=== PATIENT | male | born 1970 | race Caucasian/White ===

== ENCOUNTER 2017-08-10 12:02 | Inpatient (IN) | payer OTHER ==
[2017-08-10] VITALS (7 sets, daily range): BP systolic 130–153; BP diastolic 70–91; PULSE 91–117; RESP 17–20; TEMP 98.6–100.9; O2SAT 96–100
[~2017-08-10] VITALS: Ht 167.6 cm; Wt 71.5 kg
[2017-08-10] MEDS ORDERED: SODIUM CHLOR 0.9% 1000 ML INJ 1,000 ML IV SCH (12:17)
--- NOTE | 2017-08-10 12:22 | PD ---
HPI Chief Complaint: Skin Problem Time Seen by Provider: 12:10 Travel History International Travel<30 days: No Contact w/Intl Traveler<30days: No Traveled to known affect area: No History of Present Illness HPI 47-year-old male with history of diabetes presents for evaluation of left foot pain. Reports that 1 month ago he had a callus on the medial plantar aspect of the left foot which he picked off with this finger. He reports that there was some bleeding afterwards. Since that he is developed pain and increased redness around the left foot. Symptoms have persisted which prompted evaluation. Pain is burning, constant, worse when walking. Denies any fevers, chills at home. He reports that he moved here 3 months ago from [place], does not have a local primary care physician. Takes metformin for diabetes, reports that he checks his blood sugar about once per week and last week his blood sugar was 225. He has no other complaints at this time. PFSH Past Medical History Diabetes: Yes Social History Alcohol Use: Yes Tobacco Use: No Allergies-Medications (Allergen,Severity, Reaction): Coded Allergies: No Known Allergies (Unverified , 08/10/17) Reported Meds & Prescriptions Reported Meds & Active Scripts Active Reported Metformin (Metformin HCl) 1,000 Mg Tab 1,000 Mg PO BIDPC Review of Systems Except as stated in HPI: all other systems reviewed are Neg Physical Exam Narrative GENERAL: Well-developed well-nourished male in no acute distress SKIN: Warm and dry. There is a foul-smelling ulceration to the plantar aspect of the left foot. There is no ulceration on the dorsum of the left foot as well. There is surrounding erythema and induration of the skin. HEAD: Atraumatic. Normocephalic. EYES: Pupils equal and round. No scleral icterus. No injection or drainage. ENT: No nasal bleeding or discharge. Mucous membranes pink and moist. NECK: Trachea midline. No JVD. CARDIOVASCULAR: Regular rate and rhythm. No murmur appreciated. RESPIRATORY: No accessory muscle use. Clear to auscultation. Breath sounds equal bilaterally. GASTROINTESTINAL: Abdomen soft, non-tender, nondistended. Hepatic and splenic margins not palpable. MUSCULOSKELETAL: Skin as noted above. Patient maintains full range of motion of lower extremities. There is no lower extremity pitting edema. 2+ dorsalis pedis pulse bilaterally. NEUROLOGICAL: Awake and alert. No obvious cranial nerve deficits. Motor grossly within normal limits. Normal speech. Data Data Last Documented VS Vital Signs Date Time Temp Pulse Resp B/P (MAP) Pulse Ox O2 Delivery O2 Flow Rate FiO2 08/10/17 12:33 109 19 08/10/17 12:30 99.3 144/86 (105) 100 Room Air Orders Orders Foot, Complete ([id number]) (08/10/17 ) Sepsis Workup Initiated (08/10/17 ) Complete Blood Count With Diff (08/10/17 12:17) Comprehensive Metabolic Panel (08/10/17 12:17) Lactic Acid Sepsis Protocol (08/10/17 12:17) Blood Culture (08/10/17 12:17) Wound Culture And Gram Stain (08/10/17 12:17) Iv Access Insert/Monitor (08/10/17 12:17) Westergren Sedimentation Rate (08/10/17 12:17) C-Reactive Protein (Crp) (08/10/17 12:17) Sodium Chlor 0.9% 1000 Ml Inj (Ns 1000 M (08/10/17 12:17) Vancomycin Inj (Vancomycin Inj) (08/10/17 12:30) Piperacil-Tazo 3.375 Gm Premix (Zosyn 3. (08/10/17 12:30) Admit Order (Ed Use Only) (08/10/17 13:36) Labs Laboratory Tests Test 08/10/17 12:25 White Blood Count 10.4 TH/MM3 Red Blood Count 3.76 MIL/MM3 Hemoglobin 11.5 GM/DL Hematocrit 32.8 % Mean Corpuscular Volume 87.2 FL Mean Corpuscular Hemoglobin 30.5 PG Mean Corpuscular Hemoglobin Concent 35.0 % Red Cell Distribution Width 11.4 % Platelet Count 292 TH/MM3 Mean Platelet Volume 7.3 FL Neutrophils (%) (Auto) 72.0 % Lymphocytes (%) (Auto) 13.1 % Monocytes (%) (Auto) 10.9 % Eosinophils (%) (Auto) 3.5 % Basophils (%) (Auto) 0.5 % Neutrophils # (Auto) 7.5 TH/MM3 Lymphocytes # (Auto) 1.4 TH/MM3 Monocytes # (Auto) 1.1 TH/MM3 Eosinophils # (Auto) 0.4 TH/MM3 Basophils # (Auto) 0.1 TH/MM3 CBC Comment DIFF FINAL Differential Comment Erythrocyte Sedimentation Rate GREATER THAN 140 mm/hr Blood Urea Nitrogen 8 MG/DL Creatinine 0.91 MG/DL Random Glucose 364 MG/DL Total Protein 9.3 GM/DL Albumin 3.0 GM/DL Calcium Level 8.9 MG/DL Alkaline Phosphatase 148 U/L Aspartate Amino Transf (AST/SGOT) 36 U/L Alanine Aminotransferase (ALT/SGPT) 35 U/L Total Bilirubin 0.4 MG/DL Sodium Level 135 MEQ/L Potassium Level 3.6 MEQ/L Chloride Level 97 MEQ/L Carbon Dioxide Level 26.8 MEQ/L Anion Gap 11 MEQ/L Estimat Glomerular Filtration Rate 89 ML/MIN Lactic Acid Level 1.7 mmol/L C-Reactive Protein 15.30 MG/DL [facility] Medical Decision Making Medical Screen Exam Complete: Yes Emergency Medical Condition: Yes Medical Record Reviewed: Yes Differential Diagnosis Diabetic foot ulcer, sepsis, cellulitis, osteomyelitis Narrative Course 47-year-old male with evidence of diabetic foot ulcer and cellulitis left foot. He is tachycardic in triage and his temperature is 99.3. Plan is for lab work , blood cultures, wound culture, left foot x-ray. He will be given IV fluids, broad-spectrum antibiotics. ESR and CRP are markedly elevated. ESR is greater than 140. Glucose is 364. Plan is to admit the patient for IV antibiotics, rule out osteomyelitis. He is agreeable. Diagnosis Primary Impression: Cellulitis of left foot Additional Impression: Diabetic foot infection Admitting Information Admitting Physician Requests: Admit Jon Campbell August 10, 2017 12:22
[2017-08-10] MEDS ORDERED: VANCOMYCIN INJ 1,000 MG in SODIUM CHLOR 0.9% 250 ML INJ 250 ML IV ONE (12:30)
[2017-08-10] MEDS ORDERED: PIPERACIL-TAZO 3.375 GM PREMIX 50 ML IV ONE (12:30)
[2017-08-10 12:37] LABS: AUTOMATED NEUTROPHIL # 7.5 TH/MM3 (1.8-7.7); BASOPHIL # 0.1 TH/MM3 (0-0.2); BASOPHIL % 0.5 % (0.0-2.0); EOSINOPHIL # 0.4 TH/MM3 (0-0.4); EOSINOPHIL % 3.5 % (0.0-4.0); HEMATOCRIT 32.8 % (39.0-51.0); HEMOGLOBIN 11.5 GM/DL (13.0-17.0); LYMPH % 13.1 % (9.0-44.0); LYMPHOCYTE # 1.4 TH/MM3 (1.0-4.8); MEAN CELL VOLUME 87.2 FL (80.0-100.0); MEAN CORPUSCULAR HEMOGLOBIN 30.5 PG (27.0-34.0); MEAN PLATELET VOLUME 7.3 FL (7.0-11.0); MONO % 10.9 % (0.0-8.0); MONOCYTE # 1.1 TH/MM3 (0-0.9); PLATELET COUNT 292 TH/MM3 (150-450); RED BLOOD COUNT 3.76 MIL/MM3 (4.50-5.90); RED CELL DISTRIBUTION WIDTH 11.4 % (11.6-17.2); WHITE BLOOD COUNT 10.4 TH/MM3 (4.0-11.0)
[2017-08-10] MEDS ORDERED: METF1000 PO (12:37)
--- NOTE | 2017-08-10 12:58 | RADRPT ---
EXAM DATE/TIME: 08/10/2017 12:28 [facility] COMPARISON: No previous studies available for comparison. INDICATIONS : Left foot pain and swelling with an ulcer on dorsal surface. MEDICAL HISTORY : None. SURGICAL HISTORY : None. ENCOUNTER: Initial ACUITY: 1 month PAIN SCORE: 10/10 LOCATION: Left foot. FINDINGS: Generalized soft tissue swelling is noted throughout the left foot. Arterial vascular calcification is noted. Osseous structures are intact without evidence of fracture or destructive changes. There is no signif icant arthropathy. Focal spurring is seen along the dorsum of the talar bone. CONCLUSION: 1. Generalized soft tissue swelling without evidence of fracture, destructive bony changes or signifi cant arthropathy. 2. Arterial calcification. Olu Baker MD on August 10, 2017 at 12:55 Board Certified Radiologist. This report was verified electronically.
[2017-08-10 13:09] LABS: BLOOD UREA NITROGEN 8 MG/DL (7-18); CREATININE 0.91 MG/DL (0.60-1.30); GLOMERULAR FILTRATION RATE 89 ML/MIN (>89); GLUCOSE,RANDOM 364 MG/DL (74-106); TOTAL PROTEIN 9.3 GM/DL (6.4-8.2)
[2017-08-10 13:10] LABS: ALKALINE PHOSPHATASE 148 U/L (45-117); ALT (GPT) 35 U/L (12-78); AST (GOT) 36 U/L (15-37); BICARBONATE 26.8 MEQ/L (21.0-32.0); CALCIUM 8.9 MG/DL (8.5-10.1); CHLORIDE 97 MEQ/L (98-107); SODIUM (NA) 135 MEQ/L (136-145); TOTAL BILIRUBIN ADULT 0.4 MG/DL (0.2-1.0)
--- NOTE | 2017-08-10 13:53 | PD ---
Data Data Last Documented VS Vital Signs Date Time Temp Pulse Resp B/P (MAP) Pulse Ox O2 Delivery O2 Flow Rate FiO2 08/10/17 12:33 109 19 08/10/17 12:30 99.3 144/86 (105) 100 Room Air Orders Orders Foot, Complete ([id number]) (08/10/17 ) Sepsis Workup Initiated (08/10/17 ) Complete Blood Count With Diff (08/10/17 12:17) Comprehensive Metabolic Panel (08/10/17 12:17) Lactic Acid Sepsis Protocol (08/10/17 12:17) Blood Culture (08/10/17 12:17) Wound Culture And Gram Stain (08/10/17 12:17) Iv Access Insert/Monitor (08/10/17 12:17) Westergren Sedimentation Rate (08/10/17 12:17) C-Reactive Protein (Crp) (08/10/17 12:17) Sodium Chlor 0.9% 1000 Ml Inj (Ns 1000 M (08/10/17 12:17) Vancomycin Inj (Vancomycin Inj) (08/10/17 12:30) Piperacil-Tazo 3.375 Gm Premix (Zosyn 3. (08/10/17 12:30) Admit Order (Ed Use Only) (08/10/17 13:36) Labs Laboratory Tests Test 08/10/17 12:25 White Blood Count 10.4 TH/MM3 Red Blood Count 3.76 MIL/MM3 Hemoglobin 11.5 GM/DL Hematocrit 32.8 % Mean Corpuscular Volume 87.2 FL Mean Corpuscular Hemoglobin 30.5 PG Mean Corpuscular Hemoglobin Concent 35.0 % Red Cell Distribution Width 11.4 % Platelet Count 292 TH/MM3 Mean Platelet Volume 7.3 FL Neutrophils (%) (Auto) 72.0 % Lymphocytes (%) (Auto) 13.1 % Monocytes (%) (Auto) 10.9 % Eosinophils (%) (Auto) 3.5 % Basophils (%) (Auto) 0.5 % Neutrophils # (Auto) 7.5 TH/MM3 Lymphocytes # (Auto) 1.4 TH/MM3 Monocytes # (Auto) 1.1 TH/MM3 Eosinophils # (Auto) 0.4 TH/MM3 Basophils # (Auto) 0.1 TH/MM3 CBC Comment DIFF FINAL Differential Comment Erythrocyte Sedimentation Rate GREATER THAN 140 mm/hr Blood Urea Nitrogen 8 MG/DL Creatinine 0.91 MG/DL Random Glucose 364 MG/DL Total Protein 9.3 GM/DL Albumin 3.0 GM/DL Calcium Level 8.9 MG/DL Alkaline Phosphatase 148 U/L Aspartate Amino Transf (AST/SGOT) 36 U/L Alanine Aminotransferase (ALT/SGPT) 35 U/L Total Bilirubin 0.4 MG/DL Sodium Level 135 MEQ/L Potassium Level 3.6 MEQ/L Chloride Level 97 MEQ/L Carbon Dioxide Level 26.8 MEQ/L Anion Gap 11 MEQ/L Estimat Glomerular Filtration Rate 89 ML/MIN Lactic Acid Level 1.7 mmol/L C-Reactive Protein 15.30 MG/DL MDM Supervised Visit with ZHANE: Yes Narrative Course The history, exam, and medical decision-making in the associated mid-level provider note were completed with my assistance. I reviewed and agree with the findings presented. I attest that I had a [id number] encounter with the patient on the same day, and personally performed and documented my assessment and findings in the medical record. *My assessment and Findings: 47-year-old man, presents to the emergency department complaining of wounds to his foot. He picked a callus area developed an ulcer with now has diffuse cellulitis with an ulceration of the top and will may be a developing abscess on the dorsum of the foot. No definite fluctuant fluid collections. Inflammatory markers are elevated. Patient is a history of diabetes. Recommend admission for IV antibiotics, rule out osteomyelitis. Diagnosis Primary Impression: Cellulitis of left foot Additional Impression: Diabetic foot infection Benedicto Anguiano MD August 10, 2017 13:52
[2017-08-10] MEDS ORDERED: GLUCAGON 1 MG/ML VIAL OTHER PRN (14:15)
[2017-08-10] MEDS ORDERED: SODIUM CHLORIDE 0.9% FLUSH 10 ML FLUSH IV FLUSH PRN (14:15)
[2017-08-10] MEDS ORDERED: BISACODYL 10 MG SUPP RECTAL PRN (14:15)
[2017-08-10] MEDS ORDERED: MAGNESIUM HYDROXIDE SUSP 30 ML CUP PO PRN (14:15)
[2017-08-10] MEDS ORDERED: SENNOSIDES 8.6 MG TAB PO PRN (14:15)
[2017-08-10] MEDS ORDERED: Vancomycin Consult Pharmacy 1 EA OTHER SCH (14:15)
[2017-08-10] MEDS ORDERED: LACTULOSE SYRUP 20 GM/30 ML CUP PO PRN (14:15)
[2017-08-10] MEDS ORDERED: METOCLOPRAMIDE HCL 10 MG/2 ML VIAL IV PUSH PRN (14:15)
[2017-08-10] MEDS ORDERED: VANCOMYCIN INJ 1,000 MG in SODIUM CHLOR 0.9% 250 ML INJ 250 ML IV SCH (14:15)
[2017-08-10] MEDS ORDERED: PROCHLORPERAZINE 25 MG SUPP PR PRN (14:15)
[2017-08-10] MEDS ORDERED: DEXTROSE 50% IN WATER 50 ML VIAL(D50) IV PUSH PRN (14:15)
[2017-08-10] MEDS ORDERED: NALOXONE HCL 0.4 MG/ML AMP IV PUSH PRN (14:15)
[2017-08-10] MEDS: SODIUM CHLOR 0.9% 1000 ML INJ 1,000 ML IV SCH (15:22)
[2017-08-10] MEDS: ACETAMINOPHEN 325 MG TAB PO PRN (15:47)
--- NOTE | 2017-08-10 16:12 | PD.CONS ---
History of Present Illness Service Infectious Disease Consult Requested By Dr Simone Vidal Reason for Consult Evaluate patient for possible osteomyelitis, antibiotic recommendation Primary Care Physician No Primary Care Physician Diagnoses: History of Present Illness Patient seen and examined. Records reviewed. Patient is a 47-year-old male, with known diabetes, presented to the hospital complaining of 2 day history of redness and swelling on his left foot. Patient has a callus over his first metatarsal, and about a month ago, he picked on it. He apparently developed a sore, and it was not really giving him any problem, until 2 days prior to admission when he started developing redness and swelling on his left foot. He denies any fever chills or sweats. He did not notice any odor to it. He has no other complaints. Patient has moved to [place] about 5 months ago, and he has not established with a primary care physician. He presented to the hospital, and has been admitted. He has cellulitis on that left foot. X-ray of the foot did not show any evidence of bony destruction fracture or any foreign body. Highest temperature has been 99+. His WBC is normal, but his ESR is greater than 140, and CRP 15.30. He is currently on vancomycin and Zosyn. Infectious disease consultation has been requested to evaluate the patient for possible osteomyelitis, and make antibiotic recommendations. Review of Systems Constitutional: DENIES: Fever, Chills, Night Sweats Eyes: DENIES: Eye pain Ears, nose, mouth, throat: DENIES: Nasal discharge, Oral lesions, Throat pain, Hoarseness Respiratory: DENIES: Cough, Shortness of breath Cardiovascular: DENIES: Chest pain, Palpitations, Syncope, Dyspnea on Exertion Gastrointestinal: DENIES: Abdominal pain, Diarrhea, Nausea, Vomiting, Difficulty Swallowing Genitourinary: DENIES: Urgency, Dysuria, Nocturia Musculoskeletal: DENIES: Joint pain, Joint Swelling Integumentary: DENIES: Pruritus, Rash Hematologic/lymphatic: DENIES: Lymphadenopathy Neurologic: DENIES: Headache, Localized weakness Psychiatric: DENIES: Hallucinations Past Family Social History Allergies: Coded Allergies: No Known Allergies (Unverified , 08/10/17) Past Medical History Diabetes Past Surgical History Surgery on his right index finger related to trauma Active Ordered Medications Current Medications Medications (Trade) Dose Ordered Sig/Leigh Ann Route Start Time Stop Time Status Last Admin Piperacillin Sod/ Tazobactam Sod 100 ml @ 200 mls/hr Q6H IV 08/10/17 18:00 Pharmacy Profile Note 0 ml @ 0 mls/hr UNSCH OTHER 08/10/17 14:15 Sodium Chloride 1,000 ml @ 100 mls/hr Q10H IV 08/10/17 15:00 08/10/17 15:22 (NS Flush) 2 ml UNSCH PRN IV FLUSH 08/10/17 14:15 (NS Flush) 2 ml BID IV FLUSH 08/10/17 21:00 (Tylenol) 650 mg Q4H PRN PO 08/10/17 14:15 08/10/17 15:47 (Reglan Inj) 5 mg Q6H PRN IV PUSH 08/10/17 14:15 (Narcan Inj) 0.4 mg UNSCH PRN IV PUSH 08/10/17 14:15 (Michelle-Colace) 1 tab BID PO 08/10/17 21:00 (Milk Of Magnesia Liq) 30 ml Q12H PRN PO 08/10/17 14:15 (Senokot) 17.2 mg Q12H PRN PO 08/10/17 14:15 (Dulcolax Supp) 10 mg DAILY PRN RECTAL 08/10/17 14:15 (Lactulose Liq) 30 ml DAILY PRN PO 08/10/17 14:15 (D50w (Vial) Inj) 50 ml UNSCH PRN IV PUSH 08/10/17 14:15 (Glucagon Inj) 1 mg UNSCH PRN OTHER 08/10/17 14:15 (NovoLOG SUPPLEMENTAL SCALE) 1 ACHS SLIDING SCALE SQ 08/10/17 17:00 Vancomycin HCl 1000 mg/Sodium Chloride 250 ml @ 250 mls/hr Q12H IV 08/11/17 01:00 [place] [place] Lab Info) SPECIFIC LAB TO BE DRAWN:VANCOMYCIN TROUGH DATE TO... ONCE ONCE .XX 08/12/17 00:45 08/12/17 00:46 Family History Noncontributory Social History No smoking Occasional alcohol Denies illicit drug His 6 years ago Recently moved to [place] about 5 months ago and his 16-year-old son lives with him Physical Exam Vital Signs Vital Signs Date Time Temp Pulse Resp B/P (MAP) Pulse Ox O2 Delivery O2 Flow Rate FiO2 08/10/17 15:13 08/10/17 12:33 109 19 08/10/17 12:30 99.3 109 19 144/86 (105) 100 Room Air 08/10/17 12:05 99.2 111 19 131/70 (90) 97 Physical Exam GENERAL: Patient is a well-nourished, well-developed male, awake and alert, not in respiratory distress. SKIN: Warm and dry. No generalized rash, no ecchymoses and no evidence of embolic lesions. HEAD: Atraumatic. Normocephalic. No temporal wasting, or tenderness. EYES: [place] conjunctiva. No petechia or hemorrhage. Pupils equal, round and reactive to light. Extraocular movements full and intact. No scleral icterus. No injection or drainage. EARS, NOSE AND THROAT: Nose without bleeding or purulent nasal discharge. No sinus tenderness. Mucous membranes pink and moist. No oral lesions noted. No exudate. No oral thrush. NECK: Trachea midline. Supple and not tender, no meningeal signs CARDIOVASCULAR: Regular rate and rhythm. No murmurs, rubs or gallops heard RESPIRATORY: Clear to auscultation. Breath sounds equal bilaterally. No rales , wheezing or rhonchi ABDOMEN: Soft, non-tender, nondistended. Bowel sounds present and normoactive. No guarding. No rebound. No organomegaly. EXTREMITIES: No clubbing, cyanosis. No joint effusion, has good ROM. No calf tenderness. Well perfused and warm. L foot - swollen, warm and has redness on whole dorsum of his foot, with dry wound; has dry open wound with surrounding callus over the first MT, no odor. The redness up a little towards the ankle area. NEUROLOGICAL: Awake and alert. Cranial nerves grossly intact. Motor grossly within normal limits. PSYCHIATRIC: Normal affect, calm and cooperative. LINE: No evidence of infection Laboratory Laboratory Tests Test 08/10/17 12:25 White Blood Count 10.4 Red Blood Count 3.76 Hemoglobin 11.5 Hematocrit 32.8 Mean Corpuscular Volume 87.2 Mean Corpuscular Hemoglobin 30.5 Mean Corpuscular Hemoglobin Concent 35.0 Red Cell Distribution Width 11.4 Platelet Count 292 Mean Platelet Volume 7.3 Neutrophils (%) (Auto) 72.0 Lymphocytes (%) (Auto) 13.1 Monocytes (%) (Auto) 10.9 Eosinophils (%) (Auto) 3.5 Basophils (%) (Auto) 0.5 Neutrophils # (Auto) 7.5 Lymphocytes # (Auto) 1.4 Monocytes # (Auto) 1.1 Eosinophils # (Auto) 0.4 Basophils # (Auto) 0.1 CBC Comment DIFF FINAL Differential Comment Erythrocyte Sedimentation Rate GREATER THAN 140 Blood Urea Nitrogen 8 Creatinine 0.91 Random Glucose 364 Total Protein 9.3 Albumin 3.0 Calcium Level 8.9 Alkaline Phosphatase 148 Aspartate Amino Transf (AST/SGOT) 36 Alanine Aminotransferase (ALT/SGPT) 35 Total Bilirubin 0.4 Sodium Level 135 Potassium Level 3.6 Chloride Level 97 Carbon Dioxide Level 26.8 Anion Gap 11 Estimat Glomerular Filtration Rate 89 Lactic Acid Level 1.7 C-Reactive Protein 15.30 Date/Time Source Procedure Growth Status 08/10/17 12:30 Blood Peripheral Aerobic Blood Culture Pending Received 08/10/17 12:30 Blood Peripheral Anaerobic Blood Culture Pending Received 08/10/17 12:25 Wound Foot Gram Stain Pending Received 08/10/17 12:25 Wound Foot Wound Culture Pending Received Result Diagram: 08/10/17 1225 08/10/17 1225 Imaging RADIOLOGY STUDIES/FILMS REVIEWED Foot X-Ray 08/10/17 0000 Signed Impressions: Service Date/Time: Thursday, August 10, 2017 12:28 - CONCLUSION: 1. Generalized soft tissue swelling without evidence of fracture, destructive bony changes or significant arthropathy. 2. Arterial calcification. Olu Baker MD Assessment and Plan Assessment and Plan IMPRESSION Diabetic foot infection L foot, possible osteomyelitis 1st MTP, ?abscess Possible sepsis due to L foot infection RECOMMENDATION MRI L foot Podiatry has been consulted Follow C/S and adjust Abx Continue empiric Abx: Vancomycin and Zosyn Monitor progress I will determine course of Rx once work-up is completed i will follow along with you Thank you for this consultation Verona Guthrie MD August 10, 2017 16:12
--- NOTE | 2017-08-10 16:14 | HHI.HP ---
HPI Service [facility] Primary Care Physician No Primary Care Physician Admission Diagnosis Cellulitis, diabetic foot infection Diagnoses: Chief Complaint: left foot pain Travel History International Travel<30 Days: No Contact w/Intl Traveler <30 Da: No Traveled to Known Affected Are: No History of Present Illness Pleasant 47-year-old man, with a history of says he is compliant with medications follow-up, presents to the emergency department complaining of wounds to his foot. He picked a callus area developed an ulcer with now has diffuse cellulitis with an ulceration of the top and will may be a developing abscess on the dorsum of the foot. No definite fluctuant fluid collections. Inflammatory markers are elevated. Patient is a history of diabetes. Patient says he did not have any fevers, however he is noted with a temperature of 100.9 today. Says he does not have a podiatry Dr. Denies nausea vomiting no diarrhea or constipation. No chest pain or shortness of breath. Denies tachycardia. The patient is admitted for IV antibiotics, rule out osteomyelitis, consult ID and podiatry specialist. Review of Systems Except as stated in HPI: all other systems reviewed are Neg Past Family Social History Past Medical History Diabetes mellitus Past Surgical History Right fourth finger surgery Reported Medications Reported Meds & Active Scripts Active Reported Metformin (Metformin HCl) 1,000 Mg Tab 1,000 Mg PO BIDPC Allergies: Coded Allergies: No Known Allergies (Unverified , 08/10/17) Family History Mother with diabetes Social History Denies tobacco use or illicit drug use. Occasional alcohol use. Physical Exam Vital Signs Vital Signs Date Time Temp Pulse Resp B/P (MAP) Pulse Ox O2 Delivery O2 Flow Rate FiO2 08/10/17 15:13 08/10/17 12:33 109 19 08/10/17 12:30 99.3 109 19 144/86 (105) 100 Room Air 08/10/17 12:05 99.2 111 19 131/70 (90) 97 Physical Exam GENERAL: This is a well-nourished, well-developed patient, in no apparent distress. SKIN: Foul-smelling ulceration to the plantar aspect of the left foot. There is also a small ulceration on the dorsum of the left foot as well. There is surrounding erythema and induration of the skin on the dorsum of left foot. No fluctuation. HEAD: Atraumatic. Normocephalic. No temporal or scalp tenderness. EYES: Pupils equal round and reactive. Extraocular motions intact. No scleral icterus. No injection or drainage. ENT: Nose without bleeding, purulent drainage or septal hematoma. Throat without erythema, tonsillar hypertrophy or exudate. Uvula midline. Airway patent. NECK: Trachea midline. No JVD or lymphadenopathy. Supple, nontender, no meningeal signs. CARDIOVASCULAR: Regular rate and rhythm without murmurs, gallops, or rubs. RESPIRATORY: Clear to auscultation. Breath sounds equal bilaterally. No wheezes , rales, or rhonchi. GASTROINTESTINAL: Abdomen soft, non-tender, nondistended. No hepato-splenomegaly , or palpable masses. No guarding. MUSCULOSKELETAL: Extremities without clubbing, cyanosis, or edema. No joint tenderness, effusion, or edema noted. No calf tenderness. Negative Homans sign bilaterally. NEUROLOGICAL: Awake and alert. Cranial nerves II through XII intact. Motor and sensory grossly within normal limits. Five out of 5 muscle strength in all muscle groups. Normal speech. Laboratory Laboratory Tests Test 08/10/17 12:25 White Blood Count 10.4 Red Blood Count 3.76 Hemoglobin 11.5 Hematocrit 32.8 Mean Corpuscular Volume 87.2 Mean Corpuscular Hemoglobin 30.5 Mean Corpuscular Hemoglobin Concent 35.0 Red Cell Distribution Width 11.4 Platelet Count 292 Mean Platelet Volume 7.3 Neutrophils (%) (Auto) 72.0 Lymphocytes (%) (Auto) 13.1 Monocytes (%) (Auto) 10.9 Eosinophils (%) (Auto) 3.5 Basophils (%) (Auto) 0.5 Neutrophils # (Auto) 7.5 Lymphocytes # (Auto) 1.4 Monocytes # (Auto) 1.1 Eosinophils # (Auto) 0.4 Basophils # (Auto) 0.1 CBC Comment DIFF FINAL Differential Comment Erythrocyte Sedimentation Rate GREATER THAN 140 Blood Urea Nitrogen 8 Creatinine 0.91 Random Glucose 364 Total Protein 9.3 Albumin 3.0 Calcium Level 8.9 Alkaline Phosphatase 148 Aspartate Amino Transf (AST/SGOT) 36 Alanine Aminotransferase (ALT/SGPT) 35 Total Bilirubin 0.4 Sodium Level 135 Potassium Level 3.6 Chloride Level 97 Carbon Dioxide Level 26.8 Anion Gap 11 Estimat Glomerular Filtration Rate 89 Lactic Acid Level 1.7 C-Reactive Protein 15.30 Date/Time Source Procedure Growth Status 08/10/17 12:30 Blood Peripheral Aerobic Blood Culture Pending Received 08/10/17 12:30 Blood Peripheral Anaerobic Blood Culture Pending Received 08/10/17 12:25 Wound Foot Gram Stain Pending Received 08/10/17 12:25 Wound Foot Wound Culture Pending Received Result Diagram: 08/10/17 1225 08/10/17 1225 Imaging Last Impressions Foot X-Ray 08/10/17 0000 Signed Impressions: Service Date/Time: Thursday, August 10, 2017 12:28 - CONCLUSION: 1. Generalized soft tissue swelling without evidence of fracture, destructive bony changes or significant arthropathy. 2. Arterial calcification. MD Johnnie Powell VTE Risk Assessment Caprini VTE Risk Assessment: Mod/High Risk (score >= 2) Caprini Risk Assessment Model Point Value = 1 Point Value = 2 Point Value = 3 Point Value = 5 Age 41-60 Minor surgery BMI > 25 kg/m2 Swollen legs Varicose veins or History of unexplained or recurrent spontaneous Oral contraceptives or hormone replacement Sepsis (< 1 month) Serious lung disease, including pneumonia (< 1 month) Abnormal pulmonary function Acute myocardial infarction Congestive heart failure (< 1 month) History of inflammatory bowel disease Medical patient at bed rest Age 61-74 Arthroscopic surgery Major open surgery (> 45 min) Laparoscopic surgery (> 45 min) Malignancy Confined to bed (> 72 hours) Immobilizing plaster cast Central venous access Age >= 75 History of VTE Family history of VTE Factor V Leiden Prothrombin [id number] Lupus anticoagulant Anticardiolipin antibodies Elevated serum homocysteine Heparin-induced thrombocytopenia Other congenital or acquired thrombophilia Stroke (< 1 month) Elective arthroplasty Hip, pelvis, or leg fracture Acute spinal cord injury (< 1 month) Prophylaxis Regimen Total Risk Factor Score Risk Level Prophylaxis Regimen 0-1 Low Early ambulation 2 Moderate Order ONE of the following: *Sequential Compression Device (SCD) *Heparin 5000 units SQ BID 3-4 Higher Order ONE of the following medications: *Heparin 5000 units SQ TID *Enoxaparin/Lovenox 40 mg SQ daily (WT < 150 kg, CrCl > 30 mL/min) *Enoxaparin/Lovenox 30 mg SQ daily (WT < 150 kg, CrCl > 10-29 mL/min) *Enoxaparin/Lovenox 30 mg SQ BID (WT < 150 kg, CrCl > 30 mL/min) AND/OR *Sequential Compression Device (SCD) 5 or more Highest Order ONE of the following medications: *Heparin 5000 units SQ TID (Preferred with Epidurals) *Enoxaparin/Lovenox 40 mg SQ daily (WT < 150 kg, CrCl > 30 mL/min) *Enoxaparin/Lovenox 30 mg SQ daily (WT < 150 kg, CrCl > 10-29 mL/min) *Enoxaparin/Lovenox 30 mg SQ BID (WT < 150 kg, CrCl > 30 mL/min) AND *Sequential Compression Device (SCD) Assessment and Plan Assessment and Plan Very pleasant 47-year-old male with: Diabetic wound left foot, patient has chronic left foot wound/there is ulceration on the plantar aspect of the left foot and also on the dorsal aspect of the left foot with cellulitis Cellulitis left foot r/o osteomyelitis. Patient with elevated ESR on admission Diabetes mellitus 2 Wound cultures, blood cultures are pending X ray foot reviewed as above Started vancomycin IV and Zosyn IV. Consult pharmacy Consult infectious disease for recommendations is most likely patient with osteomyelitis Consult podiatry doctor for evaluation Sliding-scale, Accu-Cheks. Monitor blood sugar and adjust as needed. Check A1c. DVT prophylaxis SCDs/teds/Lovenox Discussed Condition With Patient, nurse, ED PA/physician, Dr. Mendoza [employer] Physician Certification 2 Midnight Certification Type: Admission for Inpatient Services Order for Inpatient Services The services are ordered in accordance with Medicare regulations or non- Medicare payer requirements, as applicable. In the case of services not specified as inpatient-only, they are appropriately provided as inpatient services in accordance with the 2-midnight benchmark. Estimated LOS (days): 3 days is the estimated time the patient will need to remain in the hospital, assuming treatment plan goals are met and no additional complications. Post-Hospital Plan: Home Kimi Vidal MD August 10, 2017 16:14
[2017-08-10] MEDS: PIPERACIL-TAZO 4.5 GM PREMIX 100 ML IV SCH ×2 (16:53→23:47)
[2017-08-10] MEDS: INSULIN ASPART SUPPLEMENTAL SCALE SQ SCH ×2 (16:53→19:37)
[2017-08-10 17:19] LABS: HEMOGLOBIN A1C 8.5 % (4.3-6.0)
--- NOTE | 2017-08-10 18:08 | MB ---
cc: Luis Felipe Mendoza DPM DATE: 08/10/2017 REASON FOR CONSULTATION: Diabetic foot infection, left. HISTORY OF PRESENT ILLNESS: This is a 47-year-old diabetic male, over the last 2 days noticed significant increase in pain and redness of the left foot. It apparently escalated after picking an area on his foot that was a callus and developed an ulcer. The patient was admitted for possible concern of abscess versus osteomyelitis. Currently, I am seeing the patient bedside. There appears to be a mild language barrier, but the patient says he understands very well what I am telling him. He does admit that when he walks, he gets calf cramping. 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 PAST MEDICAL HISTORY: Diabetes. It appears he takes metformin, but has no primary care physician. He is unsure if his blood sugars are well controlled. ALLERGIES: NO KNOWN DRUG ALLERGIES. INPATIENT MEDICATIONS: Reviewed and verified. Vancomycin and Zosyn at this point. Please see complete med list in chart. PHYSICAL EXAMINATION: GENERAL: This is an alert and oriented, [place] understanding and some speaking, fluent Hebrew-speaking, 67 kilogram male. VITAL SIGNS: Temperature is 99.3, pulse rate 109, respiratory rate 19. He is sating 100% on room air. This is an alert and oriented gentleman, seen bedside, exhibiting nonlabored respirations. He is verbal, appropriate. Bilateral lower extremities examined. Right lower extremity is free from any obvious abscess, cellulitis. Left lower extremity, there is a mainly fibrotic eschar of the plantar aspect of the first MPJ. There is obvious redness, erythema, edema, and swelling that courses up to the top of the foot and just below the ankle. There is a definite warmth upon comparing the temperature of the left foot compared to the right. There is no crepitus or instability. No obvious odor. There is a slight superficial abrasion of the dorsal aspect of the mid foot. Pedal pulses are hard to palpate. Sensation is significantly decreased to light touch. Bedside Doppler, I have difficulty getting the posterior tibial artery; however, the dorsalis pedis is easily heard. LABORATORY FINDINGS: White blood cell 10.4, hemoglobin and hematocrit 11 and 32, platelet count is 292. ESR is greater than 140. Chem-7: Sodium 135, potassium 3.6, chloride 97, CO2 of 26.8, BUN is 8, creatinine 0.9, estimated GFR 89. Random glucose 364. Hemoglobin A1c 8.5. IMAGING FINDINGS: Foot x-ray: Generalized soft tissue swelling without bony erosive findings. ASSESSMENT AND PLAN: Left diabetic foot ulcer infection, Charcot with possible early peripheral vascular disease. My recommendation is segmental arterial Doppler with TBI, MRI with and without contrast of the left foot. I will continue to advise further pending the results. He may need operative debridement with biopsy. RACHELLE Peck/RYLEY , 05:48 PM , 06:07 PM
[2017-08-10] MEDS: SODIUM CHLORIDE 0.9% FLUSH 10 ML FLUSH IV FLUSH SCH (19:33)
[2017-08-10] MEDS: DOCUSATE SODIUM 50 MG/SENNA 8.6 MG TAB PO SCH (19:34)
[2017-08-11] VITALS (8 sets, daily range): BP systolic 127–169; BP diastolic 71–103; PULSE 89–105; RESP 17–18; TEMP 98.6–99.5; O2SAT 93–98
[2017-08-11] MEDS: SODIUM CHLOR 0.9% 1000 ML INJ 1,000 ML IV SCH ×3 (01:01→17:28)
[2017-08-11] MEDS: VANCOMYCIN 1,000 MG/NS 250 ML IV SCH ×4 (01:02→12:57)
[2017-08-11] MEDS: PIPERACIL-TAZO 4.5 GM PREMIX 100 ML IV SCH ×3 (04:50→17:19)
[2017-08-11] MEDS: SODIUM CHLORIDE 0.9% FLUSH 10 ML FLUSH IV FLUSH SCH ×2 (08:33→19:22)
[2017-08-11 08:34] LABS: AUTOMATED NEUTROPHIL # 6.6 TH/MM3 (1.8-7.7); BASOPHIL # 0.2 TH/MM3 (0-0.2); BASOPHIL % 1.8 % (0.0-2.0); EOSINOPHIL # 0.6 TH/MM3 (0-0.4); EOSINOPHIL % 6.4 % (0.0-4.0); HEMATOCRIT 30.2 % (39.0-51.0); HEMOGLOBIN 10.6 GM/DL (13.0-17.0); LYMPHOCYTE # 1.2 TH/MM3 (1.0-4.8); MEAN CELL VOLUME 87.2 FL (80.0-100.0); MEAN CORPUSCULAR HEMOGLOBIN 30.6 PG (27.0-34.0); MEAN CORPUSCULAR HGB CONC 35.1 % (32.0-36.0); MEAN PLATELET VOLUME 7.4 FL (7.0-11.0); MONO % 8.4 % (0.0-8.0); MONOCYTE # 0.8 TH/MM3 (0-0.9); NEUT % 70.4 % (16.0-70.0); PLATELET COUNT 263 TH/MM3 (150-450); RED BLOOD COUNT 3.47 MIL/MM3 (4.50-5.90); RED CELL DISTRIBUTION WIDTH 11.5 % (11.6-17.2); WHITE BLOOD COUNT 9.3 TH/MM3 (4.0-11.0)
[2017-08-11] MEDS ORDERED: GADODIAMIDE PF 287 MG/ML 5 ML VIAL (for RAD MRI) IVCONTRAST ONE (08:36)
--- NOTE | 2017-08-11 08:55 | RADRPT ---
EXAM DATE/TIME: 08/11/2017 07:56 [facility] COMPARISON: FOOT LEFT COMPLETE ([id number]), August 10, 2017, 12:28. INDICATIONS : Abscess. Charcot. CONTRAST: 13 cc Omniscan (gadodiamide) IV MEDICAL HISTORY : Diabetes mellitus type 2. SURGICAL HISTORY : Right finger surgery. ENCOUNTER: Subsequent ACUITY: 2 day PAIN SCORE: 0/10 LOCATION: Right foot. TECHNIQUE: Multiplanar, multisequence MRI examination was performed without contrast and after the intravenous a dministration of gadolinium. FINDINGS: BONE/CARTILAGE: There is a linear area of increased signal through the body of the first cuneiform. The findings sugg est a nondisplaced stress fracture through the body of the first cuneiform. There is some focal bone marrow edema along the lateral aspect of the cuboid bone. This is suggestive of some focal bone bruis ing. The rest of the bony structures demonstrate normal signal. There is good alignment of the bony s tructures. There are some mild primary degenerative changes of the foot.. TENDONS: The tendons appear to be grossly intact. MISCELLANEOUS: There is nonspecific diffuse edema throughout the soft tissues surrounding the midfoot. No loculated fluid collection is seen to suggest a focal abscess. POST-CONTRAST: There are no abnormal areas of enhancement on the post-contrast images. CONCLUSION: 1. There are findings characteristic for a linear nondisplaced stress fracture through the body of th e first cuneiform bone. 2. There appears to be some focal bone bruising along the lateral aspect of the cuboid bone. 3. Diffuse nonspecific soft tissue swelling and edema throughout the soft tissues of the midfoot. 4. Mild degenerative changes characteristic for patient's age.. Frank Zepeda MD on August 11, 2017 at 8:43 Board Certified Radiologist. This report was verified electronically.
[2017-08-11] MEDS ORDERED: INFLUENZA VIRUS VACCINE (QUADRIVALENT) 0.5 ML SYR IM ONE (09:00)
[2017-08-11 09:02] LABS: BICARBONATE 25.5 MEQ/L (21.0-32.0); CALCIUM 8.5 MG/DL (8.5-10.1); CREATININE 0.61 MG/DL (0.60-1.30)
[2017-08-11] MEDS: DOCUSATE SODIUM 50 MG/SENNA 8.6 MG TAB PO SCH ×2 (09:45→19:24)
[2017-08-11] MEDS: INSULIN ASPART SUPPLEMENTAL SCALE SQ SCH ×4 (09:58→19:26)
--- NOTE | 2017-08-11 10:26 | HHI.PR ---
Subjective Remarks Follow-up left foot wound, diabetes. The patient has no complaints at this time. Denies chest pain, dyspnea, nausea, vomiting. The left foot is not painful. Objective Vitals Vital Signs Date Time Temp Pulse Resp B/P (MAP) Pulse Ox O2 Delivery O2 Flow Rate FiO2 08/11/17 08:38 21 08/11/17 08:00 98.6 95 18 161/95 (117) 98 08/11/17 04:00 98.6 89 17 127/71 (89) 98 08/11/17 00:00 98.6 91 17 130/80 (97) 96 08/10/17 23:54 97 08/10/17 20:00 99.7 100 17 141/83 (102) 96 08/10/17 19:43 98 08/10/17 16:00 100.9 117 20 153/91 (111) 97 08/10/17 15:13 08/10/17 12:33 109 19 08/10/17 12:30 99.3 109 19 144/86 (105) 100 Room Air 08/10/17 12:05 99.2 111 19 131/70 (90) 97 I/O 08/10/17 08/10/17 08/10/17 08/11/17 08/11/17 08/11/17 07:00 15:00 23:00 07:00 15:00 23:00 Intake Total 1300 ml 580 ml 1690 ml Balance 1300 ml 580 ml 1690 ml Intake Oral 480 ml 240 ml IV Total 1300 ml 100 ml 1450 ml # Voids 2 Result Diagram: 08/11/17 0559 08/11/17 0559 Imaging Last Impressions Foot MRI 08/11/17 0000 Signed Impressions: Service Date/Time: July 07:56 - CONCLUSION: 1. There are findings characteristic for a linear nondisplaced stress fracture through the body of the first cuneiform bone. 2. There appears to be some focal bone bruising along the lateral aspect of the cuboid bone. 3. Diffuse nonspecific soft tissue swelling and edema throughout the soft tissues of the midfoot. 4. Mild degenerative changes characteristic for patient's age.. Frank Zepeda MD Foot X-Ray 08/10/17 0000 Signed Impressions: Service Date/Time: Thursday, August 10, 2017 12:28 - CONCLUSION: 1. Generalized soft tissue swelling without evidence of fracture, destructive bony changes or significant arthropathy. 2. Arterial calcification. Olu Baker MD Objective Remarks General: No acute distress. Heart: Regular rate and rhythm. No murmur. Lungs: Clear to auscultation bilaterally. No wheezes, rales, or rhonchi. Breathing is nonlabored. Abdomen: Soft, nontender, nondistended. Extremities: No lower extremity edema. Left foot bandaged. Psych: Alert and oriented. Neuro: Normal speech. No focal deficits noted. Procedures None Urinary Catheter: No Vascular Central Line Catheter: No A/P Assessment and Plan 1. Diabetic foot wound, left foot: Patient has a chronic left foot wound on the plantar aspect of the left foot and a wound on the dorsal aspect of the left foot. Continue antibiotics. Appreciate podiatry recommendations. MRI shows possible stress fracture. Wound culture and blood cultures are pending. Appreciate infectious disease recommendations. CRP and sed rate are elevated. 2. Diabetes mellitus: Monitor Accu-Cheks and cover with sliding scale insulin. Hemoglobin A1c is 8.5. Metformin on hold. 3. DVT prophylaxis: KENN Gee. Ruperto Soni MD August 11, 2017 10:25
--- NOTE | 2017-08-11 10:36 | RADRPT ---
EXAM DATE/TIME: 08/10/2017 00:00 [facility] COMPARISON: No previous studies available for comparison. INDICATIONS : Left diabetic foot ulcer TECHNIQUE: Five-station segmental examination of the lower extremities was performed. Pulsed-cuff waveform tracings and pressures were recorded. Ankle-brachial indices and toe-brachial indices were calculated. PRESSURES (mmHg): Brachial (arm): Right IV SITE Left 123 Lower Thigh: Right 183 Left 169 Calf: Right 183 Left 160 Ankle: Right CNO>223 Left 100 Toe: Right 107 Left 73 JAY: Right CNO Left 0.81 TBI: Right 0.87 Left 0.59 PULSED CUFF WAVEFORMS: Demonstrate normal amplitude bilaterally. CONCLUSION: 1. Right leg: The exam demonstrates a significantly elevated JAY on the right suggesting densely calc ified non-compressible vessels as such, JAY is likely an accurate. The TBI on the right is in the upp er range of normal. 2. Left leg: Moderately diminished JAY with TBI in the normal limits. 3. CT angiography could be performed for more definitive assessment. Kuldeep Reyez MD on August 11, 2017 at 10:31 Board Certified Radiologist. This report was verified electronically.
--- NOTE | 2017-08-11 12:12 | HHI.IDPN ---
Subjective Subjective Remarks Patient is a 47-year-old male, with known diabetes, presented to the hospital complaining of 2 day history of redness and swelling on his left foot. Patient has a callus over his first metatarsal, and about a month ago, he picked on it. He apparently developed a sore, and it was not really giving him any problem, until 2 days prior to admission when he started developing redness and swelling on his left foot. He denies any fever chills or sweats. He did not notice any odor to it. He has no other complaints. Patient has moved to [place] about 5 months ago, and he has not established with a primary care physician. He presented to the hospital, and has been admitted. He has cellulitis on that left foot. X-ray of the foot did not show any evidence of bony destruction fracture or any foreign body. Highest temperature has been 99+. His WBC is normal, but his ESR is greater than 140, and CRP 15.30. He is currently on vancomycin and Zosyn. Infectious disease consultation has been requested to evaluate the patient for possible osteomyelitis, and make antibiotic recommendations. Notes reviewed Temps better Pain better Foot MRI report noted Antibiotics Vancomycin Zosyn Current Medications Medications (Trade) Dose Ordered Sig/Leigh Ann Route Start Time Stop Time Status Last Admin Piperacillin Sod/ Tazobactam Sod 100 ml @ 200 mls/hr Q6H IV 08/10/17 18:00 08/11/17 09:45 Pharmacy Profile Note 0 ml @ 0 mls/hr UNSCH OTHER 08/10/17 14:15 Sodium Chloride 1,000 ml @ 100 mls/hr Q10H IV 08/10/17 15:00 08/11/17 01:01 (NS Flush) 2 ml UNSCH PRN IV FLUSH 08/10/17 14:15 (NS Flush) 2 ml BID IV FLUSH 08/10/17 21:00 (Tylenol) 650 mg Q4H PRN PO 08/10/17 14:15 08/10/17 15:47 (Reglan Inj) 5 mg Q6H PRN IV PUSH 08/10/17 14:15 (Narcan Inj) 0.4 mg UNSCH PRN IV PUSH 08/10/17 14:15 (Michelle-Colace) 1 tab BID PO 08/10/17 21:00 5/17/18 09:45 (Milk Of Magnesia Liq) 30 ml Q12H PRN PO 08/10/17 14:15 (Senokot) 17.2 mg Q12H PRN PO 08/10/17 14:15 (Dulcolax Supp) 10 mg DAILY PRN RECTAL 08/10/17 14:15 (Lactulose Liq) 30 ml DAILY PRN PO 08/10/17 14:15 (D50w (Vial) Inj) 50 ml UNSCH PRN IV PUSH 08/10/17 14:15 (Glucagon Inj) 1 mg UNSCH PRN OTHER 08/10/17 14:15 (NovoLOG SUPPLEMENTAL SCALE) 1 ACHS SLIDING SCALE SQ 08/10/17 17:00 08/11/17 09:58 Vancomycin HCl 1000 mg/Sodium Chloride 250 ml @ 250 mls/hr Q12H IV 08/11/17 01:00 08/11/17 01:02 ([facility] [place] [facility] Ordered Lab Info) SPECIFIC LAB TO BE DRAWN:VANCOMYCIN TROUGH DATE TO... ONCE ONCE .XX 08/12/17 00:45 08/12/17 00:46 Lines PIV no evidence of infection Past Medical History Diabetes Past Surgical History Surgery on his right index finger related to trauma Allergies: Coded Allergies: No Known Allergies (Unverified , 08/10/17) Objective . Vital Signs Date Time Temp Pulse Resp B/P (MAP) Pulse Ox O2 Delivery O2 Flow Rate FiO2 08/11/17 09:00 105 08/11/17 08:38 21 08/11/17 08:00 98.6 95 18 161/95 (117) 98 08/11/17 04:00 98.6 89 17 127/71 (89) 98 08/11/17 00:00 98.6 91 17 130/80 (97) 96 08/10/17 23:54 97 08/10/17 20:00 99.7 100 17 141/83 (102) 96 08/10/17 19:43 98 08/10/17 16:00 100.9 117 20 153/91 (111) 97 08/10/17 15:13 08/10/17 12:33 109 19 08/10/17 12:30 99.3 109 19 144/86 (105) 100 Room Air . Laboratory Tests Test 08/10/17 12:25 08/11/17 05:59 White Blood Count 10.4 TH/MM3 9.3 TH/MM3 Red Blood Count 3.76 MIL/MM3 3.47 MIL/MM3 Hemoglobin 11.5 GM/DL 10.6 GM/DL Hematocrit 32.8 % 30.2 % Mean Corpuscular Volume 87.2 FL 87.2 FL Mean Corpuscular Hemoglobin 30.5 PG 30.6 PG Mean Corpuscular Hemoglobin Concent 35.0 % 35.1 % Red Cell Distribution Width 11.4 % 11.5 % Platelet Count 292 TH/MM3 263 TH/MM3 Mean Platelet Volume 7.3 FL 7.4 FL Neutrophils (%) (Auto) 72.0 % 70.4 % Lymphocytes (%) (Auto) 13.1 % 13.0 % Monocytes (%) (Auto) 10.9 % 8.4 % Eosinophils (%) (Auto) 3.5 % 6.4 % Basophils (%) (Auto) 0.5 % 1.8 % Neutrophils # (Auto) 7.5 TH/MM3 6.6 TH/MM3 Lymphocytes # (Auto) 1.4 TH/MM3 1.2 TH/MM3 Monocytes # (Auto) 1.1 TH/MM3 0.8 TH/MM3 Eosinophils # (Auto) 0.4 TH/MM3 0.6 TH/MM3 Basophils # (Auto) 0.1 TH/MM3 0.2 TH/MM3 CBC Comment DIFF FINAL DIFF FINAL Differential Comment Erythrocyte Sedimentation Rate GREATER THAN 140 mm/hr Laboratory Tests Test 08/10/17 12:25 08/11/17 05:59 Blood Urea Nitrogen 8 MG/DL 6 MG/DL Creatinine 0.91 MG/DL 0.61 MG/DL Random Glucose 364 MG/DL 165 MG/DL Total Protein 9.3 GM/DL Albumin 3.0 GM/DL Calcium Level 8.9 MG/DL 8.5 MG/DL Alkaline Phosphatase 148 U/L Aspartate Amino Transf (AST/SGOT) 36 U/L Alanine Aminotransferase (ALT/SGPT) 35 U/L Total Bilirubin 0.4 MG/DL Sodium Level 135 MEQ/L 138 MEQ/L Potassium Level 3.6 MEQ/L 3.6 MEQ/L Chloride Level 97 MEQ/L 101 MEQ/L Carbon Dioxide Level 26.8 MEQ/L 25.5 MEQ/L Anion Gap 11 MEQ/L 12 MEQ/L Estimat Glomerular Filtration Rate 89 ML/MIN 142 ML/MIN Hemoglobin A1c 8.5 % Lactic Acid Level 1.7 mmol/L C-Reactive Protein 15.30 MG/DL Microbiology Date/Time Source Procedure Growth Status 08/10/17 12:30 Blood Peripheral Aerobic Blood Culture - Preliminary NO GROWTH IN 1 DAY Resulted 08/10/17 12:30 Blood Peripheral Anaerobic Blood Culture - Preliminary NO GROWTH IN 1 DAY Resulted 08/10/17 12:25 Blood Peripheral Aerobic Blood Culture - Preliminary NO GROWTH IN 1 DAY Resulted 08/10/17 12:25 Blood Peripheral Anaerobic Blood Culture - Preliminary NO GROWTH IN 1 DAY Resulted 08/10/17 12:25 Wound Foot Gram Stain - Final Resulted 08/10/17 12:25 Wound Foot Wound Culture Pending Resulted Imaging Last Impressions Foot MRI 08/11/17 0000 Signed Impressions: Service Date/Time: July 07:56 - CONCLUSION: 1. There are findings characteristic for a linear nondisplaced stress fracture through the body of the first cuneiform bone. 2. There appears to be some focal bone bruising along the lateral aspect of the cuboid bone. 3. Diffuse nonspecific soft tissue swelling and edema throughout the soft tissues of the midfoot. 4. Mild degenerative changes characteristic for patient's age.. Frank Zepeda MD Foot X-Ray 08/10/17 0000 Signed Impressions: Service Date/Time: Thursday, August 10, 2017 12:28 - CONCLUSION: 1. Generalized soft tissue swelling without evidence of fracture, destructive bony changes or significant arthropathy. 2. Arterial calcification. Olu Baker MD Physical Exam GENERAL: Patient is a well-nourished, well-developed male, awake and alert, NAD SKIN: Warm and dry. No generalized rash, no ecchymoses and no evidence of embolic lesions. HEAD: Atraumatic. Normocephalic. No temporal wasting, or tenderness. EYES: [place] conjunctiva. No petechia or hemorrhage. Pupils equal, round and reactive to light. Extraocular movements full and intact. No scleral icterus. No injection or drainage. EARS, NOSE AND THROAT: Nose without bleeding or purulent nasal discharge. No sinus tenderness. Mucous membranes pink and moist. No oral lesions noted. No exudate. No oral thrush. NECK: Trachea midline. Supple and not tender, no meningeal signs CARDIOVASCULAR: Regular rate and rhythm. No murmurs, rubs or gallops heard RESPIRATORY: Clear to auscultation. Breath sounds equal bilaterally. No rales , wheezing or rhonchi ABDOMEN: Soft, non-tender, nondistended. Bowel sounds present and normoactive. No guarding. No rebound. No organomegaly. EXTREMITIES: No clubbing, cyanosis. No joint effusion, has good ROM. No calf tenderness. Well perfused and warm. L foot - swollen, warm and has redness on whole dorsum of his foot, with dry wound; has open wound with surrounding callus over the first MT, with bloody and purulent drainage not a lot, no odor. NEUROLOGICAL: Grossly non-focal PSYCHIATRIC: Normal affect, calm and cooperative. LINE: No evidence of infection Assessment & Plan Remarks IMPRESSION Diabetic foot infection L foot, possible osteomyelitis 1st MTP, ?abscess - MRI with some fracture seen Cellulitis LLE Possible sepsis due to L foot infection RECOMMENDATION Podiatry following Follow C/S and adjust Abx Continue empiric Abx: Vancomycin and Zosyn Monitor progress I will determine course of Rx once work-up is completed Verona Guthrie MD August 11, 2017 12:12
--- NOTE | 2017-08-11 19:50 | PD.POD ---
Subjective Pain score: 1 Remarks Some improvement decreased swelling of the left foot no events overnight Past Med/Surg/Social History Social History Smoking Status: Never Smoker Objective Vital Signs Vital Signs Date Time Temp Pulse Resp B/P (MAP) Pulse Ox O2 Delivery O2 Flow Rate FiO2 08/11/17 18:30 21 08/11/17 16:00 99.5 94 18 131/76 (94) 95 08/11/17 12:00 99.2 101 17 169/103 (125) 93 08/11/17 09:00 105 08/11/17 08:38 21 08/11/17 08:00 98.6 95 18 161/95 (117) 98 08/11/17 04:00 98.6 89 17 127/71 (89) 98 08/11/17 00:00 98.6 91 17 130/80 (97) 96 08/10/17 23:54 97 08/10/17 20:00 99.7 100 17 141/83 (102) 96 Coded Allergies: No Known Allergies (Unverified , 08/10/17) Medications and IVs Administered Medications Medications (Trade) Dose Ordered Sig/Leigh Ann Route PRN Reason Start Time Stop Time Status Last Admin Dose Admin Piperacillin Sod/ Tazobactam Sod 100 ml @ 200 mls/hr Q6H IV 08/10/17 18:00 08/11/17 17:19 Sodium Chloride 1,000 ml @ 100 mls/hr Q10H IV 08/10/17 15:00 08/11/17 17:28 Acetaminophen (Tylenol) 650 mg Q4H PRN PO TEMP > 100.4 08/10/17 14:15 08/10/17 15:47 Senna/Docusate Sodium (Michelle-Colace) 1 tab BID PO 08/10/17 21:00 08/11/17 19:24 Insulin Aspart (NovoLOG SUPPLEMENTAL SCALE) 1 ACHS SLIDING SCALE SQ 08/10/17 17:00 08/11/17 19:26 Vancomycin HCl 1000 mg/Sodium Chloride 250 ml @ 250 mls/hr Q12H IV 08/11/17 01:00 08/11/17 12:57 Other Results Laboratory Tests Test 08/10/17 12:25 08/11/17 05:59 White Blood Count 10.4 TH/MM3 9.3 TH/MM3 Red Blood Count 3.76 MIL/MM3 3.47 MIL/MM3 Hemoglobin 11.5 GM/DL 10.6 GM/DL Hematocrit 32.8 % 30.2 % Mean Corpuscular Volume 87.2 FL 87.2 FL Mean Corpuscular Hemoglobin 30.5 PG 30.6 PG Mean Corpuscular Hemoglobin Concent 35.0 % 35.1 % Red Cell Distribution Width 11.4 % 11.5 % Platelet Count 292 TH/MM3 263 TH/MM3 Mean Platelet Volume 7.3 FL 7.4 FL Neutrophils (%) (Auto) 72.0 % 70.4 % Lymphocytes (%) (Auto) 13.1 % 13.0 % Monocytes (%) (Auto) 10.9 % 8.4 % Eosinophils (%) (Auto) 3.5 % 6.4 % Basophils (%) (Auto) 0.5 % 1.8 % Neutrophils # (Auto) 7.5 TH/MM3 6.6 TH/MM3 Lymphocytes # (Auto) 1.4 TH/MM3 1.2 TH/MM3 Monocytes # (Auto) 1.1 TH/MM3 0.8 TH/MM3 Eosinophils # (Auto) 0.4 TH/MM3 0.6 TH/MM3 Basophils # (Auto) 0.1 TH/MM3 0.2 TH/MM3 CBC Comment DIFF FINAL DIFF FINAL Differential Comment Erythrocyte Sedimentation Rate GREATER THAN 140 mm/hr Laboratory Tests Test 08/10/17 12:25 08/11/17 05:59 Blood Urea Nitrogen 8 MG/DL 6 MG/DL Creatinine 0.91 MG/DL 0.61 MG/DL Random Glucose 364 MG/DL 165 MG/DL Total Protein 9.3 GM/DL Albumin 3.0 GM/DL Calcium Level 8.9 MG/DL 8.5 MG/DL Alkaline Phosphatase 148 U/L Aspartate Amino Transf (AST/SGOT) 36 U/L Alanine Aminotransferase (ALT/SGPT) 35 U/L Total Bilirubin 0.4 MG/DL Sodium Level 135 MEQ/L 138 MEQ/L Potassium Level 3.6 MEQ/L 3.6 MEQ/L Chloride Level 97 MEQ/L 101 MEQ/L Carbon Dioxide Level 26.8 MEQ/L 25.5 MEQ/L Anion Gap 11 MEQ/L 12 MEQ/L Estimat Glomerular Filtration Rate 89 ML/MIN 142 ML/MIN Hemoglobin A1c 8.5 % Lactic Acid Level 1.7 mmol/L C-Reactive Protein 15.30 MG/DL Microbiology Date/Time Source Procedure Growth Status 08/10/17 12:30 Blood Peripheral Aerobic Blood Culture - Preliminary NO GROWTH IN 1 DAY Resulted 08/10/17 12:30 Blood Peripheral Anaerobic Blood Culture - Preliminary NO GROWTH IN 1 DAY Resulted 08/10/17 12:25 Blood Peripheral Aerobic Blood Culture - Preliminary NO GROWTH IN 1 DAY Resulted 08/10/17 12:25 Blood Peripheral Anaerobic Blood Culture - Preliminary NO GROWTH IN 1 DAY Resulted 08/10/17 12:25 Wound Foot Gram Stain - Final Resulted 08/10/17 12:25 Wound Culture - Preliminary S. Aureus Mrsa Beta Strep Not Group A Resulted Last 72 hours Impressions Foot MRI 08/11/17 0000 Signed Impressions: Service Date/Time: July 07:56 - CONCLUSION: 1. There are findings characteristic for a linear nondisplaced stress fracture through the body of the first cuneiform bone. 2. There appears to be some focal bone bruising along the lateral aspect of the cuboid bone. 3. Diffuse nonspecific soft tissue swelling and edema throughout the soft tissues of the midfoot. 4. Mild degenerative changes characteristic for patient's age.. Frank Zepeda MD Foot X-Ray 08/10/17 0000 Signed Impressions: Service Date/Time: Thursday, August 10, 2017 12:28 - CONCLUSION: 1. Generalized soft tissue swelling without evidence of fracture, destructive bony changes or significant arthropathy. 2. Arterial calcification. Olu Baker MD Physical Exam General appearance: comfortable Nutritional status: normal Orientation: alert and oriented x3 Respiratory effort: FINDINGS: normal Details Left lower extremity, there is a mainly fibrotic eschar of the plantar aspect of the first MPJ. There is obvious redness, erythema, edema, and swelling that courses up to the top of the foot and just below the ankle. There is a definite warmth upon comparing the temperature of the left foot compared to the right. There is no crepitus or instability. No obvious odor. There is a slight superficial abrasion of the dorsal aspect of the mid foot. Pedal pulses are hard to palpate. Sensation is significantly decreased to light touch. Some improvement noted of redness. Fluctuance is noted of the dorsum of the first metatarsal base along the course of the extensor hallucis longus tendon Assessment & Plan A/P Left diabetic foot ulcer infection, Charcot with possible early peripheral vascular disease. MRI reviewed, possible early Charcot is seen however no distinct osteomyelitis, the dorsal tendon sheath of the foot of the extensor hallucis longus clinically shows possible inflammation and abscess , I do feel that incision drainage left foot is indicated. NPO after MN plan for surgery tomorrow. Routine consult placed for vascular surgery given ABIs may be showing falsely elevated findings. Luis Felipe Mendoza DPM August 11, 2017 19:50
[2017-08-12] VITALS (7 sets, daily range): BP systolic 106–164; BP diastolic 70–101; PULSE 86–110; RESP 16–18; TEMP 97.9–98.9; O2SAT 95–100
[2017-08-12] MEDS ORDERED: LACTATED RINGER'S 1000 ML IV PRN (00:15)
[2017-08-12] MEDS: PIPERACIL-TAZO 4.5 GM PREMIX 100 ML IV SCH ×5 (00:30→23:09)
[2017-08-12] MEDS ORDERED: PHARMACY ORDERED LAB ONE (00:45)
[2017-08-12] MEDS: VANCOMYCIN 1,000 MG/NS 250 ML IV SCH ×2 (01:08)
[2017-08-12] MEDS: SODIUM CHLOR 0.9% 1000 ML INJ 1,000 ML IV SCH ×2 (06:03→16:40)
[2017-08-12] MEDS: DOCUSATE SODIUM 50 MG/SENNA 8.6 MG TAB PO SCH ×2 (08:15→23:04)
[2017-08-12] MEDS: SODIUM CHLORIDE 0.9% FLUSH 10 ML FLUSH IV FLUSH SCH ×2 (08:15→23:04)
[2017-08-12] MEDS: INSULIN ASPART SUPPLEMENTAL SCALE SQ SCH ×4 (08:15→23:06)
[2017-08-12] MEDS ORDERED: IOHEXOL 350 MG/ML 10 ML VIAL (for RAD DIAG) IVCONTRAST ONE (08:59)
--- NOTE | 2017-08-12 10:07 | HHI.IDPN ---
Subjective Subjective Remarks Patient is a 47-year-old male, with known diabetes, presented to the hospital complaining of 2 day history of redness and swelling on his left foot. Patient has a callus over his first metatarsal, and about a month ago, he picked on it. He apparently developed a sore, and it was not really giving him any problem, until 2 days prior to admission when he started developing redness and swelling on his left foot. He denies any fever chills or sweats. He did not notice any odor to it. He has no other complaints. Patient has moved to [place] about 5 months ago, and he has not established with a primary care physician. He presented to the hospital, and has been admitted. He has cellulitis on that left foot. X-ray of the foot did not show any evidence of bony destruction fracture or any foreign body. Highest temperature has been 99+. His WBC is normal, but his ESR is greater than 140, and CRP 15.30. He is currently on vancomycin and Zosyn. Infectious disease consultation has been requested to evaluate the patient for possible osteomyelitis, and make antibiotic recommendations. Notes reviewed Temps ok Pain better Foot MRI report noted OR plans for today Prelim wound C/S MRSA and GAS No diarrhea No N/V No rash or itching Antibiotics Vancomycin Zosyn Current Medications Medications (Trade) Dose Ordered Sig/Leigh Ann Route Start Time Stop Time Status Last Admin Piperacillin Sod/ Tazobactam Sod 100 ml @ 200 mls/hr Q6H IV 08/10/17 18:00 08/12/17 06:03 Pharmacy Profile Note 0 ml @ 0 mls/hr UNSCH OTHER 08/10/17 14:15 Sodium Chloride 1,000 ml @ 100 mls/hr Q10H IV 08/10/17 15:00 08/12/17 06:03 (NS Flush) 2 ml UNSCH PRN IV FLUSH 08/10/17 14:15 (NS Flush) 2 ml BID IV FLUSH 08/10/17 21:00 (Tylenol) 650 mg Q4H PRN PO 08/10/17 14:15 08/10/17 15:47 (Reglan Inj) 5 mg Q6H PRN IV PUSH 08/10/17 14:15 (Narcan Inj) 0.4 mg UNSCH PRN IV PUSH 08/10/17 14:15 (Michelle-Colace) 1 tab BID PO 08/10/17 21:00 08/12/17 08:15 (Milk Of Magnesia Liq) 30 ml Q12H PRN PO 08/10/17 14:15 (Senokot) 17.2 mg Q12H PRN PO 08/10/17 14:15 (Dulcolax Supp) 10 mg DAILY PRN RECTAL 08/10/17 14:15 (Lactulose Liq) 30 ml DAILY PRN PO 08/10/17 14:15 (D50w (Vial) Inj) 50 ml UNSCH PRN IV PUSH 08/10/17 14:15 (Glucagon Inj) 1 mg UNSCH PRN OTHER 08/10/17 14:15 (NovoLOG SUPPLEMENTAL SCALE) 1 ACHS SLIDING SCALE SQ 08/10/17 17:00 08/12/17 08:15 Lactated Ringer's 1,000 ml @ 30 mls/hr Q24H PRN IV 08/12/17 00:15 08/15/17 00:14 Vancomycin HCl 1250 mg/Sodium Chloride 262.5 ml @ 250 mls/hr Q12H IV 08/12/17 13:00 ([facility] [place] [facility] Ordered Lab Info) SPECIFIC LAB TO BE DWIGHT... ONCE ONCE .XX 08/14/17 00:45 08/14/17 00:46 Lines PIV no evidence of infection Past Medical History Diabetes Past Surgical History Surgery on his right index finger related to trauma Allergies: Coded Allergies: No Known Allergies (Unverified , 08/10/17) Objective . Vital Signs Date Time Temp Pulse Resp B/P (MAP) Pulse Ox O2 Delivery O2 Flow Rate FiO2 08/12/17 09:12 89 08/12/17 08:00 98.2 91 17 163/93 (116) 98 08/12/17 04:00 98.5 88 16 151/93 (112) 98 08/12/17 04:00 86 08/12/17 00:00 98.9 110 18 106/70 (82) 95 08/11/17 23:59 93 08/11/17 20:00 99.3 95 18 163/90 (114) 97 08/11/17 18:30 21 08/11/17 16:00 99.5 94 18 131/76 (94) 95 08/11/17 12:00 99.2 101 17 169/103 (125) 93 . Laboratory Tests Test 08/10/17 12:25 08/11/17 05:59 White Blood Count 10.4 TH/MM3 9.3 TH/MM3 Red Blood Count 3.76 MIL/MM3 3.47 MIL/MM3 Hemoglobin 11.5 GM/DL 10.6 GM/DL Hematocrit 32.8 % 30.2 % Mean Corpuscular Volume 87.2 FL 87.2 FL Mean Corpuscular Hemoglobin 30.5 PG 30.6 PG Mean Corpuscular Hemoglobin Concent 35.0 % 35.1 % Red Cell Distribution Width 11.4 % 11.5 % Platelet Count 292 TH/MM3 263 TH/MM3 Mean Platelet Volume 7.3 FL 7.4 FL Neutrophils (%) (Auto) 72.0 % 70.4 % Lymphocytes (%) (Auto) 13.1 % 13.0 % Monocytes (%) (Auto) 10.9 % 8.4 % Eosinophils (%) (Auto) 3.5 % 6.4 % Basophils (%) (Auto) 0.5 % 1.8 % Neutrophils # (Auto) 7.5 TH/MM3 6.6 TH/MM3 Lymphocytes # (Auto) 1.4 TH/MM3 1.2 TH/MM3 Monocytes # (Auto) 1.1 TH/MM3 0.8 TH/MM3 Eosinophils # (Auto) 0.4 TH/MM3 0.6 TH/MM3 Basophils # (Auto) 0.1 TH/MM3 0.2 TH/MM3 CBC Comment DIFF FINAL DIFF FINAL Differential Comment Erythrocyte Sedimentation Rate GREATER THAN 140 mm/hr Laboratory Tests Test 08/10/17 12:25 08/11/17 05:59 Blood Urea Nitrogen 8 MG/DL 6 MG/DL Creatinine 0.91 MG/DL 0.61 MG/DL Random Glucose 364 MG/DL 165 MG/DL Total Protein 9.3 GM/DL Albumin 3.0 GM/DL Calcium Level 8.9 MG/DL 8.5 MG/DL Alkaline Phosphatase 148 U/L Aspartate Amino Transf (AST/SGOT) 36 U/L Alanine Aminotransferase (ALT/SGPT) 35 U/L Total Bilirubin 0.4 MG/DL Sodium Level 135 MEQ/L 138 MEQ/L Potassium Level 3.6 MEQ/L 3.6 MEQ/L Chloride Level 97 MEQ/L 101 MEQ/L Carbon Dioxide Level 26.8 MEQ/L 25.5 MEQ/L Anion Gap 11 MEQ/L 12 MEQ/L Estimat Glomerular Filtration Rate 89 ML/MIN 142 ML/MIN Hemoglobin A1c 8.5 % Lactic Acid Level 1.7 mmol/L C-Reactive Protein 15.30 MG/DL Microbiology Date/Time Source Procedure Growth Status 08/10/17 12:30 Blood Peripheral Aerobic Blood Culture - Preliminary NO GROWTH IN 1 DAY Resulted 08/10/17 12:30 Blood Peripheral Anaerobic Blood Culture - Preliminary NO GROWTH IN 1 DAY Resulted 08/10/17 12:25 Blood Peripheral Aerobic Blood Culture - Preliminary NO GROWTH IN 1 DAY Resulted 08/10/17 12:25 Blood Peripheral Anaerobic Blood Culture - Preliminary NO GROWTH IN 1 DAY Resulted 08/10/17 12:25 Wound Foot Gram Stain - Final Resulted 08/10/17 12:25 Wound Culture - Preliminary S. Aureus Mrsa Beta Strep Not Group A Resulted Imaging Last Impressions Foot MRI 08/11/17 0000 Signed Impressions: Service Date/Time: July 07:56 - CONCLUSION: 1. There are findings characteristic for a linear nondisplaced stress fracture through the body of the first cuneiform bone. 2. There appears to be some focal bone bruising along the lateral aspect of the cuboid bone. 3. Diffuse nonspecific soft tissue swelling and edema throughout the soft tissues of the midfoot. 4. Mild degenerative changes characteristic for patient's age.. Frank Zepeda MD Foot X-Ray 08/10/17 0000 Signed Impressions: Service Date/Time: Thursday, August 10, 2017 12:28 - CONCLUSION: 1. Generalized soft tissue swelling without evidence of fracture, destructive bony changes or significant arthropathy. 2. Arterial calcification. Olu Baker MD Physical Exam GENERAL: awake and alert, NAD SKIN: Warm and dry. No generalized rash. HEAD: Atraumatic. Normocephalic. No temporal wasting, or tenderness. EYES: [place] conjunctiva. No petechia or hemorrhage. Pupils equal, round and reactive to light. Extraocular movements full and intact. No scleral icterus. No injection or drainage. EARS, NOSE AND THROAT: Nose without bleeding or purulent nasal discharge. No sinus tenderness. Mucous membranes pink and moist. No oral lesions noted. NECK: Trachea midline. Supple and not tender, no meningeal signs CARDIOVASCULAR: Regular rate and rhythm. No murmurs, rubs or gallops heard RESPIRATORY: Clear to auscultation. Breath sounds equal bilaterally. No rales , wheezing or rhonchi ABDOMEN: Soft, non-tender, nondistended. Bowel sounds present and normoactive. No guarding. No rebound. No organomegaly. EXTREMITIES: No clubbing, cyanosis. No joint effusion, has good ROM. No calf tenderness. Well perfused and warm. L foot - less swollen, warm and has redness on whole dorsum of his foot which looks better. Seems to have some fluctuance along the 1st MT bone. There is a dry small wound over the 4th MT. Has open wound with surrounding callus over the first MT, with minimal drainage. No odor. No crepitus NEUROLOGICAL: Grossly non-focal PSYCHIATRIC: Normal affect, calm and cooperative. LINE: No evidence of infection Assessment & Plan Remarks IMPRESSION Diabetic foot infection L foot, possible osteomyelitis 1st MTP, ?abscess over the first MT - MRI with some fracture seen Cellulitis LLE, better Possible sepsis due to L foot infection RECOMMENDATION Podiatry following - [place] for today Follow C/S and adjust Abx Continue empiric Abx: Vancomycin and Zosyn Monitor progress I will determine course of Rx once work-up is completed Explained plan to the patient Dr Lenka Cano available if needed this weekend Verona Guthrie MD August 12, 2017 10:07
--- NOTE | 2017-08-12 11:22 | RADRPT ---
EXAM DATE/TIME: 08/12/2017 08:44 [place] COMPARISON: No previous studies available for comparison. INDICATIONS : Peripheral vascular disease, diabetic foot ulcer. IV CONTRAST: 97 cc Omnipaque 350 (iohexol) IV RADIATION DOSE: 9.30 CTDIvol (mGy) MEDICAL HISTORY : Diabetes mellitus type 2. SURGICAL HISTORY : None. ENCOUNTER: Initial ACUITY: 2 days PAIN SCALE: 4/10 LOCATION: Left foot. TECHNIQUE: Volumetric scanning was performed using a multi-row detector CT scanner. The data was post processed with a variety of visualization algorithms including full volume maximum intensity projection, multi -planar sliding thin slab reformation, curved planar reformation, and surface rendering techniques. Using automated exposure control and adjustment of the mA and/or kV according to patient size, radiat ion dose was kept as low as reasonably achievable to obtain optimal diagnostic quality images. DICO M format image data is available electronically for review and comparison. FINDINGS: Abdominal aorta: The celiac and SMA origins are widely patent. There are small accessory renal arteries bilaterally. T he main and accessory renals are widely patent. The infrarenal aorta is widely patent. The inferior m esenteric artery is widely patent. Pelvis: The common iliac, internal iliac and adnexal iliac circulation is widely patent. Right leg: The right common femoral, profunda femoral, superficial femoral and popliteal are widely patent. Dist ally, all 3 trifurcation vessels are patent down to the foot. There is only minimal atherosclerotic p laquing. Left leg: The left common femoral, profunda femoral, superficial femoral and popliteal arteries are widely maurer nt. Distally, all 3 trifurcation vessels are patent down into the foot. CT source data: The examination demonstrates abnormal adenopathy involving the left external iliac johnna chain and le ft inguinal region. There are nodes measuring up to 2 cm in size. There is some degree of enhancement within the adenopathy. This is possibly reactive however this should be followed clinically as malig xiao cannot be excluded. The limited portion of the lung base visualized is clear. The solid organs of the abdomen are grossly intact. There is no retroperitoneal lymphadenopathy. CONCLUSION: 1. The examination demonstrates adequate inflow and runoff to both lower extremities. 2. There is lymphadenopathy involving the left external iliac johnna chain and left inguinal canal. Th ere are nodes measuring up to 2 cm. It is possible this is reactive however malignancy is not exclude d. Biopsy of these nodes may be a consideration. Kuldeep Reyez MD on August 12, 2017 at 11:11 Board Certified Radiologist. This report was verified electronically.
[2017-08-12] MEDS ORDERED: LIDOCAINE HCL 1% PF 5 ML SYRINGE OTHER ONE (12:00)
[2017-08-12] MEDS ORDERED: PHENYLEPH/NS 1000 MCG/10 ML SYR IV ONE (12:00)
[2017-08-12] MEDS ORDERED: PROPOFOL 200 MG/20 ML AMP IV ONE (12:00)
--- NOTE | 2017-08-12 12:24 | EKG ---
Date Performed: 08/12/2017 Time Performed: 01:11:57 PTAGE: 47 years EKG: Sinus rhythm NORMAL ECG NO PREVIOUS TRACING DOCTOR: Juan Siddiqi Interpretating Date/Time 08/12/2017 12:21:20
[2017-08-12] MEDS ORDERED: NEOMYCIN/POLYMYXIN 1 ML G.U. IRRIGANT ONE (12:50)
[2017-08-12] MEDS ORDERED: BUPIVACAINE HCL PF 0.25% 30 ML VIAL ONE (12:51)
[2017-08-12] MEDS: VANCOMYCIN INJ 1,250 MG in SODIUM CHLOR 0.9% 250 ML INJ 250 ML IV SCH ×2 (13:00→14:00)
--- NOTE | 2017-08-12 13:49 | HHI.PR ---
Subjective Remarks Follow-up diabetes, foot wound. The patient is going for surgery now. No complaints at this time. Pain is well controlled. Objective Vitals Vital Signs Date Time Temp Pulse Resp B/P (MAP) Pulse Ox O2 Delivery O2 Flow Rate FiO2 08/12/17 09:12 89 08/12/17 08:00 98.2 91 17 163/93 (116) 98 08/12/17 04:00 98.5 88 16 151/93 (112) 98 08/12/17 04:00 86 08/12/17 00:00 98.9 110 18 106/70 (82) 95 08/11/17 23:59 93 08/11/17 20:00 99.3 95 18 163/90 (114) 97 08/11/17 18:30 21 08/11/17 16:00 99.5 94 18 131/76 (94) 95 I/O 08/11/17 08/11/17 08/11/17 08/12/17 08/12/17 08/12/17 07:00 15:00 23:00 07:00 15:00 23:00 Intake Total 1690 ml 1350 ml 1750 ml Output Total 3 ml Balance 1690 ml 1350 ml 1747 ml Intake Oral 240 ml 500 ml 400 ml IV Total 1450 ml 850 ml 1350 ml Output Urine Total 3 ml # Voids 2 5 # Bowel Movements 1 Result Diagram: 08/11/17 0559 08/11/17 0559 Imaging Last Impressions Aorta w/Runoff CTA 08/12/17 0000 Signed Impressions: Service Date/Time: Saturday, August 12, 2017 08:44 - CONCLUSION: 1. The examination demonstrates adequate inflow and runoff to both lower extremities. 2. There is lymphadenopathy involving the left external iliac johnna chain and left inguinal canal. There are nodes measuring up to 2 cm. It is possible this is reactive however malignancy is not excluded. Biopsy of these nodes may be a consideration. Kuldeep Reyez MD Foot MRI 08/11/17 0000 Signed Impressions: Service Date/Time: July 07:56 - CONCLUSION: 1. There are findings characteristic for a linear nondisplaced stress fracture through the body of the first cuneiform bone. 2. There appears to be some focal bone bruising along the lateral aspect of the cuboid bone. 3. Diffuse nonspecific soft tissue swelling and edema throughout the soft tissues of the midfoot. 4. Mild degenerative changes characteristic for patient's age.. Frank Zepeda MD Foot X-Ray 08/10/17 0000 Signed Impressions: Service Date/Time: Thursday, August 10, 2017 12:28 - CONCLUSION: 1. Generalized soft tissue swelling without evidence of fracture, destructive bony changes or significant arthropathy. 2. Arterial calcification. Olu Baker MD Objective Remarks General: No acute distress. Heart: Regular rate and rhythm. No murmur. Lungs: Clear to auscultation bilaterally. No wheezes, rales, or rhonchi. Breathing is nonlabored. Abdomen: Soft, nontender, nondistended. Extremities: No lower extremity edema. Left foot bandaged. Psych: Alert and oriented. Neuro: Normal speech. No focal deficits noted. Procedures None Urinary Catheter: No Vascular Central Line Catheter: No A/P Assessment and Plan 1. Diabetic foot wound, left foot: Patient has a chronic left foot wound on the plantar aspect of the left foot and a wound on the dorsal aspect of the left foot. Continue antibiotics. Appreciate podiatry recommendations. MRI shows possible stress fracture. Wound culture is growing MRSA. Blood cultures are negative so far. Appreciate infectious disease recommendations. CRP and sed rate are elevated. Podiatry taking the patient for surgery today. 2. Diabetes mellitus: Monitor Accu-Cheks and cover with sliding scale insulin. Hemoglobin A1c is 8.5. Metformin on hold. 3. DVT prophylaxis: KENN Gee. Ruperto Soni MD August 12, 2017 13:49
[2017-08-12] MEDS ORDERED: DO NOT ADM ANY ANTICOAGULANT DRUGS PRN (15:29)
--- NOTE | 2017-08-12 15:35 | HHI.PR ---
Immediate Post Op Note Procedure Date: August 12, 2017 Pre Op Diagnosis: (1) Infection of tendon sheath (2) Cellulitis of left foot (3) Diabetic foot infection Post Op Diagnosis: same Surgeon: Luis Felipe [employer] Vendor(s): scrub Procedure: Incision drainage debridement of left foot, debridement EHL tendon Findings: abscess dorsum foot with EHL involvement, no probe to bone dorsum foot or 1st MPJ plantar Complications: none Specimen(s) removed: deep cx for C and S Estimated blood loss: less than 30mL Anesthesia: General Drains: Other Tourniquet time (min at mmHg) approx 25 min 250mmhg left ankle Patient to: PACU Patient Condition: Good Implant/Devices: SEE IMPLANT LOG (if applicable) Date/Time of Procedure: SEE SURGICAL CARE RECORD Luis Felipe PowerM August 12, 2017 15:35
--- NOTE | 2017-08-12 16:06 | MP ---
cc: Luis Felipe Mendoza DPM DATE OF OPERATION: 08/12/2017 PREOPERATIVE DIAGNOSIS: Left foot abscess, cellulitis, diabetic ulcer, possible infection-deep extensor tendons foot and ankle. POSTOPERATIVE DIAGNOSIS: Left foot abscess, cellulitis, diabetic ulcer, possible infection-deep extensor tendons foot and ankle. PROCEDURE PERFORMED: Incision, drainage, debridement, left foot, with excision, drainage, debridement of extensor hallucis longus tendon dorsum of foot. FINDINGS: Abscess along the dorsum of the foot that involved the extensor hallucis longus tendon sheath. Upon debriding the first MPJ plantarly and the dorsum of the foot, there was no obvious probing, tunneling or tracking to the bone. COMPLICATIONS: None. SPECIMEN: Deep culture for C and S. ESTIMATED BLOOD LOSS: Less than 30 mL. ANESTHESIA: General. DRAINS: A 1/4-inch iodoform packing. TOURNIQUET: 25 minutes at a setting at 250 mmHg about the patient's left ankle. PLAN OF ACTIVITY: PACU, then returned to floor to monitor infection and wound healing status. JUSTIFICATION FOR PROCEDURE: This is a 47-year-old male who had redness, pain, swelling. He was admitted to the hospital. MRI was performed. There was noted to be linear fractures within the base of the first metatarsal and the cuboid, but no mention of obvious uptake to determine if there is any osteomyelitis or abscess. Clinically, the patient had an abscess to the dorsum of the foot. I wished to explore this. No guarantees were given, or implied regarding the outcome of surgery. The patient will likely need minimum of 1-2 weeks of IV antibiotics if infectious disease deems it appropriate and the patient's clinical presentations. PROCEDURE IN DETAIL: Under mild sedation, the patient was brought in the operating room, placed on the operating table in the supine position. Following the induction of general anesthesia, the patient's left lower extremity was then scrubbed, prepped and draped in the usual aseptic fashion. The foot was elevated and exsanguinated and the previously placed mid-calf tourniquet was inflated at 250 mmHg. The foot was examined. There was noted to be a mixed fibrotic ulcer of the plantar aspect of the first MPJ and also the dorsum of the foot at the base of the third and fourth metatarsal. Upon using a curette and a rongeur, we debrided this area. It appeared to be uncomplicated, relatively healthy. At the dorsum of the foot there was noted to be fluctuance at the level of the first metatarsal medial cuneiform joint. A linear incision was then made coursing over the extensor hallucis longus tendon. Sharp and blunt dissection was carried down below the epidermal and dermal junction. There was noted to be a purulent area abscess tunneling down to the tendon sheath. This was then further incised with an approximately 10-15 cm incision over the dorsum of the foot to the first MPJ. Sharp and blunt dissection was carried down through the layers of the tissue. There was no obvious extension of the abscess beyond the extensor hallucis longus tendon. Further sharp and blunt dissection was carried along the deep fascial plane layer underneath the dorsum of the foot to see if there was a communicating abscess. In fact, and there was not and there was no obvious tunneling to the plantar aspect of the foot involving the first MPJ. The wound was then flushed with 3 liters of normal saline. It was then loosely coapted to open, packing placed, deep culture taken. Before the lavage, Bovie and ligation of venous structures took place. Upon relieving the tourniquet, there was a prompt hyperemic response to all digits without any delayed capillary fill time. A bulky bandage was applied. The patient was transferred from OR to PACU with all vital signs stable. We will await clinical improvement and the results of deep culture. RACHELLE Peck , 03:35 PM , 04:06 PM [facility]
--- NOTE | 2017-08-12 18:45 | PD.CAR.PN ---
CVT Progress Note Subjective/Hospital Course: 08/12/2017 Patient with the eschar type ulcer over his left plantar surface of the foot and diabetes mellitus. Clinical exam does not suggest any appreciable degree of vascular disease with palpable proximal distal pulses, nonetheless clinical situation certainly indicated performing off a CTA with a runoff. CTA confirms the clinical diagnosis. This patient has no appreciable degree of vascular disease either in inflow or outflow tract he is a three-vessel runoff. Patient will not need any of my services at this time. Thank you much for referral J Objective: Vital Signs Date Time Temp Pulse Resp B/P (MAP) Pulse Ox O2 Delivery O2 Flow Rate FiO2 08/12/17 17:09 97.9 97 18 164/101 (122) 99 08/12/17 16:00 98.2 93 18 157/95 (115) 99 Room Air 08/12/17 15:45 96 17 158/90 (112) 100 Room Air 08/12/17 15:29 98.2 93 17 127/78 (94) 97 Room Air 08/12/17 12:00 98.5 100 18 157/91 (113) 100 08/12/17 09:12 89 08/12/17 08:00 98.2 91 17 163/93 (116) 98 08/12/17 04:00 98.5 88 16 151/93 (112) 98 08/12/17 04:00 86 08/12/17 00:00 98.9 110 18 106/70 (82) 95 08/11/17 23:59 93 08/11/17 20:00 99.3 95 18 163/90 (114) 97 Result Diagram: 08/11/17 0559 08/11/17 0559 Kobi Black MD August 12, 2017 18:45
--- NOTE | 2017-08-12 19:49 | MB ---
cc: Kobi Black MD, Slobodan MD DATE: 08/12/2017 REASON FOR CONSULTATION: Osteomyelitis of the left foot, abscess of the dorsum of the left foot, diabetes mellitus and PVD. HISTORY OF PRESENT ILLNESS: This 47-year-old diabetic male who does not speak very much Croatian presented with a redness of his left foot dorsum. Apparently, the patient developed some callus on the dorsum of the foot, developed an ulcer. He was picking on it and now comes with a full blown infection, abscess, and osteomyelitis. Question arises about possible peripheral vascular disease contributing in the face of his diabetes. PAST MEDICAL HISTORY: Diabetes mellitus. The patient has metformin, but does not have anybody as primary care physician and does what he does. 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 The patient's Croatian is very poor and therefore communication is somewhat difficult. PHYSICAL EXAMINATION: GENERAL: Reveals a pleasant 47-year-old gentleman in no acute distress. HEENT: Normocephalic. No trauma to the head. Pupils equal, reactive. Extraocular muscles intact. NECK: Supple. Bilateral carotid pulses. No bruits. CHEST: Clear, bilateral breath sounds. HEART: Regular rhythm. ABDOMEN: Soft. Active bowel sounds. No rebound, no guarding, no masses. EXTREMITIES: The patient has bilateral femoral, popliteal, dorsalis pedis and posterior tibial pulses on palpation. He does not have clinically any appreciable degree of vascular disease. Left foot is wrapped up and indeed there is an infection of the dorsum of the foot and this is for the most part a fibrotic eschar over the plantar aspect of the foot. Generally, the whole foot seems to be more swollen. No sign of gas gangrene. IMPRESSION AND RECOMMENDATIONS: A patient with an eschar of the plantar surface of the foot and osteomyelitis. I reviewed laboratory and diagnostic procedures. CTA with a runoff I doubt will reveal any appreciable degree of vascular disease; however, in the face of the patient's symptoms, I believe this is an appropriate study as a baseline roadmap. Upon evaluation of CTA, we will go from here. I thank you very much for referral. MD CASEY Guerar/ , 06:43 PM , 07:48 PM
[2017-08-13] VITALS (9 sets, daily range): BP systolic 119–143; BP diastolic 66–89; PULSE 91–105; RESP 18; TEMP 97.7–99.4; O2SAT 97–100
[2017-08-13] MEDS: VANCOMYCIN INJ 1,250 MG in SODIUM CHLOR 0.9% 250 ML INJ 250 ML IV SCH ×2 (00:48→12:47)
[2017-08-13] MEDS: SODIUM CHLOR 0.9% 1000 ML INJ 1,000 ML IV SCH ×3 (02:45→23:59)
[2017-08-13] MEDS: PIPERACIL-TAZO 4.5 GM PREMIX 100 ML IV SCH ×4 (05:55→23:59)
[2017-08-13 06:24] LABS: AUTOMATED NEUTROPHIL # 5.4 TH/MM3 (1.8-7.7); BASOPHIL # 0.1 TH/MM3 (0-0.2); EOSINOPHIL # 0.8 TH/MM3 (0-0.4); EOSINOPHIL % 8.6 % (0.0-4.0); HEMATOCRIT 30.4 % (39.0-51.0); HEMOGLOBIN 10.5 GM/DL (13.0-17.0); LYMPH % 15.4 % (9.0-44.0); LYMPHOCYTE # 1.4 TH/MM3 (1.0-4.8); MEAN CELL VOLUME 88.1 FL (80.0-100.0); MEAN CORPUSCULAR HEMOGLOBIN 30.5 PG (27.0-34.0); MEAN CORPUSCULAR HGB CONC 34.6 % (32.0-36.0); MEAN PLATELET VOLUME 7.2 FL (7.0-11.0); MONO % 14.6 % (0.0-8.0); MONOCYTE # 1.3 TH/MM3 (0-0.9); NEUT % 60.4 % (16.0-70.0); PLATELET COUNT 301 TH/MM3 (150-450); RED BLOOD COUNT 3.45 MIL/MM3 (4.50-5.90); RED CELL DISTRIBUTION WIDTH 11.4 % (11.6-17.2); WHITE BLOOD COUNT 8.9 TH/MM3 (4.0-11.0)
[2017-08-13 06:53] LABS: BICARBONATE 30.3 MEQ/L (21.0-32.0); CALCIUM 8.5 MG/DL (8.5-10.1); CREATININE 0.84 MG/DL (0.60-1.30)
[2017-08-13] MEDS: INSULIN ASPART SUPPLEMENTAL SCALE SQ SCH ×4 (08:00→20:05)
[2017-08-13] MEDS: SODIUM CHLORIDE 0.9% FLUSH 10 ML FLUSH IV FLUSH SCH ×2 (09:00→20:01)
[2017-08-13] MEDS: DOCUSATE SODIUM 50 MG/SENNA 8.6 MG TAB PO SCH ×2 (09:00→19:59)
--- NOTE | 2017-08-13 11:11 | PD.POD ---
Subjective Pain score: 1 Remarks Some improvement decreased swelling of the left foot no events overnight Past Med/Surg/Social History Social History Smoking Status: Never Smoker Objective Vital Signs Vital Signs Date Time Temp Pulse Resp B/P (MAP) Pulse Ox O2 Delivery O2 Flow Rate FiO2 08/13/17 08:21 98 08/13/17 08:00 97.7 98 18 140/84 (102) 99 08/13/17 04:00 99.4 99 18 136/82 (100) 97 08/13/17 00:23 99.3 97 18 119/66 (83) 98 08/13/17 00:00 92 08/12/17 20:00 96 08/12/17 20:00 98.3 97 18 152/88 (109) 99 08/12/17 17:09 97.9 97 18 164/101 (122) 99 08/12/17 16:00 98.2 93 18 157/95 (115) 99 Room Air 08/12/17 15:45 96 17 158/90 (112) 100 Room Air 08/12/17 15:29 98.2 93 17 127/78 (94) 97 Room Air 08/12/17 12:00 98.5 100 18 157/91 (113) 100 Coded Allergies: No Known Allergies (Unverified , 08/10/17) Medications and IVs Administered Medications Medications (Trade) Dose Ordered Sig/Leigh Ann Route PRN Reason Start Time Stop Time Status Last Admin Dose Admin Piperacillin Sod/ Tazobactam Sod 100 ml @ 200 mls/hr Q6H IV 08/10/17 18:00 08/13/17 05:55 Sodium Chloride 1,000 ml @ 100 mls/hr Q10H IV 08/10/17 15:00 08/12/17 16:40 Sodium Chloride (NS Flush) 2 ml BID IV FLUSH 08/10/17 21:00 08/13/17 09:00 Acetaminophen (Tylenol) 650 mg Q4H PRN PO TEMP > 100.4 or pain 1-10 08/10/17 14:15 08/10/17 15:47 Senna/Docusate Sodium (Michelle-Colace) 1 tab BID PO 08/10/17 21:00 08/12/17 23:04 Insulin Aspart (NovoLOG SUPPLEMENTAL SCALE) 1 ACHS SLIDING SCALE SQ 08/10/17 17:00 08/12/17 23:06 Vancomycin HCl 1250 mg/Sodium Chloride 262.5 ml @ 250 mls/hr Q12H IV 08/12/17 13:00 08/13/17 00:48 Other Results Laboratory Tests Test 08/13/17 04:43 White Blood Count 8.9 TH/MM3 Red Blood Count 3.45 MIL/MM3 Hemoglobin 10.5 GM/DL Hematocrit 30.4 % Mean Corpuscular Volume 88.1 FL Mean Corpuscular Hemoglobin 30.5 PG Mean Corpuscular Hemoglobin Concent 34.6 % Red Cell Distribution Width 11.4 % Platelet Count 301 TH/MM3 Mean Platelet Volume 7.2 FL Neutrophils (%) (Auto) 60.4 % Lymphocytes (%) (Auto) 15.4 % Monocytes (%) (Auto) 14.6 % Eosinophils (%) (Auto) 8.6 % Basophils (%) (Auto) 1.0 % Neutrophils # (Auto) 5.4 TH/MM3 Lymphocytes # (Auto) 1.4 TH/MM3 Monocytes # (Auto) 1.3 TH/MM3 Eosinophils # (Auto) 0.8 TH/MM3 Basophils # (Auto) 0.1 TH/MM3 CBC Comment DIFF FINAL Differential Comment Laboratory Tests Test 08/13/17 04:43 Blood Urea Nitrogen 6 MG/DL Creatinine 0.84 MG/DL Random Glucose 127 MG/DL Calcium Level 8.5 MG/DL Sodium Level 138 MEQ/L Potassium Level 3.7 MEQ/L Chloride Level 101 MEQ/L Carbon Dioxide Level 30.3 MEQ/L Anion Gap 7 MEQ/L Estimat Glomerular Filtration Rate 98 ML/MIN Microbiology Date/Time Source Procedure Growth Status 08/10/17 12:30 Blood Peripheral Aerobic Blood Culture - Preliminary NO GROWTH IN 3 DAYS Resulted 08/10/17 12:30 Blood Peripheral Anaerobic Blood Culture - Preliminary NO GROWTH IN 3 DAYS Resulted 08/10/17 12:25 Blood Peripheral Aerobic Blood Culture - Preliminary Gram Positive Cocci Resulted 08/10/17 12:25 Blood Peripheral Anaerobic Blood Culture - Preliminary NO GROWTH IN 3 DAYS Resulted 08/12/17 15:20 Wound Foot Fungal Smear - Final NO FUNGAL ELEMENTS SEEN. Resulted 08/12/17 15:20 Wound Foot Fungal Culture Pending Resulted 08/12/17 15:20 Wound Foot Acid Fast Stain Pending Received 08/12/17 15:20 Wound Foot Mycobacterial Culture Pending Received 08/12/17 15:20 Wound Foot Gram Stain - Final Resulted 08/12/17 15:20 Wound Foot Wound Culture Pending Resulted 08/10/17 12:25 Wound Foot Gram Stain - Final Complete 08/10/17 12:25 Wound Culture - Final S. Aureus Mrsa Beta Strep Not Group A Complete Exam-Podiatry Constitutional General appearance: comfortable Nutritional status: normal Orientation: alert and oriented x3 Musculoskeletal Exam Details Left foot: bandage clean dry and intact good ROM digits good CFt to digits Assessment & Plan A/P Left diabetic foot ulcer infection, Charcot with possible early peripheral vascular disease. SP Incision and drainage with EHL tendon debridement Reviewed the Vascular and ID rec's. With changed packing/ bandage tomorrow. Awating deep Cx, however recommend considering IV ABX for 3-4 weeks minimum. MRi correlates more with Neuropathic Fx's not OM. Luis Felipe Mendoza DPM August 13, 2017 11:11
[2017-08-13] MEDS: ACETAMINOPHEN 325 MG TAB PO PRN ×2 (11:30→16:19)
--- NOTE | 2017-08-13 14:31 | HHI.PR ---
Subjective Remarks Follow up left foot infection. No pain at this time. Denies chest pain, dyspnea. Objective Vitals Vital Signs Date Time Temp Pulse Resp B/P (MAP) Pulse Ox O2 Delivery O2 Flow Rate FiO2 08/13/17 12:00 97.8 105 18 139/87 (104) 97 08/13/17 08:21 98 08/13/17 08:00 97.7 98 18 140/84 (102) 99 08/13/17 04:00 99.4 99 18 136/82 (100) 97 08/13/17 00:23 99.3 97 18 119/66 (83) 98 08/13/17 00:00 92 08/12/17 20:00 96 08/12/17 20:00 98.3 97 18 152/88 (109) 99 08/12/17 17:09 97.9 97 18 164/101 (122) 99 08/12/17 16:00 98.2 93 18 157/95 (115) 99 Room Air 08/12/17 15:45 96 17 158/90 (112) 100 Room Air 08/12/17 15:29 98.2 93 17 127/78 (94) 97 Room Air I/O 08/12/17 08/12/17 08/12/17 08/13/17 08/13/17 08/13/17 07:00 15:00 23:00 07:00 15:00 23:00 Intake Total 1750 ml 500 ml 2000 ml Output Total 3 ml 20 ml Balance 1747 ml 480 ml 2000 ml Intake Oral 400 ml IV Total 1350 ml 2000 ml Other 500 ml Output Urine Total 3 ml Estimated Blood Loss 20 ml # Voids 2 Result Diagram: 08/13/17 0443 08/13/17 0443 Imaging Last Impressions Aorta w/Runoff CTA 08/12/17 0000 Signed Impressions: Service Date/Time: Saturday, August 12, 2017 08:44 - CONCLUSION: 1. The examination demonstrates adequate inflow and runoff to both lower extremities. 2. There is lymphadenopathy involving the left external iliac johnna chain and left inguinal canal. There are nodes measuring up to 2 cm. It is possible this is reactive however malignancy is not excluded. Biopsy of these nodes may be a consideration. Kuldeep Reyez MD Foot MRI 08/11/17 0000 Signed Impressions: Service Date/Time: July 07:56 - CONCLUSION: 1. There are findings characteristic for a linear nondisplaced stress fracture through the body of the first cuneiform bone. 2. There appears to be some focal bone bruising along the lateral aspect of the cuboid bone. 3. Diffuse nonspecific soft tissue swelling and edema throughout the soft tissues of the midfoot. 4. Mild degenerative changes characteristic for patient's age.. Frank Zepeda MD Foot X-Ray 08/10/17 0000 Signed Impressions: Service Date/Time: Thursday, August 10, 2017 12:28 - CONCLUSION: 1. Generalized soft tissue swelling without evidence of fracture, destructive bony changes or significant arthropathy. 2. Arterial calcification. Olu Baker MD Objective Remarks General: No acute distress. Heart: Regular rate and rhythm. No murmur. Lungs: Clear to auscultation bilaterally. No wheezes, rales, or rhonchi. Breathing is nonlabored. Abdomen: Soft, nontender, nondistended. Extremities: No lower extremity edema. Left foot bandaged. Psych: Alert and oriented. Neuro: Normal speech. No focal deficits noted. Procedures 08/12/17 Incision, drainage, debridement, left foot, with excision, drainage, debridement of extensor hallucis longus tendon dorsum of foot. Urinary Catheter: No Vascular Central Line Catheter: No A/P Assessment and Plan 1. Diabetic foot wound, left foot: Patient has a chronic left foot wound on the plantar aspect of the left foot and a wound on the dorsal aspect of the left foot. Continue antibiotics. Appreciate podiatry recommendations. MRI shows possible stress fracture. Wound culture is growing MRSA. Blood cultures are negative so far. Appreciate infectious disease recommendations. CRP and sed rate are elevated. Discussed with Dr. Mendoza. Awaiting deep cultures. 2. Diabetes mellitus: Monitor Accu-Cheks and cover with sliding scale insulin. Hemoglobin A1c is 8.5. Metformin on hold. 3. DVT prophylaxis: KENN Gee. Discharge Planning Pending culture results and podiatry/ID recommendations. Ruperto Soni MD August 13, 2017 14:31
[2017-08-14] VITALS (9 sets, daily range): BP systolic 142–164; BP diastolic 85–98; PULSE 87–104; RESP 18–20; TEMP 98.1–98.8; O2SAT 97–100
[2017-08-14] MEDS ORDERED: PHARMACY ORDERED LAB ONE (00:45)
[2017-08-14] MEDS: VANCOMYCIN INJ 1,250 MG in SODIUM CHLOR 0.9% 250 ML INJ 250 ML IV SCH ×2 (01:00→12:14)
[2017-08-14] MEDS: PIPERACIL-TAZO 4.5 GM PREMIX 100 ML IV SCH ×3 (05:12→17:03)
[2017-08-14] MEDS: DOCUSATE SODIUM 50 MG/SENNA 8.6 MG TAB PO SCH ×2 (07:28→20:05)
[2017-08-14] MEDS: INSULIN ASPART SUPPLEMENTAL SCALE SQ SCH ×4 (08:00→21:07)
[2017-08-14] MEDS: SODIUM CHLOR 0.9% 1000 ML INJ 1,000 ML IV SCH ×2 (08:54→20:06)
[2017-08-14] MEDS: SODIUM CHLORIDE 0.9% FLUSH 10 ML FLUSH IV FLUSH SCH ×2 (08:55→20:06)
--- NOTE | 2017-08-14 09:47 | HHI.PR ---
Subjective Remarks Follow up foot infection, diabetes. Patient states pain is 2/10. No other complaints at this time. Denies chest pain, dyspnea. Has been on Glipizide in the past and does not recall any adverse reactions. Objective Vitals Vital Signs Date Time Temp Pulse Resp B/P (MAP) Pulse Ox O2 Delivery O2 Flow Rate FiO2 08/14/17 07:56 94 08/14/17 04:00 98.3 91 18 144/85 (104) 97 08/14/17 03:57 94 08/14/17 00:00 98.1 95 18 158/90 (112) 98 08/13/17 23:56 96 08/13/17 20:00 98.6 91 18 143/89 (107) 100 08/13/17 19:43 92 08/13/17 12:00 97.8 105 18 139/87 (104) 97 I/O 08/13/17 08/13/17 08/13/17 08/14/17 08/14/17 08/14/17 07:00 15:00 23:00 07:00 15:00 23:00 Intake Total 2000 ml 3100 ml 950 ml 100 ml Balance 2000 ml 3100 ml 950 ml 100 ml Intake Oral 900 ml IV Total 2000 ml 2200 ml 950 ml 100 ml # Voids 2 3 # Bowel Movements 1 Result Diagram: 08/13/17 0443 08/13/17 0443 Imaging Last Impressions Aorta w/Runoff CTA 08/12/17 0000 Signed Impressions: Service Date/Time: Saturday, August 12, 2017 08:44 - CONCLUSION: 1. The examination demonstrates adequate inflow and runoff to both lower extremities. 2. There is lymphadenopathy involving the left external iliac johnna chain and left inguinal canal. There are nodes measuring up to 2 cm. It is possible this is reactive however malignancy is not excluded. Biopsy of these nodes may be a consideration. Kuldeep Reyez MD Foot MRI 08/11/17 0000 Signed Impressions: Service Date/Time: July 07:56 - CONCLUSION: 1. There are findings characteristic for a linear nondisplaced stress fracture through the body of the first cuneiform bone. 2. There appears to be some focal bone bruising along the lateral aspect of the cuboid bone. 3. Diffuse nonspecific soft tissue swelling and edema throughout the soft tissues of the midfoot. 4. Mild degenerative changes characteristic for patient's age.. Frank Zepeda MD Foot X-Ray 08/10/17 0000 Signed Impressions: Service Date/Time: Thursday, August 10, 2017 12:28 - CONCLUSION: 1. Generalized soft tissue swelling without evidence of fracture, destructive bony changes or significant arthropathy. 2. Arterial calcification. Olu Baker MD Objective Remarks General: No acute distress. Heart: Regular rate and rhythm. No murmur. Lungs: Clear to auscultation bilaterally. No wheezes, rales, or rhonchi. Breathing is nonlabored. Abdomen: Soft, nontender, nondistended. Extremities: No lower extremity edema. Left foot bandaged. Psych: Alert and oriented. Neuro: Normal speech. No focal deficits noted. Procedures 08/12/17 Incision, drainage, debridement, left foot, with excision, drainage, debridement of extensor hallucis longus tendon dorsum of foot. A/P Assessment and Plan 1. Diabetic foot wound, left foot: Patient has a chronic left foot wound on the plantar aspect of the left foot and a wound on the dorsal aspect of the left foot. Continue antibiotics. Appreciate podiatry recommendations. MRI shows possible stress fracture. Wound culture is growing MRSA. Blood cultures are negative so far. Appreciate infectious disease recommendations. CRP and sed rate are elevated. Discussed with Dr. Mendoza. Intraoperative wound culture also growing MRSA. 2. Diabetes mellitus: Monitor Accu-Cheks and cover with sliding scale insulin. Hemoglobin A1c is 8.5. Metformin on hold. Glucose is elevated. Add glipizide. 3. DVT prophylaxis: KENN Gee. Discharge Planning Pending podiatry/ID recommendations. Ruperto Soni MD August 14, 2017 09:47
[2017-08-14] MEDS: glipiZIDE 5 MG TAB PO SCH (11:16)
--- NOTE | 2017-08-14 12:52 | PD.POD ---
Subjective Pain score: 1 Remarks Continues to feel well , no events overnight Past Med/Surg/Social History Social History Smoking Status: Never Smoker Objective Vital Signs Vital Signs Date Time Temp Pulse Resp B/P (MAP) Pulse Ox O2 Delivery O2 Flow Rate FiO2 08/14/17 12:00 98.3 92 20 148/98 (115) 99 08/14/17 07:56 94 08/14/17 04:00 98.3 91 18 144/85 (104) 97 08/14/17 03:57 94 08/14/17 00:00 98.1 95 18 158/90 (112) 98 08/13/17 23:56 96 08/13/17 20:00 98.6 91 18 143/89 (107) 100 08/13/17 19:43 92 Coded Allergies: No Known Allergies (Unverified , 08/10/17) Medications and IVs Administered Medications Medications (Trade) Dose Ordered Sig/Leigh Ann Route PRN Reason Start Time Stop Time Status Last Admin Dose Admin Piperacillin Sod/ Tazobactam Sod 100 ml @ 200 mls/hr Q6H IV 08/10/17 18:00 08/14/17 11:16 Sodium Chloride 1,000 ml @ 100 mls/hr Q10H IV 08/10/17 15:00 08/14/17 08:54 Sodium Chloride (NS Flush) 2 ml BID IV FLUSH 08/10/17 21:00 08/13/17 09:00 Acetaminophen (Tylenol) 650 mg Q4H PRN PO TEMP > 100.4 or pain 1-10 08/10/17 14:15 08/13/17 16:19 Senna/Docusate Sodium (Michelle-Colace) 1 tab BID PO 08/10/17 21:00 08/14/17 07:28 Insulin Aspart (NovoLOG SUPPLEMENTAL SCALE) 1 ACHS SLIDING SCALE SQ 08/10/17 17:00 08/14/17 11:27 Vancomycin HCl 1250 mg/Sodium Chloride 262.5 ml @ 250 mls/hr Q12H IV 08/12/17 13:00 08/14/17 12:14 Glipizide (Glucotrol) 5 mg DAILYAC PO 08/14/17 09:30 08/14/17 11:16 Other Results Laboratory Tests Test 08/13/17 04:43 White Blood Count 8.9 TH/MM3 Red Blood Count 3.45 MIL/MM3 Hemoglobin 10.5 GM/DL Hematocrit 30.4 % Mean Corpuscular Volume 88.1 FL Mean Corpuscular Hemoglobin 30.5 PG Mean Corpuscular Hemoglobin Concent 34.6 % Red Cell Distribution Width 11.4 % Platelet Count 301 TH/MM3 Mean Platelet Volume 7.2 FL Neutrophils (%) (Auto) 60.4 % Lymphocytes (%) (Auto) 15.4 % Monocytes (%) (Auto) 14.6 % Eosinophils (%) (Auto) 8.6 % Basophils (%) (Auto) 1.0 % Neutrophils # (Auto) 5.4 TH/MM3 Lymphocytes # (Auto) 1.4 TH/MM3 Monocytes # (Auto) 1.3 TH/MM3 Eosinophils # (Auto) 0.8 TH/MM3 Basophils # (Auto) 0.1 TH/MM3 CBC Comment DIFF FINAL Differential Comment Laboratory Tests Test 08/13/17 04:43 Blood Urea Nitrogen 6 MG/DL Creatinine 0.84 MG/DL Random Glucose 127 MG/DL Calcium Level 8.5 MG/DL Sodium Level 138 MEQ/L Potassium Level 3.7 MEQ/L Chloride Level 101 MEQ/L Carbon Dioxide Level 30.3 MEQ/L Anion Gap 7 MEQ/L Estimat Glomerular Filtration Rate 98 ML/MIN Microbiology Date/Time Source Procedure Growth Status 08/12/17 15:20 Wound Foot Fungal Smear - Final NO FUNGAL ELEMENTS SEEN. Resulted 08/12/17 15:20 Wound Foot Fungal Culture Pending Resulted 08/12/17 15:20 Wound Foot Acid Fast Stain Pending Worksheet 08/12/17 15:20 Wound Foot Mycobacterial Culture Pending Worksheet 08/12/17 15:20 Wound Foot Gram Stain - Final Complete 08/12/17 15:20 Wound Culture - Final S. Aureus Mrsa Complete Exam-Podiatry Remarks Left lower extremity: Plantar foot ulcer with mixed fibrotic early granular tissue, dorsal lateral third fourth met head honey crusting scab no obvious purulence or fluctuance, incision with packing intact, approximately 8 cm over the dorsum of the foot first ray along the EHL with necrosis in the early stages partially exposed tendon no usha purulence moderate serosanguineous drainage, improved redness and edema Physical Exam General appearance: comfortable Nutritional status: normal Orientation: alert and oriented x3 Chest appearance: normal Respiratory effort: FINDINGS: normal Affect: normal Assessment & Plan A/P Left diabetic foot ulcer infection, Charcot with possible early peripheral vascular disease. SP Incision and drainage with EHL tendon debridement Packing removed, foot will need return to OR for debridement and possible wound VAC application in 2-3 days. Continue IV antibiotics. Dr Mcgrath to follow. Luis Felipe Mendoza DPM August 14, 2017 12:52
[2017-08-14] MEDS: ACETAMINOPHEN 325 MG TAB PO PRN (21:06)
[2017-08-15] VITALS (7 sets, daily range): BP systolic 147–176; BP diastolic 86–101; PULSE 80–97; RESP 18–20; TEMP 97.7–98.4; O2SAT 96–100
[2017-08-15] MEDS: PIPERACIL-TAZO 4.5 GM PREMIX 100 ML IV SCH ×3 (00:10→12:29)
[2017-08-15] MEDS: VANCOMYCIN INJ 1,250 MG in SODIUM CHLOR 0.9% 250 ML INJ 250 ML IV SCH ×2 (00:12→13:55)
[2017-08-15] MEDS: SODIUM CHLOR 0.9% 1000 ML INJ 1,000 ML IV SCH ×2 (05:04→12:09)
[2017-08-15] MEDS: INSULIN ASPART SUPPLEMENTAL SCALE SQ SCH ×4 (08:00→22:14)
[2017-08-15 08:07] LABS: AUTOMATED NEUTROPHIL # 3.9 TH/MM3 (1.8-7.7); BASOPHIL # 0.1 TH/MM3 (0-0.2); EOSINOPHIL # 0.7 TH/MM3 (0-0.4); EOSINOPHIL % 10.8 % (0.0-4.0); HEMATOCRIT 32.9 % (39.0-51.0); HEMOGLOBIN 11.3 GM/DL (13.0-17.0); LYMPH % 16.6 % (9.0-44.0); LYMPHOCYTE # 1.1 TH/MM3 (1.0-4.8); MEAN CORPUSCULAR HEMOGLOBIN 30.1 PG (27.0-34.0); MEAN CORPUSCULAR HGB CONC 34.2 % (32.0-36.0); MONO % 13.4 % (0.0-8.0); MONOCYTE # 0.9 TH/MM3 (0-0.9); NEUT % 58.2 % (16.0-70.0); PLATELET COUNT 335 TH/MM3 (150-450); RED BLOOD COUNT 3.74 MIL/MM3 (4.50-5.90); RED CELL DISTRIBUTION WIDTH 11.3 % (11.6-17.2); WHITE BLOOD COUNT 6.6 TH/MM3 (4.0-11.0)
[2017-08-15] MEDS: DOCUSATE SODIUM 50 MG/SENNA 8.6 MG TAB PO SCH ×2 (08:32→22:09)
[2017-08-15] MEDS: glipiZIDE 5 MG TAB PO SCH (08:32)
[2017-08-15 08:38] LABS: BICARBONATE 27.7 MEQ/L (21.0-32.0); CALCIUM 9.1 MG/DL (8.5-10.1); CREATININE 1.31 MG/DL (0.60-1.30)
[2017-08-15] MEDS: SODIUM CHLORIDE 0.9% FLUSH 10 ML FLUSH IV FLUSH SCH ×2 (08:42→21:00)
--- NOTE | 2017-08-15 09:28 | HHI.PR ---
Subjective Remarks Follow-up diabetes. The patient states that his pain is well controlled. Denies chest pain, dyspnea, nausea, vomiting. Objective Vitals Vital Signs Date Time Temp Pulse Resp B/P (MAP) Pulse Ox O2 Delivery O2 Flow Rate FiO2 08/15/17 08:00 98.4 90 20 166/89 (114) 99 08/15/17 03:49 80 08/15/17 00:00 98.3 87 18 147/86 (106) 96 08/14/17 23:49 87 08/14/17 20:00 98.2 104 18 164/89 (114) 100 08/14/17 20:00 104 08/14/17 16:00 98.8 96 18 142/89 (106) 100 08/14/17 15:46 92 08/14/17 15:46 92 08/14/17 12:00 98.3 92 20 148/98 (115) 99 I/O 08/14/17 08/14/17 08/14/17 08/15/17 08/15/17 08/15/17 07:00 15:00 23:00 07:00 15:00 23:00 Intake Total 950 ml 100 ml 3050 ml 1100 ml Balance 950 ml 100 ml 3050 ml 1100 ml Intake Oral 900 ml IV Total 950 ml 100 ml 2150 ml 1100 ml # Voids 4 2 # Bowel Movements 1 Result Diagram: 08/15/1770108/15/17 0702 Imaging Last Impressions Aorta w/Runoff CTA 08/12/17 0000 Signed Impressions: Service Date/Time: Saturday, August 12, 2017 08:44 - CONCLUSION: 1. The examination demonstrates adequate inflow and runoff to both lower extremities. 2. There is lymphadenopathy involving the left external iliac johnna chain and left inguinal canal. There are nodes measuring up to 2 cm. It is possible this is reactive however malignancy is not excluded. Biopsy of these nodes may be a consideration. Kuldeep Reyez MD Foot MRI 08/11/17 0000 Signed Impressions: Service Date/Time: July 07:56 - CONCLUSION: 1. There are findings characteristic for a linear nondisplaced stress fracture through the body of the first cuneiform bone. 2. There appears to be some focal bone bruising along the lateral aspect of the cuboid bone. 3. Diffuse nonspecific soft tissue swelling and edema throughout the soft tissues of the midfoot. 4. Mild degenerative changes characteristic for patient's age.. Frank Zepeda MD Foot X-Ray 08/10/17 0000 Signed Impressions: Service Date/Time: Thursday, August 10, 2017 12:28 - CONCLUSION: 1. Generalized soft tissue swelling without evidence of fracture, destructive bony changes or significant arthropathy. 2. Arterial calcification. Olu Baker MD Objective Remarks General: No acute distress. Heart: Regular rate and rhythm. No murmur. Lungs: Clear to auscultation bilaterally. No wheezes, rales, or rhonchi. Breathing is nonlabored. Abdomen: Soft, nontender, nondistended. Extremities: No lower extremity edema. Left foot bandaged. Psych: Alert and oriented. Neuro: Normal speech. No focal deficits noted. Procedures 08/12/17 Incision, drainage, debridement, left foot, with excision, drainage, debridement of extensor hallucis longus tendon dorsum of foot. Urinary Catheter: No Vascular Central Line Catheter: No A/P Assessment and Plan 1. Diabetic foot wound, left foot: Patient has a chronic left foot wound on the plantar aspect of the left foot and a wound on the dorsal aspect of the left foot. Continue antibiotics. Appreciate podiatry recommendations. MRI shows possible stress fracture. Wound culture is growing MRSA. Blood culture from 08/10/17 growing gram-positive cocci. Repeat blood cultures. Appreciate infectious disease recommendations. CRP and sed rate are elevated. Intraoperative wound culture also growing MRSA. Plan for further surgical intervention tomorrow. 2. Diabetes mellitus: Monitor Accu-Cheks and cover with sliding scale insulin. Hemoglobin A1c is 8.5. Metformin on hold. Continue glipizide. Glucose improving. 3. Acute kidney injury: Creatinine increased today. Possibly secondary to vancomycin. Continue IV fluids. Pharmacy to adjust vancomycin dosing. 4. DVT prophylaxis: KENN Gee. Discharge Planning Pending podiatry/ID recommendations. Ruperto Soni MD August 15, 2017 09:28
[2017-08-15] MEDS ORDERED: PHARMACY ORDERED LAB ONE (12:45)
[2017-08-15] MEDS: ACETAMINOPHEN 325 MG TAB PO PRN (16:34)
[2017-08-15 18:05] LABS: BILIRUBIN, URINE NEG (NEG); GLUCOSE,URINE 100 mg/dL (NEG); KETONE, URINE NEG (NEG); NITRITE,URINE NEG (NEG); PH, URINE 6.5 (5.0-8.5); URINE COLOR YELLOW (YELLW/STRAW); URINE LEUKOCYTE ESTERASE NEG (NEG)
[2017-08-15 18:14] LABS: BLOOD, URINE TRACE (NEG)
[2017-08-15 18:15] LABS: SQUAMOUS EPITHELIAL CELL URINE <1 /hpf (0-5)
--- NOTE | 2017-08-15 20:06 | HHI.PR ---
Subjective Remarks Patient seen bedside. Denies any nausea vomiting fevers or chills. Resting comfortably. Denies pain to left foot. Objective Vital Signs Date Time Temp Pulse Resp B/P (MAP) Pulse Ox O2 Delivery O2 Flow Rate FiO2 08/15/17 17:46 16 08/15/17 16:00 97.7 92 20 176/101 (126) 100 08/15/17 12:00 98.3 97 20 160/91 (114) 96 08/15/17 08:00 98.4 90 20 166/89 (114) 99 08/15/17 03:49 80 08/15/17 00:00 98.3 87 18 147/86 (106) 96 08/14/17 23:49 87 I/O 08/14/17 08/14/17 08/14/17 08/15/17 08/15/17 08/15/17 07:00 15:00 23:00 07:00 15:00 23:00 Intake Total 950 ml 100 ml 3050 ml 1100 ml 812.5 ml 600 ml Balance 950 ml 100 ml 3050 ml 1100 ml 812.5 ml 600 ml Intake Oral 900 ml 600 ml IV Total 950 ml 100 ml 2150 ml 1100 ml 812.5 ml # Voids 4 2 3 # Bowel Movements 1 Result Diagram: 08/15/1702 08/15/17701 Imaging Last Impressions Aorta w/Runoff CTA 08/12/17 0000 Signed Impressions: Service Date/Time: Saturday, August 12, 2017 08:44 - CONCLUSION: 1. The examination demonstrates adequate inflow and runoff to both lower extremities. 2. There is lymphadenopathy involving the left external iliac johnna chain and left inguinal canal. There are nodes measuring up to 2 cm. It is possible this is reactive however malignancy is not excluded. Biopsy of these nodes may be a consideration. Kuldeep Reyez MD Foot MRI 08/11/17 0000 Signed Impressions: Service Date/Time: July 07:56 - CONCLUSION: 1. There are findings characteristic for a linear nondisplaced stress fracture through the body of the first cuneiform bone. 2. There appears to be some focal bone bruising along the lateral aspect of the cuboid bone. 3. Diffuse nonspecific soft tissue swelling and edema throughout the soft tissues of the midfoot. 4. Mild degenerative changes characteristic for patient's age.. Frank J. Siragusa, MD Foot X-Ray 08/10/17 0000 Signed Impressions: Service Date/Time: Thursday, August 10, 2017 12:28 - CONCLUSION: 1. Generalized soft tissue swelling without evidence of fracture, destructive bony changes or significant arthropathy. 2. Arterial calcification. Olu Baker MD Procedures Status post left foot incision and drainage performed by Dr. Mendoza Other Results Microbiology Date/Time Source Procedure Growth Status 08/10/17 12:30 Blood Peripheral Aerobic Blood Culture - Final NO GROWTH IN 5 DAYS Complete 08/10/17 12:30 Blood Peripheral Anaerobic Blood Culture - Final NO GROWTH IN 5 DAYS Complete 08/12/17 15:20 Wound Foot Fungal Smear - Final NO FUNGAL ELEMENTS SEEN. Resulted 08/12/17 15:20 Wound Foot Fungal Culture Pending Resulted Objective Remarks Left foot dorsal incision with sutures intact, exposed tendon noted, granulation noted, purulent drainage expressed upon compression. Left sub-met one ulcer with granular base, hyperkeratotic borders, no probe to bone, no purulent drainage upon compression. Medications and IVs Current Medications Medications (Trade) Dose Ordered Sig/Leigh Ann Route Start Time Stop Time Status Last Admin Pharmacy Profile Note 0 ml @ 0 mls/hr UNSCH OTHER 08/10/17 14:15 Sodium Chloride 1,000 ml @ 100 mls/hr Q10H IV 08/10/17 15:00 08/15/17 12:09 (NS Flush) 2 ml UNSCH PRN IV FLUSH 08/10/17 14:15 (NS Flush) 2 ml BID IV FLUSH 08/10/17 21:00 08/13/17 09:00 (Tylenol) 650 mg Q4H PRN PO 08/10/17 14:15 08/15/17 16:34 (Reglan Inj) 5 mg Q6H PRN IV PUSH 08/10/17 14:15 (Narcan Inj) 0.4 mg UNSCH PRN IV PUSH 08/10/17 14:15 (Michelle-Colace) 1 tab BID PO 08/10/17 21:00 08/15/17 08:32 (Milk Of Magnesia Liq) 30 ml Q12H PRN PO 08/10/17 14:15 (Senokot) 17.2 mg Q12H PRN PO 08/10/17 14:15 (Dulcolax Supp) 10 mg DAILY PRN RECTAL 08/10/17 14:15 (Lactulose Liq) 30 ml DAILY PRN PO 08/10/17 14:15 (D50w (Vial) Inj) 50 ml UNSCH PRN IV PUSH 08/10/17 14:15 (Glucagon Inj) 1 mg UNSCH PRN OTHER 08/10/17 14:15 (NovoLOG SUPPLEMENTAL SCALE) 1 ACHS SLIDING SCALE SQ 08/10/17 17:00 08/15/17 17:44 (Glucotrol) 5 mg DAILYAC PO 08/14/17 09:30 08/15/17 08:32 Vancomycin HCl 1000 mg/Sodium Chloride 250 ml @ 250 mls/hr Q12H IV 08/16/17 02:00 ([facility] [place] [facility] Ordered Lab Info) SPECIFIC LAB TO BE DWIGHT... ONCE ONCE .XX 08/17/17 01:45 08/17/17 01:46 Assessment and Plan Assessment and Plan 47-year-old male status post incision and drainage left foot Patient examined evaluated with all questions answered Repeat incision and drainage to be performed tomorrow To OR tomorrow Please obtain consent to read incision and drainage left foot possible wound VAC placed N.p.o. after midnight Delisa Mcgrath DPM August 15, 2017 20:06
[2017-08-16] VITALS: BP 163/89; PULSE 89; RESP 18; TEMP 97.9; O2SAT 99
[2017-08-16] MEDS: SODIUM CHLOR 0.9% 1000 ML INJ 1,000 ML IV SCH ×3 (00:45→20:20)
[2017-08-16] MEDS: VANCOMYCIN 1,000 MG/NS 250 ML IV SCH ×4 (02:37→15:00)
[2017-08-16] MEDS ORDERED: CHLORHEXIDINE GLUCONATE 2 % 1 PACK (2 CLOTHS) TOPICAL PRN (02:45)
[2017-08-16] MEDS ORDERED: POVIDONE IODINE 5% (ANTISEPSIS KIT) 4 APPLICATIONS EACH NARE PRN (02:45)
[2017-08-16] MEDS ORDERED: SODIUM CHLORID 0.9% 500 ML IV PRN (02:45)
[2017-08-16] MEDS ORDERED: LACTATED RINGER'S 1000 ML IV PRN (02:45)
[2017-08-16 04:00] VITALS: BP 166/91; PULSE 91; RESP 18; TEMP 98.1; O2SAT 98
[2017-08-16 08:00] VITALS: BP 161/90; PULSE 95; RESP 16; TEMP 97.7; O2SAT 97
[2017-08-16] MEDS: INSULIN ASPART SUPPLEMENTAL SCALE SQ SCH ×4 (08:00→21:00)
[2017-08-16 08:18] LABS: AUTOMATED NEUTROPHIL # 2.9 TH/MM3 (1.8-7.7); BASOPHIL # 0.1 TH/MM3 (0-0.2); BASOPHIL % 1.1 % (0.0-2.0); EOSINOPHIL # 0.6 TH/MM3 (0-0.4); EOSINOPHIL % 11.6 % (0.0-4.0); HEMATOCRIT 31.8 % (39.0-51.0); HEMOGLOBIN 10.9 GM/DL (13.0-17.0); LYMPH % 19.7 % (9.0-44.0); LYMPHOCYTE # 1.1 TH/MM3 (1.0-4.8); MEAN CORPUSCULAR HEMOGLOBIN 30.1 PG (27.0-34.0); MEAN CORPUSCULAR HGB CONC 34.2 % (32.0-36.0); MONO % 14.1 % (0.0-8.0); MONOCYTE # 0.8 TH/MM3 (0-0.9); NEUT % 53.5 % (16.0-70.0); PLATELET COUNT 375 TH/MM3 (150-450); RED BLOOD COUNT 3.61 MIL/MM3 (4.50-5.90); RED CELL DISTRIBUTION WIDTH 11.2 % (11.6-17.2); WHITE BLOOD COUNT 5.4 TH/MM3 (4.0-11.0)
[2017-08-16 08:49] LABS: BICARBONATE 26.1 MEQ/L (21.0-32.0); CALCIUM 9.3 MG/DL (8.5-10.1); CREATININE 1.22 MG/DL (0.60-1.30)
[2017-08-16] MEDS: SODIUM CHLORIDE 0.9% FLUSH 10 ML FLUSH IV FLUSH SCH ×2 (09:00→20:20)
[2017-08-16] MEDS: glipiZIDE 5 MG TAB PO SCH (09:04)
[2017-08-16] MEDS: DOCUSATE SODIUM 50 MG/SENNA 8.6 MG TAB PO SCH ×2 (09:04→20:20)
[2017-08-16] MEDS: ACETAMINOPHEN 325 MG TAB PO PRN ×2 (09:04→20:19)
--- NOTE | 2017-08-16 11:19 | HHI.IDPN ---
Subjective Subjective Remarks Patient is a 47-year-old male, with known diabetes, presented to the hospital complaining of 2 day history of redness and swelling on his left foot. Patient has a callus over his first metatarsal, and about a month ago, he picked on it. He apparently developed a sore, and it was not really giving him any problem, until 2 days prior to admission when he started developing redness and swelling on his left foot. He denies any fever chills or sweats. He did not notice any odor to it. He has no other complaints. Patient has moved to [place] about 5 months ago, and he has not established with a primary care physician. He presented to the hospital, and has been admitted. He has cellulitis on that left foot. X-ray of the foot did not show any evidence of bony destruction fracture or any foreign body. Highest temperature has been 99+. His WBC is normal, but his ESR is greater than 140, and CRP 15.30. He is currently on vancomycin and Zosyn. Infectious disease consultation has been requested to evaluate the patient for possible osteomyelitis, and make antibiotic recommendations. Notes reviewed Temps ok Pain better For repeat surgery today Wound C/S MRSA and GAS No diarrhea No N/V No rash or itching Antibiotics Vancomycin Zosyn Current Medications Medications (Trade) Dose Ordered Sig/Leigh Ann Route Start Time Stop Time Status Last Admin Pharmacy Profile Note 0 ml @ 0 mls/hr UNSCH OTHER 08/10/17 14:15 Sodium Chloride 1,000 ml @ 100 mls/hr Q10H IV 08/10/17 15:00 08/16/17 00:45 (NS Flush) 2 ml UNSCH PRN IV FLUSH 08/10/17 14:15 (NS Flush) 2 ml BID IV FLUSH 08/10/17 21:00 08/13/17 09:00 (Tylenol) 650 mg Q4H PRN PO 08/10/17 14:15 08/16/17 09:04 (Reglan Inj) 5 mg Q6H PRN IV PUSH 08/10/17 14:15 (Narcan Inj) 0.4 mg UNSCH PRN IV PUSH 08/10/17 14:15 (Michelle-Colace) 1 tab BID PO 08/10/17 21:00 08/16/17 09:04 (Milk Of Magnesia Liq) 30 ml Q12H PRN PO 08/10/17 14:15 (Senokot) 17.2 mg Q12H PRN PO 08/10/17 14:15 (Dulcolax Supp) 10 mg DAILY PRN RECTAL 08/10/17 14:15 (Lactulose Liq) 30 ml DAILY PRN PO 08/10/17 14:15 (D50w (Vial) Inj) 50 ml UNSCH PRN IV PUSH 08/10/17 14:15 (Glucagon Inj) 1 mg UNSCH PRN OTHER 08/10/17 14:15 (NovoLOG SUPPLEMENTAL SCALE) 1 ACHS SLIDING SCALE SQ 08/10/17 17:00 08/15/17 22:14 (Glucotrol) 5 mg DAILYAC PO 08/14/17 09:30 08/16/17 09:04 Vancomycin HCl 1000 mg/Sodium Chloride 250 ml @ 250 mls/hr Q12H IV 08/16/17 02:00 08/16/17 02:37 [place] [place] SPECIFIC LAB TO BE ... ONCE ONCE .XX 08/17/17 01:45 08/17/17 01:46 Lactated Ringer's 1,000 ml @ 30 mls/hr Q24H PRN IV 08/16/17 02:45 08/19/17 02:44 Sodium Chloride 500 ml @ 30 mls/hr [id number] PRN IV 08/16/17 02:45 08/19/17 02:44 (Betadine 5% Antisepsis Kit) 1 applic [employer] MANAGER PRN EACH NARE 08/16/17 02:45 08/19/17 02:44 (Chlorhexidine 2% Cloth) 3 pack HE[employer] AND SAFETY MANAGER PRN TOPICAL 08/16/17 02:45 08/19/17 02:44 Lines PIV no evidence of infection Past Medical History Diabetes Past Surgical History Surgery on his right index finger related to trauma Allergies: Coded Allergies: No Known Allergies (Unverified , 08/10/17) Objective . Vital Signs Date Time Temp Pulse Resp B/P (MAP) Pulse Ox O2 Delivery O2 Flow Rate FiO2 08/16/17 08:00 97.7 95 16 161/90 (113) 97 08/16/17 04:00 98.1 91 18 166/91 (116) 98 08/16/17 00:00 89 08/16/17 00:00 97.9 89 18 163/89 (113) 99 08/15/17 21:00 91 08/15/17 21:00 91 08/15/17 20:00 98.0 96 20 158/96 (116) 100 08/15/17 17:46 16 08/15/17 16:00 97.7 92 20 176/101 (126) 100 08/15/17 12:00 98.3 97 20 160/91 (114) 96 . Laboratory Tests Test 08/15/17 07:02 08/16/17 07:26 White Blood Count 6.6 TH/MM3 5.4 TH/MM3 Red Blood Count 3.74 MIL/MM3 3.61 MIL/MM3 Hemoglobin 11.3 GM/DL 10.9 GM/DL Hematocrit 32.9 % 31.8 % Mean Corpuscular Volume 88.0 FL 88.0 FL Mean Corpuscular Hemoglobin 30.1 PG 30.1 PG Mean Corpuscular Hemoglobin Concent 34.2 % 34.2 % Red Cell Distribution Width 11.3 % 11.2 % Platelet Count 335 TH/MM3 375 TH/MM3 Mean Platelet Volume 7.0 FL 7.0 FL Neutrophils (%) (Auto) 58.2 % 53.5 % Lymphocytes (%) (Auto) 16.6 % 19.7 % Monocytes (%) (Auto) 13.4 % 14.1 % Eosinophils (%) (Auto) 10.8 % 11.6 % Basophils (%) (Auto) 1.0 % 1.1 % Neutrophils # (Auto) 3.9 TH/MM3 2.9 TH/MM3 Lymphocytes # (Auto) 1.1 TH/MM3 1.1 TH/MM3 Monocytes # (Auto) 0.9 TH/MM3 0.8 TH/MM3 Eosinophils # (Auto) 0.7 TH/MM3 0.6 TH/MM3 Basophils # (Auto) 0.1 TH/MM3 0.1 TH/MM3 CBC Comment DIFF FINAL DIFF FINAL Differential Comment Laboratory Tests Test 08/15/17 07:02 08/16/17 07:26 Blood Urea Nitrogen 10 MG/DL 9 MG/DL Creatinine 1.31 MG/DL 1.22 MG/DL Random Glucose 157 MG/DL 145 MG/DL Calcium Level 9.1 MG/DL 9.3 MG/DL Sodium Level 142 MEQ/L 143 MEQ/L Potassium Level 3.7 MEQ/L 3.6 MEQ/L Chloride Level 106 MEQ/L 108 MEQ/L Carbon Dioxide Level 27.7 MEQ/L 26.1 MEQ/L Anion Gap 8 MEQ/L 9 MEQ/L Estimat Glomerular Filtration Rate 59 ML/MIN 64 ML/MIN Imaging Last Impressions Foot MRI 08/11/17 0000 Signed Impressions: Service Date/Time: July 07:56 - CONCLUSION: 1. There are findings characteristic for a linear nondisplaced stress fracture through the body of the first cuneiform bone. 2. There appears to be some focal bone bruising along the lateral aspect of the cuboid bone. 3. Diffuse nonspecific soft tissue swelling and edema throughout the soft tissues of the midfoot. 4. Mild degenerative changes characteristic for patient's age.. Frank Zepeda MD Foot X-Ray 08/10/17 0000 Signed Impressions: Service Date/Time: Thursday, August 10, 2017 12:28 - CONCLUSION: 1. Generalized soft tissue swelling without evidence of fracture, destructive bony changes or significant arthropathy. 2. Arterial calcification. Olu Baker MD Physical Exam GENERAL: awake and alert, NAD SKIN: Warm and dry. No generalized rash. HEAD: Atraumatic. Normocephalic. No temporal wasting, or tenderness. EYES: [place] conjunctiva. No petechia or hemorrhage. Pupils equal, round and reactive to light. Extraocular movements full and intact. No scleral icterus. No injection or drainage. EARS, NOSE AND THROAT: Nose without bleeding or purulent nasal discharge. No sinus tenderness. Mucous membranes pink and moist. No oral lesions noted. NECK: Trachea midline. Supple and not tender, no meningeal signs CARDIOVASCULAR: Regular rate and rhythm. No murmurs, rubs or gallops heard RESPIRATORY: Clear to auscultation. Breath sounds equal bilaterally. No rales , wheezing or rhonchi ABDOMEN: Soft, non-tender, nondistended. Bowel sounds present and normoactive. No guarding. No rebound. No organomegaly. EXTREMITIES: No clubbing, cyanosis. No joint effusion, has good ROM. No calf tenderness. Well perfused and warm. L foot - less swollen. Incision on dorsum of foot with some purulence, also with black eschar border. Dry wound over plantar first MT. No odor. No crepitus NEUROLOGICAL: Grossly non-focal PSYCHIATRIC: Normal affect, calm and cooperative. LINE: No evidence of infection Assessment & Plan Remarks IMPRESSION Diabetic foot infection L foot, possible osteomyelitis 1st MTP, ?abscess over the first MT - MRI with some fracture seen - S/P I and D, still with purulence for repeat OR today - C/S MRSA, GAS Cellulitis LLE, better Possible sepsis due to L foot infection RECOMMENDATION Podiatry following - OR for today Continue Vancomycin Give short course of Clindamycin Stop Zosyn Monitor progress Explained plan to the patient Verona Guthrie MD August 16, 2017 11:19
[2017-08-16 12:00] VITALS: BP 119/72; PULSE 89; RESP 17; TEMP 98.1; O2SAT 97
[2017-08-16] MEDS: CLINDAMYCIN 600 MG/NS PREMIX 50 ML IV SCH ×2 (12:37→20:20)
--- NOTE | 2017-08-16 15:56 | HHI.PR ---
Subjective Remarks The patient was resting comfortably in bed. He was wondering when he would have surgery next. He denied any pain. He has been sleeping well. Discussed with nursing. Objective Vitals Vital Signs Date Time Temp Pulse Resp B/P (MAP) Pulse Ox O2 Delivery O2 Flow Rate FiO2 08/16/17 12:00 98.1 89 17 119/72 (88) 97 08/16/17 08:00 97.7 95 16 161/90 (113) 97 08/16/17 04:00 98.1 91 18 166/91 (116) 98 08/16/17 00:00 89 08/16/17 00:00 97.9 89 18 163/89 (113) 99 08/15/17 21:00 91 08/15/17 21:00 91 08/15/17 20:00 98.0 96 20 158/96 (116) 100 08/15/17 17:46 16 08/15/17 16:00 97.7 92 20 176/101 (126) 100 I/O 08/15/17 08/15/17 08/15/17 08/16/17 08/16/17 08/16/17 06:59 14:59 22:59 06:59 14:59 22:59 Intake Total 1100 ml 812.5 ml 600 ml Balance 1100 ml 812.5 ml 600 ml Intake Oral 600 ml IV Total 1100 ml 812.5 ml # Voids 2 3 Result Diagram: 08/16/17 0726 08/16/17 0726 Imaging Last Impressions Aorta w/Runoff CTA 08/12/17 0000 Signed Impressions: Service Date/Time: Saturday, August 12, 2017 08:44 - CONCLUSION: 1. The examination demonstrates adequate inflow and runoff to both lower extremities. 2. There is lymphadenopathy involving the left external iliac johnna chain and left inguinal canal. There are nodes measuring up to 2 cm. It is possible this is reactive however malignancy is not excluded. Biopsy of these nodes may be a consideration. Kuldeep Reyez MD Foot MRI 08/11/17 0000 Signed Impressions: Service Date/Time: July 07:56 - CONCLUSION: 1. There are findings characteristic for a linear nondisplaced stress fracture through the body of the first cuneiform bone. 2. There appears to be some focal bone bruising along the lateral aspect of the cuboid bone. 3. Diffuse nonspecific soft tissue swelling and edema throughout the soft tissues of the midfoot. 4. Mild degenerative changes characteristic for patient's age.. Frank Zepeda MD Foot X-Ray 08/10/17 0000 Signed Impressions: Service Date/Time: Thursday, August 10, 2017 12:28 - CONCLUSION: 1. Generalized soft tissue swelling without evidence of fracture, destructive bony changes or significant arthropathy. 2. Arterial calcification. Olu Baker MD Objective Remarks General: No acute distress. Heart: Regular rate and rhythm. No murmur. Lungs: Clear to auscultation bilaterally. No wheezes, rales, or rhonchi. Breathing is nonlabored. Abdomen: Soft, nontender, nondistended. Extremities: No lower extremity edema. Left foot bandaged. Psych: Calm. Neuro: Normal speech. No focal deficits noted. Procedures 08/12/17 Incision, drainage, debridement, left foot, with excision, drainage, debridement of extensor hallucis longus tendon dorsum of foot. A/P Assessment and Plan Diabetic foot wound, left foot Patient has a chronic left foot wound on the plantar aspect of the left foot and a wound on the dorsal aspect of the left foot. Appreciate podiatry recommendations. MRI shows possible stress fracture. Wound culture is growing MRSA. Blood culture from 08/10/17 growing gram-positive cocci. Appreciate infectious disease recommendations. CRP and sed rate are elevated. Intraoperative wound culture also growing MRSA. - Plan for further surgical intervention per podiatry 08/16. - antibiotics per ID. Diabetes mellitus Well controlled. A1c 8.5%. - Monitor Accu-Cheks and cover with sliding scale insulin. - Metformin on hold. Continue glipizide. Acute kidney injury Improving. Possibly secondary to vancomycin. - Continue IV fluids. - Pharmacy to adjust vancomycin dosing. DVT prophylaxis: KENN Gee Michael J. DO August 16, 2017 15:56
[2017-08-16 16:00] VITALS: BP 150/92; PULSE 93; RESP 19; TEMP 97.7; O2SAT 98
[2017-08-16 20:00] VITALS: BP 175/93; PULSE 96; RESP 20; TEMP 98; O2SAT 100
[2017-08-17] VITALS: BP 135/85; PULSE 79; PULSE 90; RESP 20; TEMP 97.9; O2SAT 99
[2017-08-17] MEDS ORDERED: PHARMACY ORDERED LAB ONE (01:45)
[2017-08-17] MEDS: VANCOMYCIN 1,000 MG/NS 250 ML IV SCH ×4 (02:27→18:27)
[2017-08-17] MEDS: SODIUM CHLOR 0.9% 1000 ML INJ 1,000 ML IV SCH (02:29)
[2017-08-17 04:00] VITALS: BP 167/91; PULSE 89; RESP 20; O2SAT 98
[2017-08-17 04:10] LABS: HEMATOCRIT 30.1 % (39.0-51.0); HEMOGLOBIN 10.4 GM/DL (13.0-17.0); MEAN CELL VOLUME 86.3 FL (80.0-100.0); MEAN CORPUSCULAR HEMOGLOBIN 29.7 PG (27.0-34.0); MEAN CORPUSCULAR HGB CONC 34.4 % (32.0-36.0); MEAN PLATELET VOLUME 6.7 FL (7.0-11.0); PLATELET COUNT 364 TH/MM3 (150-450); RED BLOOD COUNT 3.49 MIL/MM3 (4.50-5.90); RED CELL DISTRIBUTION WIDTH 11.4 % (11.6-17.2); WHITE BLOOD COUNT 4.9 TH/MM3 (4.0-11.0)
[2017-08-17 04:29] LABS: BICARBONATE 27.7 MEQ/L (21.0-32.0); CALCIUM 8.9 MG/DL (8.5-10.1); CREATININE 1.04 MG/DL (0.60-1.30); MAGNESIUM 2.2 MG/DL (1.5-2.5)
[2017-08-17] MEDS: CLINDAMYCIN 600 MG/NS PREMIX 50 ML IV SCH ×3 (04:51→20:36)
[2017-08-17 08:00] VITALS: BP 150/93; PULSE 89; RESP 17; TEMP 98.2; O2SAT 98
[2017-08-17] MEDS: INSULIN ASPART SUPPLEMENTAL SCALE SQ SCH ×4 (08:00→20:57)
[2017-08-17] MEDS: glipiZIDE 5 MG TAB PO SCH (08:00)
[2017-08-17] MEDS: SODIUM CHLORIDE 0.9% FLUSH 10 ML FLUSH IV FLUSH SCH ×2 (09:00→20:37)
[2017-08-17] MEDS: DOCUSATE SODIUM 50 MG/SENNA 8.6 MG TAB PO SCH ×2 (09:00→20:36)
[2017-08-17 12:00] VITALS: BP 150/85; PULSE 94; RESP 17; TEMP 98.4; O2SAT 95
[2017-08-17] MEDS ORDERED: LIDOCAINE HCL 1% PF 5 ML SYRINGE OTHER ONE (12:00)
[2017-08-17] MEDS ORDERED: PROPOFOL 200 MG/20 ML AMP IV ONE (12:00)
[2017-08-17] MEDS ORDERED: ONDANSETRON HCL 4 MG/2 ML VIAL IV ONE (12:00)
[2017-08-17] MEDS ORDERED: PHENYLEPH/NS 1000 MCG/10 ML SYR IV ONE (12:00)
[2017-08-17] MEDS ORDERED: LACTATED RINGER'S 1000 ML INJ 1,000 ML IV ONE (12:00)
[2017-08-17] MEDS ORDERED: D5-1/2 NS + KCL 20 MEQ INJ 1,000 ML IV SCH (13:00)
--- NOTE | 2017-08-17 13:24 | HHI.PR ---
Subjective Remarks The patient was looking forward to having surgery today. He said that he has gone without food for a long time. He says his pain is controlled. He has been ambulating. Discussed with nursing. Objective Vitals Vital Signs Date Time Temp Pulse Resp B/P (MAP) Pulse Ox O2 Delivery O2 Flow Rate FiO2 08/17/17 12:00 98.4 94 17 150/85 (106) 95 08/17/17 08:00 98.2 89 17 150/93 (112) 98 08/17/17 04:00 89 20 167/91 (116) 98 08/17/17 00:00 97.9 90 20 135/85 (102) 99 08/17/17 00:00 79 08/16/17 21:19 19 08/16/17 20:00 98.0 96 20 175/93 (120) 100 08/16/17 16:00 97.7 93 19 150/92 (111) 98 I/O 08/16/17 08/16/17 08/16/17 08/17/17 08/17/17 08/17/17 07:00 15:00 23:00 07:00 15:00 23:00 Intake Total 0 ml Output Total 4 ml 900 ml Balance -4 ml -900 ml Intake Oral 0 ml Output Urine Total 4 ml 900 ml # Voids 0 # Bowel Movements 1 0 Result Diagram: 08/17/17 0349 08/17/17 0349 Imaging Last Impressions Aorta w/Runoff CTA 08/12/17 0000 Signed Impressions: Service Date/Time: Saturday, August 12, 2017 08:44 - CONCLUSION: 1. The examination demonstrates adequate inflow and runoff to both lower extremities. 2. There is lymphadenopathy involving the left external iliac johnna chain and left inguinal canal. There are nodes measuring up to 2 cm. It is possible this is reactive however malignancy is not excluded. Biopsy of these nodes may be a consideration. Kuldeep Reyez MD Foot MRI 08/11/17 0000 Signed Impressions: Service Date/Time: July 07:56 - CONCLUSION: 1. There are findings characteristic for a linear nondisplaced stress fracture through the body of the first cuneiform bone. 2. There appears to be some focal bone bruising along the lateral aspect of the cuboid bone. 3. Diffuse nonspecific soft tissue swelling and edema throughout the soft tissues of the midfoot. 4. Mild degenerative changes characteristic for patient's age.. Frank Zepeda MD Foot X-Ray 08/10/17 0000 Signed Impressions: Service Date/Time: Thursday, August 10, 2017 12:28 - CONCLUSION: 1. Generalized soft tissue swelling without evidence of fracture, destructive bony changes or significant arthropathy. 2. Arterial calcification. Olu Baker MD Objective Remarks General: No acute distress. Heart: Regular rate and rhythm. No murmur. Lungs: Clear to auscultation bilaterally. No wheezes, rales, or rhonchi. Breathing is nonlabored. Abdomen: Soft, nontender, nondistended. Extremities: No lower extremity edema. Left foot bandaged. Psych: Calm. Neuro: Normal speech. No focal deficits noted. Procedures 08/12/17 Incision, drainage, debridement, left foot, with excision, drainage, debridement of extensor hallucis longus tendon dorsum of foot. A/P Assessment and Plan Diabetic foot wound, left foot Patient has a chronic left foot wound on the plantar aspect of the left foot and a wound on the dorsal aspect of the left foot. Appreciate podiatry recommendations. MRI shows possible stress fracture. Wound culture is growing MRSA. Blood culture from 08/10/17 growing gram-positive cocci. Appreciate infectious disease recommendations. CRP and sed rate are elevated. Intraoperative wound culture also growing MRSA. - Plan for further surgical intervention per podiatry 08/17. - antibiotics per ID. Currently on vancomycin and clindamycin. Diabetes mellitus Well controlled. A1c 8.5%. - Monitor Accu-Cheks and cover with sliding scale insulin. - Metformin and glipizide on hold. - On D5 while n.p.o. Acute kidney injury Improving. Possibly secondary to vancomycin. - Continue IV fluids. - Pharmacy to adjust vancomycin dosing. Hypokalemia Secondary to decreased p.o. intake. - continue IVFs with KCl. - follow BMP. DVT prophylaxis: KENN Gee Michael J. DO August 17, 2017 13:24
[2017-08-17] MEDS ORDERED: LIDOCAINE HCL 1% 50 ML VIAL ONE (13:54)
[2017-08-17] MEDS ORDERED: BUPIVACAINE HCL PF 0.25% 30 ML VIAL ONE (13:54)
[2017-08-17] MEDS ORDERED: ACETAMINOPHEN 1000 MG/100 ML 100 ML IV ONE (14:07)
[2017-08-17] MEDS ORDERED: BUPIVACAINE HCL PF 0.5% 30 ML VIAL ONE (15:06)
--- NOTE | 2017-08-17 16:21 | HHI.PR ---
Subjective Remarks Patient seen bedside in preop. Denies any nausea vomiting fevers or chills. Resting comfortably. Denies pain to left foot. States he has been NPO since after breakfast. Objective Vital Signs Date Time Temp Pulse Resp B/P (MAP) Pulse Ox O2 Delivery O2 Flow Rate FiO2 08/17/17 12:00 98.4 94 17 150/85 (106) 95 08/17/17 08:00 98.2 89 17 150/93 (112) 98 08/17/17 04:00 89 20 167/91 (116) 98 08/17/17 00:00 97.9 90 20 135/85 (102) 99 08/17/17 00:00 79 08/16/17 21:19 19 08/16/17 20:00 98.0 96 20 175/93 (120) 100 I/O 08/16/17 08/16/17 08/16/17 08/17/17 08/17/17 08/17/17 06:59 14:59 22:59 06:59 14:59 22:59 Intake Total 0 ml Output Total 4 ml 900 ml Balance -4 ml -900 ml Intake Oral 0 ml Output Urine Total 4 ml 900 ml # Voids 0 # Bowel Movements 1 0 Result Diagram: 08/17/17 0349 08/17/17 0349 Imaging Last Impressions Aorta w/Runoff CTA 08/12/17 0000 Signed Impressions: Service Date/Time: Saturday, August 12, 2017 08:44 - CONCLUSION: 1. The examination demonstrates adequate inflow and runoff to both lower extremities. 2. There is lymphadenopathy involving the left external iliac johnna chain and left inguinal canal. There are nodes measuring up to 2 cm. It is possible this is reactive however malignancy is not excluded. Biopsy of these nodes may be a consideration. Kuldeep Reyez MD Foot MRI 08/11/17 0000 Signed Impressions: Service Date/Time: July 07:56 - CONCLUSION: 1. There are findings characteristic for a linear nondisplaced stress fracture through the body of the first cuneiform bone. 2. There appears to be some focal bone bruising along the lateral aspect of the cuboid bone. 3. Diffuse nonspecific soft tissue swelling and edema throughout the soft tissues of the midfoot. 4. Mild degenerative changes characteristic for patient's age.. Frank Zepeda MD Foot X-Ray 08/10/17 0000 Signed Impressions: Service Date/Time: Thursday, August 10, 2017 12:28 - CONCLUSION: 1. Generalized soft tissue swelling without evidence of fracture, destructive bony changes or significant arthropathy. 2. Arterial calcification. Olu Baker MD Procedures Status post left foot incision and drainage performed by Dr. Mendoza Other Results Microbiology Date/Time Source Procedure Growth Status 08/10/17 12:30 Blood Peripheral Aerobic Blood Culture - Final NO GROWTH IN 5 DAYS Complete 08/10/17 12:30 Blood Peripheral Anaerobic Blood Culture - Final NO GROWTH IN 5 DAYS Complete 08/12/17 15:20 Wound Foot Fungal Smear - Final NO FUNGAL ELEMENTS SEEN. Resulted 08/12/17 15:20 Wound Foot Fungal Culture Pending Resulted Objective Remarks 08/15: Left foot dorsal incision with sutures intact, exposed tendon noted, granulation noted, purulent drainage expressed upon compression. Left sub-met one ulcer with granular base, hyperkeratotic borders, no probe to bone, no purulent drainage upon compression. 08/17: Dressing to left foot clean, dry and intact with no strikethrough noted. Medications and IVs Current Medications Medications (Trade) Dose Ordered Sig/Leigh Ann Route Start Time Stop Time Status Last Admin Pharmacy Profile Note 0 ml @ 0 mls/hr UNSCH OTHER 08/10/17 14:15 (NS Flush) 2 ml UNSCH PRN IV FLUSH 08/10/17 14:15 (NS Flush) 2 ml BID IV FLUSH 08/10/17 21:00 08/16/17 20:20 (Tylenol) 650 mg Q4H PRN PO 08/10/17 14:15 08/16/17 20:19 (Reglan Inj) 5 mg Q6H PRN IV PUSH 08/10/17 14:15 (Narcan Inj) 0.4 mg UNSCH PRN IV PUSH 08/10/17 14:15 (Michelle-Colace) 1 tab BID PO 08/10/17 21:00 08/16/17 09:04 (Milk Of Magnesia Liq) 30 ml Q12H PRN PO 08/10/17 14:15 (Senokot) 17.2 mg Q12H PRN PO 08/10/17 14:15 (Dulcolax Supp) 10 mg DAILY PRN RECTAL 08/10/17 14:15 (Lactulose Liq) 30 ml DAILY PRN PO 08/10/17 14:15 (D50w (Vial) Inj) 50 ml UNSCH PRN IV PUSH 08/10/17 14:15 (Glucagon Inj) 1 mg UNSCH PRN OTHER 08/10/17 14:15 (NovoLOG SUPPLEMENTAL SCALE) 1 ACHS SLIDING SCALE SQ 08/10/17 17:00 08/15/17 22:14 (Glucotrol) 5 mg DAILYAC PO 08/14/17 09:30 08/16/17 09:04 Lactated Ringer's 1,000 ml @ 30 mls/hr Q24H PRN IV 08/16/17 02:45 08/19/17 02:44 Sodium Chloride 500 ml @ 30 mls/hr [id number] PRN IV 08/16/17 02:45 08/19/17 02:44 (Betadine 5% Antisepsis Kit) 1 applic COMPUTATIONAL LINGUIST PRN EACH NARE 08/16/17 02:45 08/19/17 02:44 (Chlorhexidine 2% Cloth) 3 pack COMPUTATIONAL LINGUIST PRN TOPICAL 08/16/17 02:45 08/19/17 02:44 Clindamycin/ Sodium Chloride 50 ml @ 100 mls/hr Q8H IV 08/16/17 12:00 08/17/17 13:30 Vancomycin HCl 1000 mg/Sodium Chloride 250 ml @ 250 mls/hr Q12H IV 08/17/17 18:00 [place] [place] Lab Info) SPECIFIC LAB TO BE DRAWN:VANCOMYCIN TROUGH DATE TO... ONCE ONCE .XX 08/19/17 05:45 08/19/17 05:46 Potassium Chloride/Dextrose/ Sod Cl 1,000 ml @ 100 mls/hr Q10H IV 08/17/17 13:00 08/17/17 22:59 08/17/17 14:01 Assessment and Plan Assessment and Plan 47-year-old male status post incision and drainage left foot Patient examined evaluated with all questions answered OR today for repeat incision and drainage left foot with possible wound vac placement Consent signed Delisa Dennis DPM August 17, 2017 16:21
[2017-08-17] MEDS ORDERED: NEOMYCIN/POLYMYXIN/BACITRACIN OINT 15 GM TUBE ONE (16:50)
[2017-08-17] MEDS ORDERED: DO NOT ADM ANY ANTICOAGULANT DRUGS PRN (17:00)
--- NOTE | 2017-08-17 17:15 | HHI.PR ---
Immediate Post Op Note Procedure Date: August 17, 2017 Pre Op Diagnosis: Left foot abscess/Left foot submet 1 ulceration Post Op Diagnosis: Left foot abscess/Left foot submet 1 ulceration Surgeon: Delisa Mcgrath Moving Worker(s): None Procedure: Left foot incision and drainage dorsal aspect/Debridement and irrigation of submet 1 ulcer Findings: None Additional Information: None Complications: None Specimen(s) removed: None Estimated blood loss: 5cc Anesthesia: General Drains: None Patient to: PACU Patient Condition: Good Delisa Mcgrath DPM August 17, 2017 17:15
[2017-08-17] MEDS ORDERED: MIDAZOLAM HCL 2 MG/2 ML VIAL ONE (17:18)
--- NOTE | 2017-08-17 17:36 | MR ---
cc: Delisa Mcgrath DPM DATE: 08/17/2017 DATE OF PROCEDURE: 08/17/2017 SURGEON: Delisa Mcgrath DPM TEAM LEADER/RESEARCH PSYCHOLOGIST: None. PREOPERATIVE DIAGNOSES: Left foot abscess, submetatarsal 1 ulceration. POSTOPERATIVE DIAGNOSIS: Left foot abscess, submetatarsal 1 ulceration. PROCEDURE PERFORMED: Left foot dorsal incision and drainage, left submetatarsal 1 debridement and irrigation of ulceration. ANESTHESIA: LMA. HEMOSTASIS: None. ESTIMATED BLOOD LOSS: 5 mL. MATERIALS: 3-0 Prolene. INJECTABLES: 0.5 percent Marcaine plain, 10 mL COMPLICATIONS: None. INDICATIONS FOR PROCEDURE: The patient is a 47-year-old male who was brought to the OR for incision and drainage of left foot abscess. The patient was evaluated on the floor 08/15/2017 and noted to have continued purulent drainage. Decision was made to take the patient to the OR. The patient understands all benefits, risks, alternatives, and complications associated with the procedure. He would like to move forward with intervention. PROCEDURE IN DETAIL: The patient was brought back to the operating room, placed on the operating table in the supine position. General anesthesia was then induced. The left foot was prepped and draped in the usual sterile fashion. Attention was then directed to submetatarsal 1 ulceration, where a full-thickness excisional debridement was performed to subcutaneous tissue, muscle and tendon with a 15 blade. Attention was then directed to the dorsal aspect of left foot, where incision with necrotic skin was noted to dorsal aspect. Sutures were removed from this incision site. Purulent drainage was noted. Copious irrigation was performed. Incision was continued down to the muscle, tendon, and bone. Edges of the incision were refreshed with a 15 blade. All necrotic, fibrotic tissue was debrided. Copious irrigation was performed. 3-0 Prolene was utilized to close both distal and proximal aspect of the incisions. A DONNELL wound VAC was applied and was noted to be functioning appropriately when the patient left the OR. The patient tolerated the procedure and anesthesia well. He will be transferred back to the floor. Neurovascular status was intact to the left foot upon discharge from the OR. RACHELLE ParmarP/LASHA , 05:19 PM , 05:35 PM LITTLE
[2017-08-17 20:00] VITALS: BP 166/93; PULSE 99; RESP 17; TEMP 98.7; O2SAT 99
[2017-08-17] MEDS: ACETAMINOPHEN 325 MG TAB PO PRN (20:36)
[2017-08-18] VITALS (7 sets, daily range): BP systolic 106–170; BP diastolic 60–90; PULSE 81–107; RESP 16–20; TEMP 97.1–101.1; O2SAT 95–99
[2017-08-18 04:42] LABS: BICARBONATE 27.3 MEQ/L (21.0-32.0); CALCIUM 8.5 MG/DL (8.5-10.1); CREATININE 1.41 MG/DL (0.60-1.30); MAGNESIUM 2.1 MG/DL (1.5-2.5)
[2017-08-18] MEDS: CLINDAMYCIN 600 MG/NS PREMIX 50 ML IV SCH ×3 (05:02→19:43)
[2017-08-18] MEDS: ACETAMINOPHEN 325 MG TAB PO PRN ×3 (05:02→21:02)
[2017-08-18] MEDS: VANCOMYCIN 1,000 MG/NS 250 ML IV SCH ×2 (05:03)
[2017-08-18] MEDS: INSULIN ASPART SUPPLEMENTAL SCALE SQ SCH ×4 (08:28→21:03)
[2017-08-18] MEDS: SODIUM CHLORIDE 0.9% FLUSH 10 ML FLUSH IV FLUSH SCH ×2 (08:28→19:43)
[2017-08-18] MEDS: DOCUSATE SODIUM 50 MG/SENNA 8.6 MG TAB PO SCH ×2 (08:28→19:43)
[2017-08-18] MEDS: glipiZIDE 5 MG TAB PO SCH (08:28)
[2017-08-18] MEDS ORDERED: POTASSIUM CHLORIDE 20 MEQ CONTROLLED RELEASE TAB PO ONE (13:00)
--- NOTE | 2017-08-18 13:07 | HHI.PR ---
Subjective Remarks The patient was resting comfortably in bed. He said he had a little bit of pain. He says he has not been very ambulatory. Discussed with nursing who reports his blood sugars have been on the high side. Objective Vitals Vital Signs Date Time Temp Pulse Resp B/P (MAP) Pulse Ox O2 Delivery O2 Flow Rate FiO2 08/18/17 12:00 99.2 102 18 144/80 (101) 99 08/18/17 08:00 98.1 91 16 106/60 (75) 98 08/18/17 04:00 97.1 82 17 135/82 (99) 95 08/18/17 00:00 98.7 81 17 137/80 (99) 98 08/17/17 20:00 98.7 99 17 166/93 (117) 99 08/17/17 17:30 98.3 94 20 142/86 (104) 100 Nasal Cannula 2 08/17/17 17:15 91 20 138/81 (100) 100 Nasal Cannula 2 08/17/17 17:12 98.3 85 20 141/79 (99) 100 Nasal Cannula 2 I/O 08/17/17 08/17/17 08/17/17 08/18/17 08/18/17 08/18/17 07:00 15:00 23:00 07:00 15:00 23:00 Intake Total 1350 ml 1290 ml Output Total 900 ml 5 ml Balance -900 ml 1345 ml 1290 ml Intake Oral 200 ml 240 ml IV Total 50 ml 1050 ml Other 1100 ml Output Urine Total 900 ml Estimated Blood Loss 5 ml # Voids 0 3 3 # Bowel Movements 0 0 Result Diagram: 08/17/17 0349 08/18/17 0407 Imaging Last Impressions Aorta w/Runoff CTA 08/12/17 0000 Signed Impressions: Service Date/Time: Saturday, August 12, 2017 08:44 - CONCLUSION: 1. The examination demonstrates adequate inflow and runoff to both lower extremities. 2. There is lymphadenopathy involving the left external iliac johnna chain and left inguinal canal. There are nodes measuring up to 2 cm. It is possible this is reactive however malignancy is not excluded. Biopsy of these nodes may be a consideration. Kuldeep Reyez MD Foot MRI 08/11/17 0000 Signed Impressions: Service Date/Time: July 07:56 - CONCLUSION: 1. There are findings characteristic for a linear nondisplaced stress fracture through the body of the first cuneiform bone. 2. There appears to be some focal bone bruising along the lateral aspect of the cuboid bone. 3. Diffuse nonspecific soft tissue swelling and edema throughout the soft tissues of the midfoot. 4. Mild degenerative changes characteristic for patient's age.. Frank Zepeda MD Foot X-Ray 08/10/17 0000 Signed Impressions: Service Date/Time: Thursday, August 10, 2017 12:28 - CONCLUSION: 1. Generalized soft tissue swelling without evidence of fracture, destructive bony changes or significant arthropathy. 2. Arterial calcification. Olu Baker MD Objective Remarks General: No acute distress. Heart: Regular rate and rhythm. No murmur. Lungs: Clear to auscultation bilaterally. No wheezes, rales, or rhonchi. Breathing is nonlabored. Abdomen: Soft, nontender, nondistended. Extremities: No lower extremity edema. Left foot bandaged. Psych: Calm. Neuro: Normal speech. No focal deficits noted. Procedures 08/12/17 Incision, drainage, debridement, left foot, with excision, drainage, debridement of extensor hallucis longus tendon dorsum of foot. A/P Assessment and Plan Diabetic foot wound, left foot Patient has a chronic left foot wound on the plantar aspect of the left foot and a wound on the dorsal aspect of the left foot. Appreciate podiatry recommendations. MRI shows possible stress fracture. Wound culture is growing MRSA. Blood culture from 08/10/17 growing gram-positive cocci. Appreciate infectious disease recommendations. CRP and sed rate are elevated. Intraoperative wound culture also growing MRSA. S/p left foot incision and drainage dorsal aspect/debridement and irrigation of submet 1 ulcer 08/17. - follow up with podiatry. - antibiotics per ID. Currently on vancomycin and clindamycin. Holding vanc in setting of LELIA. Diabetes mellitus Well controlled. A1c 8.5%. - Monitor Accu-Cheks and cover with sliding scale insulin. - Metformin and glipizide on hold. - diabetic diet. Acute kidney injury Possibly secondary to vancomycin. - Continue IV fluids. - hold vancomycin. - check UA, FENa, renal US. Hypokalemia Secondary to decreased p.o. intake. - PO KCl. - follow BMP. DVT prophylaxis: SCDs, KENN hose Sayess,Martínez. DO August 18, 2017 13:07
[2017-08-18] MEDS: SODIUM CHLOR 0.9% 1000 ML INJ 1,000 ML IV SCH (13:40)
--- NOTE | 2017-08-18 14:56 | RADRPT ---
EXAM DATE: 08/18/2017 2:45 PM EDT AGE/SEX: 47 years / Male INDICATIONS: Increased BUN/Creatinine. CLINICAL DATA: This is the patient's initial encounter. Patient reports that signs and symptoms have been present for 1 day and indicates a pain score of 0/10. MEDICAL/SURGICAL HISTORY: . Diabetes. MRSA, foot. . Finger surgery. COMPARISON: No prior [place] exams available for comparison. No external comparison. MEASUREMENTS: Right Kidney:__11.8 x 5.2 x 6.0 cm Left Kidney:__12.0 x 6.9 x 5.8 cm FINDINGS: No renal mass. No hydronephrosis. No perinephric fluid. Bladder unremarkable. CONCLUSION: 1. Unremarkable renal ultrasound. Electronically signed by: Abhay Garcia MD 08/18/2017 2:55 PM EDT
[2017-08-18 16:41] LABS: BILIRUBIN, URINE NEG (NEG); BLOOD, URINE NEG (NEG); GLUCOSE,URINE 300 mg/dL (NEG); KETONE, URINE NEG (NEG); MUCUS URINE FEW /lpf (OCC); NITRITE,URINE NEG (NEG); PH, URINE 6.5 (5.0-8.5); URINE COLOR LIGHT-YELLOW (YELLW/STRAW); URINE LEUKOCYTE ESTERASE NEG (NEG)
--- NOTE | 2017-08-18 17:16 | HHI.PR ---
Subjective Remarks Patient seen bedside postop. He denies any nausea vomiting fevers or chills. Resting comfortably by the window as he states he needed some natural light. Denies pain to left foot. Dressing intact with evelyne wound vac functioning appropriately. Objective Vital Signs Date Time Temp Pulse Resp B/P (MAP) Pulse Ox O2 Delivery O2 Flow Rate FiO2 08/18/17 16:00 101.1 107 20 170/90 (116) 96 08/18/17 12:00 99.2 102 18 144/80 (101) 99 08/18/17 08:00 98.1 91 16 106/60 (75) 98 08/18/17 04:00 97.1 82 17 135/82 (99) 95 08/18/17 00:00 98.7 81 17 137/80 (99) 98 08/17/17 20:00 98.7 99 17 166/93 (117) 99 08/17/17 17:30 98.3 94 20 142/86 (104) 100 Nasal Cannula 2 08/17/17 17:15 91 20 138/81 (100) 100 Nasal Cannula 2 08/17/17 17:12 98.3 85 20 141/79 (99) 100 Nasal Cannula 2 I/O 08/17/17 08/17/17 08/17/17 08/18/17 08/18/17 08/18/17 07:00 15:00 23:00 07:00 15:00 23:00 Intake Total 1350 ml 1290 ml Output Total 900 ml 5 ml Balance -900 ml 1345 ml 1290 ml Intake Oral 200 ml 240 ml IV Total 50 ml 1050 ml Other 1100 ml Output Urine Total 900 ml Estimated Blood Loss 5 ml # Voids 0 3 3 # Bowel Movements 0 0 Result Diagram: 08/17/17 0349 08/18/17 0407 Imaging Last Impressions Renal Ultrasound 08/18/17 0000 Signed Impressions: CONCLUSION: 1. Unremarkable renal ultrasound. Aorta w/Runoff CTA 08/12/17 0000 Signed Impressions: Service Date/Time: Saturday, August 12, 2017 08:44 - CONCLUSION: 1. The examination demonstrates adequate inflow and runoff to both lower extremities. 2. There is lymphadenopathy involving the left external iliac johnna chain and left inguinal canal. There are nodes measuring up to 2 cm. It is possible this is reactive however malignancy is not excluded. Biopsy of these nodes may be a consideration. Kuldeep Reyez MD Foot MRI 08/11/17 0000 Signed Impressions: Service Date/Time: July 07:56 - CONCLUSION: 1. There are findings characteristic for a linear nondisplaced stress fracture through the body of the first cuneiform bone. 2. There appears to be some focal bone bruising along the lateral aspect of the cuboid bone. 3. Diffuse nonspecific soft tissue swelling and edema throughout the soft tissues of the midfoot. 4. Mild degenerative changes characteristic for patient's age.. Frank Zepeda MD Foot X-Ray 08/10/17 0000 Signed Impressions: Service Date/Time: Thursday, August 10, 2017 12:28 - CONCLUSION: 1. Generalized soft tissue swelling without evidence of fracture, destructive bony changes or significant arthropathy. 2. Arterial calcification. Olu Baker MD Procedures Status post left foot incision and drainage performed by Dr. Mendoza Other Results Microbiology Date/Time Source Procedure Growth Status 08/10/17 12:30 Blood Peripheral Aerobic Blood Culture - Final NO GROWTH IN 5 DAYS Complete 08/10/17 12:30 Blood Peripheral Anaerobic Blood Culture - Final NO GROWTH IN 5 DAYS Complete 08/12/17 15:20 Wound Foot Fungal Smear - Final NO FUNGAL ELEMENTS SEEN. Resulted 08/12/17 15:20 Wound Foot Fungal Culture Pending Resulted Objective Remarks 08/15: Left foot dorsal incision with sutures intact, exposed tendon noted, granulation noted, purulent drainage expressed upon compression. Left sub-met one ulcer with granular base, hyperkeratotic borders, no probe to bone, no purulent drainage upon compression. 08/17: Dressing to left foot clean, dry and intact with no strikethrough noted. 08/18: Surgical dressing intact with [employer] wound vac functioning appropriately left foot. Denies calf pain LLE. AUTHORIZER under 3secs x5 digits left foot. Medications and IVs Current Medications Medications (Trade) Dose Ordered Sig/Leigh Ann Route Start Time Stop Time Status Last Admin Pharmacy Profile Note 0 ml @ 0 mls/hr UNSCH OTHER 08/10/17 14:15 (NS Flush) 2 ml UNSCH PRN IV FLUSH 08/10/17 14:15 (NS Flush) 2 ml BID IV FLUSH 08/10/17 21:00 08/18/17 08:28 (Tylenol) 650 mg Q4H PRN PO 08/10/17 14:15 08/18/17 16:55 (Reglan Inj) 5 mg Q6H PRN IV PUSH 08/10/17 14:15 (Narcan Inj) 0.4 mg UNSCH PRN IV PUSH 08/10/17 14:15 (Michelle-Colace) 1 tab BID PO 08/10/17 21:00 08/18/17 08:28 (Milk Of Magnesia Liq) 30 ml Q12H PRN PO 08/10/17 14:15 (Senokot) 17.2 mg Q12H PRN PO 08/10/17 14:15 (Dulcolax Supp) 10 mg DAILY PRN RECTAL 08/10/17 14:15 (Lactulose Liq) 30 ml DAILY PRN PO 08/10/17 14:15 (D50w (Vial) Inj) 50 ml UNSCH PRN IV PUSH 08/10/17 14:15 (Glucagon Inj) 1 mg UNSCH PRN OTHER 08/10/17 14:15 (NovoLOG SUPPLEMENTAL SCALE) 1 ACHS SLIDING SCALE SQ 08/10/17 17:00 08/18/17 16:55 (Glucotrol) 5 mg DAILYAC PO 08/14/17 09:30 08/18/17 08:28 Lactated Ringer's 1,000 ml @ 30 mls/hr Q24H PRN IV 08/16/17 02:45 08/19/17 02:44 Sodium Chloride 500 ml @ 30 mls/hr [id number] PRN IV 08/16/17 02:45 08/19/17 02:44 (Betadine 5% Antisepsis Kit) 1 applic [employer]CIAL SERVICES OFFICER PRN EACH NARE 08/16/17 02:45 08/19/17 02:44 (Chlorhexidine 2% Cloth) 3 pack [employer] SERVICES OFFICER PRN TOPICAL 08/16/17 02:45 08/19/17 02:44 Clindamycin/ Sodium Chloride 50 ml @ 100 mls/hr Q8H IV 08/16/17 12:00 08/18/17 12:21 Vancomycin HCl 1000 mg/Sodium Chloride 250 ml @ 250 mls/hr Q12H IV 08/17/17 18:00 Future Hold 08/18/17 05:03 [place] [place] Info[place] SPECIFIC LAB TO BE DRAWN:VANCOMYCIN TROUGH DATE TO... ONCE ONCE .XX 08/19/17 05:45 08/19/17 05:46 Sodium Chloride 1,000 ml @ 100 mls/hr Q10H IV 08/18/17 13:00 08/18/17 13:40 Assessment and Plan Assessment and Plan 47-year-old male status post incision and drainage left foot Patient examined evaluated with all questions answered Dressing to be changed tomorrow and will re evaluate wound Patient may need home health care Patient will need close follow up Anticipate DC by podiatry tomorrow/Tuesday Delisa Mcgrath DPM August 18, 2017 17:16
--- NOTE | 2017-08-18 18:02 | RADRPT ---
EXAM DATE: 08/18/2017 5:59 PM EDT AGE/SEX: 47 years / Male INDICATIONS: Evaluate for pneumonia. CLINICAL DATA: This is the patient's subsequent encounter. Patient reports that signs and symptoms h ave been present for 1 day and indicates a pain score of 0/10. MEDICAL/SURGICAL HISTORY: . Diabetes. MRSA, foot. . . Finger surgery COMPARISON: No prior [facility] exams available for comparison. FINDINGS: A single AP view of the chest demonstrates the lungs to be symmetrically aerated without evidence of mass, infiltrate or effusion. The cardiomediastinal contours are unremarkable. Osseous structures a re intact. CONCLUSION: No active disease. Electronically signed by: Abhay Garcia MD 08/18/2017 6:00 PM EDT
[2017-08-18 18:04] LABS: CREATININE, RANDOM URINE 35.1 MG/DL
[2017-08-19] VITALS: BP 131/74; PULSE 83; PULSE 85; RESP 17; TEMP 98.3; O2SAT 97
[2017-08-19] MEDS: SODIUM CHLOR 0.9% 1000 ML INJ 1,000 ML IV SCH ×3 (00:21→21:48)
[2017-08-19 04:00] VITALS: BP 157/87; PULSE 94; RESP 17; TEMP 98.1; O2SAT 97
[2017-08-19] MEDS: CLINDAMYCIN 600 MG/NS PREMIX 50 ML IV SCH (04:42)
[2017-08-19] MEDS: ACETAMINOPHEN 325 MG TAB PO PRN ×5 (04:43→21:47)
[2017-08-19] MEDS ORDERED: PHARMACY ORDERED LAB ONE (05:45)
[2017-08-19 06:54] LABS: HEMATOCRIT 28.5 % (39.0-51.0); HEMOGLOBIN 9.8 GM/DL (13.0-17.0); MEAN CELL VOLUME 86.1 FL (80.0-100.0); MEAN CORPUSCULAR HEMOGLOBIN 29.6 PG (27.0-34.0); MEAN CORPUSCULAR HGB CONC 34.4 % (32.0-36.0); MEAN PLATELET VOLUME 7.1 FL (7.0-11.0); PLATELET COUNT 333 TH/MM3 (150-450); RED BLOOD COUNT 3.31 MIL/MM3 (4.50-5.90); RED CELL DISTRIBUTION WIDTH 11.3 % (11.6-17.2); WHITE BLOOD COUNT 3.7 TH/MM3 (4.0-11.0)
[2017-08-19 07:13] LABS: BICARBONATE 25.2 MEQ/L (21.0-32.0); CALCIUM 8.4 MG/DL (8.5-10.1); CREATININE 1.06 MG/DL (0.60-1.30)
[2017-08-19 08:00] VITALS: BP 119/75; PULSE 92; RESP 17; TEMP 97.9; O2SAT 99
[2017-08-19] MEDS: SODIUM CHLORIDE 0.9% FLUSH 10 ML FLUSH IV FLUSH SCH ×2 (09:00→21:48)
--- NOTE | 2017-08-19 09:36 | HHI.IDPN ---
Subjective Subjective Remarks Patient is a 47-year-old male, with known diabetes, presented to the hospital complaining of 2 day history of redness and swelling on his left foot. Patient has a callus over his first metatarsal, and about a month ago, he picked on it. He apparently developed a sore, and it was not really giving him any problem, until 2 days prior to admission when he started developing redness and swelling on his left foot. He denies any fever chills or sweats. He did not notice any odor to it. He has no other complaints. Patient has moved to [place] about 5 months ago, and he has not established with a primary care physician. He presented to the hospital, and has been admitted. He has cellulitis on that left foot. X-ray of the foot did not show any evidence of bony destruction fracture or any foreign body. Highest temperature has been 99+. His WBC is normal, but his ESR is greater than 140, and CRP 15.30. He is currently on vancomycin and Zosyn. Infectious disease consultation has been requested to evaluate the patient for possible osteomyelitis, and make antibiotic recommendations. Notes reviewed Repeat surgery done 08/16 Febrile yesterday No new complaints No itching No diarrhea Pain under control UA ok BC pending No repeat wound C/S from last OR Voiding ok Wound C/S MRSA and GAS Antibiotics Vancomycin Clindamycin Current Medications Medications (Trade) Dose Ordered Sig/Leigh Ann Route Start Time Stop Time Status Last Admin Pharmacy Profile Note 0 ml @ 0 mls/hr UNSCH OTHER 08/10/17 14:15 (NS Flush) 2 ml UNSCH PRN IV FLUSH 08/10/17 14:15 (NS Flush) 2 ml BID IV FLUSH 08/10/17 21:00 08/18/17 19:43 (Tylenol) 650 mg Q4H PRN PO 08/10/17 14:15 08/19/17 04:43 (Reglan Inj) 5 mg Q6H PRN IV PUSH 08/10/17 14:15 (Narcan Inj) 0.4 mg UNSCH PRN IV PUSH 08/10/17 14:15 (Michelle-Colace) 1 tab BID PO 08/10/17 21:00 08/18/17 19:43 (Milk Of Magnesia Liq) 30 ml Q12H PRN PO 08/10/17 14:15 (Senokot) 17.2 mg Q12H PRN PO 08/10/17 14:15 (Dulcolax Supp) 10 mg DAILY PRN RECTAL 08/10/17 14:15 (Lactulose Liq) 30 ml DAILY PRN PO 08/10/17 14:15 (D50w (Vial) Inj) 50 ml UNSCH PRN IV PUSH 08/10/17 14:15 (Glucagon Inj) 1 mg UNSCH PRN OTHER 08/10/17 14:15 (NovoLOG SUPPLEMENTAL SCALE) 1 ACHS SLIDING SCALE SQ 08/10/17 17:00 08/18/17 21:03 (Glucotrol) 5 mg DAILYAC PO 08/14/17 09:30 08/18/17 08:28 Vancomycin HCl 1000 mg/Sodium Chloride 250 ml @ 250 mls/hr Q12H IV 08/17/17 18:00 Future Hold 08/18/17 05:03 Sodium Chloride 1,000 ml @ 100 mls/hr Q10H IV 08/18/17 13:00 08/19/17 00:21 Lines PIV no evidence of infection Past Medical History Diabetes Past Surgical History Surgery on his right index finger related to trauma Allergies: Coded Allergies: No Known Allergies (Unverified , 08/10/17) Objective . Vital Signs Date Time Temp Pulse Resp B/P (MAP) Pulse Ox O2 Delivery O2 Flow Rate FiO2 08/19/17 08:00 97.9 92 17 119/75 (90) 99 08/19/17 04:00 98.1 94 17 157/87 (110) 97 08/19/17 00:00 98.3 85 17 131/74 (93) 97 08/19/17 00:00 83 08/18/17 20:00 98.3 96 17 108/64 (79) 98 08/18/17 20:00 91 08/18/17 18:07 100.3 08/18/17 16:00 101.1 107 20 170/90 (116) 96 08/18/17 12:00 99.2 102 18 144/80 (101) 99 . Laboratory Tests Test 08/19/17 06:25 White Blood Count 3.7 TH/MM3 Red Blood Count 3.31 MIL/MM3 Hemoglobin 9.8 GM/DL Hematocrit 28.5 % Mean Corpuscular Volume 86.1 FL Mean Corpuscular Hemoglobin 29.6 PG Mean Corpuscular Hemoglobin Concent 34.4 % Red Cell Distribution Width 11.3 % Platelet Count 333 TH/MM3 Mean Platelet Volume 7.1 FL Laboratory Tests Test 08/18/17 04:07 08/19/17 06:25 Blood Urea Nitrogen 9 MG/DL 6 MG/DL Creatinine 1.41 MG/DL 1.06 MG/DL Random Glucose 231 MG/DL 144 MG/DL Calcium Level 8.5 MG/DL 8.4 MG/DL Magnesium Level 2.1 MG/DL 2.0 MG/DL Sodium Level 139 MEQ/L 142 MEQ/L Potassium Level 3.5 MEQ/L 3.5 MEQ/L Chloride Level 104 MEQ/L 108 MEQ/L Carbon Dioxide Level 27.3 MEQ/L 25.2 MEQ/L Anion Gap 8 MEQ/L 9 MEQ/L Estimat Glomerular Filtration Rate 54 ML/MIN 75 ML/MIN Microbiology Date/Time Source Procedure Growth Status 08/18/17 20:41 Blood Peripheral Aerobic Blood Culture Pending Received 08/18/17 20:41 Blood Peripheral Anaerobic Blood Culture Pending Received 08/18/17 20:35 Blood Peripheral Aerobic Blood Culture Pending Received 08/18/17 20:35 Blood Peripheral Anaerobic Blood Culture Pending Received Imaging Last Impressions Foot MRI 08/11/17 0000 Signed Impressions: Service Date/Time: July 07:56 - CONCLUSION: 1. There are findings characteristic for a linear nondisplaced stress fracture through the body of the first cuneiform bone. 2. There appears to be some focal bone bruising along the lateral aspect of the cuboid bone. 3. Diffuse nonspecific soft tissue swelling and edema throughout the soft tissues of the midfoot. 4. Mild degenerative changes characteristic for patient's age.. Frank Zepeda MD Foot X-Ray 08/10/17 0000 Signed Impressions: Service Date/Time: Thursday, August 10, 2017 12:28 - CONCLUSION: 1. Generalized soft tissue swelling without evidence of fracture, destructive bony changes or significant arthropathy. 2. Arterial calcification. Olu Baker MD Physical Exam GENERAL: awake and alert, NAD SKIN: Warm and dry. No generalized rash. HEAD: Atraumatic. Normocephalic. No temporal wasting, or tenderness. Seems to have seborrheic dermatitis rash on his face EYES: Severy conjunctiva. No petechia or hemorrhage. Pupils equal, round and reactive to light. Extraocular movements full and intact. No scleral icterus. No injection or drainage. EARS, NOSE AND THROAT: Nose without bleeding or purulent nasal discharge. No sinus tenderness. Mucous membranes pink and moist. No oral lesions noted. NECK: Trachea midline. Supple and not tender, no meningeal signs CARDIOVASCULAR: Regular rate and rhythm. No murmurs, rubs or gallops heard RESPIRATORY: Clear to auscultation. Breath sounds equal bilaterally. No rales , wheezing or rhonchi ABDOMEN: Soft, non-tender, nondistended. Bowel sounds present and normoactive. No guarding. No rebound. No organomegaly. EXTREMITIES: No clubbing, cyanosis. No joint effusion, has good ROM. No calf tenderness. Well perfused and warm. L foot - has dry intact dressing. NEUROLOGICAL: Grossly non-focal PSYCHIATRIC: Normal affect, calm and cooperative. LINE: No evidence of infection Assessment & Plan Remarks IMPRESSION Diabetic foot infection L foot, possible osteomyelitis 1st MTP, ?abscess over the first MT - MRI with some fracture seen - S/P I and D, still with purulence for repeat OR today - C/S MRSA, GAS Cellulitis LLE, better Possible sepsis due to L foot infection Fever, new, source? initial eval negative, ?drug fever Mild neutropenia, ?due to meds, ?Vanco RECOMMENDATION Continue Vancomycin Stop Clindamycin Repeat CBC If continues to decrease, may need to switch Vancomycin to Cubicin or Teflaro Follow temps Monitor progress Lotrisone to facial rash Verona Guthrie MD August 19, 2017 09:36
[2017-08-19] MEDS: DOCUSATE SODIUM 50 MG/SENNA 8.6 MG TAB PO SCH ×2 (10:07→21:47)
[2017-08-19] MEDS: glipiZIDE 5 MG TAB PO SCH (10:07)
[2017-08-19] MEDS: INSULIN ASPART SUPPLEMENTAL SCALE SQ SCH ×4 (10:08→21:49)
[2017-08-19] MEDS: BETAMETHASONE/CLOTRIMAZOLE CREAM 15 GM TOPICAL SCH ×2 (11:45→21:51)
[2017-08-19] MEDS: VANCOMYCIN 1,000 MG/NS 250 ML IV SCH ×4 (11:46→21:49)
[2017-08-19 12:00] VITALS: BP 159/83; PULSE 94; RESP 18; TEMP 97.4; O2SAT 100
[2017-08-19 16:00] VITALS: BP 170/102; PULSE 102; RESP 20; TEMP 97.9; O2SAT 100
--- NOTE | 2017-08-19 16:16 | HHI.PR ---
Subjective Remarks The patient said that he was cold. He denied any pain. He says he was told not to put weight on his foot. No acute concerns at this time. Discussed with nursing. Objective Vitals Vital Signs Date Time Temp Pulse Resp B/P (MAP) Pulse Ox O2 Delivery O2 Flow Rate FiO2 08/19/17 12:00 97.4 94 18 159/83 (108) 100 08/19/17 08:00 97.9 92 17 119/75 (90) 99 08/19/17 04:00 98.1 94 17 157/87 (110) 97 08/19/17 00:00 98.3 85 17 131/74 (93) 97 08/19/17 00:00 83 08/18/17 20:00 98.3 96 17 108/64 (79) 98 08/18/17 20:00 91 08/18/17 18:07 100.3 I/O 08/18/17 08/18/17 08/18/17 08/19/17 08/19/17 08/19/17 06:59 14:59 22:59 06:59 14:59 22:59 Intake Total 1290 ml 50 ml 1285 ml 1055 ml Output Total 600 ml Balance 1290 ml 50 ml 1285 ml 455 ml Intake Oral 240 ml 1000 ml 240 ml IV Total 1050 ml 50 ml 285 ml 815 ml Output Urine Total 600 ml # Voids 3 4 # Bowel Movements 0 0 Result Diagram: 08/19/17 0625 08/19/17 0625 Imaging Last Impressions Renal Ultrasound 08/18/17 0000 Signed Impressions: CONCLUSION: 1. Unremarkable renal ultrasound. Chest X-Ray 08/18/17 0000 Signed Impressions: CONCLUSION: No active disease. Aorta w/Runoff CTA 08/12/17 0000 Signed Impressions: Service Date/Time: Saturday, August 12, 2017 08:44 - CONCLUSION: 1. The examination demonstrates adequate inflow and runoff to both lower extremities. 2. There is lymphadenopathy involving the left external iliac johnna chain and left inguinal canal. There are nodes measuring up to 2 cm. It is possible this is reactive however malignancy is not excluded. Biopsy of these nodes may be a consideration. Kuldeep Reyez MD Foot MRI 08/11/17 0000 Signed Impressions: Service Date/Time: July 07:56 - CONCLUSION: 1. There are findings characteristic for a linear nondisplaced stress fracture through the body of the first cuneiform bone. 2. There appears to be some focal bone bruising along the lateral aspect of the cuboid bone. 3. Diffuse nonspecific soft tissue swelling and edema throughout the soft tissues of the midfoot. 4. Mild degenerative changes characteristic for patient's age.. Frank Zepeda MD Foot X-Ray 08/10/17 0000 Signed Impressions: Service Date/Time: Thursday, August 10, 2017 12:28 - CONCLUSION: 1. Generalized soft tissue swelling without evidence of fracture, destructive bony changes or significant arthropathy. 2. Arterial calcification. Olu Baker MD Objective Remarks General: No acute distress. Heart: Tachycardic. No murmur. Lungs: Clear to auscultation bilaterally. No wheezes, rales, or rhonchi. Breathing is nonlabored. Abdomen: Soft, nontender, nondistended. Extremities: No lower extremity edema. Left foot bandaged and in boot. Psych: Calm. Neuro: Normal speech. No focal deficits noted. Procedures 08/12/17 Incision, drainage, debridement, left foot, with excision, drainage, debridement of extensor hallucis longus tendon dorsum of foot. A/P Assessment and Plan Diabetic foot wound, left foot Patient has a chronic left foot wound on the plantar aspect of the left foot and a wound on the dorsal aspect of the left foot. Appreciate podiatry recommendations. MRI shows possible stress fracture. Wound culture is growing MRSA. Blood culture from 08/10/17 growing gram-positive cocci. Appreciate infectious disease recommendations. CRP and sed rate are elevated. Intraoperative wound culture also growing MRSA. S/p left foot incision and drainage dorsal aspect/debridement and irrigation of submet 1 ulcer 08/17. - follow up with podiatry. - antibiotics per ID. Currently on vancomycin and clindamycin. Diabetes mellitus Well controlled. A1c 8.5%. - Monitor Accu-Cheks and cover with sliding scale insulin. - add Levemir 10 units HS. - Metformin and glipizide on hold. - diabetic diet. Acute kidney injury Improved with fluids. Renal US unremarkable. FENa calculated at 3.1%. - Continue IV fluids. - avoid nephrotoxins. Hypokalemia Secondary to decreased p.o. intake. - PO KCl. - follow BMP. Tachycardia May be s/t infection. - continue antibiotics and IVFs. - check a TSH. - obtain an EKG. DVT prophylaxis: KENN Gee Michael J. DO August 19, 2017 16:15
[2017-08-19] MEDS: cloNIDine HCL 0.1 MG TAB PO PRN ×2 (17:06→21:47)
--- NOTE | 2017-08-19 19:10 | HHI.FF ---
Face to Face Verification Diagnosis: (1) Diabetic foot infection Home Health Nursing Instructions: Please apply Santyl to dorsal foot wound with moist to dry dressing, wound gel to plantar foot wound, Adaptic to sutures at dorsal foot. Please dress foot with 4 x 4's, Jalyn, Vasiliy bandage. Do not use Kerlix. I have seen patient Jesse Jett on 08/19/17. My clinical findings support the need for the requested home health care services because: Deconditioned w/ increased weakness Med compliance is questionable Limited ability to care for self High risk of falls Infection w/ risk of complications I certify that my clinical findings support that this patient is homebound because: Post-op weakness Unsteady gait/balance Delisa Mcgrath DPM August 19, 2017 19:10
--- NOTE | 2017-08-19 19:15 | HHI.PR ---
Subjective Remarks Patient seen bedside postop day 2. He denies any nausea vomiting fevers or chills. Patient has family bedside. Denies pain to left foot. Dressing intact with evelyne wound vac functioning appropriately. Objective Vital Signs Date Time Temp Pulse Resp B/P (MAP) Pulse Ox O2 Delivery O2 Flow Rate FiO2 08/19/17 16:00 97.9 102 20 170/102 (124) 100 08/19/17 12:00 97.4 94 18 159/83 (108) 100 08/19/17 08:00 97.9 92 17 119/75 (90) 99 08/19/17 04:00 98.1 94 17 157/87 (110) 97 08/19/17 00:00 98.3 85 17 131/74 (93) 97 08/19/17 00:00 83 08/18/17 20:00 98.3 96 17 108/64 (79) 98 08/18/17 20:00 91 I/O 08/18/17 08/18/17 08/18/17 08/19/17 08/19/17 08/19/17 07:00 15:00 23:00 07:00 15:00 23:00 Intake Total 1290 ml 50 ml 1285 ml 1055 ml 1100 ml Output Total 600 ml Balance 1290 ml 50 ml 1285 ml 455 ml 1100 ml Intake Oral 240 ml 1000 ml 240 ml 1100 ml IV Total 1050 ml 50 ml 285 ml 815 ml Output Urine Total 600 ml # Voids 3 4 4 # Bowel Movements 0 0 1 Result Diagram: 08/19/17 0625 08/19/17 0625 Imaging Last Impressions Renal Ultrasound 08/18/17 0000 Signed Impressions: CONCLUSION: 1. Unremarkable renal ultrasound. Chest X-Ray 08/18/17 0000 Signed Impressions: CONCLUSION: No active disease. Aorta w/Runoff CTA 08/12/17 0000 Signed Impressions: Service Date/Time: Saturday, August 12, 2017 08:44 - CONCLUSION: 1. The examination demonstrates adequate inflow and runoff to both lower extremities. 2. There is lymphadenopathy involving the left external iliac johnna chain and left inguinal canal. There are nodes measuring up to 2 cm. It is possible this is reactive however malignancy is not excluded. Biopsy of these nodes may be a consideration. Kuldeep Reyez MD Foot MRI 08/11/17 0000 Signed Impressions: Service Date/Time: July 07:56 - CONCLUSION: 1. There are findings characteristic for a linear nondisplaced stress fracture through the body of the first cuneiform bone. 2. There appears to be some focal bone bruising along the lateral aspect of the cuboid bone. 3. Diffuse nonspecific soft tissue swelling and edema throughout the soft tissues of the midfoot. 4. Mild degenerative changes characteristic for patient's age.. Frank Zepeda MD Foot X-Ray 08/10/17 0000 Signed Impressions: Service Date/Time: Thursday, August 10, 2017 12:28 - CONCLUSION: 1. Generalized soft tissue swelling without evidence of fracture, destructive bony changes or significant arthropathy. 2. Arterial calcification. Olu Baker MD Procedures Status post left foot incision and drainage performed by Dr. Mendoza; status post repeat debridement irrigation with wound VAC placement performed by Dr. Mcgrath Other Results Microbiology Date/Time Source Procedure Growth Status 08/18/17 20:41 Blood Peripheral Aerobic Blood Culture - Preliminary NO GROWTH IN 1 DAY Resulted 08/18/17 20:41 Blood Peripheral Anaerobic Blood Culture - Preliminary NO GROWTH IN 1 DAY Resulted 08/12/17 15:20 Wound Foot Fungal Smear - Final NO FUNGAL ELEMENTS SEEN. Resulted 08/12/17 15:20 Wound Foot Fungal Culture - Preliminary NO GROWTH IN 1 WEEK Resulted Objective Remarks 08/15: Left foot dorsal incision with sutures intact, exposed tendon noted, granulation noted, purulent drainage expressed upon compression. Left sub-met one ulcer with granular base, hyperkeratotic borders, no probe to bone, no purulent drainage upon compression. 08/17: Dressing to left foot clean, dry and intact with no strikethrough noted. 08/18: Surgical dressing intact with [employer] wound vac functioning appropriately left foot. Denies calf pain LLE. 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 08/19: Sutures intact to dorsal foot wound with skin well coapted dorsal foot wound noted with fibro-granular base, mild serous drainage. Plantar sub-met one ulceration noted with granular base and sanguinous drainage. No probe to bone or exposed tendon muscle bone noted to either ulceration. No periwound erythema, no edema noted. No pain to left calf on calf squeeze. Medications and IVs Current Medications Medications (Trade) Dose Ordered Sig/Leigh Ann Route Start Time Stop Time Status Last Admin Pharmacy Profile Note 0 ml @ 0 mls/hr UNSCH OTHER 08/10/17 14:15 (NS Flush) 2 ml UNSCH PRN IV FLUSH 08/10/17 14:15 (NS Flush) 2 ml BID IV FLUSH 08/10/17 21:00 08/18/17 19:43 (Tylenol) 650 mg Q4H PRN PO 08/10/17 14:15 08/19/17 17:06 (Reglan Inj) 5 mg Q6H PRN IV PUSH 08/10/17 14:15 (Narcan Inj) 0.4 mg UNSCH PRN IV PUSH 08/10/17 14:15 (Michelle-Colace) 1 tab BID PO 08/10/17 21:00 08/19/17 10:07 (Milk Of Magnesia Liq) 30 ml Q12H PRN PO 08/10/17 14:15 (Senokot) 17.2 mg Q12H PRN PO 08/10/17 14:15 (Dulcolax Supp) 10 mg DAILY PRN RECTAL 08/10/17 14:15 (Lactulose Liq) 30 ml DAILY PRN PO 08/10/17 14:15 (D50w (Vial) Inj) 50 ml UNSCH PRN IV PUSH 08/10/17 14:15 (Glucagon Inj) 1 mg UNSCH PRN OTHER 08/10/17 14:15 (NovoLOG SUPPLEMENTAL SCALE) 1 ACHS SLIDING SCALE SQ 08/10/17 17:00 08/19/17 12:43 (Glucotrol) 5 mg DAILYAC PO 08/14/17 09:30 08/19/17 10:07 Sodium Chloride 1,000 ml @ 100 mls/hr Q10H IV 08/18/17 13:00 08/19/17 10:09 (Lotrisone Cream) 1 applic Q12HR TOPICAL 08/19/17 09:45 08/26/17 09:44 08/19/17 11:45 Vancomycin HCl 1000 mg/Sodium Chloride 250 ml @ 250 mls/hr Q12H IV 08/19/17 11:00 08/19/17 11:46 ([facility] Ordered Lab Info) SPECIFIC LAB TO BE DWIGHT... ONCE ONCE .XX 08/20/17 22:45 08/20/17 22:46 (Catapres) 0.1 mg Q6H PRN PO 08/19/17 16:00 08/19/17 17:06 (Levemir Inj) 10 units HS SQ 08/19/17 21:00 (Santyl Oint) 1 applic DAILY TOPICAL 08/20/17 09:00 UNV Assessment and Plan Assessment and Plan 47-year-old male status post incision and drainage left foot Patient examined evaluated with all questions answered Okay to DC per podiatry Patient will need need home health care Patient will need close follow up Patient to follow-up with Dr. Mendoza/Dr. Mcgrath, within 1 week of discharge Patient will need to be discharged with Santyl Dressing changes to begin while patient in house tomorrow Home health care to continue dressing changes 3 times per week, home health care [id number] completed Nonweightbearing to left foot with heel touch Delisa Mcgrath DPM August 19, 2017 19:15
[2017-08-19 20:00] VITALS: BP 145/70; PULSE 108; RESP 17; TEMP 102.5; O2SAT 98
[2017-08-19] MEDS: INSULIN DETEMIR 100 UNITS/ML VIAL SQ SCH (21:50)
[2017-08-20] VITALS (7 sets, daily range): BP systolic 82–145; BP diastolic 53–97; PULSE 90–127; RESP 17–20; TEMP 98–102.6; O2SAT 97–99
[2017-08-20] MEDS: SODIUM CHLOR 0.9% 1000 ML INJ 1,000 ML IV SCH ×3 (05:00→23:05)
[2017-08-20 07:25] LABS: HEMATOCRIT 27.9 % (39.0-51.0); HEMOGLOBIN 9.6 GM/DL (13.0-17.0); MEAN CELL VOLUME 85.7 FL (80.0-100.0); MEAN CORPUSCULAR HEMOGLOBIN 29.5 PG (27.0-34.0); MEAN CORPUSCULAR HGB CONC 34.4 % (32.0-36.0); MEAN PLATELET VOLUME 7.2 FL (7.0-11.0); PLATELET COUNT 295 TH/MM3 (150-450); RED BLOOD COUNT 3.26 MIL/MM3 (4.50-5.90); RED CELL DISTRIBUTION WIDTH 11.4 % (11.6-17.2); WHITE BLOOD COUNT 4.2 TH/MM3 (4.0-11.0)
[2017-08-20 07:50] LABS: BICARBONATE 27.3 MEQ/L (21.0-32.0); CALCIUM 8.4 MG/DL (8.5-10.1); CREATININE 1.19 MG/DL (0.60-1.30); MAGNESIUM 1.9 MG/DL (1.5-2.5)
[2017-08-20] MEDS: INSULIN ASPART SUPPLEMENTAL SCALE SQ SCH ×4 (08:00→19:52)
[2017-08-20 08:39] LABS: BANDS 10 % (0-6); BASOPHILS 2 % (0-2); LYMPHOCYTES 19 % (9-44); MONOCYTES 10 % (0-8); NEUTROPHIL # MANUAL DIFF 2.6 TH/MM3 (1.8-7.7); POLYS (SEG NEUTROPHILS) 52 % (16-70)
--- NOTE | 2017-08-20 08:50 | HHI.IDPN ---
Subjective Subjective Remarks Patient is a 47-year-old male, with known diabetes, presented to the hospital complaining of 2 day history of redness and swelling on his left foot. Patient has a callus over his first metatarsal, and about a month ago, he picked on it. He apparently developed a sore, and it was not really giving him any problem, until 2 days prior to admission when he started developing redness and swelling on his left foot. He denies any fever chills or sweats. He did not notice any odor to it. He has no other complaints. Patient has moved to [place] about 5 months ago, and he has not established with a primary care physician. He presented to the hospital, and has been admitted. He has cellulitis on that left foot. X-ray of the foot did not show any evidence of bony destruction fracture or any foreign body. Highest temperature has been 99+. His WBC is normal, but his ESR is greater than 140, and CRP 15.30. He is currently on vancomycin and Zosyn. Infectious disease consultation has been requested to evaluate the patient for possible osteomyelitis, and make antibiotic recommendations. Notes reviewed Repeat surgery done 08/16 Febrile again last night up to 102+ No new complaints No itching No diarrhea Pain under control UA ok BC negative so far WBC better this morning No repeat wound C/S from last OR Voiding ok Wound C/S MRSA and GAS Antibiotics Vancomycin Current Medications Medications (Trade) Dose Ordered Sig/Leigh Ann Route Start Time Stop Time Status Last Admin Pharmacy Profile Note 0 ml @ 0 mls/hr UNSCH OTHER 08/10/17 14:15 (NS Flush) 2 ml UNSCH PRN IV FLUSH 08/10/17 14:15 (NS Flush) 2 ml BID IV FLUSH 08/10/17 21:00 08/19/17 21:48 (Tylenol) 650 mg Q4H PRN PO 08/10/17 14:15 08/19/17 21:47 (Reglan Inj) 5 mg Q6H PRN IV PUSH 08/10/17 14:15 (Narcan Inj) 0.4 mg UNSCH PRN IV PUSH 08/10/17 14:15 (Michelle-Colace) 1 tab BID PO 08/10/17 21:00 08/19/17 21:47 (Milk Of Magnesia Liq) 30 ml Q12H PRN PO 08/10/17 14:15 (Senokot) 17.2 mg Q12H PRN PO 08/10/17 14:15 (Dulcolax Supp) 10 mg DAILY PRN RECTAL 08/10/17 14:15 (Lactulose Liq) 30 ml DAILY PRN PO 08/10/17 14:15 (D50w (Vial) Inj) 50 ml UNSCH PRN IV PUSH 08/10/17 14:15 (Glucagon Inj) 1 mg UNSCH PRN OTHER 08/10/17 14:15 (NovoLOG SUPPLEMENTAL SCALE) 1 ACHS SLIDING SCALE SQ 08/10/17 17:00 08/19/17 21:49 (Glucotrol) 5 mg DAILYAC PO 08/14/17 09:30 08/19/17 10:07 Sodium Chloride 1,000 ml @ 100 mls/hr Q10H IV 08/18/17 13:00 08/20/17 05:00 (Lotrisone Cream) 1 applic Q12HR TOPICAL 08/19/17 09:45 08/26/17 09:44 08/19/17 21:51 Vancomycin HCl 1000 mg/Sodium Chloride 250 ml @ 250 mls/hr Q12H IV 08/19/17 11:00 08/19/17 21:49 ([facility] Ordered Lab Info) SPECIFIC LAB TO BE ... ONCE ONCE .XX 08/20/17 22:45 08/20/17 22:46 (Catapres) 0.1 mg Q6H PRN PO 08/19/17 16:00 08/19/17 21:47 (Levemir Inj) 10 units HS SQ 08/19/17 21:00 08/19/17 21:50 (Santyl Oint) 1 applic DAILY TOPICAL 08/20/17 09:00 Lines PIV no evidence of infection Past Medical History Diabetes Past Surgical History Surgery on his right index finger related to trauma Allergies: Coded Allergies: No Known Allergies (Unverified , 08/10/17) Objective . Vital Signs Date Time Temp Pulse Resp B/P (MAP) Pulse Ox O2 Delivery O2 Flow Rate FiO2 08/20/17 04:00 99.0 100 17 130/61 (84) 98 08/20/17 00:00 99.8 92 17 131/61 (84) 98 08/19/17 20:00 102.5 108 17 145/70 (95) 98 08/19/17 16:00 97.9 102 20 170/102 (124) 100 08/19/17 12:00 97.4 94 18 159/83 (108) 100 . Laboratory Tests Test 08/19/17 06:25 08/20/17 06:44 White Blood Count 3.7 TH/MM3 4.2 TH/MM3 Red Blood Count 3.31 MIL/MM3 3.26 MIL/MM3 Hemoglobin 9.8 GM/DL 9.6 GM/DL Hematocrit 28.5 % 27.9 % Mean Corpuscular Volume 86.1 FL 85.7 FL Mean Corpuscular Hemoglobin 29.6 PG 29.5 PG Mean Corpuscular Hemoglobin Concent 34.4 % 34.4 % Red Cell Distribution Width 11.3 % 11.4 % Platelet Count 333 TH/MM3 295 TH/MM3 Mean Platelet Volume 7.1 FL 7.2 FL CBC Comment AUTO DIFF Differential Total Cells Counted 100 Neutrophils % (Manual) 52 % Band Neutrophils % 10 % Lymphocytes % 19 % Monocytes % 10 % Eosinophils % 7 % Basophils % 2 % Neutrophils # (Manual) 2.6 TH/MM3 Differential Comment FINAL DIFF MANUAL Platelet Estimate NORMAL Platelet Morphology Comment NORMAL Laboratory Tests Test 08/19/17 06:25 08/20/17 06:44 Blood Urea Nitrogen 6 MG/DL 7 MG/DL Creatinine 1.06 MG/DL 1.19 MG/DL Random Glucose 144 MG/DL 90 MG/DL Calcium Level 8.4 MG/DL 8.4 MG/DL Magnesium Level 2.0 MG/DL 1.9 MG/DL Sodium Level 142 MEQ/L 141 MEQ/L Potassium Level 3.5 MEQ/L 3.5 MEQ/L Chloride Level 108 MEQ/L 105 MEQ/L Carbon Dioxide Level 25.2 MEQ/L 27.3 MEQ/L Anion Gap 9 MEQ/L 9 MEQ/L Estimat Glomerular Filtration Rate 75 ML/MIN 66 ML/MIN Thyroid Stimulating Hormone 3rd Gen 1.040 uIU/ML Microbiology Date/Time Source Procedure Growth Status 08/18/17 20:41 Blood Peripheral Aerobic Blood Culture - Preliminary NO GROWTH IN 1 DAY Resulted 08/18/17 20:41 Blood Peripheral Anaerobic Blood Culture - Preliminary NO GROWTH IN 1 DAY Resulted 08/18/17 20:35 Blood Peripheral Aerobic Blood Culture - Preliminary NO GROWTH IN 1 DAY Resulted 08/18/17 20:35 Blood Peripheral Anaerobic Blood Culture - Preliminary NO GROWTH IN 1 DAY Resulted Imaging Last Impressions Foot MRI 08/11/17 0000 Signed Impressions: Service Date/Time: July 07:56 - CONCLUSION: 1. There are findings characteristic for a linear nondisplaced stress fracture through the body of the first cuneiform bone. 2. There appears to be some focal bone bruising along the lateral aspect of the cuboid bone. 3. Diffuse nonspecific soft tissue swelling and edema throughout the soft tissues of the midfoot. 4. Mild degenerative changes characteristic for patient's age.. Frank Zepeda MD Foot X-Ray 08/10/17 0000 Signed Impressions: Service Date/Time: Thursday, August 10, 2017 12:28 - CONCLUSION: 1. Generalized soft tissue swelling without evidence of fracture, destructive bony changes or significant arthropathy. 2. Arterial calcification. Olu Baker MD Physical Exam GENERAL: awake and alert, NAD SKIN: Warm and dry. No generalized rash. HEAD: Atraumatic. Normocephalic. No temporal wasting, or tenderness. Seems to have seborrheic dermatitis rash on his face EYES: [place] conjunctiva. No petechia or hemorrhage. Pupils equal, round and reactive to light. Extraocular movements full and intact. No scleral icterus. No injection or drainage. EARS, NOSE AND THROAT: Nose without bleeding or purulent nasal discharge. No sinus tenderness. Mucous membranes pink and moist. No oral lesions noted. NECK: Trachea midline. Supple and not tender, no meningeal signs CARDIOVASCULAR: Regular rate and rhythm. No murmurs, rubs or gallops heard RESPIRATORY: Clear to auscultation. Breath sounds equal bilaterally. No rales , wheezing or rhonchi ABDOMEN: Soft, non-tender, nondistended. Bowel sounds present and normoactive. No guarding. No rebound. No organomegaly. EXTREMITIES: No clubbing, cyanosis. No joint effusion, has good ROM. No calf tenderness. Well perfused and warm. L foot - has dry intact dressing. NEUROLOGICAL: Grossly non-focal PSYCHIATRIC: Normal affect, calm and cooperative. LINE: No evidence of infection Assessment & Plan Remarks IMPRESSION Diabetic foot infection L foot, possible osteomyelitis 1st MTP, ?abscess over the first MT - MRI with some fracture seen - S/P I and D, still with purulence for repeat OR today - C/S MRSA, GAS Cellulitis LLE, better Possible sepsis due to L foot infection Fever, new, source? initial eval negative, ?drug fever Mild neutropenia, ?due to meds, ?Vanco RECOMMENDATION Continue Vancomycin repeat BC repeat CBC in AM Follow temps Monitor progress Verona Guthrie MD August 20, 2017 08:50
[2017-08-20] MEDS: glipiZIDE 5 MG TAB PO SCH (09:17)
[2017-08-20] MEDS: DOCUSATE SODIUM 50 MG/SENNA 8.6 MG TAB PO SCH ×2 (09:17→19:52)
[2017-08-20] MEDS: ACETAMINOPHEN 325 MG TAB PO PRN ×3 (09:17→16:44)
[2017-08-20] MEDS: SODIUM CHLORIDE 0.9% FLUSH 10 ML FLUSH IV FLUSH SCH ×2 (09:18→19:51)
[2017-08-20] MEDS: BETAMETHASONE/CLOTRIMAZOLE CREAM 15 GM TOPICAL SCH ×2 (09:18→19:53)
[2017-08-20] MEDS: COLLAGENASE OINT 30 GM TUBE TOPICAL SCH (10:54)
[2017-08-20] MEDS: VANCOMYCIN 1,000 MG/NS 250 ML IV SCH ×4 (10:54→23:45)
--- NOTE | 2017-08-20 12:24 | HHI.PR ---
Subjective Remarks The patient was sitting up in a chair. He denied any pain in his foot. He was hoping to go home soon. He had no acute complaints. Objective Vitals Vital Signs Date Time Temp Pulse Resp B/P (MAP) Pulse Ox O2 Delivery O2 Flow Rate FiO2 08/20/17 08:00 99.3 104 18 104/97 (99) 97 08/20/17 04:00 99.0 100 17 130/61 (84) 98 08/20/17 00:00 99.8 92 17 131/61 (84) 98 08/19/17 20:00 102.5 108 17 145/70 (95) 98 08/19/17 16:00 97.9 102 20 170/102 (124) 100 I/O 08/19/17 08/19/17 08/19/17 08/20/17 08/20/17 08/20/17 06:59 14:59 22:59 06:59 14:59 22:59 Intake Total 1055 ml 1100 ml 1490 ml Output Total 600 ml 1200 ml Balance 455 ml 1100 ml 290 ml Intake Oral 240 ml 1100 ml 240 ml IV Total 815 ml 1250 ml Output Urine Total 600 ml 1200 ml # Voids 4 # Bowel Movements 1 Result Diagram: 08/20/17 0644 08/20/17 0644 Imaging Last Impressions Renal Ultrasound 08/18/17 0000 Signed Impressions: CONCLUSION: 1. Unremarkable renal ultrasound. Chest X-Ray 08/18/17 0000 Signed Impressions: CONCLUSION: No active disease. Aorta w/Runoff CTA 08/12/17 0000 Signed Impressions: Service Date/Time: Saturday, August 12, 2017 08:44 - CONCLUSION: 1. The examination demonstrates adequate inflow and runoff to both lower extremities. 2. There is lymphadenopathy involving the left external iliac johnna chain and left inguinal canal. There are nodes measuring up to 2 cm. It is possible this is reactive however malignancy is not excluded. Biopsy of these nodes may be a consideration. Kuldeep Reyez MD Foot MRI 08/11/17 0000 Signed Impressions: Service Date/Time: July 07:56 - CONCLUSION: 1. There are findings characteristic for a linear nondisplaced stress fracture through the body of the first cuneiform bone. 2. There appears to be some focal bone bruising along the lateral aspect of the cuboid bone. 3. Diffuse nonspecific soft tissue swelling and edema throughout the soft tissues of the midfoot. 4. Mild degenerative changes characteristic for patient's age.. Frank Zepeda MD Foot X-Ray 08/10/17 0000 Signed Impressions: Service Date/Time: Thursday, August 10, 2017 12:28 - CONCLUSION: 1. Generalized soft tissue swelling without evidence of fracture, destructive bony changes or significant arthropathy. 2. Arterial calcification. Olu Baker MD Objective Remarks General: No acute distress. Heart: Tachycardic. No murmur. Lungs: Clear to auscultation bilaterally. No wheezes, rales, or rhonchi. Breathing is nonlabored. Abdomen: Soft, nontender, nondistended. Extremities: No lower extremity edema. Left foot bandaged and in boot. Psych: Calm. Neuro: Normal speech. No focal deficits noted. Procedures 08/12/17 Incision, drainage, debridement, left foot, with excision, drainage, debridement of extensor hallucis longus tendon dorsum of foot. A/P Assessment and Plan Diabetic foot wound, left foot Patient has a chronic left foot wound on the plantar aspect of the left foot and a wound on the dorsal aspect of the left foot. Appreciate podiatry recommendations. MRI shows possible stress fracture. Wound culture is growing MRSA. Blood culture from 08/10/17 growing gram-positive cocci. Appreciate infectious disease recommendations. CRP and sed rate are elevated. Intraoperative wound culture also growing MRSA. S/p left foot incision and drainage dorsal aspect/debridement and irrigation of submet 1 ulcer 08/17. Still spiking fevers at times. - follow up with podiatry. - antibiotics per ID. Currently on vancomycin. Diabetes mellitus Well controlled. A1c 8.5%. - Monitor Accu-Cheks and cover with sliding scale insulin. - added Levemir 10 units HS. - Metformin and glipizide on hold. We will resume upon discharge. - diabetic diet. Acute kidney injury Improved with fluids. Renal US unremarkable. FENa calculated at 3.1%. - Continue IV fluids. - avoid nephrotoxins. Hypokalemia Secondary to decreased p.o. intake. - PO KCl. - follow BMP. Tachycardia May be s/t infection. TSH within normal limits. - continue antibiotics and IVFs. - check a TSH. DVT prophylaxis: SCDs, KENN hannae Discharge Planning Discharge home with home health care once cleared by infectious disease. Red Santana DO August 20, 2017 12:24
[2017-08-20] MEDS ORDERED: SODIUM CHLOR 0.9% 1000 ML INJ 1,000 ML IV ONE (13:15)
--- NOTE | 2017-08-20 15:19 | EKG ---
Date Performed: 08/19/2017 Time Performed: 19:38:09 PTAGE: 47 years EKG: SINUS TACHYCARDIA ABNORMAL RHYTHM ECG Compared to PREVIOUS TRACING , the heart rate is slightly faster. PREVIOUS TRACIN08/12/2017 01.11 DOCTOR: Jamison Sawyer Interpretating Date/Time 08/20/2017 15:17:54
[2017-08-20] MEDS ORDERED: IBUPROFEN 600 MG TAB PO ONE (17:00)
[2017-08-20] MEDS: INSULIN DETEMIR 100 UNITS/ML VIAL SQ SCH (19:52)
[2017-08-20] MEDS ORDERED: PHARMACY ORDERED LAB ONE (22:45)
[2017-08-21] VITALS (7 sets, daily range): BP systolic 94–177; BP diastolic 52–93; PULSE 99–124; RESP 17–20; TEMP 98–102.8; O2SAT 97–99
[2017-08-21] MEDS: ACETAMINOPHEN 325 MG TAB PO PRN ×4 (02:07→20:36)
[2017-08-21] MEDS ORDERED: IBUPROFEN 600 MG TAB PO ONE (05:00)
[2017-08-21 06:25] LABS: BASOPHIL % 0.2 % (0.0-2.0); EOSINOPHIL # 0.3 TH/MM3 (0-0.4); EOSINOPHIL % 7.7 % (0.0-4.0); HEMATOCRIT 25.5 % (39.0-51.0); HEMOGLOBIN 8.9 GM/DL (13.0-17.0); LYMPH % 7.3 % (9.0-44.0); LYMPHOCYTE # 0.3 TH/MM3 (1.0-4.8); MEAN CELL VOLUME 84.6 FL (80.0-100.0); MEAN CORPUSCULAR HEMOGLOBIN 29.5 PG (27.0-34.0); MEAN CORPUSCULAR HGB CONC 34.9 % (32.0-36.0); MEAN PLATELET VOLUME 8.1 FL (7.0-11.0); MONO % 5.4 % (0.0-8.0); MONOCYTE # 0.2 TH/MM3 (0-0.9); NEUT % 79.4 % (16.0-70.0); PLATELET COUNT 226 TH/MM3 (150-450); RED BLOOD COUNT 3.01 MIL/MM3 (4.50-5.90); RED CELL DISTRIBUTION WIDTH 11.4 % (11.6-17.2); WHITE BLOOD COUNT 3.8 TH/MM3 (4.0-11.0)
[2017-08-21] MEDS: INSULIN ASPART SUPPLEMENTAL SCALE SQ SCH ×4 (08:00→20:40)
[2017-08-21] MEDS: glipiZIDE 5 MG TAB PO SCH (08:35)
[2017-08-21] MEDS: SODIUM CHLORIDE 0.9% FLUSH 10 ML FLUSH IV FLUSH SCH ×2 (08:35→20:40)
[2017-08-21] MEDS: DOCUSATE SODIUM 50 MG/SENNA 8.6 MG TAB PO SCH ×2 (08:35→20:36)
[2017-08-21] MEDS: BETAMETHASONE/CLOTRIMAZOLE CREAM 15 GM TOPICAL SCH ×2 (08:36→20:40)
[2017-08-21] MEDS: SODIUM CHLOR 0.9% 1000 ML INJ 1,000 ML IV SCH ×2 (08:36→17:31)
[2017-08-21] MEDS: COLLAGENASE OINT 30 GM TUBE TOPICAL SCH (08:37)
--- NOTE | 2017-08-21 11:16 | HHI.IDPN ---
Subjective Subjective Remarks Patient is a 47-year-old male, with known diabetes, presented to the hospital complaining of 2 day history of redness and swelling on his left foot. Patient has a callus over his first metatarsal, and about a month ago, he picked on it. He apparently developed a sore, and it was not really giving him any problem, until 2 days prior to admission when he started developing redness and swelling on his left foot. He denies any fever chills or sweats. He did not notice any odor to it. He has no other complaints. Patient has moved to [place] about 5 months ago, and he has not established with a primary care physician. He presented to the hospital, and has been admitted. He has cellulitis on that left foot. X-ray of the foot did not show any evidence of bony destruction fracture or any foreign body. Highest temperature has been 99+. His WBC is normal, but his ESR is greater than 140, and CRP 15.30. He is currently on vancomycin and Zosyn. Infectious disease consultation has been requested to evaluate the patient for possible osteomyelitis, and make antibiotic recommendations. Notes reviewed D/W Dr Santana Continues to have fevers No new complaints No itching No diarrhea Pain under control UA ok BC negative so far Voiding ok Wound C/S MRSA and GAS WBC down to 3.8 again, increased eos Antibiotics Vancomycin Current Medications Medications (Trade) Dose Ordered Sig/Leigh Ann Route Start Time Stop Time Status Last Admin Pharmacy Profile Note 0 ml @ 0 mls/hr UNSCH OTHER 08/10/17 14:15 (NS Flush) 2 ml UNSCH PRN IV FLUSH 08/10/17 14:15 (NS Flush) 2 ml BID IV FLUSH 08/10/17 21:00 08/20/17 09:18 (Tylenol) 650 mg Q4H PRN PO 08/10/17 14:15 08/21/17 08:35 (Reglan Inj) 5 mg Q6H PRN IV PUSH 08/10/17 14:15 (Narcan Inj) 0.4 mg UNSCH PRN IV PUSH 08/10/17 14:15 (Michelle-Colace) 1 tab BID PO 08/10/17 21:00 08/21/17 08:35 (Milk Of Magnesia Liq) 30 ml Q12H PRN PO 08/10/17 14:15 (Senokot) 17.2 mg Q12H PRN PO 08/10/17 14:15 (Dulcolax Supp) 10 mg DAILY PRN RECTAL 08/10/17 14:15 (Lactulose Liq) 30 ml DAILY PRN PO 08/10/17 14:15 (D50w (Vial) Inj) 50 ml UNSCH PRN IV PUSH 08/10/17 14:15 (Glucagon Inj) 1 mg UNSCH PRN OTHER 08/10/17 14:15 (NovoLOG SUPPLEMENTAL SCALE) 1 ACHS SLIDING SCALE SQ 08/10/17 17:00 08/20/17 13:06 (Glucotrol) 5 mg DAILYAC PO 08/14/17 09:30 08/21/17 08:35 Sodium Chloride 1,000 ml @ 125 mls/hr Q8H IV 08/18/17 13:00 08/21/17 08:36 (Lotrisone Cream) 1 applic Q12HR TOPICAL 08/19/17 09:45 08/26/17 09:44 08/21/17 08:36 Vancomycin HCl 1000 mg/Sodium Chloride 250 ml @ 250 mls/hr Q12H IV 08/19/17 11:00 08/20/17 23:45 (Catapres) 0.1 mg Q6H PRN PO 08/19/17 16:00 08/19/17 21:47 (Levemir Inj) 10 units HS SQ 08/19/17 21:00 08/20/17 19:52 (Santyl Oint) 1 applic DAILY TOPICAL 08/20/17 09:00 08/21/17 08:37 Lines PIV no evidence of infection Past Medical History Diabetes Past Surgical History Surgery on his right index finger related to trauma Allergies: Coded Allergies: No Known Allergies (Unverified , 08/10/17) Objective . Vital Signs Date Time Temp Pulse Resp B/P (MAP) Pulse Ox O2 Delivery O2 Flow Rate FiO2 08/21/17 08:00 100.6 108 20 94/52 (66) 97 08/21/17 04:00 101.0 124 20 118/57 (77) 97 08/21/17 03:37 20 08/21/17 02:00 100.8 08/21/17 00:00 98.0 101 20 130/74 (92) 97 08/21/17 00:00 106 08/20/17 20:00 98.5 99 20 95/56 (69) 98 08/20/17 16:40 102.6 127 18 133/63 (86) 08/20/17 16:00 98.3 120 18 145/85 (105) 99 08/20/17 12:00 98.0 90 17 82/53 (63) 98 . Laboratory Tests Test 08/20/17 06:44 08/21/17 04:40 White Blood Count 4.2 TH/MM3 3.8 TH/MM3 Red Blood Count 3.26 MIL/MM3 3.01 MIL/MM3 Hemoglobin 9.6 GM/DL 8.9 GM/DL Hematocrit 27.9 % 25.5 % Mean Corpuscular Volume 85.7 FL 84.6 FL Mean Corpuscular Hemoglobin 29.5 PG 29.5 PG Mean Corpuscular Hemoglobin Concent 34.4 % 34.9 % Red Cell Distribution Width 11.4 % 11.4 % Platelet Count 295 TH/MM3 226 TH/MM3 Mean Platelet Volume 7.2 FL 8.1 FL CBC Comment AUTO DIFF DIFF FINAL Differential Total Cells Counted 100 Neutrophils % (Manual) 52 % Band Neutrophils % 10 % Lymphocytes % 19 % Monocytes % 10 % Eosinophils % 7 % Basophils % 2 % Neutrophils # (Manual) 2.6 TH/MM3 Differential Comment FINAL DIFF MANUAL Platelet Estimate NORMAL Platelet Morphology Comment NORMAL Neutrophils (%) (Auto) 79.4 % Lymphocytes (%) (Auto) 7.3 % Monocytes (%) (Auto) 5.4 % Eosinophils (%) (Auto) 7.7 % Basophils (%) (Auto) 0.2 % Neutrophils # (Auto) 3.0 TH/MM3 Lymphocytes # (Auto) 0.3 TH/MM3 Monocytes # (Auto) 0.2 TH/MM3 Eosinophils # (Auto) 0.3 TH/MM3 Basophils # (Auto) 0.0 TH/MM3 Laboratory Tests Test 08/20/17 06:44 Blood Urea Nitrogen 7 MG/DL Creatinine 1.19 MG/DL Random Glucose 90 MG/DL Calcium Level 8.4 MG/DL Magnesium Level 1.9 MG/DL Sodium Level 141 MEQ/L Potassium Level 3.5 MEQ/L Chloride Level 105 MEQ/L Carbon Dioxide Level 27.3 MEQ/L Anion Gap 9 MEQ/L Estimat Glomerular Filtration Rate 66 ML/MIN Microbiology Date/Time Source Procedure Growth Status 08/20/17 10:40 Blood Peripheral Aerobic Blood Culture - Preliminary NO GROWTH IN 1 DAY Resulted 08/20/17 10:40 Blood Peripheral Anaerobic Blood Culture - Preliminary NO GROWTH IN 1 DAY Resulted 08/20/17 10:30 Blood Peripheral Aerobic Blood Culture - Preliminary NO GROWTH IN 1 DAY Resulted 08/20/17 10:30 Blood Peripheral Anaerobic Blood Culture - Preliminary NO GROWTH IN 1 DAY Resulted 08/18/17 20:41 Blood Peripheral Aerobic Blood Culture - Preliminary NO GROWTH IN 3 DAYS Resulted 08/18/17 20:41 Blood Peripheral Anaerobic Blood Culture - Preliminary NO GROWTH IN 3 DAYS Resulted 08/18/17 20:35 Blood Peripheral Aerobic Blood Culture - Preliminary NO GROWTH IN 3 DAYS Resulted 08/18/17 20:35 Blood Peripheral Anaerobic Blood Culture - Preliminary NO GROWTH IN 3 DAYS Resulted Imaging Last Impressions Foot MRI 08/11/17 0000 Signed Impressions: Service Date/Time: July 07:56 - CONCLUSION: 1. There are findings characteristic for a linear nondisplaced stress fracture through the body of the first cuneiform bone. 2. There appears to be some focal bone bruising along the lateral aspect of the cuboid bone. 3. Diffuse nonspecific soft tissue swelling and edema throughout the soft tissues of the midfoot. 4. Mild degenerative changes characteristic for patient's age.. Frank Zepeda MD Foot X-Ray 08/10/17 0000 Signed Impressions: Service Date/Time: Thursday, August 10, 2017 12:28 - CONCLUSION: 1. Generalized soft tissue swelling without evidence of fracture, destructive bony changes or significant arthropathy. 2. Arterial calcification. Olu Baker MD Physical Exam GENERAL: awake and alert, NAD SKIN: Warm and dry. No generalized rash. Upper chest looks flushed but no discrete rash seen HEAD: Atraumatic. Normocephalic. No temporal wasting, or tenderness. Facial rash better EYES: [place] conjunctiva. No petechia or hemorrhage. Pupils equal, round and reactive to light. Extraocular movements full and intact. No scleral icterus. No injection or drainage. EARS, NOSE AND THROAT: Nose without bleeding or purulent nasal discharge. No sinus tenderness. Mucous membranes pink and moist. No oral lesions noted. NECK: Trachea midline. Supple and not tender, no meningeal signs CARDIOVASCULAR: Regular rate and rhythm. No murmurs, rubs or gallops heard RESPIRATORY: Clear to auscultation. Breath sounds equal bilaterally. No rales , wheezing or rhonchi ABDOMEN: Soft, non-tender, nondistended. Bowel sounds present and normoactive. No guarding. No rebound. No organomegaly. EXTREMITIES: No clubbing, cyanosis. No joint effusion, has good ROM. No calf tenderness. Well perfused and warm. L foot - has dry intact dressing. No lymphangitis seen NEUROLOGICAL: Grossly non-focal PSYCHIATRIC: Normal affect, calm and cooperative. LINE: No evidence of infection Assessment & Plan Remarks IMPRESSION Diabetic foot infection L foot, possible osteomyelitis 1st MTP, ?abscess over the first MT - MRI with some fracture seen - S/P I and D, still with purulence for repeat OR today - C/S MRSA, GAS Cellulitis LLE, better Possible sepsis due to L foot infection Fever, new, source? initial eval negative, ?drug fever Mild neutropenia, ?due to meds, ?Vanco RECOMMENDATION Stop Vancomycin Use IV Cubicin to cover MRSA and Strep infection Follow C/S Follow CBC Follow temps Monitor progress Explained plan to the patient D/W Dr Santana (HEPAS) Verona Guthrie MD August 21, 2017 11:16
[2017-08-21] MEDS: DAPTOmycin INJ 450 MG in SODIUM CHLORIDE 0.9% INJ 100 ML IV SCH (12:30)
--- NOTE | 2017-08-21 14:21 | EKG ---
Date Performed: 08/20/2017 Time Performed: 15:18:14 PTAGE: 47 years EKG: SINUS TACHYCARDIA NONSPECIFIC ST & T-WAVE ABNORMALITY ABNORMAL RHYTHM ECG Compared to PREVIOUS TRACING , T-wave changes are new. There is baseline artifact present. PREVIOUS T RACIN08/19/2017 19.38 DOCTOR: Jamison Sawyer Interpretating Date/Time 08/21/2017 14:20:43
--- NOTE | 2017-08-21 16:36 | HHI.PR ---
Subjective Remarks The patient's family was at the bedside. The patient said he wants to go home. He said his bandage was to be changed today. Discussed with nursing. Objective Vitals Vital Signs Date Time Temp Pulse Resp B/P (MAP) Pulse Ox O2 Delivery O2 Flow Rate FiO2 08/21/17 12:00 98.1 99 17 108/57 (74) 99 08/21/17 08:00 100.6 108 20 94/52 (66) 97 08/21/17 04:00 101.0 124 20 118/57 (77) 97 08/21/17 03:37 20 08/21/17 02:00 100.8 08/21/17 00:00 98.0 101 20 130/74 (92) 97 08/21/17 00:00 106 08/20/17 20:00 98.5 99 20 95/56 (69) 98 08/20/17 16:40 102.6 127 18 133/63 (86) I/O 08/20/17 08/20/17 08/20/17 08/21/17 08/21/17 08/21/17 07:00 15:00 23:00 07:00 15:00 23:00 Intake Total 1490 ml 250 ml 1400 ml 360 ml 1100 ml Output Total 1200 ml Balance 290 ml 250 ml 1400 ml 360 ml 1100 ml Intake Oral 240 ml 400 ml 360 ml IV Total 1250 ml 250 ml 1000 ml 1100 ml Output Urine Total 1200 ml # Voids 3 3 # Bowel Movements 1 2 Result Diagram: 08/21/17 0440 08/20/17 0644 Imaging Last Impressions Renal Ultrasound 08/18/17 0000 Signed Impressions: CONCLUSION: 1. Unremarkable renal ultrasound. Chest X-Ray 08/18/17 0000 Signed Impressions: CONCLUSION: No active disease. Aorta w/Runoff CTA 08/12/17 0000 Signed Impressions: Service Date/Time: Saturday, August 12, 2017 08:44 - CONCLUSION: 1. The examination demonstrates adequate inflow and runoff to both lower extremities. 2. There is lymphadenopathy involving the left external iliac johnna chain and left inguinal canal. There are nodes measuring up to 2 cm. It is possible this is reactive however malignancy is not excluded. Biopsy of these nodes may be a consideration. Kuldeep Reyez MD Foot MRI 08/11/17 0000 Signed Impressions: Service Date/Time: July 07:56 - CONCLUSION: 1. There are findings characteristic for a linear nondisplaced stress fracture through the body of the first cuneiform bone. 2. There appears to be some focal bone bruising along the lateral aspect of the cuboid bone. 3. Diffuse nonspecific soft tissue swelling and edema throughout the soft tissues of the midfoot. 4. Mild degenerative changes characteristic for patient's age.. Frank Zepeda MD Foot X-Ray 08/10/17 0000 Signed Impressions: Service Date/Time: Thursday, August 10, 2017 12:28 - CONCLUSION: 1. Generalized soft tissue swelling without evidence of fracture, destructive bony changes or significant arthropathy. 2. Arterial calcification. Olu Baker MD Objective Remarks General: No acute distress. Heart: Tachycardic. No murmur. Lungs: Clear to auscultation bilaterally. No wheezes, rales, or rhonchi. Breathing is nonlabored. Abdomen: Soft, nontender, nondistended. Extremities: No lower extremity edema. Left foot bandaged and in boot. Psych: Calm. Neuro: Normal speech. No focal deficits noted. Procedures 08/12/17 Incision, drainage, debridement, left foot, with excision, drainage, debridement of extensor hallucis longus tendon dorsum of foot. A/P Assessment and Plan Diabetic foot wound, left foot Patient has a chronic left foot wound on the plantar aspect of the left foot and a wound on the dorsal aspect of the left foot. Appreciate podiatry recommendations. MRI shows possible stress fracture. Wound culture is growing MRSA. Blood culture from 08/10/17 growing gram-positive cocci. Appreciate infectious disease recommendations. CRP and sed rate are elevated. Intraoperative wound culture also growing MRSA. S/p left foot incision and drainage dorsal aspect/debridement and irrigation of submet 1 ulcer 08/17. Still spiking fevers. - follow up with podiatry. - antibiotics per ID. Vancomycin has been switched to daptomycin. Diabetes mellitus Well controlled. A1c 8.5%. - Monitor Accu-Cheks and cover with sliding scale insulin. - added Levemir 10 units daily. - Metformin and glipizide on hold. We will resume upon discharge. - diabetic diet. Acute kidney injury Improved with fluids. Renal US unremarkable. FENa calculated at 3.1%. - Continue IV fluids. - avoid nephrotoxins. Hypokalemia Secondary to decreased p.o. intake. - PO KCl. - follow BMP. Tachycardia May be s/t infection. TSH within normal limits. EKG with sinus tachycardia. - continue antibiotics and IVFs. DVT prophylaxis: KENN Gee Discharge Planning Discharge home with home health care once cleared by infectious disease. Red Santana DO August 21, 2017 16:36
[2017-08-21] MEDS ORDERED: POTASSIUM CHLORIDE 20 MEQ CONTROLLED RELEASE TAB PO ONE (16:45)
[2017-08-22] VITALS (7 sets, daily range): BP systolic 111–158; BP diastolic 58–79; PULSE 92–117; RESP 18–20; TEMP 97.7–101.7; O2SAT 95–99
[2017-08-22] MEDS: ACETAMINOPHEN 325 MG TAB PO PRN (03:27)
[2017-08-22] MEDS: SODIUM CHLOR 0.9% 1000 ML INJ 1,000 ML IV SCH (03:30)
[2017-08-22 07:24] LABS: HEMATOCRIT 25.5 % (39.0-51.0); HEMOGLOBIN 8.9 GM/DL (13.0-17.0); MEAN CELL VOLUME 84.4 FL (80.0-100.0); MEAN CORPUSCULAR HEMOGLOBIN 29.3 PG (27.0-34.0); MEAN CORPUSCULAR HGB CONC 34.7 % (32.0-36.0); MEAN PLATELET VOLUME 8.8 FL (7.0-11.0); PLATELET COUNT 190 TH/MM3 (150-450); RED BLOOD COUNT 3.02 MIL/MM3 (4.50-5.90); RED CELL DISTRIBUTION WIDTH 11.5 % (11.6-17.2); WHITE BLOOD COUNT 3.1 TH/MM3 (4.0-11.0)
[2017-08-22] MEDS: DOCUSATE SODIUM 50 MG/SENNA 8.6 MG TAB PO SCH ×2 (07:26→21:21)
[2017-08-22] MEDS: INSULIN ASPART SUPPLEMENTAL SCALE SQ SCH ×4 (07:42→21:00)
[2017-08-22 07:46] LABS: BICARBONATE 24.1 MEQ/L (21.0-32.0); CALCIUM 8.1 MG/DL (8.5-10.1); CREATININE 1.16 MG/DL (0.60-1.30)
[2017-08-22] MEDS: INSULIN DETEMIR 100 UNITS/ML VIAL SQ SCH (08:10)
[2017-08-22] MEDS: SODIUM CHLORIDE 0.9% FLUSH 10 ML FLUSH IV FLUSH SCH ×2 (08:10→21:00)
[2017-08-22] MEDS: glipiZIDE 5 MG TAB PO SCH (08:10)
[2017-08-22] MEDS: BETAMETHASONE/CLOTRIMAZOLE CREAM 15 GM TOPICAL SCH ×2 (08:12→21:00)
[2017-08-22] MEDS: COLLAGENASE OINT 30 GM TUBE TOPICAL SCH (08:12)
[2017-08-22 09:21] LABS: BANDS 31 % (0-6); BASOPHILS 1 % (0-2); LYMPHOCYTES 16 % (9-44); METAMYELOCYTES 1 % (0-1); MONOCYTES 13 % (0-8); NEUTROPHIL # MANUAL DIFF 1.9 TH/MM3 (1.8-7.7); POLYS (SEG NEUTROPHILS) 30 % (16-70)
--- NOTE | 2017-08-22 10:52 | HHI.IDPN ---
Subjective Subjective Remarks Patient is a 47-year-old male, with known diabetes, presented to the hospital complaining of 2 day history of redness and swelling on his left foot. Patient has a callus over his first metatarsal, and about a month ago, he picked on it. He apparently developed a sore, and it was not really giving him any problem, until 2 days prior to admission when he started developing redness and swelling on his left foot. He denies any fever chills or sweats. He did not notice any odor to it. He has no other complaints. Patient has moved to [place] about 5 months ago, and he has not established with a primary care physician. He presented to the hospital, and has been admitted. He has cellulitis on that left foot. X-ray of the foot did not show any evidence of bony destruction fracture or any foreign body. Highest temperature has been 99+. His WBC is normal, but his ESR is greater than 140, and CRP 15.30. He is currently on vancomycin and Zosyn. Infectious disease consultation has been requested to evaluate the patient for possible osteomyelitis, and make antibiotic recommendations. Notes reviewed Continues to have fevers No new complaints No itching No diarrhea Pain under control UA ok BC negative so far Voiding ok Wound C/S MRSA and GAS WBC lower, 3.1 Antibiotics Cubicin Current Medications Medications (Trade) Dose Ordered Sig/Leigh Ann Route Start Time Stop Time Status Last Admin (NS Flush) 2 ml UNSCH PRN IV FLUSH 08/10/17 14:15 (NS Flush) 2 ml BID IV FLUSH 08/10/17 21:00 08/21/17 20:40 (Tylenol) 650 mg Q4H PRN PO 08/10/17 14:15 08/22/17 03:27 (Reglan Inj) 5 mg Q6H PRN IV PUSH 08/10/17 14:15 (Narcan Inj) 0.4 mg UNSCH PRN IV PUSH 08/10/17 14:15 (Michelle-Colace) 1 tab BID PO 08/10/17 21:00 08/21/17 20:36 (Milk Of Magnesia Liq) 30 ml Q12H PRN PO 08/10/17 14:15 (Senokot) 17.2 mg Q12H PRN PO 08/10/17 14:15 (Dulcolax Supp) 10 mg DAILY PRN RECTAL 08/10/17 14:15 (Lactulose Liq) 30 ml DAILY PRN PO 08/10/17 14:15 (D50w (Vial) Inj) 50 ml UNSCH PRN IV PUSH 08/10/17 14:15 (Glucagon Inj) 1 mg UNSCH PRN OTHER 08/10/17 14:15 (NovoLOG SUPPLEMENTAL SCALE) 1 ACHS SLIDING SCALE SQ 08/10/17 17:00 08/20/17 13:06 (Glucotrol) 5 mg DAILYAC PO 08/14/17 09:30 08/22/17 08:10 Sodium Chloride 1,000 ml @ 125 mls/hr Q8H IV 08/18/17 13:00 08/22/17 03:30 (Lotrisone Cream) 1 applic Q12HR TOPICAL 08/19/17 09:45 08/26/17 09:44 08/22/17 08:12 (Catapres) 0.1 mg Q6H PRN PO 08/19/17 16:00 08/19/17 21:47 (Santyl Oint) 1 applic DAILY TOPICAL 08/20/17 09:00 08/22/17 08:12 Daptomycin 450 mg/ Sodium Chloride 100 ml @ 200 mls/hr Q24H IV 08/21/17 12:00 08/21/17 12:30 (Levemir Inj) 10 units DAILY SQ 08/22/17 09:00 08/22/17 08:10 Lines PIV no evidence of infection Past Medical History Diabetes Past Surgical History Surgery on his right index finger related to trauma Allergies: Coded Allergies: No Known Allergies (Unverified , 08/10/17) Objective . Vital Signs Date Time Temp Pulse Resp B/P (MAP) Pulse Ox O2 Delivery O2 Flow Rate FiO2 08/22/17 08:00 99.3 103 18 116/74 (88) 99 08/22/17 06:10 109 08/22/17 05:40 20 08/22/17 04:45 114 08/22/17 04:00 101.7 117 20 158/79 (105) 95 08/22/17 00:00 100.2 106 20 115/64 (81) 96 08/21/17 20:00 102.5 115 20 156/84 (108) 97 08/21/17 16:00 102.8 121 18 177/93 (121) 98 08/21/17 12:00 98.1 99 17 108/57 (74) 99 . Laboratory Tests Test 08/21/17 04:40 08/22/17 05:41 White Blood Count 3.8 TH/MM3 3.1 TH/MM3 Red Blood Count 3.01 MIL/MM3 3.02 MIL/MM3 Hemoglobin 8.9 GM/DL 8.9 GM/DL Hematocrit 25.5 % 25.5 % Mean Corpuscular Volume 84.6 FL 84.4 FL Mean Corpuscular Hemoglobin 29.5 PG 29.3 PG Mean Corpuscular Hemoglobin Concent 34.9 % 34.7 % Red Cell Distribution Width 11.4 % 11.5 % Platelet Count 226 TH/MM3 190 TH/MM3 Mean Platelet Volume 8.1 FL 8.8 FL Neutrophils (%) (Auto) 79.4 % Lymphocytes (%) (Auto) 7.3 % Monocytes (%) (Auto) 5.4 % Eosinophils (%) (Auto) 7.7 % Basophils (%) (Auto) 0.2 % Neutrophils # (Auto) 3.0 TH/MM3 Lymphocytes # (Auto) 0.3 TH/MM3 Monocytes # (Auto) 0.2 TH/MM3 Eosinophils # (Auto) 0.3 TH/MM3 Basophils # (Auto) 0.0 TH/MM3 CBC Comment DIFF FINAL AUTO DIFF Differential Comment FINAL DIFF MANUAL Differential Total Cells Counted 100 Neutrophils % (Manual) 30 % Band Neutrophils % 31 % Lymphocytes % 16 % Monocytes % 13 % Eosinophils % 8 % Basophils % 1 % Neutrophils # (Manual) 1.9 TH/MM3 Metamyelocytes 1 % Platelet Estimate NORMAL Platelet Morphology Comment NORMAL Laboratory Tests Test 08/21/17 12:37 08/22/17 05:41 Total Creatine Kinase 218 U/L Blood Urea Nitrogen 10 MG/DL Creatinine 1.16 MG/DL Random Glucose 80 MG/DL Calcium Level 8.1 MG/DL Sodium Level 137 MEQ/L Potassium Level 3.2 MEQ/L Chloride Level 104 MEQ/L Carbon Dioxide Level 24.1 MEQ/L Anion Gap 9 MEQ/L Estimat Glomerular Filtration Rate 67 ML/MIN Microbiology Date/Time Source Procedure Growth Status 08/20/17 10:40 Blood Peripheral Aerobic Blood Culture - Preliminary NO GROWTH IN 1 DAY Resulted 08/20/17 10:40 Blood Peripheral Anaerobic Blood Culture - Preliminary NO GROWTH IN 1 DAY Resulted 08/20/17 10:30 Blood Peripheral Aerobic Blood Culture - Preliminary NO GROWTH IN 1 DAY Resulted 08/20/17 10:30 Blood Peripheral Anaerobic Blood Culture - Preliminary NO GROWTH IN 1 DAY Resulted Imaging Last Impressions Foot MRI 08/11/17 0000 Signed Impressions: Service Date/Time: July 07:56 - CONCLUSION: 1. There are findings characteristic for a linear nondisplaced stress fracture through the body of the first cuneiform bone. 2. There appears to be some focal bone bruising along the lateral aspect of the cuboid bone. 3. Diffuse nonspecific soft tissue swelling and edema throughout the soft tissues of the midfoot. 4. Mild degenerative changes characteristic for patient's age.. Frank Zepeda MD Foot X-Ray 08/10/17 0000 Signed Impressions: Service Date/Time: Thursday, August 10, 2017 12:28 - CONCLUSION: 1. Generalized soft tissue swelling without evidence of fracture, destructive bony changes or significant arthropathy. 2. Arterial calcification. Olu Baker MD Physical Exam GENERAL: awake and alert, NAD SKIN: Warm and dry. No generalized rash. Upper chest looks flushed but no discrete rash seen HEAD: Atraumatic. Normocephalic. No temporal wasting, or tenderness. Facial rash better EYES: [place] conjunctiva. No petechia or hemorrhage. Pupils equal, round and reactive to light. Extraocular movements full and intact. No scleral icterus. No injection or drainage. EARS, NOSE AND THROAT: Nose without bleeding or purulent nasal discharge. No sinus tenderness. Mucous membranes pink and moist. No oral lesions noted. NECK: Trachea midline. Supple and not tender, no meningeal signs CARDIOVASCULAR: Regular rate and rhythm. No murmurs, rubs or gallops heard RESPIRATORY: Clear to auscultation. Breath sounds equal bilaterally. No rales , wheezing or rhonchi ABDOMEN: Soft, non-tender, nondistended. Bowel sounds present and normoactive. No guarding. No rebound. No organomegaly. EXTREMITIES: No clubbing, cyanosis. No joint effusion, has good ROM. No calf tenderness. Well perfused and warm. L foot - has dry intact dressing. No lymphangitis seen NEUROLOGICAL: Grossly non-focal PSYCHIATRIC: Normal affect, calm and cooperative. LINE: No evidence of infection Assessment & Plan Remarks IMPRESSION Diabetic foot infection L foot, possible osteomyelitis 1st MTP, ?abscess over the first MT - MRI with some fracture seen - S/P I and D, still with purulence for repeat OR today - C/S MRSA, GAS Cellulitis LLE, better Possible sepsis due to L foot infection Fever, new, source? initial eval negative, ?drug fever Mild neutropenia, ?due to meds, ?Vanco RECOMMENDATION Continue IV Cubicin to cover MRSA and Strep infection Follow C/S Follow CBC Follow temps Monitor progress Explained plan to the patient D/W Dr Santana (HEPAS) Verona Guthrie MD August 22, 2017 10:52
[2017-08-22] MEDS: DAPTOmycin INJ 450 MG in SODIUM CHLORIDE 0.9% INJ 100 ML IV SCH (12:16)
--- NOTE | 2017-08-22 14:52 | HHI.PR ---
Subjective Remarks The patient said he felt well. He had no pain in his foot. He did say he had pain upon urination. No other acute complaints. Discussed with nursing. Objective Vitals Vital Signs Date Time Temp Pulse Resp B/P (MAP) Pulse Ox O2 Delivery O2 Flow Rate FiO2 08/22/17 12:00 98.7 94 19 111/58 (75) 97 08/22/17 08:00 99.3 103 18 116/74 (88) 99 08/22/17 06:10 109 08/22/17 05:40 20 08/22/17 04:45 114 08/22/17 04:00 101.7 117 20 158/79 (105) 95 08/22/17 00:00 100.2 106 20 115/64 (81) 96 08/21/17 20:00 102.5 115 20 156/84 (108) 97 08/21/17 16:00 102.8 121 18 177/93 (121) 98 I/O 08/21/17 08/21/17 08/21/17 08/22/17 08/22/17 08/22/17 07:00 15:00 23:00 07:00 15:00 23:00 Intake Total 360 ml 1100 ml 1540 ml 360 ml Balance 360 ml 1100 ml 1540 ml 360 ml Intake Oral 360 ml 540 ml 360 ml IV Total 1100 ml 1000 ml # Voids 3 3 3 # Bowel Movements 2 1 0 Result Diagram: 08/22/17 0541 08/22/17 0541 Imaging Last Impressions Renal Ultrasound 08/18/17 0000 Signed Impressions: CONCLUSION: 1. Unremarkable renal ultrasound. Chest X-Ray 08/18/17 0000 Signed Impressions: CONCLUSION: No active disease. Aorta w/Runoff CTA 08/12/17 0000 Signed Impressions: Service Date/Time: Saturday, August 12, 2017 08:44 - CONCLUSION: 1. The examination demonstrates adequate inflow and runoff to both lower extremities. 2. There is lymphadenopathy involving the left external iliac johnna chain and left inguinal canal. There are nodes measuring up to 2 cm. It is possible this is reactive however malignancy is not excluded. Biopsy of these nodes may be a consideration. Kuldeep Reyez MD Foot MRI 08/11/17 0000 Signed Impressions: Service Date/Time: July 07:56 - CONCLUSION: 1. There are findings characteristic for a linear nondisplaced stress fracture through the body of the first cuneiform bone. 2. There appears to be some focal bone bruising along the lateral aspect of the cuboid bone. 3. Diffuse nonspecific soft tissue swelling and edema throughout the soft tissues of the midfoot. 4. Mild degenerative changes characteristic for patient's age.. Frank Zepeda MD Foot X-Ray 08/10/17 0000 Signed Impressions: Service Date/Time: Thursday, August 10, 2017 12:28 - CONCLUSION: 1. Generalized soft tissue swelling without evidence of fracture, destructive bony changes or significant arthropathy. 2. Arterial calcification. Olu Baker MD Objective Remarks General: No acute distress. Heart: Tachycardic. No murmur. Lungs: Clear to auscultation bilaterally. No wheezes, rales, or rhonchi. Breathing is nonlabored. Abdomen: Soft, nontender, nondistended. Extremities: No lower extremity edema. Left foot bandaged and in boot. Psych: Calm. Neuro: Normal speech. No focal deficits noted. Procedures 08/12/17 Incision, drainage, debridement, left foot, with excision, drainage, debridement of extensor hallucis longus tendon dorsum of foot. A/P Assessment and Plan Diabetic foot wound, left foot Patient has a chronic left foot wound on the plantar aspect of the left foot and a wound on the dorsal aspect of the left foot. Appreciate podiatry recommendations. MRI shows possible stress fracture. Wound culture is growing MRSA. Blood culture from 08/10/17 growing gram-positive cocci. Appreciate infectious disease recommendations. CRP and sed rate are elevated. Intraoperative wound culture also growing MRSA. S/p left foot incision and drainage dorsal aspect/debridement and irrigation of submet 1 ulcer 08/17. Still spiking fevers. - follow up with podiatry. - antibiotics per ID. Vancomycin has been switched to daptomycin. Diabetes mellitus Well controlled. A1c 8.5%. - Monitor Accu-Cheks and cover with sliding scale insulin. - added Levemir 10 units daily. - Metformin and glipizide on hold. We will resume upon discharge. - diabetic diet. Acute kidney injury Improved with fluids. Renal US unremarkable. FENa calculated at 3.1%. - s/p IV fluids. - avoid nephrotoxins. Hypokalemia Secondary to decreased p.o. intake. - PO KCl. - follow BMP. Tachycardia May be s/t infection. TSH within normal limits. EKG with sinus tachycardia. Improved. - continue antibiotics. UTI Pt complaining of pain upon urination 08/22. - repeat UA. DVT prophylaxis: KENN Gee Discharge Planning Discharge home with home health care once cleared by infectious disease. Will need HHC. Continue IV Cubicin. Red Santana DO August 22, 2017 14:52
[2017-08-22] MEDS ORDERED: POTASSIUM CHLORIDE 25 MEQ EFFERVESCENT TAB PO ONE (15:00)
[2017-08-22 16:49] LABS: BILIRUBIN, URINE NEG (NEG); BLOOD, URINE NEG (NEG); GLUCOSE,URINE NEG (NEG); KETONE, URINE NEG (NEG); NITRITE,URINE NEG (NEG); SQUAMOUS EPITHELIAL CELL URINE 1 /hpf (0-5); URINE COLOR YELLOW (YELLW/STRAW); URINE LEUKOCYTE ESTERASE NEG (NEG)
[2017-08-23] VITALS (8 sets, daily range): BP systolic 135–173; BP diastolic 74–102; PULSE 87–112; RESP 19–22; TEMP 97.5–100.2; O2SAT 97–100
[2017-08-23 06:00] LABS: HEMATOCRIT 28.3 % (39.0-51.0); HEMOGLOBIN 9.8 GM/DL (13.0-17.0); MEAN CELL VOLUME 84.9 FL (80.0-100.0); MEAN CORPUSCULAR HEMOGLOBIN 29.5 PG (27.0-34.0); MEAN CORPUSCULAR HGB CONC 34.8 % (32.0-36.0); MEAN PLATELET VOLUME 8.7 FL (7.0-11.0); PLATELET COUNT 202 TH/MM3 (150-450); RED BLOOD COUNT 3.33 MIL/MM3 (4.50-5.90); RED CELL DISTRIBUTION WIDTH 11.7 % (11.6-17.2); WHITE BLOOD COUNT 4.7 TH/MM3 (4.0-11.0)
[2017-08-23 06:18] LABS: BICARBONATE 23.9 MEQ/L (21.0-32.0); CALCIUM 8.6 MG/DL (8.5-10.1); CREATININE 0.92 MG/DL (0.60-1.30); MAGNESIUM 2.2 MG/DL (1.5-2.5)
[2017-08-23] MEDS: glipiZIDE 5 MG TAB PO SCH (08:00)
[2017-08-23] MEDS: INSULIN ASPART SUPPLEMENTAL SCALE SQ SCH ×4 (08:00→19:59)
[2017-08-23] MEDS: SODIUM CHLORIDE 0.9% FLUSH 10 ML FLUSH IV FLUSH SCH ×2 (08:46→19:59)
[2017-08-23] MEDS: INSULIN DETEMIR 100 UNITS/ML VIAL SQ SCH (08:46)
[2017-08-23] MEDS: COLLAGENASE OINT 30 GM TUBE TOPICAL SCH (08:47)
[2017-08-23] MEDS: DOCUSATE SODIUM 50 MG/SENNA 8.6 MG TAB PO SCH ×2 (08:47→19:59)
[2017-08-23] MEDS: BETAMETHASONE/CLOTRIMAZOLE CREAM 15 GM TOPICAL SCH ×2 (08:48→19:51)
--- NOTE | 2017-08-23 11:02 | HHI.IDPN ---
Subjective Subjective Remarks Patient is a 47-year-old male, with known diabetes, presented to the hospital complaining of 2 day history of redness and swelling on his left foot. Patient has a callus over his first metatarsal, and about a month ago, he picked on it. He apparently developed a sore, and it was not really giving him any problem, until 2 days prior to admission when he started developing redness and swelling on his left foot. He denies any fever chills or sweats. He did not notice any odor to it. He has no other complaints. Patient has moved to [place] about 5 months ago, and he has not established with a primary care physician. He presented to the hospital, and has been admitted. He has cellulitis on that left foot. X-ray of the foot did not show any evidence of bony destruction fracture or any foreign body. Highest temperature has been 99+. His WBC is normal, but his ESR is greater than 140, and CRP 15.30. He is currently on vancomycin and Zosyn. Infectious disease consultation has been requested to evaluate the patient for possible osteomyelitis, and make antibiotic recommendations. Notes reviewed D/W RN Temps better No new complaints No itching No diarrhea Pain under control UA ok BC negative so far Voiding ok Wound C/S MRSA and GAS WBC better Antibiotics Cubicin Current Medications Medications (Trade) Dose Ordered Sig/Leigh Ann Route Start Time Stop Time Status Last Admin (NS Flush) 2 ml UNSCH PRN IV FLUSH 08/10/17 14:15 (NS Flush) 2 ml BID IV FLUSH 08/10/17 21:00 08/22/17 21:00 (Tylenol) 650 mg Q4H PRN PO 08/10/17 14:15 08/22/17 03:27 (Reglan Inj) 5 mg Q6H PRN IV PUSH 08/10/17 14:15 (Narcan Inj) 0.4 mg UNSCH PRN IV PUSH 08/10/17 14:15 (Michelle-Colace) 1 tab BID PO 08/10/17 21:00 08/22/17 21:21 (Milk Of Magnesia Liq) 30 ml Q12H PRN PO 08/10/17 14:15 (Senokot) 17.2 mg Q12H PRN PO 08/10/17 14:15 (Dulcolax Supp) 10 mg DAILY PRN RECTAL 08/10/17 14:15 (Lactulose Liq) 30 ml DAILY PRN PO 08/10/17 14:15 (D50w (Vial) Inj) 50 ml UNSCH PRN IV PUSH 08/10/17 14:15 (Glucagon Inj) 1 mg UNSCH PRN OTHER 08/10/17 14:15 (NovoLOG SUPPLEMENTAL SCALE) 1 ACHS SLIDING SCALE SQ 08/10/17 17:00 08/22/17 21:00 (Glucotrol) 5 mg DAILYAC PO 08/14/17 09:30 08/22/17 08:10 (Lotrisone Cream) 1 applic Q12HR TOPICAL 08/19/17 09:45 08/26/17 09:44 08/23/17 08:48 (Catapres) 0.1 mg Q6H PRN PO 08/19/17 16:00 08/19/17 21:47 (Santyl Oint) 1 applic DAILY TOPICAL 08/20/17 09:00 08/23/17 08:47 Daptomycin 450 mg/ Sodium Chloride 100 ml @ 200 mls/hr Q24H IV 08/21/17 12:00 08/22/17 12:16 (Levemir Inj) 10 units DAILY SQ 08/22/17 09:00 08/22/17 08:10 Lines PIV no evidence of infection Past Medical History Diabetes Past Surgical History Surgery on his right index finger related to trauma Allergies: Coded Allergies: No Known Allergies (Unverified , 08/10/17) Objective . Vital Signs Date Time Temp Pulse Resp B/P (MAP) Pulse Ox O2 Delivery O2 Flow Rate FiO2 08/23/17 08:00 97.9 105 20 151/95 (113) 100 08/23/17 04:00 97.8 93 20 157/89 (111) 98 08/23/17 00:00 98.0 87 20 146/88 (107) 97 08/22/17 20:00 97.7 92 20 117/75 (89) 96 08/22/17 12:00 98.7 94 19 111/58 (75) 97 . Laboratory Tests Test 08/22/17 05:41 08/23/17 04:44 White Blood Count 3.1 TH/MM3 4.7 TH/MM3 Red Blood Count 3.02 MIL/MM3 3.33 MIL/MM3 Hemoglobin 8.9 GM/DL 9.8 GM/DL Hematocrit 25.5 % 28.3 % Mean Corpuscular Volume 84.4 FL 84.9 FL Mean Corpuscular Hemoglobin 29.3 PG 29.5 PG Mean Corpuscular Hemoglobin Concent 34.7 % 34.8 % Red Cell Distribution Width 11.5 % 11.7 % Platelet Count 190 TH/MM3 202 TH/MM3 Mean Platelet Volume 8.8 FL 8.7 FL CBC Comment AUTO DIFF Differential Total Cells Counted 100 Neutrophils % (Manual) 30 % Band Neutrophils % 31 % Lymphocytes % 16 % Monocytes % 13 % Eosinophils % 8 % Basophils % 1 % Neutrophils # (Manual) 1.9 TH/MM3 Metamyelocytes 1 % Differential Comment FINAL DIFF MANUAL Platelet Estimate NORMAL Platelet Morphology Comment NORMAL Laboratory Tests Test 08/21/17 12:37 08/22/17 05:41 08/23/17 04:44 Total Creatine Kinase 218 U/L Blood Urea Nitrogen 10 MG/DL 10 MG/DL Creatinine 1.16 MG/DL 0.92 MG/DL Random Glucose 80 MG/DL 64 MG/DL Calcium Level 8.1 MG/DL 8.6 MG/DL Sodium Level 137 MEQ/L 139 MEQ/L Potassium Level 3.2 MEQ/L 3.6 MEQ/L Chloride Level 104 MEQ/L 106 MEQ/L Carbon Dioxide Level 24.1 MEQ/L 23.9 MEQ/L Anion Gap 9 MEQ/L 9 MEQ/L Estimat Glomerular Filtration Rate 67 ML/MIN 88 ML/MIN Magnesium Level 2.2 MG/DL Imaging Last Impressions Foot MRI 08/11/17 0000 Signed Impressions: Service Date/Time: July 07:56 - CONCLUSION: 1. There are findings characteristic for a linear nondisplaced stress fracture through the body of the first cuneiform bone. 2. There appears to be some focal bone bruising along the lateral aspect of the cuboid bone. 3. Diffuse nonspecific soft tissue swelling and edema throughout the soft tissues of the midfoot. 4. Mild degenerative changes characteristic for patient's age.. Frank Zepeda MD Foot X-Ray 08/10/17 0000 Signed Impressions: Service Date/Time: Thursday, August 10, 2017 12:28 - CONCLUSION: 1. Generalized soft tissue swelling without evidence of fracture, destructive bony changes or significant arthropathy. 2. Arterial calcification. Olu Baker MD Physical Exam GENERAL: awake and alert, NAD SKIN: Warm and dry. No generalized rash. Upper chest looks flushed but no discrete rash seen HEAD: Atraumatic. Normocephalic. No temporal wasting, or tenderness. Facial rash better EYES: [place] conjunctiva. No petechia or hemorrhage. Pupils equal, round and reactive to light. Extraocular movements full and intact. No scleral icterus. No injection or drainage. EARS, NOSE AND THROAT: Nose without bleeding or purulent nasal discharge. No sinus tenderness. Mucous membranes pink and moist. No oral lesions noted. NECK: Trachea midline. Supple and not tender, no meningeal signs CARDIOVASCULAR: Regular rate and rhythm. No murmurs, rubs or gallops heard RESPIRATORY: Clear to auscultation. Breath sounds equal bilaterally. No rales , wheezing or rhonchi ABDOMEN: Soft, non-tender, nondistended. Bowel sounds present and normoactive. No guarding. No rebound. No organomegaly. EXTREMITIES: No clubbing, cyanosis. L foot - has open wound dorsum of his foot with some exudate, and has dry open wound plantar aspect, has some swelling of foot and some mild erythema still present dorsally, no odor. No calf tenderness. Well perfused and warm. PSYCHIATRIC: Normal affect, calm and cooperative. LINE: No evidence of infection Assessment & Plan Remarks IMPRESSION Diabetic foot infection L foot, possible osteomyelitis 1st MTP, ?abscess over the first MT - MRI with some fracture seen - S/P I and D, still with purulence for repeat OR today - C/S MRSA, GAS Cellulitis LLE, better Possible sepsis due to L foot infection Fever, new, source? initial eval negative, ?drug fever - likely due to Vancomycin Mild neutropenia, ?due to meds, ?Vanco RECOMMENDATION Continue IV Cubicin to cover MRSA and Strep infection If no fever today, place PICC tomorrow Follow CBC Follow temps Monitor progress Will need at least 2 more weeks IV Abx on D/C Explained plan to the patient Verona Guthrie MD August 23, 2017 11:02
[2017-08-23] MEDS: DAPTOmycin INJ 450 MG in SODIUM CHLORIDE 0.9% INJ 100 ML IV SCH (13:00)
--- NOTE | 2017-08-23 17:54 | HHI.PR ---
Subjective Remarks Pain controlled. Denies chest pain or shortness of breath. Denies fevers or chills. BP noted to be persistently elevated. Objective Vitals Vital Signs Date Time Temp Pulse Resp B/P (MAP) Pulse Ox O2 Delivery O2 Flow Rate FiO2 08/23/17 16:00 97.5 100 19 173/90 (117) 100 08/23/17 12:54 151/87 (108) 08/23/17 12:00 97.8 106 19 165/102 (123) 99 08/23/17 08:00 97.9 105 20 151/95 (113) 100 08/23/17 04:00 97.8 93 20 157/89 (111) 98 08/23/17 00:00 98.0 87 20 146/88 (107) 97 08/22/17 20:00 97.7 92 20 117/75 (89) 96 I/O 08/22/17 08/22/17 08/22/17 08/23/17 08/23/17 08/23/17 06:59 14:59 22:59 06:59 14:59 22:59 Intake Total 360 ml 940 ml 240 ml Balance 360 ml 940 ml 240 ml Intake Oral 360 ml 940 ml 240 ml # Voids 3 6 3 # Bowel Movements 0 2 1 Result Diagram: 08/23/174 08/23/174 Imaging Last Impressions Renal Ultrasound 08/18/17 0000 Signed Impressions: CONCLUSION: 1. Unremarkable renal ultrasound. Chest X-Ray 08/18/17 0000 Signed Impressions: CONCLUSION: No active disease. Aorta w/Runoff CTA 08/12/17 0000 Signed Impressions: Service Date/Time: Saturday, August 12, 2017 08:44 - CONCLUSION: 1. The examination demonstrates adequate inflow and runoff to both lower extremities. 2. There is lymphadenopathy involving the left external iliac johnna chain and left inguinal canal. There are nodes measuring up to 2 cm. It is possible this is reactive however malignancy is not excluded. Biopsy of these nodes may be a consideration. Kuldeep Reyez MD Foot MRI 08/11/17 0000 Signed Impressions: Service Date/Time: July 07:56 - CONCLUSION: 1. There are findings characteristic for a linear nondisplaced stress fracture through the body of the first cuneiform bone. 2. There appears to be some focal bone bruising along the lateral aspect of the cuboid bone. 3. Diffuse nonspecific soft tissue swelling and edema throughout the soft tissues of the midfoot. 4. Mild degenerative changes characteristic for patient's age.. Frank Zepeda MD Foot X-Ray 08/10/17 0000 Signed Impressions: Service Date/Time: Thursday, August 10, 2017 12:28 - CONCLUSION: 1. Generalized soft tissue swelling without evidence of fracture, destructive bony changes or significant arthropathy. 2. Arterial calcification. Olu Baker MD Objective Remarks General: No acute distress. Heart: Tachycardic. No murmur. Lungs: Clear to auscultation bilaterally. No wheezes, rales, or rhonchi. Breathing is nonlabored. Abdomen: Soft, nontender, nondistended. Extremities: No lower extremity edema. Left foot bandaged and in boot. Psych: Calm. Neuro: Normal speech. No focal deficits noted. Procedures 08/12/17 Incision, drainage, debridement, left foot, with excision, drainage, debridement of extensor hallucis longus tendon dorsum of foot. A/P Problem List: (1) Diabetic foot infection ICD Code: E11.628 - Type 2 diabetes mellitus with other skin complications; L08.9 - Local infection of the skin and subcutaneous tissue, unspecified Status: Acute Plan: Patient presented with a chronic left foot wound on the plantar aspect of the left foot and wound on dorsal aspect of the left foot. Podiatry consulted. MRI showed possible stress fracture. Wound culture obtained and grew MRSA. Blood culture from 08/10/17 grew gram-positive cocci. ID consulted. CRP and sed rate elevated. Intraoperative wound culture also growing MRSA. The patient status post left foot incision and drainage dorsal aspect/ debridement and irrigation of the sub-met ulcer on 08/17. Continue IV antibiotics as per ID. Vancomycin previously switched to daptomycin. 08/23 discussed the case with Dr. Bella lorenzana from infectious disease. Fever patient was having is likely a drug fever. Daptomycin discontinued on the patient started on Cubicin. Last fever yesterday morning. Continue to monitor vital signs. If no further fevers then the plan is to place a PICC line so the patient can be discharged with outpatient IV antibiotics. (2) Cellulitis of left foot ICD Code: L03.116 - Cellulitis of left lower limb; L08.9 - Local infection of the skin and subcutaneous tissue, unspecified Status: Acute Plan: As above (3) Infection of tendon sheath ICD Code: M65.10 - Other infective (teno)synovitis, unspecified site Plan: As above (4) Diabetes ICD Code: E11.9 - Type 2 diabetes mellitus without complications Status: Chronic Plan: Hemoglobin A1c 8.5%. Continue SSI with insulin NovoLog continue to monitor Accu-Cheks. Blood sugars more stable. Continue Levemir 10 units subcu daily. Metformin and glipizide were placed on hold. Will be resumed upon discharge. Continue diabetic diet. (5) LELIA (acute kidney injury) ICD Code: N17.9 - Acute kidney failure, unspecified Status: Resolved Plan: Likely prerenal azotemia. Renal ultrasound unremarkable. Resolved after IV fluid administration. Continue to monitor BUN/creatinine, avoid nephrotoxins, monitor strict I's and O 's. (6) Hypokalemia ICD Code: E87.6 - Hypokalemia Status: Resolved Plan: Likely secondary to decreased oral intake. Replaced with oral potassium chloride. Follow-up BMP. (7) Tachycardia ICD Code: R00.0 - Tachycardia, unspecified Status: Acute Plan: Patient has been a slightly tachycardic, which could have been secondary to fever. Tachycardia slowly improving. Continue to monitor vital signs. Discharge Planning Discharge home with home health care once cleared by infectious disease. Possible discharge tomorrow after PICC line placement. Problem Qualifiers (1) Diabetes: Qualified Codes: E11.621 - Type 2 diabetes mellitus with foot ulcer; L97.509 - Non-pressure chronic ulcer of other part of unspecified foot with unspecified severity John Ochoa MD August 23, 2017 17:54
[2017-08-24] VITALS (7 sets, daily range): BP systolic 92–152; BP diastolic 60–86; PULSE 93–111; RESP 17–20; TEMP 97.4–100.8; O2SAT 96–99
[2017-08-24 07:23] LABS: HEMATOCRIT 25.2 % (39.0-51.0); HEMOGLOBIN 8.9 GM/DL (13.0-17.0); MEAN CELL VOLUME 83.3 FL (80.0-100.0); MEAN CORPUSCULAR HEMOGLOBIN 29.4 PG (27.0-34.0); MEAN CORPUSCULAR HGB CONC 35.3 % (32.0-36.0); PLATELET COUNT 205 TH/MM3 (150-450); RED BLOOD COUNT 3.03 MIL/MM3 (4.50-5.90); RED CELL DISTRIBUTION WIDTH 11.7 % (11.6-17.2); WHITE BLOOD COUNT 6.1 TH/MM3 (4.0-11.0)
[2017-08-24 07:49] LABS: BICARBONATE 24.8 MEQ/L (21.0-32.0); CALCIUM 8.6 MG/DL (8.5-10.1); CREATININE 1.05 MG/DL (0.60-1.30)
[2017-08-24] MEDS: INSULIN ASPART SUPPLEMENTAL SCALE SQ SCH ×4 (08:00→21:54)
[2017-08-24] MEDS: glipiZIDE 5 MG TAB PO SCH (08:11)
[2017-08-24] MEDS: SODIUM CHLORIDE 0.9% FLUSH 10 ML FLUSH IV FLUSH SCH ×2 (08:12→21:57)
[2017-08-24] MEDS: DOCUSATE SODIUM 50 MG/SENNA 8.6 MG TAB PO SCH ×2 (09:00→21:00)
[2017-08-24] MEDS: INSULIN DETEMIR 100 UNITS/ML VIAL SQ SCH (10:06)
[2017-08-24] MEDS: BETAMETHASONE/CLOTRIMAZOLE CREAM 15 GM TOPICAL SCH ×2 (10:07→21:55)
[2017-08-24] MEDS: COLLAGENASE OINT 30 GM TUBE TOPICAL SCH (10:08)
--- NOTE | 2017-08-24 11:26 | HHI.IDPN ---
Subjective Subjective Remarks Patient is a 47-year-old male, with known diabetes, presented to the hospital complaining of 2 day history of redness and swelling on his left foot. Patient has a callus over his first metatarsal, and about a month ago, he picked on it. He apparently developed a sore, and it was not really giving him any problem, until 2 days prior to admission when he started developing redness and swelling on his left foot. He denies any fever chills or sweats. He did not notice any odor to it. He has no other complaints. Patient has moved to [place] about 5 months ago, and he has not established with a primary care physician. He presented to the hospital, and has been admitted. He has cellulitis on that left foot. X-ray of the foot did not show any evidence of bony destruction fracture or any foreign body. Highest temperature has been 99+. His WBC is normal, but his ESR is greater than 140, and CRP 15.30. He is currently on vancomycin and Zosyn. Infectious disease consultation has been requested to evaluate the patient for possible osteomyelitis, and make antibiotic recommendations. Notes reviewed Has low grade temps again last 24 hours No new complaints Spoke with CM yesterday - regarding IV Abx for D/C No itching No diarrhea Pain under control UA ok BC negative so far Voiding ok Wound C/S MRSA and GAS WBC better Antibiotics Cubicin Current Medications Medications (Trade) Dose Ordered Sig/Leigh Ann Route Start Time Stop Time Status Last Admin (NS Flush) 2 ml UNSCH PRN IV FLUSH 08/10/17 14:15 (NS Flush) 2 ml BID IV FLUSH 08/10/17 21:00 08/24/17 08:12 (Tylenol) 650 mg Q4H PRN PO 08/10/17 14:15 08/22/17 03:27 (Reglan Inj) 5 mg Q6H PRN IV PUSH 08/10/17 14:15 (Narcan Inj) 0.4 mg UNSCH PRN IV PUSH 08/10/17 14:15 (Michelle-Colace) 1 tab BID PO 08/10/17 21:00 08/22/17 21:21 (Milk Of Magnesia Liq) 30 ml Q12H PRN PO 08/10/17 14:15 (Senokot) 17.2 mg Q12H PRN PO 08/10/17 14:15 (Dulcolax Supp) 10 mg DAILY PRN RECTAL 08/10/17 14:15 (Lactulose Liq) 30 ml DAILY PRN PO 08/10/17 14:15 (D50w (Vial) Inj) 50 ml UNSCH PRN IV PUSH 08/10/17 14:15 (Glucagon Inj) 1 mg UNSCH PRN OTHER 08/10/17 14:15 (NovoLOG SUPPLEMENTAL SCALE) 1 ACHS SLIDING SCALE SQ 08/10/17 17:00 08/23/17 19:59 (Glucotrol) 5 mg DAILYAC PO 08/14/17 09:30 08/24/17 08:11 (Lotrisone Cream) 1 applic Q12HR TOPICAL 08/19/17 09:45 08/26/17 09:44 08/24/17 10:07 (Catapres) 0.1 mg Q6H PRN PO 08/19/17 16:00 08/19/17 21:47 (Santyl Oint) 1 applic DAILY TOPICAL 08/20/17 09:00 08/24/17 10:08 Daptomycin 450 mg/ Sodium Chloride 100 ml @ 200 mls/hr Q24H IV 08/21/17 12:00 08/23/17 13:00 (Levemir Inj) 10 units DAILY SQ 08/22/17 09:00 08/24/17 10:06 Lines PIV no evidence of infection Past Medical History Diabetes Past Surgical History Surgery on his right index finger related to trauma Allergies: Coded Allergies: No Known Allergies (Unverified , 08/10/17) Objective . Vital Signs Date Time Temp Pulse Resp B/P (MAP) Pulse Ox O2 Delivery O2 Flow Rate FiO2 08/24/17 08:00 98.0 100 17 92/62 (72) 98 08/24/17 04:50 100.8 111 20 152/86 (108) 99 08/24/17 00:00 98.9 101 20 113/63 (80) 98 08/23/17 21:00 112 08/23/17 20:00 100.2 108 22 135/74 (94) 98 08/23/17 16:00 97.5 100 19 173/90 (117) 100 08/23/17 12:54 151/87 (108) 08/23/17 12:00 97.8 106 19 165/102 (123) 99 . Laboratory Tests Test 08/23/17 04:44 08/24/17 05:42 White Blood Count 4.7 TH/MM3 6.1 TH/MM3 Red Blood Count 3.33 MIL/MM3 3.03 MIL/MM3 Hemoglobin 9.8 GM/DL 8.9 GM/DL Hematocrit 28.3 % 25.2 % Mean Corpuscular Volume 84.9 FL 83.3 FL Mean Corpuscular Hemoglobin 29.5 PG 29.4 PG Mean Corpuscular Hemoglobin Concent 34.8 % 35.3 % Red Cell Distribution Width 11.7 % 11.7 % Platelet Count 202 TH/MM3 205 TH/MM3 Mean Platelet Volume 8.7 FL 9.0 FL Laboratory Tests Test 08/23/17 04:44 08/24/17 05:42 Blood Urea Nitrogen 10 MG/DL 11 MG/DL Creatinine 0.92 MG/DL 1.05 MG/DL Random Glucose 64 MG/DL 126 MG/DL Calcium Level 8.6 MG/DL 8.6 MG/DL Magnesium Level 2.2 MG/DL Sodium Level 139 MEQ/L 137 MEQ/L Potassium Level 3.6 MEQ/L 3.6 MEQ/L Chloride Level 106 MEQ/L 101 MEQ/L Carbon Dioxide Level 23.9 MEQ/L 24.8 MEQ/L Anion Gap 9 MEQ/L 11 MEQ/L Estimat Glomerular Filtration Rate 88 ML/MIN 76 ML/MIN Imaging Last Impressions Foot MRI 08/11/17 0000 Signed Impressions: Service Date/Time: July 07:56 - CONCLUSION: 1. There are findings characteristic for a linear nondisplaced stress fracture through the body of the first cuneiform bone. 2. There appears to be some focal bone bruising along the lateral aspect of the cuboid bone. 3. Diffuse nonspecific soft tissue swelling and edema throughout the soft tissues of the midfoot. 4. Mild degenerative changes characteristic for patient's age.. Frank Zepeda MD Foot X-Ray 08/10/17 0000 Signed Impressions: Service Date/Time: Thursday, August 10, 2017 12:28 - CONCLUSION: 1. Generalized soft tissue swelling without evidence of fracture, destructive bony changes or significant arthropathy. 2. Arterial calcification. Olu Baker MD Physical Exam GENERAL: awake and alert, NAD SKIN: Warm and dry. No generalized rash. Upper chest looks flushed but no discrete rash seen HEAD: Atraumatic. Normocephalic. No temporal wasting, or tenderness. Facial rash better EYES: [place] conjunctiva. No petechia or hemorrhage. Pupils equal, round and reactive to light. Extraocular movements full and intact. No scleral icterus. No injection or drainage. EARS, NOSE AND THROAT: Nose without bleeding or purulent nasal discharge. No sinus tenderness. Mucous membranes pink and moist. No oral lesions noted. NECK: Trachea midline. Supple and not tender, no meningeal signs CARDIOVASCULAR: Regular rate and rhythm. No murmurs, rubs or gallops heard RESPIRATORY: Clear to auscultation. Breath sounds equal bilaterally. No rales , wheezing or rhonchi ABDOMEN: Soft, non-tender, nondistended. Bowel sounds present and normoactive. No guarding. No rebound. No organomegaly. EXTREMITIES: No clubbing, cyanosis. L foot - has open wound dorsum of his foot with some exudate, and has dry open wound plantar aspect, has some swelling of foot and some mild erythema still present dorsally, no odor. No calf tenderness. Well perfused and warm. PSYCHIATRIC: Normal affect, calm and cooperative. LINE: No evidence of infection Assessment & Plan Remarks IMPRESSION Diabetic foot infection L foot, possible osteomyelitis 1st MTP, ?abscess over the first MT - MRI with some fracture seen - S/P I and D, still with purulence for repeat OR today - C/S MRSA, GAS Cellulitis LLE, better Possible sepsis due to L foot infection Fever, new, source? initial eval negative, ?drug fever - likely due to Vancomycin Mild neutropenia, ?due to meds, ?Vanco RECOMMENDATION Continue IV Cubicin to cover MRSA and Strep infection Follow CBC Follow temps Monitor progress Spoke with AMPARO, not ready for D/C since he has fevers again Verona Guthrie MD August 24, 2017 11:26
[2017-08-24] MEDS ORDERED: SODIUM CHLORID 0.9% 500 ML INJ 500 ML IV ONE (11:45)
[2017-08-24] MEDS: DAPTOmycin INJ 450 MG in SODIUM CHLORIDE 0.9% INJ 100 ML IV SCH (12:34)
--- NOTE | 2017-08-24 13:50 | HHI.PR ---
Subjective Remarks The patient has no complaints. Denies abdominal pain, nausea, vomiting or diarrhea. Pain is controlled. Patient noted to have a low-grade fever with a T-max of 100.8 today. Objective Vitals Vital Signs Date Time Temp Pulse Resp B/P (MAP) Pulse Ox O2 Delivery O2 Flow Rate FiO2 08/24/17 12:00 97.9 101 18 143/81 (101) 96 08/24/17 08:00 98.0 100 17 92/62 (72) 98 08/24/17 04:50 100.8 111 20 152/86 (108) 99 08/24/17 00:00 98.9 101 20 113/63 (80) 98 08/23/17 21:00 112 08/23/17 20:00 100.2 108 22 135/74 (94) 98 08/23/17 16:00 97.5 100 19 173/90 (117) 100 I/O 08/23/17 08/23/17 08/23/17 08/24/17 08/24/17 08/24/17 07:00 15:00 23:00 07:00 15:00 23:00 Intake Total 240 ml 780 ml Balance 240 ml 780 ml Intake Oral 240 ml 780 ml # Voids 3 6 1 # Bowel Movements 1 1 1 Result Diagram: 08/24/17 0542 08/24/17 0542 Objective Remarks General: No acute distress. Heart: Tachycardic. No murmur. Lungs: Clear to auscultation bilaterally. No wheezes, rales, or rhonchi. Breathing is nonlabored. Abdomen: Soft, nontender, nondistended. Extremities: No lower extremity edema. Left foot bandaged and in boot. Psych: Calm. Neuro: Normal speech. No focal deficits noted. Procedures 08/12/17 Incision, drainage, debridement, left foot, with excision, drainage, debridement of extensor hallucis longus tendon dorsum of foot. A/P Problem List: (1) Diabetic foot infection ICD Code: E11.628 - Type 2 diabetes mellitus with other skin complications; L08.9 - Local infection of the skin and subcutaneous tissue, unspecified Status: Acute Plan: Patient presented with a chronic left foot wound on the plantar aspect of the left foot and wound on dorsal aspect of the left foot. Podiatry consulted. MRI showed possible stress fracture. Wound culture obtained and grew MRSA. Blood culture from 08/10/17 grew gram-positive cocci. ID consulted. CRP and sed rate elevated. Intraoperative wound culture also growing MRSA. The patient status post left foot incision and drainage dorsal aspect/ debridement and irrigation of the sub-met ulcer on 08/17. Continue IV antibiotics as per ID. Vancomycin previously switched to daptomycin. 08/23 discussed the case with Dr. Bella lorenzana from infectious disease. Fever patient was having is likely a drug fever. Daptomycin discontinued on the patient started on Cubicin. Last fever yesterday morning. Continue to monitor vital signs. If no further fevers then the plan is to place a PICC line so the patient can be discharged with outpatient IV antibiotics. 08/24 discussed the case with Dr. Ch from ID. Since patient had a low- grade temp will continue IV Cubicin to cover for MRSA and strep infection, follow CBC, follow temps. (2) Cellulitis of left foot ICD Code: L03.116 - Cellulitis of left lower limb; L08.9 - Local infection of the skin and subcutaneous tissue, unspecified Status: Acute Plan: As above (3) Infection of tendon sheath ICD Code: M65.10 - Other infective (teno)synovitis, unspecified site Plan: As above (4) Diabetes ICD Code: E11.9 - Type 2 diabetes mellitus without complications Status: Chronic Plan: Hemoglobin A1c 8.5%. Continue SSI with insulin NovoLog continue to monitor Accu-Cheks. Blood sugars more stable. Continue Levemir 10 units subcu daily. Metformin and glipizide were placed on hold. Will be resumed upon discharge. Continue diabetic diet. (5) LELIA (acute kidney injury) ICD Code: N17.9 - Acute kidney failure, unspecified Status: Resolved Plan: Likely prerenal azotemia. Renal ultrasound unremarkable. Resolved after IV fluid administration. Continue to monitor BUN/creatinine, avoid nephrotoxins, monitor strict I's and O 's. (6) Hypokalemia ICD Code: E87.6 - Hypokalemia Status: Resolved Plan: Likely secondary to decreased oral intake. Replaced with oral potassium chloride. Follow-up BMP. (7) Tachycardia ICD Code: R00.0 - Tachycardia, unspecified Status: Acute Plan: Patient has been a slightly tachycardic, which could have been secondary to fever. Tachycardia slowly improving. Continue to monitor vital signs. Assessment and Plan Add Lovenox of cutaneously for DVT prophylaxis. Discharge Planning Discharge home with home health care once cleared by infectious disease. Possible discharge tomorrow after PICC line placement. Problem Qualifiers (1) Diabetes: Qualified Codes: E11.621 - Type 2 diabetes mellitus with foot ulcer; L97.509 - Non-pressure chronic ulcer of other part of unspecified foot with unspecified severity John Ochoa MD August 24, 2017 13:50
[2017-08-25 04:00] VITALS: BP 113/70; PULSE 100; RESP 18; TEMP 99.8; O2SAT 97
[2017-08-25] MEDS: INSULIN ASPART SUPPLEMENTAL SCALE SQ SCH ×3 (07:42→17:00)
[2017-08-25 07:59] VITALS: BP 117/68; PULSE 98; RESP 16; TEMP 97.9; O2SAT 99
--- NOTE | 2017-08-25 08:12 | HHI.IDPN ---
Subjective Subjective Remarks Patient is a 47-year-old male, with known diabetes, presented to the hospital complaining of 2 day history of redness and swelling on his left foot. Patient has a callus over his first metatarsal, and about a month ago, he picked on it. He apparently developed a sore, and it was not really giving him any problem, until 2 days prior to admission when he started developing redness and swelling on his left foot. He denies any fever chills or sweats. He did not notice any odor to it. He has no other complaints. Patient has moved to [place] about 5 months ago, and he has not established with a primary care physician. He presented to the hospital, and has been admitted. He has cellulitis on that left foot. X-ray of the foot did not show any evidence of bony destruction fracture or any foreign body. Highest temperature has been 99+. His WBC is normal, but his ESR is greater than 140, and CRP 15.30. He is currently on vancomycin and Zosyn. Infectious disease consultation has been requested to evaluate the patient for possible osteomyelitis, and make antibiotic recommendations. Notes reviewed Temps less than 100 No new complaints WBC up to 6 CM working with insurance company Antibiotics Cubicin Current Medications Medications (Trade) Dose Ordered Sig/Leigh Ann Route Start Time Stop Time Status Last Admin (NS Flush) 2 ml UNSCH PRN IV FLUSH 08/10/17 14:15 (NS Flush) 2 ml BID IV FLUSH 08/10/17 21:00 08/24/17 21:57 (Tylenol) 650 mg Q4H PRN PO 08/10/17 14:15 08/22/17 03:27 (Reglan Inj) 5 mg Q6H PRN IV PUSH 08/10/17 14:15 (Narcan Inj) 0.4 mg UNSCH PRN IV PUSH 08/10/17 14:15 (Michelle-Colace) 1 tab BID PO 08/10/17 21:00 08/22/17 21:21 (Milk Of Magnesia Liq) 30 ml Q12H PRN PO 08/10/17 14:15 (Senokot) 17.2 mg Q12H PRN PO 08/10/17 14:15 (Dulcolax Supp) 10 mg DAILY PRN RECTAL 08/10/17 14:15 (Lactulose Liq) 30 ml DAILY PRN PO 08/10/17 14:15 (D50w (Vial) Inj) 50 ml UNSCH PRN IV PUSH 08/10/17 14:15 (Glucagon Inj) 1 mg UNSCH PRN OTHER 08/10/17 14:15 (NovoLOG SUPPLEMENTAL SCALE) 1 ACHS SLIDING SCALE SQ 08/10/17 17:00 08/24/17 21:54 (Glucotrol) 5 mg DAILYAC PO 08/14/17 09:30 08/24/17 08:11 (Lotrisone Cream) 1 applic Q12HR TOPICAL 08/19/17 09:45 08/26/17 09:44 08/24/17 21:55 (Catapres) 0.1 mg Q6H PRN PO 08/19/17 16:00 08/19/17 21:47 (Santyl Oint) 1 applic DAILY TOPICAL 08/20/17 09:00 08/24/17 10:08 Daptomycin 450 mg/ Sodium Chloride 100 ml @ 200 mls/hr Q24H IV 08/21/17 12:00 08/24/17 12:34 (Levemir Inj) 10 units DAILY SQ 08/22/17 09:00 08/24/17 10:06 Lines PIV no evidence of infection Past Medical History Diabetes Past Surgical History Surgery on his right index finger related to trauma Allergies: Coded Allergies: No Known Allergies (Unverified , 08/10/17) Objective . Vital Signs Date Time Temp Pulse Resp B/P (MAP) Pulse Ox O2 Delivery O2 Flow Rate FiO2 08/25/17 07:59 97.9 98 16 117/68 (84) 99 08/25/17 04:00 99.8 100 18 113/70 (84) 97 08/24/17 20:00 99.6 93 18 119/60 (79) 99 08/24/17 16:00 97.4 97 18 142/84 (103) 98 08/24/17 12:00 97.9 101 18 143/81 (101) 96 . Laboratory Tests Test 08/24/17 05:42 White Blood Count 6.1 TH/MM3 Red Blood Count 3.03 MIL/MM3 Hemoglobin 8.9 GM/DL Hematocrit 25.2 % Mean Corpuscular Volume 83.3 FL Mean Corpuscular Hemoglobin 29.4 PG Mean Corpuscular Hemoglobin Concent 35.3 % Red Cell Distribution Width 11.7 % Platelet Count 205 TH/MM3 Mean Platelet Volume 9.0 FL Laboratory Tests Test 08/24/17 05:42 Blood Urea Nitrogen 11 MG/DL Creatinine 1.05 MG/DL Random Glucose 126 MG/DL Calcium Level 8.6 MG/DL Sodium Level 137 MEQ/L Potassium Level 3.6 MEQ/L Chloride Level 101 MEQ/L Carbon Dioxide Level 24.8 MEQ/L Anion Gap 11 MEQ/L Estimat Glomerular Filtration Rate 76 ML/MIN Imaging Last Impressions Foot MRI 08/11/17 0000 Signed Impressions: Service Date/Time: July 07:56 - CONCLUSION: 1. There are findings characteristic for a linear nondisplaced stress fracture through the body of the first cuneiform bone. 2. There appears to be some focal bone bruising along the lateral aspect of the cuboid bone. 3. Diffuse nonspecific soft tissue swelling and edema throughout the soft tissues of the midfoot. 4. Mild degenerative changes characteristic for patient's age.. Frank Zepeda MD Foot X-Ray 08/10/17 0000 Signed Impressions: Service Date/Time: Thursday, August 10, 2017 12:28 - CONCLUSION: 1. Generalized soft tissue swelling without evidence of fracture, destructive bony changes or significant arthropathy. 2. Arterial calcification. Olu Baker MD Physical Exam GENERAL: awake and alert, NAD SKIN: Warm and dry. No generalized rash. Upper chest looks flushed but no discrete rash seen HEAD: Atraumatic. Normocephalic. No temporal wasting, or tenderness. Facial rash better EYES: [place] conjunctiva. No petechia or hemorrhage. Pupils equal, round and reactive to light. Extraocular movements full and intact. No scleral icterus. No injection or drainage. EARS, NOSE AND THROAT: Nose without bleeding or purulent nasal discharge. No sinus tenderness. Mucous membranes pink and moist. No oral lesions noted. NECK: Trachea midline. Supple and not tender, no meningeal signs CARDIOVASCULAR: Regular rate and rhythm. No murmurs, rubs or gallops heard RESPIRATORY: Clear to auscultation. Breath sounds equal bilaterally. No rales , wheezing or rhonchi ABDOMEN: Soft, non-tender, nondistended. Bowel sounds present and normoactive. No guarding. No rebound. No organomegaly. EXTREMITIES: No clubbing, cyanosis. L foot - with dry intact dressing. No calf tenderness. NEURO: non-focal PSYCHIATRIC: Normal affect, calm and cooperative. LINE: No evidence of infection Assessment & Plan Remarks IMPRESSION Diabetic foot infection L foot, possible osteomyelitis 1st MTP, ?abscess over the first MT - MRI with some fracture seen - S/P I and D, still with purulence for repeat OR today - C/S MRSA, GAS Cellulitis LLE, better Possible sepsis due to L foot infection Fever, new, source? initial eval negative, ?drug fever - likely due to Vancomycin Mild neutropenia, ?due to meds, ?Vanco RECOMMENDATION Continue IV Cubicin to cover MRSA and Strep infection PICC Monitor progress CM arranging for IV antibiotics Verona Guthrie MD August 25, 2017 08:12
[2017-08-25] MEDS: DOCUSATE SODIUM 50 MG/SENNA 8.6 MG TAB PO SCH (08:47)
[2017-08-25] MEDS: glipiZIDE 5 MG TAB PO SCH (08:47)
[2017-08-25] MEDS: SODIUM CHLORIDE 0.9% FLUSH 10 ML FLUSH IV FLUSH SCH (08:48)
[2017-08-25] MEDS: INSULIN DETEMIR 100 UNITS/ML VIAL SQ SCH (08:48)
[2017-08-25] MEDS: BETAMETHASONE/CLOTRIMAZOLE CREAM 15 GM TOPICAL SCH (08:48)
[2017-08-25] MEDS: COLLAGENASE OINT 30 GM TUBE TOPICAL SCH (08:48)
[2017-08-25] MEDS: DAPTOmycin INJ 450 MG in SODIUM CHLORIDE 0.9% INJ 100 ML IV SCH (11:52)
[2017-08-25 12:00] VITALS: BP 111/72; PULSE 96; RESP 16; TEMP 98.9; O2SAT 100
[2017-08-25] MEDS ORDERED: SODIUM CHLORIDE 0.9% FLUSH 10 ML FLUSH IV FLUSH PRN (15:00)
--- NOTE | 2017-08-25 15:45 | HHI.FF ---
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 [] May leave port accessed during therapy. [] May leave peripheral site accessed for duration of therapy. [x] If patient has SOB or respiratory distress, check oxygen saturation. If less than 90% or clinical signs of respiratory distress, administer oxygen at 2 L/min. via nasal cannula and notify physician. [x] Anaphylaxis/Reaction orders: * Stop infusion. * Keep IV line open with saline flush. * Notify physician. * Monitor vital signs every 15 minutes until symptoms resolve. * Check Oxygen saturation; Oxygen at 2 L/min. via nasal cannula if less than 90% or clinical signs of respiratory distress. * Administer diphenhydramine (Benadryl) 25 mg IV STAT, (unless patient has received as pre-med). May repeat once, if necessary. * Solu-Cortef 250 mg IVP over 30-60 seconds, use 100 mg vials for each dissolution. * Epinephrine (1mg/1 ml) 0.3 mg subcutaneously or IVP now with any signs of respiratory distress. * Check with physician for new additional pre-med orders if patient is re- challenged or re-treated. [x] May remove PICC line when treatment complete, after confirming with Physician. [x] If the patient is admitted to the hospital, the ED, or transferred via [facility] , complete transfer form including medication reconciliation order sheet. Laboratory Tests Weekly Labs: CBC w/diff, Creatinine, Serum CK Levels (Labs every Tuesday - copy to md) Verona Guthrie MD August 25, 2017 15:45
[2017-08-25] MEDS ORDERED: DAPT500P IV (15:46)
[2017-08-25 16:00] VITALS: BP 101/67; PULSE 108; RESP 16; TEMP 98.1; O2SAT 99
[2017-08-25] MEDS ORDERED: GLIP5 PO (16:36)
--- NOTE | 2017-08-25 16:37 | HHI.DS ---
Discharge Summary Admission Date August 10, 2017 at 13:37 Discharge Date: August 25, 2017 Admitting Diagnosis Cellulitis, diabetic foot infection (1) Diabetic foot infection ICD Code: E11.628 - Type 2 diabetes mellitus with other skin complications; L08.9 - Local infection of the skin and subcutaneous tissue, unspecified Status: Acute (2) Cellulitis of left foot ICD Code: L03.116 - Cellulitis of left lower limb; L08.9 - Local infection of the skin and subcutaneous tissue, unspecified Status: Acute (3) Infection of tendon sheath ICD Code: M65.10 - Other infective (teno)synovitis, unspecified site (4) Diabetes ICD Code: E11.9 - Type 2 diabetes mellitus without complications Status: Chronic (5) LELIA (acute kidney injury) ICD Code: N17.9 - Acute kidney failure, unspecified Status: Resolved (6) Hypokalemia ICD Code: E87.6 - Hypokalemia Status: Resolved (7) Tachycardia ICD Code: R00.0 - Tachycardia, unspecified Status: Acute Procedures 08/12/17 Incision, drainage, debridement, left foot, with excision, drainage, debridement of extensor hallucis longus tendon dorsum of foot. Brief History - From Admission Pleasant 47-year-old man, with a history of says he is compliant with medications follow-up, presents to the emergency department complaining of wounds to his foot. He picked a callus area developed an ulcer with now has diffuse cellulitis with an ulceration of the top and will may be a developing abscess on the dorsum of the foot. No definite fluctuant fluid collections. Inflammatory markers are elevated. Patient is a history of diabetes. Patient says he did not have any fevers, however he is noted with a temperature of 100.9 today. Says he does not have a podiatry Dr. Denies nausea vomiting no diarrhea or constipation. No chest pain or shortness of breath. Denies tachycardia. The patient is admitted for IV antibiotics, rule out osteomyelitis, consult ID and podiatry specialist. CBC/BMP: 08/24/17 0542 08/24/17 0542 Significant Findings Laboratory Tests Test 08/23/17 04:44 08/24/17 05:42 Red Blood Count 3.33 MIL/MM3 (4.50-5.90) 3.03 MIL/MM3 (4.50-5.90) Hemoglobin 9.8 GM/DL (13.0-17.0) 8.9 GM/DL (13.0-17.0) Hematocrit 28.3 % (39.0-51.0) 25.2 % (39.0-51.0) Random Glucose 64 MG/DL (74-106) 126 MG/DL (74-106) Estimat Glomerular Filtration Rate 88 ML/MIN (>89) 76 ML/MIN (>89) Imaging Last Impressions Renal Ultrasound 08/18/17 0000 Signed Impressions: CONCLUSION: 1. Unremarkable renal ultrasound. Chest X-Ray 08/18/17 0000 Signed Impressions: CONCLUSION: No active disease. Aorta w/Runoff CTA 08/12/17 0000 Signed Impressions: Service Date/Time: Saturday, August 12, 2017 08:44 - CONCLUSION: 1. The examination demonstrates adequate inflow and runoff to both lower extremities. 2. There is lymphadenopathy involving the left external iliac johnna chain and left inguinal canal. There are nodes measuring up to 2 cm. It is possible this is reactive however malignancy is not excluded. Biopsy of these nodes may be a consideration. Kuldeep Reyez MD Foot MRI 08/11/17 0000 Signed Impressions: Service Date/Time: July 07:56 - CONCLUSION: 1. There are findings characteristic for a linear nondisplaced stress fracture through the body of the first cuneiform bone. 2. There appears to be some focal bone bruising along the lateral aspect of the cuboid bone. 3. Diffuse nonspecific soft tissue swelling and edema throughout the soft tissues of the midfoot. 4. Mild degenerative changes characteristic for patient's age.. Frank Zepeda MD Foot X-Ray 08/10/17 0000 Signed Impressions: Service Date/Time: Thursday, August 10, 2017 12:28 - CONCLUSION: 1. Generalized soft tissue swelling without evidence of fracture, destructive bony changes or significant arthropathy. 2. Arterial calcification. Olu Baker MD PE at Discharge General: No acute distress. Heart: Tachycardic. No murmur. Lungs: Clear to auscultation bilaterally. No wheezes, rales, or rhonchi. Breathing is nonlabored. Abdomen: Soft, nontender, nondistended. Extremities: No lower extremity edema. Left foot bandaged and in boot. Psych: Calm. Neuro: Normal speech. No focal deficits noted. Pt Condition on Discharge: Stable Discharge Disposition: Disch w/ Home Health Serv Discharge Instructions DIET: Follow Instructions for: Diabetic Diet Activities you can perform: Non Weight Bearing Other Activity Instructions: Nonweightbearing to left foot with heel touch Follow up Referrals: Podiatry @ [facility] with [facility]/ with [facility] New Medications: Daptomycin Inj (Cubicin Inj) 500 Mg Bag 500 MG IV Q24H for Infection for 14 Days, #14 BAG 0 Refills Must dilute in appropriate IV Fluid prior to administration Glipizide (Glucotrol) 5 Mg Tab 5 MG PO DAILYAC for Blood Sugar Management, #30 TAB Take 30 minutes before a meal Continued Medications: Metformin (Metformin) 1,000 Mg Tab 1000 MG PO BIDPC for Blood Sugar Management, #60 TAB 0 Refills John Ochoa MD August 25, 2017 16:37
[2017-08-26] MEDS ORDERED: SODIUM CHLORIDE 0.9% FLUSH 10 ML FLUSH IV FLUSH SCH (09:00)
== END 2017-08-25 17:58 | disposition home health service (06) | DRG 501 ==
LOC: NEPE 12:02 → NEDA 13:37 → N07A 15:12
PROVIDERS: ADMIT Hospitalist; ATTEND Hospitalist
PROC: 0LBW0ZZ Excision of Left Foot Tendon, Open Approach (ICD-10-PCS; principal; 2017-08-12 14:34)
PROC: 0LBW0ZZ Excision of Left Foot Tendon, Open Approach (ICD-10-PCS; 2017-08-17)
PROC: 02HV33Z Insertion of Infusion Device into Superior Vena Cava, Percutaneous Approach (ICD-10-PCS; 2017-08-25)
DX: M65.172 Other infective (teno)synovitis, left ankle and foot (principal); L03.116 Cellulitis of left lower limb; N17.9 Acute kidney failure, unspecified; D70.9 Neutropenia, unspecified; E11.610 Type 2 diabetes mellitus with diabetic neuropathic arthropathy; L02.612 Cutaneous abscess of left foot; E11.621 Type 2 diabetes mellitus with foot ulcer; E11.628 Type 2 diabetes mellitus with other skin complications; L97.529 Non-pressure chronic ulcer of other part of left foot with unspecified severity; B95.62 Methicillin resistant Staphylococcus aureus infection as the cause of diseases classified elsewhere; R00.0 Tachycardia, unspecified; M84.375A Stress fracture, left foot, initial encounter for fracture; R50.2 Drug induced fever; T36.8X5A Adverse effect of other systemic antibiotics, initial encounter; E87.6 Hypokalemia; Z79.84 Long term (current) use of oral hypoglycemic drugs; Z83.3 Family history of diabetes mellitus
CPT/HCPCS: 36569; 71045; 73630; 73720; 75635; 76775; 76937; 80048; 80053; 80202; 81001; 82550; 82570; 82948; 83036; 83605; 83735; 84300; 84443; 85007; 85025; 85027; 85652; 86140; 86403; 87015; 87040; 87070; 87102; 87116; 87147; 87186; 87205; 87206; 93005; 93923; 94150; 96365; 96368; A9579; J0131; J0878; J1815; J2250; J2370; J2405; J2543; J3010; J3370; J3480; J7030; J7040; J7050; J7120; L3260; Q9967

== ENCOUNTER 2018-03-02 09:27 | Inpatient (IN) ==
[2018-03-02 11:07] LABS: Baso # (Auto) 0.1 th/mm3 (0.0-0.2); Baso % (Auto) 0.6 % (0.0-2.0); Eos # (Auto) 0.6 th/mm3 (0.0-0.4); Eos % (Auto) 4.7 % (0.0-4.0); Hematocrit 27.6 % (39.0-51.0); Hemoglobin 9.5 gm/dL (13.0-17.0); Lymph # (Auto) 1.4 th/mm3 (1.0-4.8); Lymph % (Auto) 11.1 % (9.0-44.0); Mean Corpuscular HGB Conc 34.4 % (32.0-36.0); Mean Corpuscular Hemoglobin 31.9 pg (27.0-34.0); Mean Corpuscular Volume 92.9 fL (80.0-100.0); Mean Platelet Volume 8.2 fL (7.0-11.0); Mono # (Auto) 1.3 th/mm3 (0.0-0.9); Mono % (Auto) 9.7 % (0.0-8.0); Neut # (Auto) 9.6 th/mm3 (1.8-7.7); Neut % (Auto) 73.9 % (16.0-70.0); Platelet Count 255 th/mm3 (150-450); Red Blood Count 2.97 mil/mm3 (4.50-5.90); Red Cell Distribution Width 11.7 % (11.6-17.2); White Blood Count 13.1 th/mm3 (4.0-11.0)
[2018-03-02] MEDS ORDERED: Vancomycin Inj 1,000 MG in Sodium Chlor 0.9% Inj 250 ML IV.SIG ONE (11:18)
[2018-03-02] MEDS ORDERED: Piperacil/Tazo 4.5 GM Premix 4.5 GM/100 ML BAG IV.SIG ONE (11:18)
[2018-03-02] MEDS ORDERED: Tetanus/Diphtheria Toxoid Adult Vaccine Inj 0.5 ML Vial IM ONE (11:18)
--- NOTE | 2018-03-02 11:22 | ED ---
HPI General Chief complaint: Skin/Abscess/Foreign Body Stated complaint: L wrist lac Time Seen by Provider: 03/02/18 11:12 History of Present Illness HPI narrative: This is a 47-year-old male who presents for evaluation of left forearm pain, redness and swelling. 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 8 days ago he cut his volar left wrist on a piece of steel. Since then he has developed increased pain, redness and swelling in the area. Pain is aching, constant, worse with palpation of the skin on the volar aspect of the left forearm. His last tetanus vaccination is unknown. Symptoms are moderate. No other complaints. Related Data Home Medications Medication Instructions Recorded Confirmed metformin 500 mg PO BID 03/02/18 03/02/18 Allergies Allergy/AdvReac Type Severity Reaction Status Date / Time No Known Allergies Allergy Unverified 08/10/17 12:27 Review of Systems ROS: all other systems reviewed are negative PMFSH Medical History Medical History Diabetes (Acute) Surgical History Surgical History History of foot surgery (Acute) Social History Social History Substance History: No History of Abuse Smoking Status: Never smoker How Often Do You Have a Drink Containing Alcohol: 2 to 4 times a month Recent Travel in [facility] within the Last 8 Weeks: No Recent Out of Country Travel within the Last 8 Weeks: No Immunization History Tetanus Immunization: Unsure Exam Narrative Exam Narrative: GENERAL: This is a well-developed well-nourished male in no acute distress SKIN: Warm and dry. There is an area of erythema and induration on the volar aspect of the left forearm. There is a small amount of purulent drainage from the volar aspect of the distal left forearm. A wound culture was obtained. HEAD: Atraumatic. Normocephalic. EYES: Pupils equal and round. No scleral icterus. No injection or drainage. ENT: No nasal bleeding or discharge. Mucous membranes pink and moist. NECK: Trachea midline. No JVD. CARDIOVASCULAR: Regular rate and rhythm. No murmur appreciated. RESPIRATORY: No accessory muscle use. Clear to auscultation. Breath sounds equal bilaterally. GASTROINTESTINAL: Abdomen soft, non-tender, nondistended. Hepatic and splenic margins not palpable. MUSCULOSKELETAL: Skin as noted above. The patient maintains full range of motion of the left hand and wrist. NEUROLOGICAL: Awake and alert. No obvious cranial nerve deficits. Motor grossly within normal limits. Normal speech. Course Initial Documented Vital Signs Temperature 98.2 F 03/02/18 09:32 Pulse Rate 106 H 03/02/18 09:32 Respiratory Rate 20 03/02/18 09:32 Blood Pressure 123/74 03/02/18 09:32 Pulse Oximetry 100 03/02/18 09:32 Last Documented Vital Signs Temperature 98.2 F 03/02/18 09:32 Pulse Rate 102 H 03/02/18 09:38 Respiratory Rate 18 03/02/18 09:38 Blood Pressure 143/77 H 03/02/18 09:38 Pulse Oximetry 99 03/02/18 12:33 Medical Decision Making MDM Narrative Medical decision making narrative: An IV was established, lab work, blood cultures, wound culture obtained, he was given IV fluids and broad-spectrum antibiotics, tetanus status updated. Lab work is been reviewed, WBC count is elevated at 13.1, glucose is 362, lactic acid is 2.6, additional liter of normal saline ordered. Potassium is 3.4 , oral potassium chloride administered. CT of the forearm with contrast was obtained revealing no evidence of drainable abscess. At this point in time the plan is to admit the patient for further treatment of cellulitis, sepsis. He is agreeable. Medical Screen Exam Complete: Yes Emergency Medical Condition: Yes Lab Data Result diagrams: 03/02/18 10:42 03/02/18 10:42 Lab Results 03/02/18 03/02/18 03/02/18 Range/Units 10:42 10:42 10:45 WBC 13.1 H (4.0-11.0) th/mm3 RBC 2.97 L (4.50-5.90) mil/mm3 Hgb 9.5 L (13.0-17.0) gm/dL Hct 27.6 L (39.0-51.0) % MCV 92.9 (80.0-100.0) fL MCH 31.9 (27.0-34.0) pg MCHC 34.4 (32.0-36.0) % RDW 11.7 (11.6-17.2) % Plt Count 255 (150-450) th/mm3 MPV 8.2 (7.0-11.0) fL Neut % (Auto) 73.9 H (16.0-70.0) % Lymph % (Auto) 11.1 (9.0-44.0) % [place] % (Auto) 9.7 H (0.0-8.0) % Eos % (Auto) 4.7 H (0.0-4.0) % Baso % (Auto) 0.6 (0.0-2.0) % Neut # (Auto) 9.6 H (1.8-7.7) th/mm3 Lymph # (Auto) 1.4 (1.0-4.8) th/mm3 [place] # (Auto) 1.3 H (0.0-0.9) th/mm3 Eos # (Auto) 0.6 H (0.0-0.4) th/mm3 Baso # (Auto) 0.1 (0.0-0.2) th/mm3 WBC Differential . Differential Comment Auto diff final Sodium 130 L (136-145) meq/L Potassium 3.4 L (3.5-5.1) meq/L Chloride 96 L (98-107) meq/L Carbon Dioxide 22.8 (21.0-32.0) meq/L Anion Gap 11 (5-15) meq/L BUN 11 (7-18) mg/dL Creatinine 1.16 (0.60-1.30) mg/dL Estimated GFR 67 L (>89) mL/min Random Glucose 362 H (74-106) mg/dL Lactic Acid 2.6 H (0.4-2.0) mmol/L Calcium 8.1 L (8.5-10.1) mg/dL Total Bilirubin 0.5 (0.2-1.0) mg/dL AST 19 (15-37) U/L ALT 29 (12-78) U/L Alkaline Phosphatase 129 H (45-117) U/L Total Protein 8.6 H (6.4-8.2) g/dL Albumin 3.0 L (3.4-5.0) g/dL Imaging Data Radiologist's impression: Forearm CT 03/02/18 11:18 CONCLUSION: Superficial soft tissue swelling without a well-defined focal fluid collection to suggest abscess. This is likely from cellulitis. Discharge Plan Discharge Disposition Patient Disposition: ED Admit(ED Internal Use Only) Discharge Condition Condition: Stable Discharge Order Discharge Orders: ED Use Only Admit Order (Routine); Ordered 03/02/18 Ordered By: Jon Campbell Discharge Details Diagnosis: Cellulitis of forearm, left, Sepsis Physicians Team ED Provider: Ruperto Ponce ED Midlevel Provider: Jon Campbell Primary Care Provider: UNKNOWN, Rxs /Orders / Referrals /Forms Prescriptions: No Action metformin 500 mg Tablet 500 mg PO BID RF: 0 Status ED Status: With Doctor
[2018-03-02 11:25] LABS: Anion Gap 11 meq/L (5-15); Aspartate Aminotransferase 19 U/L (15-37); Blood Urea Nitrogen 11 mg/dL (7-18); Calcium 8.1 mg/dL (8.5-10.1); Carbon Dioxide 22.8 meq/L (21.0-32.0); Chloride 96 meq/L (98-107); Glomerular Filtration Rate 67 mL/min (>89); Glucose,Random 362 mg/dL (74-106); Potassium 3.4 meq/L (3.5-5.1); Sodium 130 meq/L (136-145)
[2018-03-02 11:28] LABS: Alanine Aminotransferase 29 U/L (12-78); Alkaline Phosphatase 129 U/L (45-117); Total Protein 8.6 g/dL (6.4-8.2)
[2018-03-02] MEDS ORDERED: Sod Chloride 0.9% Inj 1,000 ML IV.SIG SCH ×2 (11:30→11:45)
--- NOTE | 2018-03-02 13:15 | CT ---
EXAM DATE: 03/02/2018 12:59 PM EST AGE/SEX: 47 years / Male INDICATIONS: Cut inner left arm 8 days ago, now with redness and swelling, under wrist. CLINICAL DATA: This is the patient's initial encounter. Patient reports that signs and symptoms have been present for 1 week and indicates a pain score of 4/10. MEDICAL/SURGICAL HISTORY: None. None. RADIATION DOSE: 11.61 CTDI (mGy) COMPARISON: No prior exams available for comparison. TECHNIQUE: Multiple contiguous axial images were acquired using a multi-row detector CT scanner afte r the intravenous administration of 67 ml Omnipaque 350 (iohexol) nonionic water-soluble contrast as a single exam dose. Multiplanar reconstruction was performed in the sagittal and coronal planes. Using automated exposure control and adjustment of the mA and/or kV according to patient size, radiat ion dose was kept as low as reasonably achievable to obtain optimal diagnostic quality images. DICOM format image data is available electronically for review and comparison. FINDINGS: Bones: The bony structures about the forefoot are in normal alignment. The metatarsi, phalanges, an d distal tarsal row osseous structures are intact. No fracture is seen. Joints: No significant arthropathy or bony hypertrophy is seen. Soft Tissues: There is superficial soft tissue swelling seen throughout the forearm being most promi nent in the anterior volar aspect of the distal form. Other: No foreign bodies seen. Post Contrast: No abnormal areas of enhancement are seen in the marrow or soft tissues. CONCLUSION: Superficial soft tissue swelling without a well-defined focal fluid collection to suggest abscess. Th is is likely from cellulitis. Electronically signed by: Piotr Hui MD 03/02/2018 1:14 PM EST
[2018-03-02] MEDS ORDERED: Naloxone Inj 0.4 MG/ML Vial IV.PUSH PRN (14:14)
[2018-03-02] MEDS ORDERED: Dextrose 50% in Water 50 ML Vial IV.PUSH PRN (14:14)
[2018-03-02] MEDS ORDERED: Vancomycin Consult Pharmacy OTHER PRN (14:18)
--- NOTE | 2018-03-02 14:28 | P.HP ---
History of Present Illness Primary Care Physician: UNKNOWN Chief Complaint: Left wrist pain and swelling History of Present Illness: 47-year-old man with a past medical history of diabetes type 2, presented to the ED for evaluation of left wrist and forearm pain and swollen x several days duration. Patient states about 8 days ago he cut his volar left wrist on a piece of steel at work. following that incident, patient did not notice any swelling or redness. However 3-4 days after that, he noted swelling and redness with significant pain. Despite that, patient continues to go to work. Few days ago, he noted some worsening induration with pus production. he has subjective fevers. Inpatient Certification: I certify that the inpatient services were ordered in accordance with Medicare regulations governing the order. This includes certification that hospital inpatient services are reasonable and necessary and in the case of services not specified as inpatient-only under 42 CFR 419.22(n), that they are appropriately provided as inpatient services in accordance to with the 2-midnight benchmark under 43 CFR 412.3(e) Estimated Total Length of Stay (Days): 2 Plans for Post Hospital Care: Not yet determined Review of Systems All other systems reviewed negative except as stated in HPI PMFSH - History History Provided By: Patient - Medical History Medical History: Medical History (Last Updated 03/02/18 @ 09:46 by Domingo Burleson) Diabetes - Surgical History Surgical History: Surgical History (Last Updated 03/02/18 @ 09:46 by Domingo Burleson) History of foot surgery - Family History Family History: Family History (Last Updated 03/02/18 @ 16:02 by Luis Prasad MD) Other Diabetes Hypertension - Tobacco History Smoking Status: Never smoker - Alcohol History How Often Do You Have a Drink Containing Alcohol: 2 to 4 times a month - Substance Use History Substance History: No History of Abuse - Travel History Recent Travel in the [place] Within the Last 8 Weeks: No Recent Travel Out of the Country Within the Last 8 Weeks: No - Immunization History Tetanus Immunization: Unsure Medications and Allergies Allergies Allergy/AdvReac Type Severity Reaction Status Date / Time No Known Allergies Allergy Unverified 08/10/17 12:27 Home Medications Medication Instructions Recorded Confirmed Type metformin 500 mg PO BID 03/02/18 03/02/18 History Exam Vital signs: Vital Signs 03/02/18 09:32 12/06/18 09:38 03/02/18 12:33 Temperature 98.2 F Pulse Rate 106 H 102 H Respiratory Rate 20 18 Blood Pressure 123/74 143/77 H Pulse Oximetry 100 100 99 03/02/18 13:38 Temperature Pulse Rate 125 H Respiratory Rate 18 Blood Pressure 164/74 H Pulse Oximetry 97 Intake & Output 03/01/18 03/02/18 03/02/18 18:59 06:59 18:59 Intake Total 2350 / 2350 Balance 2350 / 2350 Weight 70.307 kg Intake: IV 2350 / 2350 Zosyn 4.5 GM Premix 4.5 gm In 100 / 100 100 ml @ 200 mls/hr IV.SIG ONCE ONE Rx#:[id number] NS Inj 1,000 ML @ 1000 mls/hr 1999 / 1999 IV.SIG BOLUS MAE Rx#:[id number] Vancomycin Inj 1,000 MG In NS 250 / 250 Inj 250 ML @ 250 mls/hr IV.SIG ONCE ONE Rx#:[id number] Narrative: GENERAL: NAD SKIN: Warm and dry. There is an area of erythema and induration on the volar aspect of the left forearm. There is a small amount of purulent drainage from the volar aspect of the distal left forearm HEAD: Atraumatic. Normocephalic. EYES: Pupils equal and round. No scleral icterus. No injection or drainage. ENT: No nasal bleeding or discharge. Mucous membranes pink and moist. NECK: Trachea midline. No JVD. CARDIOVASCULAR: Regular rate and rhythm. RESPIRATORY: No accessory muscle use. Clear to auscultation. Breath sounds equal bilaterally. GASTROINTESTINAL: Abdomen soft, non-tender, nondistended. Hepatic and splenic margins not palpable. MUSCULOSKELETAL: Extremities without clubbing, cyanosis, or edema. No obvious deformities. LUE-There is an area of erythema and induration on the volar aspect of the left forearm. There is a small amount of purulent drainage from the volar aspect of the distal left forearm NEUROLOGICAL: Awake and alert. No obvious cranial nerve deficits. Motor grossly within normal limits. Five out of 5 muscle strength in the arms and legs. Normal speech. PSYCHIATRIC: Appropriate mood and affect; insight and judgment normal. Results - Labs CBC & Chem 7: 03/02/18 10:42 03/02/18 10:42 Labs: Laboratory Results - last 24 hr 03/02/18 03/02/1818 10:42 10:42 10:45 WBC 13.1 H RBC 2.97 L Hgb 9.5 L Hct 27.6 L MCV 92.9 MCH 31.9 MCHC 34.4 RDW 11.7 Plt Count 255 MPV 8.2 Neut % (Auto) 73.9 H Lymph % (Auto) 11.1 [place] % (Auto) 9.7 H Eos % (Auto) 4.7 H Baso % (Auto) 0.6 Neut # (Auto) 9.6 H Lymph # (Auto) 1.4 [place] # (Auto) 1.3 H Eos # (Auto) 0.6 H Baso # (Auto) 0.1 WBC Differential . Differential Comment Auto diff final Sodium 130 L Potassium 3.4 L Chloride 96 L Carbon Dioxide 22.8 Anion Gap 11 BUN 11 Creatinine 1.16 Estimated GFR 67 L Random Glucose 362 H Lactic Acid 2.6 H Calcium 8.1 L Total Bilirubin 0.5 AST 19 ALT 29 Alkaline Phosphatase 129 H Total Protein 8.6 H Albumin 3.0 L 03/02/18 13:45 WBC RBC Hgb Hct MCV MCH MCHC RDW Plt Count MPV Neut % (Auto) Lymph % (Auto) [place] % (Auto) Eos % (Auto) Baso % (Auto) Neut # (Auto) Lymph # (Auto) [place] # (Auto) Eos # (Auto) Baso # (Auto) WBC Differential Differential Comment Sodium Potassium Chloride Carbon Dioxide Anion Gap BUN Creatinine Estimated GFR Random Glucose Lactic Acid 1.3 Calcium Total Bilirubin AST ALT Alkaline Phosphatase Total Protein Albumin - Imaging Impressions Forearm CT 03/02/18 11:18 CONCLUSION: Superficial soft tissue swelling without a well-defined focal fluid collection to suggest abscess. This is likely from cellulitis. Caprini VTE Risk Assessment Caprini VTE Risk Assessment: No/Low Risk (score <= 1) Caprini Risk Assessment Model: Point Value = 1 Point Value = 2 Point Value = 3 Point Value = 5 Age 41-60 Minor surgery BMI > 25 kg/m2 Swollen legs Varicose veins or History of unexplained or recurrent spontaneous Oral contraceptives or hormone replacement Sepsis (< 1 month) Serious lung disease, including pneumonia (< 1 month) Abnormal pulmonary function Acute myocardial infarction Congestive heart failure (< 1 month) History of inflammatory bowel disease Medical patient at bed rest Age 61-74 Arthroscopic surgery Major open surgery (> 45 min) Laparoscopic surgery (> 45 min) Malignancy Confined to bed (> 72 hours) Immobilizing plaster cast Central venous access Age >= 75 History of VTE Family history of VTE Factor V Leiden Prothrombin [id number] Lupus anticoagulant Anticardiolipin antibodies Elevated serum homocysteine Heparin-induced thrombocytopenia Other congenital or acquired thrombophilia Stroke (< 1 month) Elective arthroplasty Hip, pelvis, or leg fracture Acute spinal cord injury (< 1 month) Prophylaxis Regimen: Total Risk Factor Score Risk Level Prophylaxis Regimen 0-1 Low Early ambulation 2 Moderate Order ONE of the following: *Sequential Compression Device (SCD) *Heparin 5000 units SQ BID 3-4 Higher Order ONE of the following medications: *Heparin 5000 units SQ TID *Enoxaparin/Lovenox 40 mg SQ daily (WT < 150 kg, CrCl > 30 mL/min) *Enoxaparin/Lovenox 30 mg SQ daily (WT < 150 kg, CrCl > 10-29 mL/min) *Enoxaparin/Lovenox 30 mg SQ BID (WT < 150 kg, CrCl > 30 mL/min) AND/OR *Sequential Compression Device (SCD) 5 or more Highest Order ONE of the following medications: *Heparin 5000 units SQ TID (Preferred with Epidurals) *Enoxaparin/Lovenox 40 mg SQ daily (WT < 150 kg, CrCl > 30 mL/min) *Enoxaparin/Lovenox 30 mg SQ daily (WT < 150 kg, CrCl > 10-29 mL/min) *Enoxaparin/Lovenox 30 mg SQ BID (WT < 150 kg, CrCl > 30 mL/min) AND *Sequential Compression Device (SCD) Assessment and Plan - Plan 47 years old man with Severe sepsis: Elevated WBC>11, HR>100 and Lactic acid>2.0. Source likely 2/2 Cellulitis of forearm of left UE s/p Vancomycin IV and Zosyn x 1; Continue with IV abs pending Culture reports Cellulitis LUE Continue with above antibiotics including Zosyn and Vancomycin IV CT forearm noted and review by me with Superficial soft tissue swelling without a well-defined focal fluid collection Consider Soft tissue US in 24-48hrs to rule out abscess; and if positive consult hand surgery PRN Diabetes type II Hold Oral Metformin Start ISS +FSBG monitoring hypokalemia s/p Replacement in the ED, monitor electrolyte Normochromic normocytic anemia Monitor H/H and transfuse accordingly Mild Hyponatremia Monitor Electrolyte DVT prophylaxis: B-SCDs
[2018-03-02] MEDS ORDERED: Labetalol HCl Inj 100 MG/20 ML Vial IV.PUSH PRN (14:29)
[2018-03-02] MEDS: Acetaminophen 325 MG Tablet PO PRN ×2 (15:09→20:59)
[2018-03-02] MEDS: Sod Chloride 0.9% Inj 1,000 ML IV.CONT SCH ×2 (15:11→17:24)
[2018-03-02] MEDS: Insulin NovoLOG Aspart Correctional Sugar Inj SQ SCH ×2 (16:56→20:55)
[2018-03-02] MEDS: Piperacil/Tazo 3.375 GM Premix 50 ML IV.SIG SCH (19:55)
[2018-03-03] MEDS: Sod Chloride 0.9% Inj 1,000 ML IV.CONT SCH ×3 (00:21→20:20)
[2018-03-03] MEDS: Piperacil/Tazo 3.375 GM Premix 50 ML IV.SIG SCH ×3 (03:15→20:20)
[2018-03-03 06:54] LABS: Baso % (Auto) 0.3 % (0.0-2.0); Eos # (Auto) 0.9 th/mm3 (0.0-0.4); Hematocrit 27.8 % (39.0-51.0); Hemoglobin 9.9 gm/dL (13.0-17.0); Lymph # (Auto) 0.3 th/mm3 (1.0-4.8); Lymph % (Auto) 3.3 % (9.0-44.0); Mean Corpuscular HGB Conc 35.5 % (32.0-36.0); Mean Corpuscular Hemoglobin 32.3 pg (27.0-34.0); Mean Corpuscular Volume 90.9 fL (80.0-100.0); Mean Platelet Volume 7.9 fL (7.0-11.0); Mono # (Auto) 0.6 th/mm3 (0.0-0.9); Mono % (Auto) 6.4 % (0.0-8.0); Neut # (Auto) 7.7 th/mm3 (1.8-7.7); Platelet Count 256 th/mm3 (150-450); Red Blood Count 3.06 mil/mm3 (4.50-5.90); Red Cell Distribution Width 11.5 % (11.6-17.2); White Blood Count 9.5 th/mm3 (4.0-11.0)
[2018-03-03 07:18] LABS: Alanine Aminotransferase 26 U/L (12-78); Albumin 2.5 g/dL (3.4-5.0); Alkaline Phosphatase 126 U/L (45-117); Anion Gap 8 meq/L (5-15); Aspartate Aminotransferase 24 U/L (15-37); Blood Urea Nitrogen 11 mg/dL (7-18); Calcium 7.6 mg/dL (8.5-10.1); Carbon Dioxide 22.9 meq/L (21.0-32.0); Chloride 108 meq/L (98-107); Glomerular Filtration Rate 75 mL/min (>89); Glucose,Random 151 mg/dL (74-106); Potassium 3.7 meq/L (3.5-5.1); Sodium 139 meq/L (136-145); Total Protein 7.4 g/dL (6.4-8.2)
[2018-03-03] MEDS: Insulin NovoLOG Aspart Correctional Sugar Inj SQ SCH ×4 (07:57→20:21)
[2018-03-03] MEDS: Ibuprofen 400 MG Tablet PO PRN (07:58)
--- NOTE | 2018-03-03 09:02 | P.PNIM ---
Subjective Interval history: f/u; left hand infection in no acute distress. still with painful, swollen left hand with no significant improvement. T max 102.6. Physical Exam Vital signs: Vital Signs 03/02/18 09:32 03/02/18 09:38 03/02/18 12:33 Temperature 98.2 F Pulse Rate 106 H 102 H Respiratory Rate 20 18 Blood Pressure 123/74 143/77 H Pulse Oximetry 100 100 99 03/02/18 13:38 03/02/18 14:30 03/02/18 15:37 Temperature 99.9 F H Pulse Rate 125 H 125 H Respiratory Rate 18 22 Blood Pressure 164/74 H 121/60 Pulse Oximetry 97 03/02/18 16:00 03/02/18 20:00 03/02/18 22:48 Temperature 100.9 F H 102.6 F H Pulse Rate 115 H 123 H Respiratory Rate 18 17 16 Blood Pressure 95/52 L 105/58 L Pulse Oximetry 96 96 03/03/18 00:00 03/03/18 04:00 03/03/18 08:52 Temperature 99.8 F H 99 F Pulse Rate 111 H 110 H Respiratory Rate 18 15 Blood Pressure 95/54 L 127/63 Pulse Oximetry 97 97 98 Intake & Output 03/02/18 03/03/18 03/03/18 18:59 06:59 18:59 Intake Total 2350 / 2350 1340 / 1340 Balance 2350 / 2350 1340 / 1340 Weight 70.307 kg 76.4 kg Intake: IV 2350 / 2350 1100 / 1100 NS Inj 1,000 ML @ 100 mls/hr IV 1000 / 1000 .CONT .Q10H MAE Rx#:[id number] Zosyn 3.375 GM Premix 50 ML @ 100 / 100 100 mls/hr IV.SIG Q8H MAE Rx#: [id number] Zosyn 4.5 GM Premix 4.5 gm In 100 / 100 100 ml @ 200 mls/hr IV.SIG ONCE ONE Rx#:[id number] NS Inj 1,000 ML @ 1000 mls/hr 1999 / 1999 IV.SIG BOLUS MAE Rx#:[id number] Vancomycin Inj 1,000 MG In NS 250 / 250 Inj 250 ML @ 250 mls/hr IV.SIG ONCE ONE Rx#:[id number] Oral 240 / 240 Other: # Voids 1 1 Date of Last Bowel Movement 12/06/18 # Bowel Movements 1 Weight On Admission 70.307 kg - Constitutional no acute distress - Routine Respiratory Exam Present: CTA bilaterally - Routine Cardiovascular Exam Present: RRR - Routine Abdominal Exam Present: soft - Routine Extremities Exam Comments: edema/ tenderness / erythema and warmth over the left hand/wrist. - Routine Skin Exam Present: erythema (left hand.) - Routine Neurological Exam Present: alert, oriented X3 Results - Labs CBC & Chem 7: 03/03/18 05:25 03/03/18 05:25 Laboratory Results - last 24 hr 03/02/18 03/02/18 03/02/18 10:42 10:42 10:45 WBC 13.1 H RBC 2.97 L Hgb 9.5 L Hct 27.6 L MCV 92.9 MCH 31.9 MCHC 34.4 RDW 11.7 Plt Count 255 MPV 8.2 Neut % (Auto) 73.9 H Lymph % (Auto) 11.1 [place] % (Auto) 9.7 H Eos % (Auto) 4.7 H Baso % (Auto) 0.6 Neut # (Auto) 9.6 H Lymph # (Auto) 1.4 [place] # (Auto) 1.3 H Eos # (Auto) 0.6 H Baso # (Auto) 0.1 WBC Differential . Differential Comment Auto diff final Sodium 130 L Potassium 3.4 L Chloride 96 L Carbon Dioxide 22.8 Anion Gap 11 BUN 11 Creatinine 1.16 Estimated GFR 67 L POC Glucose Random Glucose 362 H Lactic Acid 2.6 H Calcium 8.1 L Total Bilirubin 0.5 AST 19 ALT 29 Alkaline Phosphatase 129 H Total Protein 8.6 H Albumin 3.0 L 03/02/18 03/02/18 03/02/18 13:45 14:44 16:37 WBC RBC Hgb Hct MCV MCH MCHC RDW Plt Count MPV Neut % (Auto) Lymph % (Auto) [place] % (Auto) Eos % (Auto) Baso % (Auto) Neut # (Auto) Lymph # (Auto) [place] # (Auto) Eos # (Auto) Baso # (Auto) WBC Differential Differential Comment Sodium Potassium Chloride Carbon Dioxide Anion Gap BUN Creatinine Estimated GFR POC Glucose 111 H 145 H Random Glucose Lactic Acid 1.3 Calcium Total Bilirubin AST ALT Alkaline Phosphatase Total Protein Albumin 03/02/18 03/03/18 03/03/18 20:54 05:25 05:25 WBC 9.5 RBC 3.06 L Hgb 9.9 L Hct 27.8 L MCV 90.9 MCH 32.3 MCHC 35.5 RDW 11.5 L Plt Count 256 MPV 7.9 Neut % (Auto) 81.0 H Lymph % (Auto) 3.3 L [place] % (Auto) 6.4 Eos % (Auto) 9.0 H Baso % (Auto) 0.3 Neut # (Auto) 7.7 Lymph # (Auto) 0.3 L [place] # (Auto) 0.6 Eos # (Auto) 0.9 H Baso # (Auto) 0.0 WBC Differential . Differential Comment Auto diff final Sodium 139 Potassium 3.7 Chloride 108 H D Carbon Dioxide 22.9 Anion Gap 8 BUN 11 Creatinine 1.06 Estimated GFR 75 L POC Glucose 294 H Random Glucose 151 H D Lactic Acid Calcium 7.6 L Total Bilirubin 0.6 AST 24 ALT 26 Alkaline Phosphatase 126 H Total Protein 7.4 D Albumin 2.5 L 03/03/18 07:45 WBC RBC Hgb Hct MCV MCH MCHC RDW Plt Count MPV Neut % (Auto) Lymph % (Auto) [place] % (Auto) Eos % (Auto) Baso % (Auto) Neut # (Auto) Lymph # (Auto) [place] # (Auto) Eos # (Auto) Baso # (Auto) WBC Differential Differential Comment Sodium Potassium Chloride Carbon Dioxide Anion Gap BUN Creatinine Estimated GFR POC Glucose 163 H Random Glucose Lactic Acid Calcium Total Bilirubin AST ALT Alkaline Phosphatase Total Protein Albumin Microbiology 03/02/18 11:34 Abscess - Arm Gram Stain - Final - Imaging Impressions Forearm CT 03/02/18 11:18 CONCLUSION: Superficial soft tissue swelling without a well-defined focal fluid collection to suggest abscess. This is likely from cellulitis. Assessment and Plan - Plan Severe sepsis: Elevated WBC>11, HR>100 and Lactic acid>2.0. Source likely 2/2 Cellulitis of forearm of left UE s/p Vancomycin IV and Zosyn x 1; Continue with IV abs pending Culture reports Cellulitis left forearm, wrist and hand Continue with above antibiotics including Zosyn and Vancomycin IV CT forearm noted with Superficial soft tissue swelling without a well- defined focal fluid collection will consult hand surgery; keep NPo for now. keep the left hand elevated. Diabetes type II Hold Oral Metformin Start ISS +FSBG monitoring hypokalemia s/p Replacement in the ED, monitor electrolyte Normochromic normocytic anemia Monitor H/H and transfuse accordingly Mild Hyponatremia Monitor Electrolyte DVT prophylaxis: B-SCDs Discharge Planning: pending clinical course- awaiting hand surgery evaluation.
[2018-03-03] MEDS ORDERED: Gadobutrol PF 7.5 MMOL/7.5 ML Vial (for RAD) IV.SIG ONE (13:44)
--- NOTE | 2018-03-03 14:00 | MR ---
EXAM DATE: 03/03/2018 1:48 PM EST AGE/SEX: 47 years / Male INDICATIONS: . Left wrist swelling. CLINICAL DATA: This is the patient's subsequent encounter. Patient reports that signs and symptoms h ave been present for 3 days and indicates a pain score of 3/10. MEDICAL/SURGICAL HISTORY: Diabetes mellitus type II. . left foot surgery for infection COMPARISON: No prior exams available for comparison. TECHNIQUE: Multiplanar, multisequence MRI examination was performed without contrast and after intra venous administration of 7 ml Gadavist (gadobutrol) contrast as a single exam dose. FINDINGS: Extensive subcutaneous edema is present involving the volar aspect of the forearm extending across th e radiocarpal joint. This appear to be all confined to the superficial subcutaneous tissues and does not involve the flexor compartment. This cellulitis extends into the palmar aspect of the hand worse on the thenar side. I don't see a defined fluid collection. Ultrasound could be used to follow this for developing absces s. There is no evidence for osteomyelitis. There is no radiocarpal joint effusion. CONCLUSION: 1. Findings with be consistent with a superficial cellulitis involving the palmar or ventral aspect of the forearm and hand. 2. The flexor compartment so far is uninvolved. Electronically signed by: Mann Reyez MD 03/03/2018 1:58 PM EST
--- NOTE | 2018-03-03 20:34 | P.CONOP ---
[facility] Orthopedics Consult Note - [facility] Consult date: 03/03/18 Requesting physician: Bravo Grubbs Chief complaint: Left forearm cellulitis Narrative: 47-year-old gentleman who presents with left forearm pain and erythema. 8 days ago, he notes that he cut his volar wrist on a piece of steel with work. He notes over the last 3-4 days he has had increasing erythema, edema, and pain localized to the site of the laceration, prompting presentation to the ER. CT scan was completed. Hand surgery consultation was requested to rule out underlying abscess and possible surgical intervention. At bedside, patient relates pain 3/10. Denies paresthesias to the hand. Denies other complaints. Review of Systems Constitutional: Reports fever(s), Denies chills Cardiovascular: Denies chest pain Respiratory: Denies cough Gastrointestinal: Denies abdominal pain Musculoskeletal: Reports joint pain, Denies stiffness, Denies tingling Neurologic: Denies tingling/numbness/burning sensations Psychiatric: Denies anxiety, Denies depression PMFSH - History History Provided By: Patient - Medical History Medical History: Medical History (Last Updated 03/02/18 @ 09:46 by Domingo Burleson) Diabetes - Surgical History Surgical History: Surgical History (Last Updated 03/02/18 @ 09:46 by Domingo Burleson) History of foot surgery - Family History Family History: Family History (Last Updated 03/02/18 @ 16:02 by Luis Prasad MD) Other Diabetes Hypertension - Tobacco History Second Hand Smoke Exposure: No Smoking Status: Never smoker - Alcohol History How Often Do You Have a Drink Containing Alcohol: 2 to 4 times a month - Substance Use History Substance History: No History of Abuse - Travel History Recent Travel in the [place] Within the Last 8 Weeks: No Recent Travel Out of the Country Within the Last 8 Weeks: No - Immunization History Tetanus Immunization: Unsure Hx Influenza Vaccine This Season: No Medications and Allergies Active Medications: Active Medications Acetaminophen (Tylenol) 650 mg PO Q4H PRN PRN Reason: Temp > 100.4 Last Admin: 03/02/18 20:59 Dose: 650 mg Hydrocodone Bitart/Acetaminophen ([place] 5/325) 1 tab PO Q4H PRN PRN Reason: pain 3-10 Last Admin: 03/03/18 18:10 Dose: 1 tab Al Hydroxide/Mg Hydroxide (Milk Of Magnesia Liq) 30 ml PO Q12H PRN PRN Reason: Mild Constipation Clonidine HCl (Catapres) 0.1 mg PO Q6H PRN PRN Reason: SBP>160, DBP>90 Dextrose (D50w Vial) 50 ml IV.PUSH UNSCH PRN PRN Reason: PER HYPOGLYCEMIA PROTOCOL Glucagon (Glucagon Inj) 1 mg OTHER UNSCH PRN PRN Reason: for Hypoglycemia Protocol Vancomycin HCl 1,250 mg/ (Sodium Chloride) 262.5 mls @ 250 mls/hr IV.SIG Q12H MAE Piperacillin/Tazobactam/Dextrose (Zosyn 3.375 Gm Premix) 50 mls @ 100 mls/hr IV.SIG Q8H MAE Last Admin: 03/03/18 20:20 Dose: 100 mls/hr Sodium Chloride (Ns Inj) 1,000 mls @ 100 mls/hr IV.CONT .Q10H MAE Last Admin: 03/03/18 20:20 Dose: 100 mls/hr Ibuprofen (Motrin) 400 mg PO Q6H PRN PRN Reason: PAIN SCALE 1 TO 2 Last Admin: 03/03/18 07:58 Dose: 400 mg Insulin Aspart (Novolog Insulin Correctional Sugar Inj) 0 unit SQ ACHS MAE; Protocol Last Admin: 03/03/18 20:21 Dose: 7 unit Labetalol HCl (Trandate Inj) 10 mg IV.PUSH Q4H PRN PRN Reason: SBP>160, DBP>90 Last Admin: 03/02/18 15:07 Dose: 10 mg Miscellaneous Information ([facility] Ordered Lab Info) 0 each OTHER ONCE ONE Stop: 03/04/18 08:46 Naloxone HCl (Narcan Inj) 0.4 mg IV.PUSH UNSCH PRN PRN Reason: SEE LABEL COMMENTS Ondansetron HCl (Zofran Inj) 4 mg IV.PUSH Q6H PRN PRN Reason: NAUSEA OR VOMITING Pharmacy Profile Note (Vancomycin Consult Pharmacy) 1 each OTHER UNSCH PRN PRN Reason: Pharmacy to dose Sodium Chloride (Ns Flush) 2 ml IV.FLUSH BID MAE Last Admin: 03/03/18 20:20 Dose: Not Given Sodium Chloride (Ns Flush) 2 ml IV.FLUSH UNSCH PRN PRN Reason: FLUSH AFTER USING IV ACCESS Allergies Allergy/AdvReac Type Severity Reaction Status Date / Time No Known Allergies Allergy Unverified 08/10/17 12:27 Home Medications Medication Instructions Recorded Confirmed Type metformin 500 mg PO BID 03/02/18 03/03/18 History Exam Vital signs: Vital Signs 03/02/18 22:48 03/03/18 00:00 03/03/18 04:00 Temperature 99.8 F H 99 F Pulse Rate 111 H 110 H Respiratory Rate 16 18 15 Blood Pressure 95/54 L 127/63 Pulse Oximetry 97 97 03/03/18 08:00 03/03/18 08:28 03/03/18 08:52 Temperature 99 F Pulse Rate 107 H Respiratory Rate 18 18 Blood Pressure 125/77 Pulse Oximetry 97 98 03/03/18 10:34 03/03/18 12:00 03/03/18 14:50 Temperature 98 F Pulse Rate 94 H Respiratory Rate 18 18 18 Blood Pressure 109/69 Pulse Oximetry 99 03/03/18 16:00 Temperature 98.1 F Pulse Rate 101 H Respiratory Rate 18 Blood Pressure 130/72 Pulse Oximetry 98 Intake & Output 03/03/18 03/03/18 03/04/18 06:59 18:59 06:59 Intake Total 1340 / 1340 1050 / 1050 Balance 1340 / 1340 1050 / 1050 Weight 76.4 kg Intake: IV 1100 / 1100 1050 / 1050 NS Inj 1,000 ML @ 100 mls/hr IV 1000 / 1000 1000 / 1000 .CONT .Q10H MAE Rx#:[id number] Zosyn 3.375 GM Premix 50 ML @ 100 / 100 50 / 50 100 mls/hr IV.SIG Q8H MAE Rx#: [id number] Oral 240 / 240 Other: # Voids 1 Date of Last Bowel Movement 03/02/18 03/02/18 # Bowel Movements 1 - Constitutional no acute distress - Routine HEENT Exam Head: Present: normocephalic, atraumatic - Routine Respiratory Exam Absent: accessory muscle use - Routine Cardiovascular Exam Present: RRR - Routine Abdominal Exam Present: soft. Absent: distended - Routine Extremities Exam Comments: Focused evaluation in the left upper extremity demonstrates volar wrist wound, superficial, proximal to the level of the wrist flexion crease. There is surrounding edema and erythema extending to the thenar eminence and proximally up to the midforearm. There is no underlying fluctuance. There is painless passive range of motion of the wrist. There is painless passive motion of the fingers/flexor tendons. There is full Hand range of motion. No lymphadenopathy. Sensation is intact to median, radial, ulnar nerve distribution. - Routine Neurological Exam Present: alert, oriented X3 Results - Labs Result Diagrams: 03/03/18 05:25 03/03/18 05:25 Labs: Laboratory Results - last 24 hr 03/02/18 03/03/18 03/03/18 20:54 05:25 05:25 WBC 9.5 RBC 3.06 L Hgb 9.9 L Hct 27.8 L MCV 90.9 MCH 32.3 MCHC 35.5 RDW 11.5 L Plt Count 256 MPV 7.9 Neut % (Auto) 81.0 H Lymph % (Auto) 3.3 L [place] % (Auto) 6.4 Eos % (Auto) 9.0 H Baso % (Auto) 0.3 Neut # (Auto) 7.7 Lymph # (Auto) 0.3 L [place] # (Auto) 0.6 Eos # (Auto) 0.9 H Baso # (Auto) 0.0 WBC Differential . Differential Comment Auto diff final Sodium 139 Potassium 3.7 Chloride 108 H D Carbon Dioxide 22.9 Anion Gap 8 BUN 11 Creatinine 1.06 Estimated GFR 75 L POC Glucose 294 H Random Glucose 151 H D Calcium 7.6 L Total Bilirubin 0.6 AST 24 ALT 26 Alkaline Phosphatase 126 H Total Protein 7.4 D Albumin 2.5 L 03/03/18 03/03/18 03/03/18 07:45 11:46 17:39 WBC RBC Hgb Hct MCV MCH MCHC RDW Plt Count MPV Neut % (Auto) Lymph % (Auto) [place] % (Auto) Eos % (Auto) Baso % (Auto) Neut # (Auto) Lymph # (Auto) [place] # (Auto) Eos # (Auto) Baso # (Auto) WBC Differential Differential Comment Sodium Potassium Chloride Carbon Dioxide Anion Gap BUN Creatinine Estimated GFR POC Glucose 163 H 222 H 111 H Random Glucose Calcium Total Bilirubin AST ALT Alkaline Phosphatase Total Protein Albumin 03/03/18 20:08 WBC RBC Hgb Hct MCV MCH MCHC RDW Plt Count MPV Neut % (Auto) Lymph % (Auto) [place] % (Auto) Eos % (Auto) Baso % (Auto) Neut # (Auto) Lymph # (Auto) [place] # (Auto) Eos # (Auto) Baso # (Auto) WBC Differential Differential Comment Sodium Potassium Chloride Carbon Dioxide Anion Gap BUN Creatinine Estimated GFR POC Glucose 289 H Random Glucose Calcium Total Bilirubin AST ALT Alkaline Phosphatase Total Protein Albumin - Diagnostic results Imaging: Impressions Wrist MRI 03/03/18 10:55 CONCLUSION: 1. Findings with be consistent with a superficial cellulitis involving the palmar or ventral aspect of the forearm and hand. 2. The flexor compartment so far is uninvolved. Assessment and Plan - Assessment and Plan 47-year-old gentleman with diabetes who presents status post workplace injury to the left volar wrist. CT scan and MRI were independently reviewed by myself. There is no evidence of subcutaneous or deep abscess. No evidence of septic wrist or tenosynovitis. Clinical evaluation in combination with imaging is consistent with cellulitis. No plans for surgical intervention. Recommend continued IV antibiotic therapy, with transition to oral antibiotics and 48-72 hours, pending clinical course. Orthopedic hand surgery to continue to follow patient for improvement. Please do not hesitate to contact us with any questions or concerns regarding care.
[2018-03-03] MEDS: Vancomycin Inj 1,250 MG in Sodium Chlor 0.9% Inj 250 ML IV.SIG SCH (21:01)
[2018-03-04] MEDS: Piperacil/Tazo 3.375 GM Premix 50 ML IV.SIG SCH ×3 (04:29→20:10)
[2018-03-04] MEDS: Acetaminophen 325 MG Tablet PO PRN (05:20)
[2018-03-04] MEDS: Insulin NovoLOG Aspart Correctional Sugar Inj SQ SCH ×4 (07:48→21:18)
--- NOTE | 2018-03-04 08:10 | P.PNOP ---
Subjective Interval history: Febrile overnight. Endorses pain is much improved. Denies other complaint. Physical Exam Vital signs: Vital Signs 03/03/18 08:28 03/03/18 08:52 03/03/18 10:34 Temperature Pulse Rate Respiratory Rate 18 18 Blood Pressure Pulse Oximetry 98 03/03/18 12:00 03/03/18 14:50 03/03/18 16:00 Temperature 98 F 98.1 F Pulse Rate 94 H 101 H Respiratory Rate 18 18 18 Blood Pressure 109/69 130/72 Pulse Oximetry 99 98 03/03/18 20:00 03/04/18 00:00 03/04/18 04:00 Temperature 97.8 F 98.7 F 102.2 F H Pulse Rate 107 H 72 119 H Respiratory Rate 18 20 20 Blood Pressure 130/67 142/72 H 158/71 H Pulse Oximetry 99 98 96 Intake & Output 03/03/18 03/04/18 03/04/18 18:59 06:59 18:59 Intake Total 1050 / 1050 842.5 / 842.5 Balance 1050 / 1050 842.5 / 842.5 Weight 80.1 kg Intake: IV 1050 / 1050 362.5 / 362.5 NS Inj 1,000 ML @ 100 mls/hr IV 1000 / 1000 .CONT .Q10H MAE Rx#:[id number] Zosyn 3.375 GM Premix 50 ML @ 50 / 50 100 / 100 100 mls/hr IV.SIG Q8H MAE Rx#: [id number] Vancomycin Inj 1,250 MG In NS 262.5 / 262.5 Inj 250 ML @ 250 mls/hr IV.SIG Q12H MAE Rx#:[id number] Oral 480 / 480 Other: # Voids 2 Date of Last Bowel Movement 03/02/18 03/03/18 - Routine Extremities Exam Comments: Focused evaluation of the left upper extremity demonstrates epidermal desquamation which was removed at bedside there is a small, subcentimeter puncture wound about the volar wrist. No purulence. Focal erythema extending proximally to the forearm. No pain with passive wrist range of motion. Full hand range of motion. Sensation is intact throughout the hand. Results - Labs CBC & Chem 7: 03/03/18 05:25 03/03/18 05:25 Laboratory Results - last 24 hr 03/03/18 03/03/18 03/03/18 11:46 17:39 20:08 POC Glucose 222 H 111 H 289 H 03/04/18 07:26 POC Glucose 169 H Microbiology 03/02/18 11:34 Abscess - Arm Gram Stain - Final 03/02/18 11:34 Abscess - Arm Wound Culture - Preliminary S. aureus MRSA 03/02/18 10:42 Blood - Peripheral Aerobic Blood Culture - Preliminary No growth in 1 day 03/02/18 10:42 Blood - Peripheral Anaerobic Blood Culture - Preliminary No growth in 1 day 03/02/18 10:35 Blood - Peripheral Aerobic Blood Culture - Preliminary No growth in 1 day 03/02/18 10:35 Blood - Peripheral Anaerobic Blood Culture - Preliminary No growth in 1 day - Imaging Impressions Wrist MRI 03/03/18 10:55 CONCLUSION: 1. Findings with be consistent with a superficial cellulitis involving the palmar or ventral aspect of the forearm and hand. 2. The flexor compartment so far is uninvolved. Assessment and Plan - Assessment and Plan 47-year-old gentleman with diabetes who presents status post workplace injury to the left volar wrist. Evaluation is consistent with left upper extremity cellulitis with small, volar wrist puncture wound. No imaging or clinical evidence of abscess. No plans for surgical intervention. Recommend continued IV antibiotic therapy, with transition to oral antibiotics and 48-72 hours, pending clinical course. Orthopedic hand surgery to continue to follow patient for improvement. Please do not hesitate to contact us with any questions or concerns regarding care.
[2018-03-04] MEDS ORDERED: Pharmacy Ordered Lab Info OTHER ONE (08:45)
[2018-03-04] MEDS: Vancomycin Inj 1,250 MG in Sodium Chlor 0.9% Inj 250 ML IV.SIG SCH ×2 (08:53→20:10)
[2018-03-04] MEDS: Sod Chloride 0.9% Inj 1,000 ML IV.CONT SCH ×3 (09:25→20:10)
--- NOTE | 2018-03-04 11:05 | P.PNIM ---
Subjective Interval history: f/u; left hand infection in no acute distress. pain is fairly controlled. T max 102.2. swelling of the left hand is better. d/w the RN. Physical Exam Vital signs: Vital Signs 03/03/18 12:00 03/03/18 14:50 03/03/18 16:00 Temperature 98 F 98.1 F Pulse Rate 94 H 101 H Respiratory Rate 18 18 18 Blood Pressure 109/69 130/72 Pulse Oximetry 99 98 03/03/18 20:00 03/04/18 00:00 03/04/18 04:00 Temperature 97.8 F 98.7 F 102.2 F H Pulse Rate 107 H 72 119 H Respiratory Rate 18 20 20 Blood Pressure 130/67 142/72 H 158/71 H Pulse Oximetry 99 98 96 03/04/18 08:00 Temperature 99.5 F Pulse Rate 104 H Respiratory Rate 17 Blood Pressure 117/58 L Pulse Oximetry 97 Intake & Output 03/03/18 03/04/18 03/04/18 18:59 06:59 18:59 Intake Total 1050 / 1050 842.5 / 842.5 1000 / 1000 Balance 1050 / 1050 842.5 / 842.5 1000 / 1000 Weight 80.1 kg Intake: IV 1050 / 1050 362.5 / 362.5 1000 / 1000 NS Inj 1,000 ML @ 100 mls/hr IV 1000 / 1000 1000 / 1000 .CONT .Q10H MAE Rx#:[id number] Zosyn 3.375 GM Premix 50 ML @ 50 / 50 100 / 100 100 mls/hr IV.SIG Q8H MAE Rx#: [id number] Vancomycin Inj 1,250 MG In NS 262.5 / 262.5 Inj 250 ML @ 250 mls/hr IV.SIG Q12H MAE Rx#:[id number] Oral 480 / 480 Other: # Voids 2 Date of Last Bowel Movement 03/02/18 03/03/18 - Constitutional no acute distress - Routine Respiratory Exam Present: CTA bilaterally - Routine Cardiovascular Exam Present: RRR - Routine Abdominal Exam Present: soft - Routine Extremities Exam Comments: swelling of the left hand has improved. - Routine Neurological Exam Present: alert, oriented X3 Results - Labs CBC & Chem 7: 03/03/18 05:25 03/03/18 05:25 Laboratory Results - last 24 hr 03/03/18 03/03/18 03/03/18 11:46 17:39 20:08 POC Glucose 222 H 111 H 289 H Vancomycin Trough 03/04/18 03/04/18 07:26 08:30 POC Glucose 169 H Vancomycin Trough 8.9 Microbiology 03/02/18 11:34 Abscess - Arm Gram Stain - Final 03/02/18 11:34 Abscess - Arm Wound Culture - Final S. aureus MRSA 03/02/18 10:42 Blood - Peripheral Aerobic Blood Culture - Preliminary No growth in 1 day 03/02/18 10:42 Blood - Peripheral Anaerobic Blood Culture - Preliminary No growth in 1 day 03/02/18 10:35 Blood - Peripheral Aerobic Blood Culture - Preliminary No growth in 1 day 03/02/18 10:35 Blood - Peripheral Anaerobic Blood Culture - Preliminary No growth in 1 day - Imaging Impressions Wrist MRI 03/03/18 10:55 CONCLUSION: 1. Findings with be consistent with a superficial cellulitis involving the palmar or ventral aspect of the forearm and hand. 2. The flexor compartment so far is uninvolved. Assessment and Plan - Plan Severe sepsis: Elevated WBC>11, HR>100 and Lactic acid>2.0. Source likely 2/2 Cellulitis of forearm of left UE s/p Vancomycin IV and Zosyn x 1; Continue with IV abs . wound culture with MRSA and blood cultures negative so far; will dc Zosyn if blood cultures remain negative. Cellulitis left forearm, wrist and hand Continue with above antibiotics including Zosyn and Vancomycin IV CT forearm noted with Superficial soft tissue swelling without a well- defined focal fluid collection MRI left wrist with superficial cellulitis hand surgery evaluation appreciated and no plan for surgical intervention. Diabetes type II Hold Oral Metformin Start ISS +FSBG monitoring hypokalemia s/p Replacement in the ED, monitor electrolyte Normochromic normocytic anemia Monitor H/H and transfuse accordingly Mild Hyponatremia Monitor Electrolyte DVT prophylaxis: B-SCDs Discharge Planning: dc home within the next 2-3 days pending clinical improvement.
[2018-03-04] MEDS: Ibuprofen 400 MG Tablet PO PRN (20:09)
[2018-03-05] MEDS: Piperacil/Tazo 3.375 GM Premix 50 ML IV.SIG SCH ×3 (04:00→20:28)
[2018-03-05] MEDS: Sod Chloride 0.9% Inj 1,000 ML IV.CONT SCH ×2 (04:39→13:20)
[2018-03-05] MEDS: Insulin NovoLOG Aspart Correctional Sugar Inj SQ SCH ×4 (07:35→20:30)
--- NOTE | 2018-03-05 08:40 | P.PNOP ---
Subjective Interval history: No acute overnight events. Endorses left upper extremity pain improved. Denies current complaints. Physical Exam Vital signs: Vital Signs 03/04/18 12:00 03/04/18 12:25 03/04/18 13:49 Temperature 98.3 F Pulse Rate 100 H Respiratory Rate 18 18 Blood Pressure 105/65 Pulse Oximetry 97 97 03/04/18 16:00 03/04/18 20:00 03/05/18 00:00 Temperature 99.0 F 99.4 F 98.4 F Pulse Rate 108 H 98 H 86 Respiratory Rate 16 18 18 Blood Pressure 164/82 H 144/72 H 138/74 Pulse Oximetry 97 98 96 Intake & Output 03/04/18 03/05/18 03/05/18 18:59 06:59 18:59 Intake Total 1887.5 / 1887.5 3012.5 / 3012.5 Balance 1887.5 / 1887.5 3012.5 / 3012.5 Weight 80 kg Intake: IV 1312.5 / 1312.5 2362.5 / 2362.5 NS Inj 1,000 ML @ 100 mls/hr IV 1000 / 1000 1999 / 1999 .CONT .Q10H MAE Rx#:[id number] Zosyn 3.375 GM Premix 50 ML @ 50 / 50 100 / 100 100 mls/hr IV.SIG Q8H MAE Rx#: [id number] Vancomycin Inj 1,250 MG In NS 262.5 / 262.5 262.5 / 262.5 Inj 250 ML @ 250 mls/hr IV.SIG Q12H MAE Rx#:[id number] Oral 575 / 575 650 / 650 Other: # Voids 4 5 Date of Last Bowel Movement 03/03/18 03/03/18 # Bowel Movements 0 - Constitutional no acute distress - Routine Extremities Exam Comments: Focused evaluation of the left upper extremity demonstrates focal erythema, edema to the volar wrist with a punctate puncture wound proximal to the wrist flexion crease. There is a scant amount of purulent discharge from the wound with no evident underlying abscess. Improved erythema, edema from initial examination. Painless wrist range of motion. Full hand range of motion. Sensation is intact throughout the hand. Results - Labs CBC & Chem 7: 03/03/18 05:25 03/03/18 05:25 Laboratory Results - last 24 hr 03/04/18 03/04/18 03/04/18 08:30 11:59 15:52 POC Glucose 179 H 164 H Vancomycin Trough 8.9 03/04/18 03/05/18 20:08 07:21 POC Glucose 150 H 217 H Vancomycin Trough Microbiology 03/02/18 10:42 Blood - Peripheral Aerobic Blood Culture - Preliminary No growth in 2 days 03/02/18 10:42 Blood - Peripheral Anaerobic Blood Culture - Preliminary No growth in 2 days 03/02/18 10:35 Blood - Peripheral Aerobic Blood Culture - Preliminary No growth in 2 days 03/02/18 10:35 Blood - Peripheral Anaerobic Blood Culture - Preliminary No growth in 2 days 03/02/18 11:34 Abscess - Arm Gram Stain - Final 03/02/18 11:34 Abscess - Arm Wound Culture - Final S. aureus MRSA Assessment and Plan - Assessment and Plan 47-year-old gentleman with diabetes who presents status post workplace injury to the left volar wrist. Evaluation is consistent with left upper extremity cellulitis with small, volar wrist puncture wound. Small pustule expressed on exam today. No evidence of significant underlying abscess, amenable to surgical intervention. No plans for surgical intervention; patient appears to be clinically improving with medical management. Continue IV antibiotics, with transition to orals for the treatment of cellulitis. Orthopedic hand surgery to sign off at present time. Please reconsult us, should his symptoms acutely worsen. He may follow-up in our clinic and 1 week' s time for a wound check. All questions and concerns were addressed at bedside.
[2018-03-05] MEDS: Vancomycin Inj 1,250 MG in Sodium Chlor 0.9% Inj 250 ML IV.SIG SCH ×2 (09:00→20:28)
--- NOTE | 2018-03-05 10:34 | P.PNIM ---
Subjective Interval history: f/u; left hand cellulitis in no acute distress. swelling of the left hand has improved. no fever. Physical Exam Vital signs: Vital Signs 03/04/18 12:00 03/04/18 12:25 03/04/18 13:49 Temperature 98.3 F Pulse Rate 100 H Respiratory Rate 18 18 Blood Pressure 105/65 Pulse Oximetry 97 97 03/04/18 16:00 03/04/18 20:00 03/05/18 00:00 Temperature 99.0 F 99.4 F 98.4 F Pulse Rate 108 H 98 H 86 Respiratory Rate 16 18 18 Blood Pressure 164/82 H 144/72 H 138/74 Pulse Oximetry 97 98 96 03/05/18 07:49 03/05/18 08:00 Temperature 98.2 F Pulse Rate 99 H Respiratory Rate 18 17 Blood Pressure 154/81 H Pulse Oximetry 98 Intake & Output 03/04/18 03/05/18 03/05/18 18:59 06:59 18:59 Intake Total 1887.5 / 1887.5 3012.5 / 3012.5 Balance 1887.5 / 1887.5 3012.5 / 3012.5 Weight 80 kg Intake: IV 1312.5 / 1312.5 2362.5 / 2362.5 NS Inj 1,000 ML @ 100 mls/hr IV 1000 / 1000 1999 / 1999 .CONT .Q10H MAE Rx#:[id number] Zosyn 3.375 GM Premix 50 ML @ 50 / 50 100 / 100 100 mls/hr IV.SIG Q8H MAE Rx#: [id number] Vancomycin Inj 1,250 MG In NS 262.5 / 262.5 262.5 / 262.5 Inj 250 ML @ 250 mls/hr IV.SIG Q12H MAE Rx#:[id number] Oral 575 / 575 650 / 650 Other: # Voids 4 5 Date of Last Bowel Movement 03/03/18 03/03/18 03/04/18 # Bowel Movements 0 - Constitutional no acute distress - Routine Respiratory Exam Present: CTA bilaterally - Routine Cardiovascular Exam Present: RRR - Routine Abdominal Exam Present: soft - Routine Extremities Exam Comments: swelling of the left hand has improved. - Routine Neurological Exam Present: alert, oriented X3 Results - Labs CBC & Chem 7: 03/03/18 05:25 03/03/18 05:25 Laboratory Results - last 24 hr 03/04/18 03/04/18 03/04/18 11:59 15:52 20:08 POC Glucose 179 H 164 H 150 H 03/05/18 07:21 POC Glucose 217 H Microbiology 03/02/18 10:42 Blood - Peripheral Aerobic Blood Culture - Preliminary No growth in 2 days 03/02/18 10:42 Blood - Peripheral Anaerobic Blood Culture - Preliminary No growth in 2 days 03/02/18 10:35 Blood - Peripheral Aerobic Blood Culture - Preliminary No growth in 2 days 03/02/18 10:35 Blood - Peripheral Anaerobic Blood Culture - Preliminary No growth in 2 days 03/02/18 11:34 Abscess - Arm Gram Stain - Final 03/02/18 11:34 Abscess - Arm Wound Culture - Final S. aureus MRSA Assessment and Plan - Plan Severe sepsis: Elevated WBC>11, HR>100 and Lactic acid>2.0. Source likely 2/2 Cellulitis of forearm of left UE s/p Vancomycin IV and Zosyn x 1; Continue with IV abs . wound culture with MRSA and blood cultures negative so far. Cellulitis left forearm, wrist and hand Continue with above antibiotics . CT forearm noted with Superficial soft tissue swelling without a well- defined focal fluid collection MRI left wrist with superficial cellulitis hand surgery evaluation appreciated and no plan for surgical intervention. Diabetes type II Hold Oral Metformin Start ISS +FSBG monitoring hypokalemia s/p Replacement in the ED, monitor electrolyte Normochromic normocytic anemia Monitor H/H and transfuse accordingly Mild Hyponatremia Monitor Electrolyte DVT prophylaxis: B-SCDs Discharge Planning: home tomorrow if continues to improve.
[2018-03-06] MEDS: Sod Chloride 0.9% Inj 1,000 ML IV.CONT SCH ×2 (05:24→11:25)
[2018-03-06] MEDS: Piperacil/Tazo 3.375 GM Premix 50 ML IV.SIG SCH ×3 (05:43→20:00)
[2018-03-06] MEDS: Insulin NovoLOG Aspart Correctional Sugar Inj SQ SCH ×4 (07:14→20:04)
[2018-03-06] MEDS ORDERED: Pharmacy Ordered Lab Info OTHER ONE (08:45)
[2018-03-06] MEDS: Vancomycin Inj 1,250 MG in Sodium Chlor 0.9% Inj 250 ML IV.SIG SCH ×2 (08:50→20:29)
--- NOTE | 2018-03-06 09:03 | P.PNIM ---
Subjective Interval history: f/u; left hand infection in no acute distress. but uncomfortable with the pain to the left hand. no fever. d/w the RN at the bedside. Physical Exam Vital signs: Vital Signs 03/05/18 12:00 03/05/18 12:17 03/05/18 12:20 Temperature 98.5 F Pulse Rate 104 H Respiratory Rate 20 18 Blood Pressure 158/85 H Pulse Oximetry 98 98 03/05/18 16:00 03/05/18 16:42 03/05/18 20:00 Temperature 98.9 F 99.5 F Pulse Rate 95 H 104 H Respiratory Rate 16 18 18 Blood Pressure 146/67 H 166/92 H Pulse Oximetry 97 98 03/06/18 00:00 03/06/18 07:41 03/06/18 08:00 Temperature 98.9 F 99.0 F Pulse Rate 92 H 96 H Respiratory Rate 18 18 18 Blood Pressure 152/79 H 172/83 H Pulse Oximetry 96 93 L Intake & Output 03/05/18 03/06/18 03/06/18 18:59 06:59 18:59 Intake Total 2127.5 / 2127.5 1842.5 / 1842.5 Balance 2127.5 / 2127.5 1842.5 / 1842.5 Weight 80 kg Intake: IV 1312.5 / 1312.5 1362.5 / 1362.5 NS Inj 1,000 ML @ 100 mls/hr IV 1000 / 1000 1000 / 1000 .CONT .Q10H MAE Rx#:[id number] Zosyn 3.375 GM Premix 50 ML @ 50 / 50 100 / 100 100 mls/hr IV.SIG Q8H MAE Rx#: [id number] Vancomycin Inj 1,250 MG In NS 262.5 / 262.5 262.5 / 262.5 Inj 250 ML @ 250 mls/hr IV.SIG Q12H MAE Rx#:[id number] Oral 815 / 815 480 / 480 Other: # Voids 4 3 Date of Last Bowel Movement 03/04/18 03/04/18 # Bowel Movements 1 - Constitutional no acute distress - Routine Respiratory Exam Present: CTA bilaterally - Routine Cardiovascular Exam Present: RRR - Routine Abdominal Exam Present: soft - Routine Extremities Exam Comments: no pedal edema. still with some swelling/ tenderness and erythema over the left hand/wrist. - Routine Neurological Exam Present: alert, oriented X3 Results - Labs CBC & Chem 7: 03/03/18 05:25 03/03/18 05:25 Laboratory Results - last 24 hr 03/05/18 03/05/18 03/05/18 11:53 16:29 20:30 POC Glucose 188 H 173 H 181 H 03/06/18 07:13 POC Glucose 147 H Microbiology 03/02/18 10:42 Blood - Peripheral Aerobic Blood Culture - Preliminary No growth in 3 days 03/02/18 10:42 Blood - Peripheral Anaerobic Blood Culture - Preliminary No growth in 3 days 03/02/18 10:35 Blood - Peripheral Aerobic Blood Culture - Preliminary No growth in 3 days 03/02/18 10:35 Blood - Peripheral Anaerobic Blood Culture - Preliminary No growth in 3 days Assessment and Plan - Plan Severe sepsis: Elevated WBC>11, HR>100 and Lactic acid>2.0. Source likely 2/2 Cellulitis of forearm of left UE wound culture with MRSA and blood cultures negative so far. continue IV Vancomycin and Zosyn. Cellulitis left forearm, wrist and hand Continue with above antibiotics . CT forearm noted with Superficial soft tissue swelling without a well- defined focal fluid collection MRI left wrist with superficial cellulitis hand surgery evaluation appreciated and no plan for surgical intervention. continue with pain control. Diabetes type II Hold Oral Metformin Start ISS +FSBG monitoring hypokalemia s/p Replacement in the ED, monitor electrolyte Normochromic normocytic anemia Monitor H/H and transfuse accordingly Mild Hyponatremia Monitor Electrolyte DVT prophylaxis: B-SCDs Discharge Planning: dc home tomorrow if left hand infection/ pain improves.
--- NOTE | 2018-03-06 11:28 | P.PNOP ---
Subjective Interval history: No acute overnight events. No pain to be well controlled. Denies other complaints. Physical Exam Vital signs: Vital Signs 03/05/18 12:00 03/05/18 12:17 03/05/18 12:20 Temperature 98.5 F Pulse Rate 104 H Respiratory Rate 20 18 Blood Pressure 158/85 H Pulse Oximetry 98 98 03/05/18 16:00 03/05/18 16:42 03/05/18 20:00 Temperature 98.9 F 99.5 F Pulse Rate 95 H 104 H Respiratory Rate 16 18 18 Blood Pressure 146/67 H 166/92 H Pulse Oximetry 97 98 03/06/18 00:00 03/06/18 07:41 03/06/18 08:00 Temperature 98.9 F 99.0 F Pulse Rate 92 H 96 H Respiratory Rate 18 18 18 Blood Pressure 152/79 H 172/83 H Pulse Oximetry 96 93 L Intake & Output 03/05/18 03/06/18 03/06/18 18:59 06:59 18:59 Intake Total 2127.5 / 2127.5 1842.5 / 1842.5 262.5 / 262.5 Balance 2127.5 / 2127.5 1842.5 / 1842.5 262.5 / 262.5 Weight 80 kg Intake: IV 1312.5 / 1312.5 1362.5 / 1362.5 262.5 / 262.5 NS Inj 1,000 ML @ 100 mls/hr IV 1000 / 1000 1000 / 1000 .CONT .Q10H MAE Rx#:[id number] Zosyn 3.375 GM Premix 50 ML @ 50 / 50 100 / 100 100 mls/hr IV.SIG Q8H MAE Rx#: [id number] Vancomycin Inj 1,250 MG In NS 262.5 / 262.5 262.5 / 262.5 262.5 / 262.5 Inj 250 ML @ 250 mls/hr IV.SIG Q12H MAE Rx#:[id number] Oral 815 / 815 480 / 480 Other: # Voids 4 3 Date of Last Bowel Movement 03/04/18 03/04/18 # Bowel Movements 1 - Constitutional no acute distress - Routine Extremities Exam Comments: Focused evaluation of the left upper extremity demonstrates improved cellulitis and edema about the hand and forearm. There is a focal circumferential region of cellulitis about the wrist about the puncture wound. There is serous drainage on exam without focal underlying abscess. Full hand range of motion. Sensation is intact. Results - Labs CBC & Chem 7: 03/03/18 05:25 03/03/18 05:25 Laboratory Results - last 24 hr 03/05/18 03/05/18 03/05/18 11:53 16:29 20:30 POC Glucose 188 H 173 H 181 H Vancomycin Trough 03/06/18 03/06/18 03/06/18 07:13 08:35 11:18 POC Glucose 147 H 247 H Vancomycin Trough 17.6 H Microbiology 03/02/18 10:42 Blood - Peripheral Aerobic Blood Culture - Preliminary No growth in 4 days 03/02/18 10:42 Blood - Peripheral Anaerobic Blood Culture - Preliminary No growth in 4 days 03/02/18 10:35 Blood - Peripheral Aerobic Blood Culture - Preliminary No growth in 4 days 03/02/18 10:35 Blood - Peripheral Anaerobic Blood Culture - Preliminary No growth in 4 days Assessment and Plan - Assessment and Plan 47-year-old gentleman with diabetes who presents status post workplace injury to the left volar wrist. Evaluation is consistent with left upper extremity cellulitis with small, volar wrist puncture wound. Serous drainage from wound today, no appreciable abscess on exam. Continue IV antibiotics, with transition to orals for the treatment of cellulitis. Agree with medicine plans for possible discharge on 03/07 pending continued clinical improvement. Following discharge, he may follow-up in our clinic and 1 week's time for a wound check. All questions and concerns were addressed at bedside.
[2018-03-07] MEDS: Piperacil/Tazo 3.375 GM Premix 50 ML IV.SIG SCH ×3 (03:22→21:28)
--- NOTE | 2018-03-07 08:07 | P.PNOP ---
Subjective Interval history: Mr. Jett is doing well as morning. Notes his pain is well-controlled. Denies current complaints. Physical Exam Vital signs: Vital Signs 03/06/18 11:19 03/06/18 12:31 03/06/18 16:49 Temperature 98.9 F Pulse Rate 84 Respiratory Rate 18 Blood Pressure 129/72 Pulse Oximetry 94 L 03/06/18 17:09 03/06/18 20:00 03/07/18 00:00 Temperature 98.2 F 98.3 F 98.8 F Pulse Rate 81 81 83 Respiratory Rate 18 Blood Pressure 112/62 143/78 H 115/79 Pulse Oximetry 94 L 94 L 94 L Intake & Output 03/06/18 03/07/18 03/07/18 18:59 06:59 18:59 Intake Total 1712.5 / 1712.5 482.5 / 482.5 Output Total 450 / 450 Balance 1712.5 / 1712.5 32.5 / 32.5 Weight 77.8 kg Intake: IV 312.5 / 312.5 362.5 / 362.5 Zosyn 3.375 GM Premix 50 ML @ 50 / 50 100 / 100 100 mls/hr IV.SIG Q8H MAE Rx#: [id number] Vancomycin Inj 1,250 MG In NS 262.5 / 262.5 262.5 / 262.5 Inj 250 ML @ 250 mls/hr IV.SIG Q12H MAE Rx#:[id number] Oral 1400 / 1400 120 / 120 Output: Urine 450 / 450 Other: # Voids 4 Date of Last Bowel Movement 03/06/18 03/06/18 - Constitutional no acute distress - Routine Extremities Exam Comments: Focused evaluation of the left upper extremity demonstrates improved edema, erythema with a focal region of erythema about the wrist surrounding the puncture wound. There is serous drainage is expressed through the wound with no evidence of interval improvement compared to prior exam. There is painless passive range of motion of the wrist. Full finger range of motion. Sensation is intact in the radial, ulnar distribution. Results - Labs CBC & Chem 7: 03/03/18 05:25 03/03/18 05:25 Laboratory Results - last 24 hr 03/06/18 03/06/18 03/06/18 08:35 11:18 16:24 POC Glucose 247 H 262 H Vancomycin Trough 17.6 H Microbiology 12/06/18 10:42 Blood - Peripheral Aerobic Blood Culture - Preliminary No growth in 4 days 03/02/18 10:42 Blood - Peripheral Anaerobic Blood Culture - Preliminary No growth in 4 days 03/02/18 10:35 Blood - Peripheral Aerobic Blood Culture - Preliminary No growth in 4 days 03/02/18 10:35 Blood - Peripheral Anaerobic Blood Culture - Preliminary No growth in 4 days Assessment and Plan - Assessment and Plan 47-year-old gentleman with diabetes who presents status post workplace injury to the left volar wrist. Evaluation is consistent with left upper extremity cellulitis with small, volar wrist puncture wound. Day 2 serous drainage from the wound with no evidence of interval improvement. Recommendations recommend left wrist irrigation and debridement given 2 days of serous wound drainage without significant improvement. Day 5 of IV antibiotics. Thank you effective now. Plan for him later today. Relative risks, benefits, expected postoperative course of surgery were reviewed at bedside. Dispo: Pending clinical improvement.
--- NOTE | 2018-03-07 09:26 | P.PNIM ---
Subjective Interval history: f/u; left hand infection in no acute distress. still with some swelling and pain to the left hand. no fever. Physical Exam Vital signs: Last Vital Signs Temp 97.9 F 03/07/18 08:00 Pulse 90 03/07/18 08:00 Resp 20 03/07/18 08:00 BP 175/82 H 03/07/18 08:00 Pulse Ox 95 03/07/18 08:00 Intake & Output 03/05/18 03/06/18 03/07/18 03/08/18 06:59 06:59 06:59 06:59 Intake Total 4900.0 / 4900.0 3970.0 / 3970.0 2195.0 / 2195.0 Output Total 450 / 450 Balance 4900.0 / 4900.0 3970.0 / 3970.0 1745.0 / 1745.0 Weight 80 kg 80 kg 77.8 kg Constitutional no acute distress Routine Respiratory Exam Present CTA bilaterally Routine Cardiovascular Exam Present RRR Routine Abdominal Exam Present soft Routine Extremities Exam Comments: still with some swelling/ tenderness of the left hand. Routine Neurological Exam Present alert and oriented X3 Results Labs CBC & Chem 7: 03/03/18 05:25 03/03/18 05:25 Labs: Microbiology 03/02/18 10:42 Blood - Peripheral Aerobic Blood Culture - Preliminary No growth in 4 days 03/02/18 10:42 Blood - Peripheral Anaerobic Blood Culture - Preliminary No growth in 4 days 03/02/18 10:35 Blood - Peripheral Aerobic Blood Culture - Preliminary No growth in 4 days 03/02/18 10:35 Blood - Peripheral Anaerobic Blood Culture - Preliminary No growth in 4 days Assessment and Plan Plan Severe sepsis: Elevated WBC>11, HR>100 and Lactic acid>2.0. Source likely 2/2 Cellulitis of forearm of left UE wound culture with MRSA and blood cultures negative so far. continue IV Vancomycin and Zosyn. Cellulitis left forearm, wrist and hand Continue with above antibiotics . CT forearm noted with Superficial soft tissue swelling without a well- defined focal fluid collection MRI left wrist with superficial cellulitis hand surgery re- evaluation appreciated; plan for I/D of the left hand later today. continue with pain control. Diabetes type II Hold Oral Metformin Start ISS +FSBG monitoring hypokalemia s/p Replacement in the ED, monitor electrolyte Normochromic normocytic anemia Monitor H/H and transfuse accordingly Mild Hyponatremia Monitor Electrolyte DVT prophylaxis: B-SCDs Discharge Planning: for I/D of the left hand later today; not ready for discharge. Progress Note: Quality VTE Deep Vein Thrombosis/Pulmonary Embolism Present on Admission: No
[2018-03-07] MEDS: Vancomycin Inj 1,250 MG in Sodium Chlor 0.9% Inj 250 ML IV.SIG SCH ×2 (09:28→20:11)
[2018-03-07] MEDS: Insulin NovoLOG Aspart Correctional Sugar Inj SQ SCH ×4 (09:51→20:10)
--- NOTE | 2018-03-07 13:00 | P.PNOP ---
Subjective Interval history: Patient continues to have pain and swelling over left wrist and base of left hand. Physical Exam Vital signs: Vital Signs 03/06/18 16:49 03/06/18 17:09 03/06/18 20:00 Temperature 98.2 F 98.3 F Pulse Rate 81 81 Respiratory Rate 18 18 18 Blood Pressure 112/62 143/78 H Pulse Oximetry 94 L 94 L 03/07/18 00:00 03/07/18 08:00 Temperature 98.8 F 97.9 F Pulse Rate 83 90 Respiratory Rate 18 20 Blood Pressure 115/79 175/82 H Pulse Oximetry 94 L 95 Intake & Output 03/06/18 03/07/18 03/07/18 18:59 06:59 18:59 Intake Total 1712.5 / 1712.5 482.5 / 482.5 262.5 / 262.5 Output Total 450 / 450 Balance 1712.5 / 1712.5 32.5 / 32.5 262.5 / 262.5 Weight 77.8 kg Intake: IV 312.5 / 312.5 362.5 / 362.5 262.5 / 262.5 Zosyn 3.375 GM Premix 50 ML @ 50 / 50 100 / 100 0 / 0 100 mls/hr IV.SIG Q8H MAE Rx#: [id number] Vancomycin Inj 1,250 MG In NS 262.5 / 262.5 262.5 / 262.5 262.5 / 262.5 Inj 250 ML @ 250 mls/hr IV.SIG Q12H MAE Rx#:[id number] Oral 1400 / 1400 120 / 120 Output: Urine 450 / 450 Other: # Voids 4 Date of Last Bowel Movement 03/06/18 03/06/18 Narrative: Left upper extremity: No pain with shoulder elbow range of motion. He has swelling and erythema over his wrist with previous skin breakdown. He has pain and swelling over the base of the left hand as well over the thenar eminence. He has intact sensation of the radial ulnar median nerve good capillary refills. Results - Labs CBC & Chem 7: 03/03/18 05:25 03/03/18 05:25 Laboratory Results - last 24 hr 03/06/18 03/07/18 16:24 09:25 POC Glucose 262 H 160 H Microbiology 03/02/18 10:42 Blood - Peripheral Aerobic Blood Culture - Final No growth in 5 days 03/02/18 10:42 Blood - Peripheral Anaerobic Blood Culture - Final No growth in 5 days 03/02/18 10:35 Blood - Peripheral Aerobic Blood Culture - Final No growth in 5 days 03/02/18 10:35 Blood - Peripheral Anaerobic Blood Culture - Final No growth in 5 days Assessment and Plan - Assessment and Plan 47-year-old gentleman with diabetes who presents status post workplace injury to the left volar wrist. Evaluation is consistent with left upper extremity cellulitis with small, volar wrist puncture wound. Day 2 serous drainage from the wound with no evidence of interval improvement. Recommendations recommend left wrist irrigation and debridement given 2 days of serous wound drainage without significant improvement. Day 5 of IV antibiotics. N.p.o. Dr. Sherman will perform procedure today for irrigation and debridement of the left wrist. Consents are on the chart and Dr. Sherman will see prior to surgery. Patient has marked
[2018-03-07] MEDS ORDERED: Metoprolol Tartrate 25 MG Tablet PO ONE (14:00)
[2018-03-07] MEDS ORDERED: Sodium Chlor 0.9% Inj 500 ML IV.CONT ONE (14:00)
[2018-03-07] MEDS ORDERED: Chlorhexidine Gluconate 2% 1 Pack (2 Cloths) TOPICAL ONE (14:00)
[2018-03-07] MEDS ORDERED: Morphine Inj 4 MG/ML Vial IV.PUSH PRN (16:23)
[2018-03-07] MEDS ORDERED: Post-op Orders (for Pharmacy) OTHER STA (16:23)
--- NOTE | 2018-03-07 16:29 | P.OP ---
- Preoperative Diagnosis (1) Abscess of bursa of left wrist (2) Cellulitis of forearm, left Date of procedure: 03/07/18 Procedure: Irrigation and debridement of left wrist abscess Anesthesia: GETA Surgeon: Tio Jefferson MD [id number] Programmer Analyst: Ronald Hernández PA-C The surgical procedure was assisted by my physician assistant chief of police. My P.A. presence was necessary throughout this case for the manipulation and positioning of the surgical extremity. My P.A. was assisting me throughout the duration of this procedure. The skill set of a physician assistant chief of police was medically necessary to complete this procedure. During the surgical case the surgical instrument maker was working at the back table and the physician assistant chief of police was directly assisting me. Operation and Findings: Jesse was seen and evaluated preoperatively. He had a penetrating injury at work approximately 5 days ago. He separately developed infection around the left wrist. He has been on IV antibiotics. He has had some improvement but he still has continued swelling, erythema, and pain around the wrist. The risk and benefits of surgery were discussed. Informed consent was obtained. Operative site was marked. He is brought the operating. He was given IV sedation and general anesthesia. Left arm was prepped with alcohol followed by Hibiclens and draped in usual sterile fashion. Timeout procedure was performed. Procedure began with a 3 inch incision over the volar aspect of the forearm. Incision was centered over the center of the erythema and swelling. Subcutaneous tissue was dissected with Bovie. At this point the flexor retinaculum was open. There was a small amount of purulent fluid around the flexor retinaculum. The flexor tendon compartment was opened. There was no significant purulence in the flexor tendon compartment. The incision was extended beyond the wrist crease. There is a small amount of purulent drainage along the base of the thenar eminence. Culture specimens were obtained from the fluid. Curettes were used to gently debride the infected tissue. Care was taken to avoid injury to the median nerve and the motor branches to the thenar muscles. The wound was now thoroughly irrigated. Wound appeared to be clean at this time. The incision was now closed with 3-0 PDS and 3-0 nylon. Sterile dressings were applied. Patient was awakened and transferred to recovery in stable condition.
[2018-03-07] MEDS ORDERED: fentaNYL Citrate Inj 100 MCG/2 ML Ampul ONE (16:35)
[2018-03-07] MEDS ORDERED: *morphine SULFATE 4 MG/ML PERIprocedure ONLY ONE ×2 (16:45→17:00)
[2018-03-07] MEDS: Senna/Docusate Sodium 8.6/50 MG Tablet PO SCH (20:00)
[2018-03-08] MEDS: Piperacil/Tazo 3.375 GM Premix 50 ML IV.SIG SCH ×3 (05:53→20:19)
[2018-03-08] MEDS: Insulin NovoLOG Aspart Correctional Sugar Inj SQ SCH ×4 (08:56→20:31)
[2018-03-08] MEDS: Vancomycin Inj 1,250 MG in Sodium Chlor 0.9% Inj 250 ML IV.SIG SCH ×2 (08:57→20:18)
[2018-03-08] MEDS: Senna/Docusate Sodium 8.6/50 MG Tablet PO SCH ×2 (08:57→20:21)
--- NOTE | 2018-03-08 09:54 | P.PNIM ---
Subjective Interval history: f/u; left hand cellulitis in no acute distress. pain is fairly controlled. T max 100.2. no new complaints. Physical Exam Vital signs: Last Vital Signs Temp 99.6 F 03/08/18 08:00 Pulse 90 03/08/18 08:00 Resp 16 03/08/18 08:00 BP 148/86 H 03/08/18 08:00 Pulse Ox 97 03/08/18 08:00 Intake & Output 03/06/18 03/07/18 03/08/18 03/09/18 06:59 06:59 06:59 06:59 Intake Total 3970.0 / 3970.0 2195.0 / 2195.0 2365.0 / 2365.0 Output Total 450 / 450 705 / 705 Balance 3970.0 / 3970.0 1745.0 / 1745.0 1660.0 / 1660.0 Weight 80 kg 77.8 kg 76.1 kg Constitutional no acute distress Routine Respiratory Exam Present CTA bilaterally Routine Cardiovascular Exam Present RRR Routine Abdominal Exam Present soft Routine Extremities Exam Comments: left forearm/hand covered with clean dressing. Routine Neurological Exam Present alert and oriented X3 Results Labs CBC & Chem 7: 03/03/18 05:25 03/08/18 05:57 Labs: Microbiology 03/02/18 10:42 Blood - Peripheral Aerobic Blood Culture - Final No growth in 5 days 03/02/18 10:42 Blood - Peripheral Anaerobic Blood Culture - Final No growth in 5 days 03/02/18 10:35 Blood - Peripheral Aerobic Blood Culture - Final No growth in 5 days 03/02/18 10:35 Blood - Peripheral Anaerobic Blood Culture - Final No growth in 5 days Assessment and Plan Plan Severe sepsis: Elevated WBC>11, HR>100 and Lactic acid>2.0. Source likely 2/2 Cellulitis of forearm of left UE wound culture with MRSA and blood cultures negative so far. continue IV Vancomycin and Zosyn. Cellulitis left forearm, wrist and hand s/p I/D of the left wrist Continue with above antibiotics . CT forearm noted with Superficial soft tissue swelling without a well- defined focal fluid collection MRI left wrist with superficial cellulitis follow the cultures continue with pain control. hand surgery following. Diabetes type II Hold Oral Metformin Start ISS +FSBG monitoring hypokalemia s/p Replacement in the ED, monitor electrolyte Normochromic normocytic anemia Monitor H/H and transfuse accordingly Mild Hyponatremia Monitor Electrolyte DVT prophylaxis: B-SCDs Discharge Planning: when cleared by hand surgery/ pending the cultures. Progress Note: Quality VTE Deep Vein Thrombosis/Pulmonary Embolism Present on Admission: No
[2018-03-08 11:34] LABS: Baso % (Auto) 0.7 % (0.0-2.0); Eos % (Auto) 15.5 % (0.0-4.0); Hematocrit 22.7 % (39.0-51.0); Hemoglobin 7.8 gm/dL (13.0-17.0); Lymph # (Auto) 0.7 th/mm3 (1.0-4.8); Lymph % (Auto) 11.1 % (9.0-44.0); Mean Corpuscular HGB Conc 34.3 % (32.0-36.0); Mean Corpuscular Hemoglobin 31.5 pg (27.0-34.0); Mean Corpuscular Volume 92.1 fL (80.0-100.0); Mean Platelet Volume 7.6 fL (7.0-11.0); Mono # (Auto) 0.8 th/mm3 (0.0-0.9); Mono % (Auto) 13.4 % (0.0-8.0); Neut # (Auto) 3.7 th/mm3 (1.8-7.7); Neut % (Auto) 59.3 % (16.0-70.0); Platelet Count 253 th/mm3 (150-450); Red Blood Count 2.46 mil/mm3 (4.50-5.90); Red Cell Distribution Width 11.8 % (11.6-17.2); White Blood Count 6.2 th/mm3 (4.0-11.0)
[2018-03-08 11:55] LABS: Albumin 2.3 g/dL (3.4-5.0); Calcium 7.1 mg/dL (8.5-10.1); Carbon Dioxide 27.3 meq/L (21.0-32.0); Potassium 3.2 meq/L (3.5-5.1); Total Protein 7.1 g/dL (6.4-8.2)
[2018-03-08] MEDS ORDERED: Potassium Chloride 10 MEQ ER Capsule PO ONE (14:00)
[2018-03-09] MEDS: Piperacil/Tazo 3.375 GM Premix 50 ML IV.SIG SCH ×3 (05:12→20:39)
[2018-03-09] MEDS: Insulin NovoLOG Aspart Correctional Sugar Inj SQ SCH ×4 (08:12→20:35)
[2018-03-09] MEDS: Vancomycin Inj 1,250 MG in Sodium Chlor 0.9% Inj 250 ML IV.SIG SCH ×2 (08:13→21:48)
[2018-03-09] MEDS: Senna/Docusate Sodium 8.6/50 MG Tablet PO SCH ×2 (08:14→20:40)
[2018-03-09 08:21] LABS: Hematocrit 25.3 % (39.0-51.0); Hemoglobin 9.5 gm/dL (13.0-17.0); Mean Corpuscular Hemoglobin 33.1 pg (27.0-34.0); Mean Corpuscular Volume 88.8 fL (80.0-100.0); Mean Platelet Volume 7.7 fL (7.0-11.0); Platelet Count 266 th/mm3 (150-450); Red Blood Count 2.85 mil/mm3 (4.50-5.90); Red Cell Distribution Width 12.1 % (11.6-17.2); White Blood Count 5.1 th/mm3 (4.0-11.0)
[2018-03-09 08:26] LABS: Mean Corpuscular HGB Conc 37.3 % (32.0-36.0)
[2018-03-09 09:04] LABS: Eosinophils 10 % (0-4); Lymphocytes 6 % (9-44); Monocytes 11 % (0-8); Myelocytes 1 % (0-0); Platelet Estimate Normal (Normal); Platelet Morphology Normal (Normal)
--- NOTE | 2018-03-09 12:08 | P.PNIM ---
Subjective Interval history: f/u; left hand infection in no acute distress. pain is fairly controlled. no fever. d/w the RN and no acute issues over night. Physical Exam Vital signs: Last Vital Signs Temp 98.4 F 03/09/18 08:19 Pulse 90 03/09/18 08:19 Resp 16 03/09/18 08:19 BP 103/60 03/09/18 08:19 Pulse Ox 96 03/09/18 08:19 Intake & Output 03/07/18 03/08/18 03/09/18 03/10/18 06:59 06:59 06:59 06:59 Intake Total 2195.0 / 2195.0 2365.0 / 2365.0 2222.5 / 2222.5 300 / 300 Output Total 450 / 450 705 / 705 Balance 1745.0 / 1745.0 1660.0 / 1660.0 2222.5 / 2222.5 300 / 300 Weight 77.8 kg 76.1 kg 76.3 kg Constitutional no acute distress Routine Respiratory Exam Present CTA bilaterally Routine Cardiovascular Exam Present RRR Routine Abdominal Exam Present soft Routine Extremities Exam Comments: left hand covered with clean dressing. Routine Neurological Exam Present alert and oriented X3 Results Labs CBC & Chem 7: 03/09/18 07:09 03/08/18 10:33 Labs: Microbiology 03/07/18 16:13 Wound - Wrist Acid Fast Bacilli Smear - Final No acid fast bacilli seen 03/07/18 16:12 Wound - Wrist Acid Fast Bacilli Smear - Final No acid fast bacilli seen 03/07/18 16:13 Wound - Wrist Fungal Smear - Final No fungal elements seen 03/07/18 16:12 Wound - Wrist Fungal Smear - Final No fungal elements seen 03/07/18 16:12 Wound - Wrist Gram Stain - Final 03/07/18 16:12 Wound - Wrist Wound Culture - Preliminary S. aureus MRSA 03/07/18 16:13 Wound - Wrist Gram Stain - Final 03/07/18 16:13 Wound - Wrist Wound Culture - Preliminary S. aureus MRSA Assessment and Plan Plan Severe sepsis: Elevated WBC>11, HR>100 and Lactic acid>2.0. Source likely 2/2 Cellulitis of forearm of left UE wound culture with MRSA and blood cultures negative so far. continue IV Vancomycin and Zosyn. Cellulitis left forearm, wrist and hand s/p I/D of the left wrist Continue with above antibiotics . CT forearm noted with Superficial soft tissue swelling without a well- defined focal fluid collection MRI left wrist with superficial cellulitis follow the cultures continue with pain control. hand surgery following. Diabetes type II Hold Oral Metformin Start ISS +FSBG monitoring hypokalemia s/p Replacement in the ED, monitor electrolyte Normochromic normocytic anemia Monitor H/H and transfuse accordingly Mild Hyponatremia Monitor Electrolyte DVT prophylaxis: B-SCDs Discharge Planning: when cleared by hand surgery/ pending the cultures. Progress Note: Quality VTE Deep Vein Thrombosis/Pulmonary Embolism Present on Admission: No
[2018-03-10] MEDS: Acetaminophen 325 MG Tablet PO PRN (03:28)
--- NOTE | 2018-03-10 07:06 | P.PNOP ---
Subjective Interval history: States the pain has improved with clean dry dressings intact. Physical Exam Vital signs: Vital Signs 03/09/18 08:19 03/09/18 12:00 03/09/18 16:00 Temperature 98.4 F 98.9 F 101.6 F H Pulse Rate 90 90 108 H Respiratory Rate 16 18 18 Blood Pressure 103/60 106/56 L 166/91 H Pulse Oximetry 96 97 97 03/09/18 17:54 03/09/18 18:25 03/09/18 20:00 Temperature 98.2 F 100.7 F H Pulse Rate 98 H Respiratory Rate 16 Blood Pressure 174/87 H 136/73 Pulse Oximetry 94 L 03/10/18 00:00 03/10/18 04:00 03/10/18 05:43 Temperature 99 F 102.8 F H Pulse Rate 90 117 H Respiratory Rate 16 16 16 Blood Pressure 128/76 159/82 H Pulse Oximetry 97 96 03/10/18 06:11 Temperature 99.7 F H Pulse Rate 90 Respiratory Rate 16 Blood Pressure 134/67 Pulse Oximetry Intake & Output 03/09/18 03/10/18 03/10/18 18:59 06:59 18:59 Intake Total 1140 / 1140 792.5 / 792.5 Balance 1140 / 1140 792.5 / 792.5 Weight 75.1 kg Intake: IV 300 / 300 312.5 / 312.5 Zosyn 3.375 GM Premix 50 ML @ 50 / 50 50 / 50 100 mls/hr IV.SIG Q8H MAE Rx#: [id number] Vancomycin Inj 1,250 MG In NS 250 / 250 262.5 / 262.5 Inj 250 ML @ 250 mls/hr IV.SIG Q12H MAE Rx#:[id number] Oral 840 / 840 480 / 480 Other: # Voids 4 3 Date of Last Bowel Movement 03/09/18 03/09/18 # Bowel Movements 1 Narrative: Left upper extremity: No pain with shoulder elbow range of motion. Dressing taken down which was clean and dry. Incision is well approximated with continued moderate swelling. He has less tenderness over the thenar eminence at the base of the thumb and over the wrist. Distally he has intact sensation of the radial ulnar median nerve distributions with capillary refills. He is able to fully extend his fingers and make a fist Results - Labs CBC & Chem 7: 03/09/18 07:09 03/10/18 04:32 Laboratory Results - last 24 hr 03/09/18 03/09/18 03/09/18 07:00 07:09 11:00 WBC 5.1 RBC 2.85 L Hgb 9.5 L Hct 25.3 L MCV 88.8 MCH 33.1 MCHC 37.3 H RDW 12.1 Plt Count 266 MPV 7.7 Prelim Diff (Auto) Manual diff required WBC Differential Manual diff final Seg Neuts % (Manual) 55 Band Neuts % (Manual) 15 H Lymphocytes % (Manual) 6 L Monocytes % (Manual) 11 H Eosinophils % (Manual) 10 H Basophils % (Manual) 2 Myelocytes % (Man) 1 H Abs Neuts (Manual) 3.6 Differential Comment . Platelet Estimate Normal Platelet Morphology Normal Creatinine Estimated GFR POC Glucose 186 H 189 H 03/09/18 03/09/18 03/10/18 16:24 20:35 04:32 WBC RBC Hgb Hct MCV MCH MCHC RDW Plt Count MPV Prelim Diff (Auto) WBC Differential Seg Neuts % (Manual) Band Neuts % (Manual) Lymphocytes % (Manual) Monocytes % (Manual) Eosinophils % (Manual) Basophils % (Manual) Myelocytes % (Man) Abs Neuts (Manual) Differential Comment Platelet Estimate Platelet Morphology Creatinine 3.14 H Estimated GFR 21 L POC Glucose 133 H 245 H Microbiology 03/07/18 16:13 Wound - Wrist Gram Stain - Final 03/07/18 16:13 Wound - Wrist Wound Culture - Final S. aureus MRSA 03/07/18 16:12 Wound - Wrist Gram Stain - Final 03/07/18 16:12 Wound - Wrist Wound Culture - Final S. aureus MRSA 03/07/18 16:13 Wound - Wrist Acid Fast Bacilli Smear - Final No acid fast bacilli seen 03/07/18 16:12 Wound - Wrist Acid Fast Bacilli Smear - Final No acid fast bacilli seen 03/07/18 16:13 Wound - Wrist Fungal Smear - Final No fungal elements seen 03/07/18 16:12 Wound - Wrist Fungal Smear - Final No fungal elements seen Assessment and Plan - Assessment and Plan 47-year-old gentleman with diabetes who presents status post workplace injury to the left volar wrist. Evaluation is consistent with left upper extremity cellulitis with small, volar wrist puncture wound. Day 2 serous drainage from the wound with no evidence of interval improvement. Daily dressing changes with Xeroform 4 x 4's and Vasiliy wrap. No Jalyn wrap. Antibiotics to be managed by infectious disease Continue to work on full extension and flexion of all fingers and movement of wrist Discharge plan per infectious disease Follow-up appointment with Dr. Sherman or [place] in 2 weeks
[2018-03-10] MEDS ORDERED: Pharmacy Ordered Lab Info OTHER ONE (08:45)
[2018-03-10] MEDS: Senna/Docusate Sodium 8.6/50 MG Tablet PO SCH (08:45)
[2018-03-10 08:52] VITALS: BP 133/70; PULSE 87; RESP 16; TEMP 99.4; O2SAT 98
[2018-03-10] MEDS: Insulin NovoLOG Aspart Correctional Sugar Inj SQ SCH (08:52)
[2018-03-10] MEDS: Vancomycin Inj 1,250 MG in Sodium Chlor 0.9% Inj 250 ML IV.SIG SCH (08:56)
--- NOTE | 2018-03-10 11:07 | P.DS ---
Date of admission: 03/02/18 14:11 Primary care physician: UNKNOWN Brief History from admission: 47-year-old man with a past medical history of diabetes type 2, presented to the ED for evaluation of left wrist and forearm pain and swollen x several days duration. Patient states about 8 days ago he cut his volar left wrist on a piece of steel at work. following that incident, patient did not notice any swelling or redness. However 3-4 days after that, he noted swelling and redness with significant pain. Despite that, patient continues to go to work. Few days ago, he noted some worsening induration with pus production. he has subjective fevers. DS: Diagnosis - Discharge Diagnosis (1) Abscess of bursa of left wrist Status: Acute (2) Cellulitis of forearm, left Status: Acute (3) Sepsis Status: Acute DS: Medications - Discharge Medications Prescriptions: clindamycin HCl [Cleocin HCl] 300 mg PO TID #30 cap famotidine [Acid Controller] 10 mg PO DAILY #30 tab ibuprofen 400 mg PO Q6H PRN #30 tab PRN Reason: Pain Scale 1 To 2 Lactobacillus acidoph-L.bulgar [Lactinex] 1 tab PO DAILY #30 tab DS: Summary Hospital Course: The patient presented with severe sepsis: Elevated WBC>11, HR>100 and Lactic acid>2.0. Source likely 2/2 Cellulitis of forearm of left UE wound culture with MRSA and blood cultures negative, received IV Vancomycin and Zosyn. Antibiotics changed to p.o. clindamycin discharge patient home. Patient is to follow-up with Dr. Sherman as outpatient Cellulitis left forearm, wrist and hand s/p I/D of the left wrist Continue with above antibiotics . CT forearm noted with Superficial soft tissue swelling without a well- defined focal fluid collection MRI left wrist with superficial cellulitis follow the cultures continue with pain control. hand surgery following. Diabetes type II Hold Oral Metformin Start ISS +FSBG monitoring hypokalemia s/p Replacement in the ED, monitor electrolyte Normochromic normocytic anemia Monitor H/H and transfuse accordingly Mild Hyponatremia Monitor Electrolyte DVT prophylaxis: B-SCDs The patient improved, cleared by consultants for discharge. Discharge home in stable condition to follow-up with PCP and consultants as outpatient. - Time Spent with Patient Total time spent providing and/or coordinating discharge services: Greater than 30 minutes - Quality: VTE Deep Vein Thrombosis/Pulmonary Embolism Present on Admission: No Exam Vital signs: Vital Signs 03/09/18 12:00 03/09/18 16:00 03/09/18 17:54 Temperature 98.9 F 101.6 F H Pulse Rate 90 108 H Respiratory Rate 18 18 Blood Pressure 106/56 L 166/91 H 174/87 H Pulse Oximetry 97 97 03/09/18 18:25 03/09/18 20:00 03/10/18 00:00 Temperature 98.2 F 100.7 F H 99 F Pulse Rate 98 H 90 Respiratory Rate 16 16 Blood Pressure 136/73 128/76 Pulse Oximetry 94 L 97 03/10/18 04:00 03/10/18 05:43 03/10/18 06:11 Temperature 102.8 F H 99.7 F H Pulse Rate 117 H 90 Respiratory Rate 16 16 16 Blood Pressure 159/82 H 134/67 Pulse Oximetry 96 03/10/18 08:00 Temperature 99.4 F Pulse Rate 87 Respiratory Rate 16 Blood Pressure 133/70 Pulse Oximetry 98 Intake & Output 03/09/18 03/10/18 03/10/18 18:59 06:59 18:59 Intake Total 1140 / 1140 792.5 / 792.5 Balance 1140 / 1140 792.5 / 792.5 Weight 75.1 kg Intake: IV 300 / 300 312.5 / 312.5 Zosyn 3.375 GM Premix 50 ML @ 50 / 50 50 / 50 100 mls/hr IV.SIG Q8H MAE Rx#: [id number] Vancomycin Inj 1,250 MG In NS 250 / 250 262.5 / 262.5 Inj 250 ML @ 250 mls/hr IV.SIG Q12H MAE Rx#:[id number] Oral 840 / 840 480 / 480 Other: # Voids 4 3 Date of Last Bowel Movement 03/09/18 03/09/18 # Bowel Movements 1 Narrative: GENERAL: Pleasant 47 yo male, in nad. CARDIOVASCULAR: Regular rate and rhythm without murmurs, gallops, or rubs. RESPIRATORY: Breath sounds equal bilaterally. No accessory muscle use. GASTROINTESTINAL: Abdomen soft, non-tender, nondistended. MUSCULOSKELETAL: Left arm wrapped dressing c/d/di. Neurovascular intact. No cyanosis, or edema. BACK: Nontender without obvious deformity. No CVA tenderness. Results Procedures completed during hospitalization: Irrigation and debridement of left wrist abscess 03/07/[address] Sherman Labs on day of discharge: Labs from last 24 hours 03/10/18 03/10/18 03/10/18 09:00 08:44 04:32 Creatinine 3.14 H Estimated GFR 21 L POC Glucose 124 H Vancomycin Trough 46.2 H 03/09/18 03/09/18 03/09/18 20:35 16:24 11:00 Creatinine Estimated GFR POC Glucose 245 H 133 H 189 H Vancomycin Trough - Impressions ITS Impressions Forearm CT 03/02/18 11:18 CONCLUSION: Superficial soft tissue swelling without a well-defined focal fluid collection to suggest abscess. This is likely from cellulitis. Wrist MRI 03/03/18 10:55 CONCLUSION: 1. Findings with be consistent with a superficial cellulitis involving the palmar or ventral aspect of the forearm and hand. 2. The flexor compartment so far is uninvolved. Discharge Plan - Discharge Disposition Patient Disposition: 01 Discharge Home - Discharge Condition Condition: Stable - Discharge Order Discharge Orders: Discharge Order (Routine); Ordered 03/10/18 Ordered By: Kimi Vidal ED Use Only Admit Order (Routine); Ordered 03/02/18 Ordered By: Jon Campbell - Discharge Details Anticipated Discharge Date: 03/10/18 - Physicians Team Primary Care Provider: UNKNOWN, Attending Provider: Kimi Vidal Other Providers: Chuy Rodriguez MD ; Alexus Vaughan ; Tio Sherman MD
== END 2018-03-10 13:17 | disposition home or self-care (01) ==
LOC: NEPE 09:27 → NEDA 14:11 → N07 15:42
PROVIDERS: ADMIT Hospitalist; ATTEND Hospitalist